=== PATIENT | female | born 1940 | race Caucasian/White ===

== ENCOUNTER → 2017-11-17 10:55 | Outpatient (CLI) | payer MEDICARE, SELFPAY ==
--- NOTE | 2017-11-17 10:57 | DI.RAD.S_ITS ---
PROCEDURE: XR CHEST 2V INDICATIONS: cough TECHNIQUE: 2 views of the chest were acquired. COMPARISON: None. FINDINGS: Surgical changes and devices: None. Lungs and pleura: No pleural effusions or pneumothorax. Lungs are clear. Mediastinum: Mediastinal contours are normal. Heart size is normal. Bones and chest wall: No suspicious bony abnormalities. Soft tissues appear unremarkable. IMPRESSION: No acute cardiopulmonary disease process. Dictated by: Awa Neff MD, PhD on 11/17/2017 at 11:27 Approved by: Awa Neff MD, PhD on 11/17/2017 at 11:27
== END ==
PROVIDERS: Visit Provider Physician Assistant
DX: R05 Cough (principal)
CPT/HCPCS: 71046

== ENCOUNTER 2019-11-27 13:14 | Emergency (ER) | payer MEDICARE, SELFPAY ==
[2019-11-27 13:25] VITALS: BP 196/80; PULSE 68; RESP 16; TEMP 37.2; O2SAT 99
--- NOTE | 2019-11-27 13:31 | ED.WOUNDLAC ---
HPI - Wound/Laceration General Chief Complaint: Wound/Laceration Stated Complaint: fall, wound under her chin,on thinners Time Seen by Provider: 11/27/19 13:20 Source: patient Mode of arrival: Ambulatory Limitations: no limitations History of Present Illness HPI narrative: Patient is a 79-year-old female who presents with chin laceration. She had a trip and fall is all landing on her chin. She is on Eliquis for atrial fibrillation she did not hit her head or lose consciousness. She has no neck pain no numbness tingling or week nose no other injuries. Onset (ago): minute(s) Location: face Place: outdoors Related Data Home Medications Medication Instructions Recorded Confirmed hydroxychloroquine 200 mg tablet 200 mg PO DAILY tab 10/17/17 11/27/19 omega 4-kvq-dug-fish oil 1,000 mg cap PO cap 10/17/17 11/17/17 (120 mg-180 mg) capsule omeprazole 10 mg capsule,delayed 20 mg PO DAILY 10/17/17 11/27/19 release prednisone 1 mg tablet 1 mg PO DAILY 10/17/17 11/27/19 amitriptyline 11/27/19 apixaban [Eliquis] mg 11/27/19 losartan 11/27/19 metoprolol tartrate 11/27/19 simvastatin mg 11/27/19 Allergies Allergy/AdvReac Type Severity Reaction Status Date / Time codeine [CODEINE] AdvReac Unknown Vomiting Verified 11/27/19 13:30 oyster extract AdvReac Diarrhea Verified 11/27/19 13:30 Review of Systems Review of Systems Narrative: GENERAL: Denies chills,fever HEENT: Denies throat pain RESPIRATORY: Denies dyspnea, cough, wheezing CARDIOVASCULAR: Denies chest pain, palpitations GASTROINTESTINAL: Denies nausea, vomiting MUSCULOSKELETAL: Denies extremity pain, injury SKIN: See HPI NEUROLOGIC: Denies weakness, dizziness, headache, numbness, LOC 8 point review of systems is negative except for those stated above and HPI Patient History Medical History Multiple sclerosis (Acute) Sjogren's disease (Acute) Social History Smoking Status: Former smoker Smoking Status: Former smoker alcohol intake frequency: a few times a week Substance Use Type: does not use Exam Initial Vital Signs Initial Vital Signs: Vital Signs Temperature 99 F 11/27/19 13:25 Pulse Rate 68 11/27/19 13:25 Respiratory Rate 16 11/27/19 13:25 Blood Pressure 196/80 H 11/27/19 13:25 Pulse Oximetry 99 11/27/19 13:25 GENERAL: Well-appearing, well-nourished and in no acute distress. HEENT: Head atraumatic,EOMI, pupils reactive, face symmetric, moist mucous membranes CARDIOVASCULAR: Regular rate and rhythm without murmurs, rubs or gallops. RESPIRATORY: Breath sounds equal bilaterally, no wheezes rales or rhonchi. ABDOMEN: Soft, nontender. Normoactive bowel sounds all 4 quadrants. No guarding or rebound. EXTREMITIES: Normal range of motion, no clubbing or edema. Neurovascularly intact NEUROLOGICAL: Alert and oriented x4.Normal gait and speech. SKIN: 2 cm chin laceration good skin approximation Procedures Laceration Repair Laceration 1: Site: face Size (cm): 2 Description: linear Depth: simple, single layer Local Anesthetic: lidocaine 1% and with epi Amount of anesthesia used (mL): 3 Pre-repair: wound explored, irrigated extensively and deep structures intact Skin layer closed with: nylon Size (cm): 4-0 Number of sutures: 3 Technique: simple, interrupted Scores Nexus Score for C-Spine Focal Neurologic deficit present: No Midline spinal tenderness present: No Altered level of conciousness present: No Intoxication present: No Distracting Injury Present: No Nexus Criteria for C-spine: 0 Course Orders Ordered: Discontinued Medications Diphtheria/Tetanus/Acell Pertussis (Adacel) 0.5 ml IM .ONCE ONE Stop: 11/27/19 13:33 Last Admin: 11/27/19 13:37 Dose: 0.5 ml Documented by: KYLEE Lidocaine/Epinephrine (Xylocaine 1% W/Epi) 1 ml SUBCUT NOW ONE Stop: 11/27/19 13:32 Last Admin: 11/27/19 13:37 Dose: 1 ml Documented by: KYLEE Vital Signs Vital signs: Vital Signs - 8 hr 11/27/19 13:25 11/27/19 14:30 Temperature 99 F Pulse Rate 68 63 Respiratory Rate 16 Blood Pressure 196/80 H 154/69 H Pulse Oximetry 99 100 MDM - Wound/Laceration MDM Narrative Medical decision making narrative: Patient did not hit her head she only hit her chin where she has an obvious laceration. No loss of consciousness no neck pain. At this time no need for any imaging despite being on Eliquis. Patient tolerated suturing well in laceration came together nicely. Discharge Plan Departure Patient Disposition: Home Clinical Impression: Chin laceration Qualifiers: Encounter type: initial encounter Qualified Code(s): S01.81XA - Laceration without foreign body of other part of head, initial encounter Discharge Date/Time: 11/27/19 14:31 Instructions: DI for Laceration Repair Activity Restrictions/Additional Instructions: 1. Have your suture removed in 5-7 days, you may go to walk-in clinic, return to the ER or call your primary care physician. 2. No soaking in water including dishes, bathtubs, Lakes, swimming pools etc 3. Signs of infection include, but not limited to, increased redness, increased swelling, increased pain, fever and purulent drainage, if the symptoms should arise, you may need an antibiotic and you should have a reevaluation either by your primary care provider or by the emergency department. Prescriptions: No Action prednisone 1 mg tablet 1 mg PO DAILY RF: 0 hydroxychloroquine 200 mg tablet 200 mg PO DAILY RF: 0 omeprazole 10 mg capsule,delayed release(DR/EC) 20 mg PO DAILY RF: 0 omega 2-kat-vms-fish oil [Fish Oil] 1,000 mg (120 mg-180 mg) capsule PO RF: 0 amitriptyline 25 mg tablet RF: 0 Eliquis 5 mg tablet RF: 0 losartan 100 mg tablet RF: 0 metoprolol tartrate 50 mg tablet RF: 0 simvastatin 20 mg tablet RF: 0 Referrals: [facility] [Outside]
[2019-11-27] MEDS: TET,DIPH,PERTUSS(ACELL),VAC/PF 0.5 ML SYRINGE IM (13:37)
[2019-11-27] MEDS: LIDOCAINE 1% W/EPI 1 ML SUBCUT (13:37)
[2019-11-27 14:30] VITALS: BP 154/69; PULSE 63; O2SAT 100
== END 2019-11-27 14:31 | disposition home or self-care (01) ==
PROVIDERS: Emergency Provider Emergency Medicine
DX: S01.81XA Laceration without foreign body of other part of head, initial encounter (principal); W19.XXXA Unspecified fall, initial encounter; I48.91 Unspecified atrial fibrillation; Z79.01 Long term (current) use of anticoagulants; Z23 Encounter for immunization
CPT/HCPCS: 12011; 90471; 99283; 90715

== ENCOUNTER 2020-01-31 16:02 | Inpatient (IN) | payer MEDICARE, SELFPAY ==
[2020-01-31] VITALS (23 sets, daily range): BP systolic 90–179; BP diastolic 46–100; PULSE 102–128; RESP 14–32; TEMP 36.4–37.2; O2SAT 79–100; BMI 27.3
--- NOTE | 2020-01-31 | DI.ECHO.S_ITS ---
[place] +---------+ [facility] +---------+ : : [address] : : : : [id number] : : : : Phone: [phone] Echocardiogram Report + + :Name: CARLIE KELLY Study Date: 02/01/2020 Height: 62 in : :[facility] Weight: 153 lb : : Gender: Female BSA: 1.7 m2 : :: 1940 Age: 79 yrs BP: 149/100 mmHg: :Reason For Study: AFIB RVR : : Performed By: Edson Redd : :Referring: CONRAD MORELOS : + + Interpretation Summary Afib with RVR. Normal LV size and wall thickness. Normal wall motion and LV systolic function. EF is 60-65%. Severe LA enlargement; mild-moderate RA enlargement. There is moderate central TR; otherwise no significant valvular abnormalities. No prior study available for comparison. Procedure: A two-dimensional transthoracic echocardiogram with color flow and Doppler was performed. The study quality was technically good. There is no prior echocardiogram noted for this patient. The patient was in atrial fibrillation with controlled ventricular rate during the exam. The patient had a heart rate of 87-113 beats per minute. Left Ventricle: The left ventricle is normal in size. There is normal left ventricular wall thickness. The ejection fraction is estimated to be 60-65%. There are no focal wall motion abnormalities. Right Ventricle: The right ventricle is normal in size and function. Atria: The left atrium is severely dilated. The right atrium is mild to moderately dilated. The interatrial septum is intact with no evidence for an atrial septal defect. Mitral Valve: There is mild mitral annular calcification. There is mild mitral regurgitation. Aortic Valve: The aortic valve is trileaflet. The aortic valve opens well. No aortic regurgitation is present. Tricuspid Valve: The tricuspid valve is normal in structure and function. There is moderate tricuspid regurgitation. The right ventricular systolic pressure is estimated to be at least 26 mmHg based on an estimated right atrial pressure of 3 mm Hg. Pulmonic Valve: The pulmonic valve is normal in structure and function. There is trace pulmonic regurgitation. Great Vessels: The aortic root is normal size. The dimensions of the ascending aorta are normal. The pulmonary artery is normal size. The IVC is of normal diameter and collapses greater than 50% with a sniff. This suggests a low right atrial pressure of 3 mm Hg. Pericardium/ Pleura There is no pericardial effusion. There is no pleural effusion. MMode/2D Measurements & Calculations LVIDd: 4.0 cm LVOT diam: 1.8 cm LVIDs: 2.5 cm Ao root diam: 2.4 cm FS: 37.7 % asc Aorta Diam: 3.0 cm EPSS: 0.14 cm Ao Arch Diam (Prox Trans): 2.1 cm IVSd: 0.87 cm LVPWd: 0.89 cm LV cho. diameter/BSA (cm/m^2): 2.4 LV sys. diameter/BSA (cm/m^2): 1.5 LA dimension: 3.9 cm RA long axis: 5.4 cm LA A2 area: 25.8 cm2 RA area: 20.9 cm2 LA A4 area: 27.0 cm2 RA vol: 68.3 ml LA length (vol): 6.4 cm RA : 40.0 ml/m2 LA vol: 93.1 ml IVC diam: 0.76 cm LA vol index: 54.6 ml/m2 TAPSE: 1.7 cm Doppler Measurements & Calculations Ao V2 max: 97.0 cm/sec LVOT Max Dimitry: 66.9 cm/sec Ao V2 mean: 73.1 cm/sec LV V1 max P.8 mmHg Ao max P.8 mmHg LV V1 VTI: 14.7 cm Ao mean P.3 mmHg SARAY(I,D): 2.3 cm2 Ao V2 VTI: 17.1 cm SARAY(V,D): 1.8 cm2 sev ratio: 0.86 SARAY indexed to BSA (cm^2/m^2): 1.3 MV E max dimitry: 99.0 cm/sec TR max dimitry: 239.0 cm/sec MV A max dimitry: 2.2 cm/sec TR max P.9 mmHg MV E/A: 45.9 PA V2 max: 64.5 cm/sec Med Peak E' Dimitry: 6.2 cm/sec PA V2 mean: 49.9 cm/sec E/E' med: 16.0 PA mean P.1 mmHg Lat Peak E' Dimitry: 10.7 cm/sec PA pr(Accel): 43.0 mmHg E/E' lat: 9.3 E/e' average: 12.7 MV dec time: 0.12 sec MR PISA: 1.3 cm2 SV(LVOT): 38.5 ml MR flow rate: 47.6 cm3/sec MR PISA radius: 0.45 cm Electronically signed by: Isha Bhakta M.D. on Reading Physician:02/01/2020 05:46 PM
--- NOTE | 2020-01-31 16:13 | DI.RAD.S_ITS ---
PROCEDURE: XR CHEST 1V INDICATIONS: chest pain TECHNIQUE: One view of the chest was acquired. COMPARISON: [facility], CR, XR CHEST 2V, 11/17/2017, 10:43. FINDINGS: Surgical changes and devices: None. Lungs and pleura: Lungs are clear. No pleural effusions or pneumothorax. Mediastinum: Mediastinal contours appear normal. Heart size is normal. Bones and chest wall: No suspicious bony lesions. Overlying soft tissues appear unremarkable. IMPRESSION: 1. No acute cardiopulmonary disease. Dictated by: Iban Frost M.D. on 01/31/2020 at 15:56 Approved by: Iban Frost M.D. on 01/31/2020 at 15:56
[2020-01-31] MEDS: SODIUM CHLORIDE 0.9% 500 ML 1000 ML IV (16:39)
[2020-01-31 16:41] LABS: Add Manual Diff / Slide Review NO; Basophils Absolute Auto 0 /uL (0-100); Basophils Percent Auto 0.5 % (0-2); Eosinophils Absolute Auto 0 /uL (0-450); Eosinophils Percent Auto 0.5 % (2-4); Hematocrit 38.2 % (36-46); Hemoglobin 12.8 g/dL (12.0-16.0); Lymphocytes Absolute Auto 2200 /uL (1100-4500); Lymphocytes Percent Auto 25.5 % (25-40); Mean Corpuscular HGB Conc 33.4 % (30-36); Mean Corpuscular Hemoglobin 29.8 PG (26-34); Mean Corpuscular Volume 89.3 fL (80-100); Monocytes Absolute Auto 500 /uL (0-900); Monocytes Percent Auto 5.3 % (3-14); Neutrophils Absolute Auto 6000 /uL (1500-7000); Neutrophils Percent Auto 68.2 % (50-75); Platelet Count 269 X10^3/uL (150-400); Red Blood Cell Count 4.28 X10^6/uL (4.0-5.2); Red Cell Distribution Width 13.1 % (11.6-14.8); White Blood Cell Count 8.8 X10^3/uL (4.5-11.0)
[2020-01-31 16:47] LABS: INR 1.3 (0.9-1.3); Prothrombin Time 14.6 SECONDS (10.1-12.7)
[2020-01-31 16:49] LABS: PTT Partial Thromboplastin Tim 36 SECONDS (26.4-36.2)
[2020-01-31 16:54] LABS: Alanine Aminotransferase 31 IU/L (<35); Albumin 4.7 g/dL (3.5-5.0); Albumin Globulin Ratio 1.6 (1.0-2.8); Alkaline Phosphatase 62 U/L (38-126); Aspartate Aminotransferase 44 IU/L (14-36); Bilirubin Total 0.6 mg/dL (0.2-1.3); Blood Urea Nitrogen 24 mg/dL (7-17); Calcium 9.4 mg/dL (8.4-10.2); Carbon Dioxide 26 mmol/L (22-32); Chloride 100 mmol/L (98-107); Creatine Kinase 581 U/L (30-135); Estimated Glomerular Filt Rate 48.7 mL/min (>60); Globulin 2.9 g/dL (1.7-4.1); Glucose 114 mg/dL (80-110); HEMOLYSIS < 15 (0-50); Lipase 105 U/L (23-300); Potassium 3.7 mmol/L (3.4-5.1); Sodium 136 mmol/L (137-145); Total Protein 7.6 g/dL (6.3-8.2)
[2020-01-31 17:05] LABS: Troponin I < 0.012 ng/mL (0.01-0.034)
[2020-01-31 17:09] LABS: CKMB % Relative Index 2.2 % (1.5-5.0)
[2020-01-31 17:16] LABS: NT-proBNP (BNP-Adult 18+) 2520 pg/mL (<450)
[2020-01-31] MEDS: METOPROLOL TARTRATE 5 MG/5 ML INJ IV (17:45)
[2020-01-31] MEDS: SODIUM CHLORIDE 0.9% 1,000 ML 125 ML IV (17:46)
--- NOTE | 2020-01-31 17:49 | ED.ARRPALP ---
HPI - Arrhythmia/Palpitations <Deannecaroline Shultz, DO - Last Filed: 02/06/20 18:02> General Chief Complaint: Arrhythmia/Palpitations Stated Complaint: possible afib Time Seen by Provider: 01/31/20 16:47 Source: patient Mode of arrival: Family Vehicle Limitations: no limitations History of Present Illness HPI narrative: 79-year-old female comes to the emergency department with complaint of presyncope x2, patient states the 1st episode was at 2:00 p.m. this afternoon. She felt lightheaded and then had almost a blackout episode but states she did not lose consciousness. She started drinking water, checked her blood pressure which was up and down and noted her heart rate on machine was also up and down. She denies any palpitations, no chest pain or shortness of breath, she states she just did not feel well this morning. She denies any fevers, chills, no cough cold or congestion. No swelling in her extremities. She has had some mild sore throat. She did feel dizzy after both per syncopal episodes. She has a history of atrial fibrillation which is diagnosed 9 months ago she has been taking Eliquis and metoprolol daily since then with no issues or breakthrough? in her atrial fibrillation. She states she has been diagnosed with MS as well as rheumatoid arthritis and Sjogren's and Raynaud's and takes medications including hydrochloroquine, prednisone, Plaquenil, losartan, amitriptyline and simvastatin daily for this. She has a history of hysterectomy, surgery in her foot, she had a catheter many years ago but has not had any recent catheterizations. Denies tobacco occasional alcohol no illicit. She moved to the area from [place] and has not established with a PCP she does have an appointment pending with Dr. Wahl the community health director locally. Related Data Home Medications Medication Instructions Recorded Confirmed omeprazole 10 mg capsule,delayed 20 mg PO DAILY 10/17/17 01/31/20 release prednisone 1 mg tablet 1 mg PO BID 10/17/17 01/31/20 Eliquis 5 mg PO BID 11/27/19 01/31/20 metoprolol tartrate 50 mg PO BID 11/27/19 01/31/20 simvastatin 20 mg PO BEDTIME 11/27/19 01/31/20 Previous Rx's Medication Instructions Recorded amiodarone 400 mg PO BIDWM #70 tab 10/14/20 metoprolol succinate 50 mg PO DAILY #30 each 02/06/20 Allergies Allergy/AdvReac Type Severity Reaction Status Date / Time codeine [CODEINE] AdvReac Unknown Vomiting Verified 11/27/19 13:30 oyster extract AdvReac Diarrhea Verified 11/27/19 13:30 Review of Systems <Deanne Shultz DO - Last Filed: 02/06/20 18:02> Review of Systems ROS Unobtainable: All systems reviewed & are unremarkable except as noted in HPI and below Patient History <Deanne Shultz DO - Last Filed: 02/06/20 18:02> Medical History Atrial fibrillation (Acute) Multiple sclerosis (Acute) Rheumatoid arthritis (Acute) Sjogren's disease (Acute) Surgical History History of foot surgery (Acute) History of hysterectomy (Acute) Family History Father Cardiomyopathy Diabetes mellitus Alzheimer's dementia Mother Cancer Brother Coronary artery disease Hx of CABG Social History household members: none Smoking Status: Former smoker alcohol intake: current Smoking Status: Former smoker alcohol intake frequency: a few times a week Substance Use Type: does not use Exam <Deanne Shultz DO - Last Filed: 02/06/20 18:02> Narrative Exam Narrative: GENERAL: Alert and oriented x three, well-nourished, well-appearing female in mild distress. HEENT: Head normocephalic, atraumatic, EOMI, pupils reactive, face symmetric, moist mucous membranes NECK: Supple, full range of motion CARDIOVASCULAR: Irregularly irregular rate and rhythm without murmurs, rubs or gallops. No JVD, no edema bilateral lower extremities. RESPIRATORY: Breath sounds equal bilaterally, no wheezes rales or rhonchi. ABDOMEN: Soft, nontender. Normoactive bowel sounds all 4 quadrants. No guarding or rebound, rigidity, no mass : No CVA tenderness EXTREMITIES: Normal range of motion, no clubbing or edema. Neurovascularly intact NEUROLOGICAL: Cranial nerves II through XII grossly intact. Moving all extremities SKIN: Warm, dry, no petechiae, no rashes or lesions. Initial Vital Signs Initial Vital Signs: Vital Signs Temperature 98.5 F 01/31/20 16:11 Pulse Rate 116 H 01/31/20 16:11 Respiratory Rate 18 01/31/20 16:11 Blood Pressure 179/95 H 01/31/20 16:11 Pulse Oximetry 98 01/31/20 16:11 <Mckayla Vasquez MD - Last Filed: 02/01/20 02:57> Initial Vital Signs Initial Vital Signs: Vital Signs Temperature 98.5 F 01/31/20 16:11 Pulse Rate 116 H 01/31/20 16:11 Respiratory Rate 18 01/31/20 16:11 Blood Pressure 179/95 H 01/31/20 16:11 Pulse Oximetry 98 01/31/20 16:11 Course <Deanne Shultz DO - Last Filed: 02/06/20 18:02> Orders Ordered: Discontinued Medications Acetaminophen (Tylenol) 650 mg PO Q6HR PRN PRN Reason: Fever/Mild Pain (1-3) Last Admin: 02/01/20 06:12 Dose: 650 mg Documented by: AHARSTA Al Hydrox/Mg Hydrox/Simethicone (Maalox Plus) 30 ml PO Q6HR PRN PRN Reason: Dyspepsia Amiodarone HCl (Cordarone) 200 mg PO BIDWM [facility] Last Admin: 02/03/20 08:44 Dose: 200 mg Documented by: Admin: 02/03/20 06:07 Dose: 200 mg Documented by: MALIK Amitriptyline HCl (Elavil) 25 mg PO NOW ONE Stop: 01/31/20 19:59 Last Admin: 01/31/20 20:46 Dose: 25 mg Documented by: ROSELIA Amitriptyline HCl (Elavil) 25 mg PO BEDTIME [facility] Last Admin: 02/03/20 01:13 Dose: Not Given Documented by: Admin: 02/01/20 20:55 Dose: 25 mg Documented by: JEAN PAUL Apixaban (Eliquis) 5 mg PO NOW ONE Stop: 01/31/20 19:59 Last Admin: 01/31/20 20:46 Dose: 5 mg Documented by: ROSELIA Apixaban (Eliquis) 5 mg PO BID [facility] Apixaban (Eliquis) 5 mg PO BID [facility] Last Admin: 02/03/20 08:44 Dose: 5 mg Documented by: Admin: 02/02/20 19:44 Dose: 5 mg Documented by: Admin: 02/02/20 09:07 Dose: 5 mg Documented by: Admin: 02/01/20 20:55 Dose: 5 mg Documented by: JEAN PAUL Admin: 02/01/20 08:10 Dose: 5 mg Documented by: PATRICIO Bisacodyl (Dulcolax) 10 mg NC DAILY PRN PRN Reason: Constipation Calcium Carbonate (Tums) 1,000 mg PO Q4HR PRN PRN Reason: Dyspepsia Docusate Sodium (Colace) 100 mg PO BID PRN PRN Reason: Constipation Furosemide (Lasix) 20 mg IV NOW ONE Stop: 01/31/20 19:59 Last Admin: 01/31/20 20:46 Dose: 20 mg Documented by: ROSELIA Hydroxychloroquine Sulfate (Plaquenil) 200 mg PO NOW ONE Stop: 01/31/20 19:59 Last Admin: 01/31/20 20:46 Dose: 200 mg Documented by: ROSELIA Hydroxychloroquine Sulfate (Plaquenil) 200 mg PO BID [facility] Last Admin: 02/03/20 08:44 Dose: 200 mg Documented by: Admin: 02/02/20 19:44 Dose: 200 mg Documented by: Admin: 02/02/20 09:07 Dose: 200 mg Documented by: Admin: 02/01/20 20:55 Dose: 200 mg Documented by: JEAN PAUL Admin: 02/01/20 08:10 Dose: 200 mg Documented by: PATRICIO Sodium Chloride (Normal Saline 0.9%) 500 mls @ 1,000 mls/hr IV BOLUS ONE Stop: 01/31/20 17:04 Last Infusion: 01/31/20 17:17 Dose: 0 mls/hr Documented by: Admin: 01/31/20 16:39 Dose: 1,000 mls/hr Documented by: INDUIN Sodium Chloride (Normal Saline 0.9%) 1,000 mls @ 125 mls/hr IV CONT [facility] Last Infusion: 01/31/20 21:07 Dose: 0 mls/hr Documented by: Admin: 01/31/20 17:46 Dose: 125 mls/hr Documented by: ELIECERARTIN Amiodarone HCl/Dextrose (Nexterone) 360 mg in 200 mls @ 33.333 mls/hr IV NOW ONE; Protocol Stop: 02/01/20 23:24 Last Titration: 02/01/20 23:55 Dose: 16.7 mls/hr, 16.7 mls/hr Documented by: Admin: 02/01/20 19:24 Dose: 33.33 mls/hr, 33.333 mls/hr Documented by: JEAN PAUL Amiodarone HCl/Dextrose (Nexterone) 541 mg in 300.56 mls @ 16.7 mls/hr IV CONT [facility]; Protocol Stop: 03/03/20 17:25 Last Titration: 02/02/20 12:20 Dose: 0 mls/hr, 0 mls/hr Documented by: Admin: 02/02/20 01:23 Dose: 16.7 mls/hr, 16.7 mls/hr Documented by: PHIL Sodium Chloride (Normal Saline 0.9%) 1,000 mls @ 84 mls/hr IV CONT [facility] Last Admin: 02/02/20 11:03 Dose: 84 mls/hr Documented by: SPRING Influenza Virus Vaccine (Flu Hd Vaccine) 0.7 ml IM .ONCE ONE Stop: 02/01/20 09:01 Last Admin: 02/01/20 09:38 Dose: 0.7 ml Documented by: CPETRIC Metoprolol Tartrate (Lopressor) 5 mg IV NOW ONE Stop: 01/31/20 17:38 Last Admin: 01/31/20 17:45 Dose: 5 mg Documented by: RMARTIN Metoprolol Tartrate (Lopressor) 50 mg PO NOW ONE Stop: 01/31/20 19:59 Last Admin: 01/31/20 20:26 Dose: 50 mg Documented by: RSTONE Metoprolol Tartrate (Lopressor) 25 mg PO BID [facility] Last Admin: 01/31/20 21:29 Dose: Not Given Documented by: CGIBSON Metoprolol Tartrate (Lopressor) 5 mg IV Q6H [facility] Last Admin: 01/31/20 21:33 Dose: Not Given Documented by: TWIN Metoprolol Tartrate (Lopressor) 5 mg IV Q6H PRN PRN Reason: HR wrist sustained > 120 Metoprolol Tartrate (Lopressor) 50 mg PO BID [facility] Metoprolol Tartrate (Lopressor) 50 mg PO BID [facility] Last Admin: 02/01/20 06:04 Dose: 50 mg Documented by: HERBERT Metoprolol Tartrate (Lopressor) 75 mg PO BID [facility] Metoprolol Tartrate (Lopressor) 25 mg PO BID [facility] Last Admin: 02/03/20 08:44 Dose: 25 mg Documented by: Admin: 02/02/20 19:44 Dose: 25 mg Documented by: Admin: 02/02/20 11:10 Dose: 25 mg Documented by: SPRING Metoprolol Tartrate (Lopressor) 25 mg PO NOW ONE Stop: 02/03/20 10:20 Last Admin: 02/03/20 11:05 Dose: 25 mg Documented by: SPRING Metoprolol Tartrate (Lopressor) 25 mg PO NOW ONE Stop: 02/03/20 12:32 Last Admin: 02/03/20 12:57 Dose: 25 mg Documented by: PINO Naloxone HCl (Narcan) 0.2 mg IV Q2MIN PRN PRN Reason: Opiate Reversal Naloxone HCl (Narcan) 0.2 mg IV Q2MIN PRN PRN Reason: Opiate Reversal Non-Formulary Medication (Patient's Own Medication) 0 each PO PRN PRN PRN Reason: HOME MEDICATION STORAGE Ondansetron HCl (Zofran) 4 mg IV Q8HR PRN PRN Reason: Nausea And Vomiting Pantoprazole Sodium (Protonix) 20 mg PO DAILY [facility] Last Admin: 02/03/20 08:44 Dose: 20 mg Documented by: Admin: 02/02/20 09:07 Dose: 20 mg Documented by: Admin: 02/01/20 08:10 Dose: 20 mg Documented by: PATRICIO Potassium Chloride (Klor-Con M20) 40 meq PO NOW ONE Stop: 01/31/20 21:20 Last Admin: 01/31/20 22:21 Dose: 40 meq Documented by: TWIN Prednisone (Deltasone) 1 mg PO NOW ONE Stop: 01/31/20 20:10 Last Admin: 01/31/20 20:46 Dose: 1 mg Documented by: ROSELIA Prednisone (Deltasone) 1 mg PO BID [facility] Admin: 02/03/20 08:44 Dose: 1 mg Documented by: Admin: 02/02/20 19:45 Dose: 1 mg Documented by: Admin: 02/02/20 09:07 Dose: 1 mg Documented by: Admin: 02/01/20 20:55 Dose: 1 mg Documented by: JEAN PAUL Admin: 02/01/20 09:35 Dose: 1 mg Documented by: PATRICIO Simvastatin (Zocor) 20 mg PO BEDTIME [facility] Last Admin: 02/02/20 19:45 Dose: 20 mg Documented by: Admin: 02/01/20 20:55 Dose: 20 mg Documented by: JEAN PAUL Sodium Chloride (Normal Saline 0.9% Flush) 10 ml IV BID [facility] Last Admin: 02/03/20 08:44 Dose: 10 ml Documented by: Admin: 02/02/20 19:51 Dose: Not Given Documented by: Admin: 02/02/20 09:07 Dose: 10 ml Documented by: Admin: 02/01/20 21:02 Dose: 10 ml Documented by: JEAN PAUL Admin: 02/01/20 08:10 Dose: 10 ml Documented by: Admin: 01/31/20 23:42 Dose: Not Given Documented by: HERBERT Sodium Chloride (Normal Saline 0.9% Flush) 10 ml IV PRN PRN PRN Reason: Flush Vital Signs Vital signs: Vital Signs - 8 hr 01/31/20 19:00 01/31/20 19:15 01/31/20 19:30 Pulse Rate 119 H 116 H 103 H Respiratory Rate 19 24 21 Blood Pressure 148/87 H 145/92 H Pulse Oximetry 99 100 100 01/31/20 19:42 01/31/20 20:00 Pulse Rate 120 H 108 H Respiratory Rate 24 14 Blood Pressure 169/81 H Pulse Oximetry 99 <Mckayla Vasquez MD - Last Filed: 02/01/20 02:57> Course Course Narrative: 79-year-old woman, recently moved to the area with no established primary care physician presents with 3 episodes of near-syncope today that seem to be related to atrial fibrillation. She was diagnosed with atrial fibrillation approximately a year ago and has been taking 50 mg of metoprolol tartrate at bedtime as well as 5 mg of Eliquis since that time. She does not believe that she has been in atrial fibrillation since the initial diagnosis however here in the emergency department she also cannot tell that she is in atrial fibrillation when she clearly is and her heart rate is at 140. Workup does not suggest significant infection. Is unremarkable and EKG does not suggest an acute coronary syndrome. ProBNP is significantly elevated without clear evidence of interstitial findings or pleural effusion on chest x-ray. Over the course of her emergency room stay her heart rate has been as low as 100 and is high as 150. She does not sense the rate changes. Her blood pressure has been significantly variable with lows of 100/40 and highs of 179/95 that do not necessarily correlate with her heart rate. Given that symptoms are new as of today, it is unclear whether she has been in and out of atrial fibrillation, she carries no previous diagnosis of congestive heart failure and she has had 3 near syncopal episodes today I believe further evaluation and hospitalization at this point will be prudent. She has been given additional metoprolol in the emergency room IV that has not completely controlled her rate. She is due for her usual 5 mg of Eliquis and 50 mg of metoprolol will go ahead and give those now. She is also on losartan for blood pressure will hold that this evening in lieu of Lasix, given the elevated proBNP. We need to improve her rate control, an echocardiogram is likely going to be helpful in guiding decision-making and decide if she needs to be cardioverted or if she has been in a rate controlled atrial fibrillation for an extended period of time and is now having new syncopal episodes and new signs of heart failure. reviewed with DAPHNEY Peters [facility] hospitalist. Will admit. Decision to Admit Date: 01/31/20 Decision to Admit time: 19:58 Orders Ordered: Discontinued Medications Acetaminophen (Tylenol) 650 mg PO Q6HR PRN PRN Reason: Fever/Mild Pain (1-3) Last Admin: 02/01/20 06:12 Dose: 650 mg Documented by: HERBERT Al Hydrox/Mg Hydrox/Simethicone (Maalox Plus) 30 ml PO Q6HR PRN PRN Reason: Dyspepsia Amiodarone HCl (Cordarone) 200 mg PO BIDWM [facility] Last Admin: 02/03/20 08:44 Dose: 200 mg Documented by: Admin: 02/03/20 06:07 Dose: 200 mg Documented by: MALIK Amitriptyline HCl (Elavil) 25 mg PO NOW ONE Stop: 01/31/20 19:59 Last Admin: 01/31/20 20:46 Dose: 25 mg Documented by: ROSELIA Amitriptyline HCl (Elavil) 25 mg PO BEDTIME [facility] Last Admin: 02/03/20 01:13 Dose: Not Given Documented by: Admin: 02/01/20 20:55 Dose: 25 mg Documented by: JEAN PAUL Apixaban (Eliquis) 5 mg PO NOW ONE Stop: 01/31/20 19:59 Last Admin: 01/31/20 20:46 Dose: 5 mg Documented by: ROSELIA Apixaban (Eliquis) 5 mg PO BID [facility] Apixaban (Eliquis) 5 mg PO BID [facility] Last Admin: 02/03/20 08:44 Dose: 5 mg Documented by: Admin: 02/02/20 19:44 Dose: 5 mg Documented by: Admin: 02/02/20 09:07 Dose: 5 mg Documented by: Admin: 02/01/20 20:55 Dose: 5 mg Documented by: JEAN PAUL Admin: 02/01/20 08:10 Dose: 5 mg Documented by: PATRICIO Bisacodyl (Dulcolax) 10 mg NC DAILY PRN PRN Reason: Constipation Calcium Carbonate (Tums) 1,000 mg PO Q4HR PRN PRN Reason: Dyspepsia Docusate Sodium (Colace) 100 mg PO BID PRN PRN Reason: Constipation Furosemide (Lasix) 20 mg IV NOW ONE Stop: 01/31/20 19:59 Last Admin: 01/31/20 20:46 Dose: 20 mg Documented by: ROSELIA Hydroxychloroquine Sulfate (Plaquenil) 200 mg PO NOW ONE Stop: 01/31/20 19:59 Last Admin: 01/31/20 20:46 Dose: 200 mg Documented by: ROSELIA Hydroxychloroquine Sulfate (Plaquenil) 200 mg PO BID [facility] Last Admin: 02/03/20 08:44 Dose: 200 mg Documented by: Admin: 02/02/20 19:44 Dose: 200 mg Documented by: Admin: 02/02/20 09:07 Dose: 200 mg Documented by: Admin: 02/01/20 20:55 Dose: 200 mg Documented by: JEAN PAUL Admin: 02/01/20 08:10 Dose: 200 mg Documented by: CPETRIC Sodium Chloride (Normal Saline 0.9%) 500 mls @ 1,000 mls/hr IV BOLUS ONE Stop: 01/31/20 17:04 Last Infusion: 01/31/20 17:17 Dose: 0 mls/hr Documented by: ELIECERARTGERMÁN Admin: 01/31/20 16:39 Dose: 1,000 mls/hr Documented by: RMARTIN Sodium Chloride (Normal Saline 0.9%) 1,000 mls @ 125 mls/hr IV CONT [facility] Last Infusion: 01/31/20 21:07 Dose: 0 mls/hr Documented by: Admin: 01/31/20 17:46 Dose: 125 mls/hr Documented by: ELIECERARTIN Amiodarone HCl/Dextrose (Nexterone) 360 mg in 200 mls @ 33.333 mls/hr IV NOW ONE; Protocol Stop: 02/01/20 23:24 Last Titration: 02/01/20 23:55 Dose: 16.7 mls/hr, 16.7 mls/hr Documented by: Admin: 02/01/20 19:24 Dose: 33.33 mls/hr, 33.333 mls/hr Documented by: JEAN PAUL Amiodarone HCl/Dextrose (Nexterone) 541 mg in 300.56 mls @ 16.7 mls/hr IV CONT [facility]IL[facility]; Protocol Stop: 03/03/20 17:25 Last Titration: 02/02/20 12:20 Dose: 0 mls/hr, 0 mls/hr Documented by: Admin: 02/02/20 01:23 Dose: 16.7 mls/hr, 16.7 mls/hr Documented by: ARLINEEL Sodium Chloride (Normal Saline 0.9%) 1,000 mls @ 84 mls/hr IV CONT [facility] Last Admin: 02/02/20 11:03 Dose: 84 mls/hr Documented by: SPRING Influenza Virus Vaccine (Flu Hd Vaccine) 0.7 ml IM .ONCE ONE Stop: 02/01/20 09:01 Last Admin: 02/01/20 09:38 Dose: 0.7 ml Documented by: PATRICIO Metoprolol Tartrate (Lopressor) 5 mg IV NOW ONE Stop: 01/31/20 17:38 Last Admin: 01/31/20 17:45 Dose: 5 mg Documented by: INDUIN Metoprolol Tartrate (Lopressor) 50 mg PO NOW ONE Stop: 01/31/20 19:59 Last Admin: 01/31/20 20:26 Dose: 50 mg Documented by: GOMEZ Metoprolol Tartrate (Lopressor) 25 mg PO BID [facility] Last Admin: 01/31/20 21:29 Dose: Not Given Documented by: JOSEFABSON Metoprolol Tartrate (Lopressor) 5 mg IV Q6H [facility] Last Admin: 01/31/20 21:33 Dose: Not Given Documented by: JOSEFABSON Metoprolol Tartrate (Lopressor) 5 mg IV Q6H PRN PRN Reason: HR wrist sustained > 120 Metoprolol Tartrate (Lopressor) 50 mg PO BID [facility] Metoprolol Tartrate (Lopressor) 50 mg PO BID [facility] Last Admin: 02/01/20 06:04 Dose: 50 mg Documented by: HERBERT Metoprolol Tartrate (Lopressor) 75 mg PO BID [facility] Metoprolol Tartrate (Lopressor) 25 mg PO BID [facility] Last Admin: 02/03/20 08:44 Dose: 25 mg Documented by: Admin: 02/02/20 19:44 Dose: 25 mg Documented by: Admin: 02/02/20 11:10 Dose: 25 mg Documented by: SPRING Metoprolol Tartrate (Lopressor) 25 mg PO NOW ONE Stop: 02/03/20 10:20 Last Admin: 02/03/20 11:05 Dose: 25 mg Documented by: SPRING Metoprolol Tartrate (Lopressor) 25 mg PO NOW ONE Stop: 02/03/20 12:32 Last Admin: 02/03/20 12:57 Dose: 25 mg Documented by: PINO Naloxone HCl (Narcan) 0.2 mg IV Q2MIN PRN PRN Reason: Opiate Reversal Naloxone HCl (Narcan) 0.2 mg IV Q2MIN PRN PRN Reason: Opiate Reversal Non-Formulary Medication (Patient's Own Medication) 0 each PO PRN PRN PRN Reason: HOME MEDICATION STORAGE Ondansetron HCl (Zofran) 4 mg IV Q8HR PRN PRN Reason: Nausea And Vomiting Pantoprazole Sodium (Protonix) 20 mg PO DAILY [facility] Last Admin: 02/03/20 08:44 Dose: 20 mg Documented by: Admin: 02/02/20 09:07 Dose: 20 mg Documented by: Admin: 02/01/20 08:10 Dose: 20 mg Documented by: PATRICIO Potassium Chloride (Klor-Con M20) 40 meq PO NOW ONE Stop: 01/31/20 21:20 Last Admin: 01/31/20 22:21 Dose: 40 meq Documented by: TWIN Prednisone (Deltasone) 1 mg PO NOW ONE Stop: 01/31/20 20:10 Last Admin: 01/31/20 20:46 Dose: 1 mg Documented by: ROSELIA Prednisone (Deltasone) 1 mg PO BID [facility] Last Admin: 02/03/20 08:44 Dose: 1 mg Documented by: Admin: 02/02/20 19:45 Dose: 1 mg Documented by: Admin: 02/02/20 09:07 Dose: 1 mg Documented by: Admin: 02/01/20 20:55 Dose: 1 mg Documented by: JEAN PAUL Admin: 02/01/20 09:35 Dose: 1 mg Documented by: PATRICIO Simvastatin (Zocor) 20 mg PO BEDTIME [facility] Last Admin: 02/02/20 19:45 Dose: 20 mg Documented by: Admin: 02/01/20 20:55 Dose: 20 mg Documented by: JEAN PAUL Sodium Chloride (Normal Saline 0.9% Flush) 10 ml IV BID [facility] Last Admin: 02/03/20 08:44 Dose: 10 ml Documented by: Admin: 02/02/20 19:51 Dose: Not Given Documented by: Admin: 02/02/20 09:07 Dose: 10 ml Documented by: Admin: 02/01/20 21:02 Dose: 10 ml Documented by: JEAN PAUL Admin: 02/01/20 08:10 Dose: 10 ml Documented by: Admin: 01/31/20 23:42 Dose: Not Given Documented by: HERBERT Sodium Chloride (Normal Saline 0.9% Flush) 10 ml IV PRN PRN PRN Reason: Flush Vital Signs Vital signs: Vital Signs - 8 hr 01/31/20 19:00 01/31/20 19:15 01/31/20 19:30 Pulse Rate 119 H 116 H 103 H Respiratory Rate 19 24 21 Blood Pressure 148/87 H 145/92 H Pulse Oximetry 99 100 100 01/31/20 19:42 01/31/20 20:00 Pulse Rate 120 H 108 H Respiratory Rate 24 14 Blood Pressure 169/81 H Pulse Oximetry 99 MDM - Arrhythmia/Palpitations <Deanne Shultz DO - Last Filed: 02/06/20 18:02> Lab Data Attestation: I reviewed the patient's lab results. Lab results narrative: Patient has slightly elevated creatinine, sodium is 136 with a BUN of 24 and a glucose of 114. Normal CBC. With BNP of 2520 and a CK-MB of 13 and a total CK of 581. Chest x-ray shows no acute process. Patient does not have any prior labs available for comparison to see if these are her normal baseline or elevations. Result diagrams: 02/02/20 04:15 02/03/20 04:30 Labs: Lab Results 01/31/20 01/31/20 01/31/20 Range/Units 16:30 16:30 16:30 WBC 8.8 (4.5-11.0) X10^3/uL RBC 4.28 (4.0-5.2) X10^6/uL Hgb 12.8 (12.0-16.0) g/dL Hct 38.2 (36-46) % MCV 89.3 (80-100) fL MCH 29.8 (26-34) PG MCHC 33.4 (30-36) % RDW 13.1 (11.6-14.8) % Plt Count 269 (150-400) X10^3/uL Neut % (Auto) 68.2 (50-75) % Lymph % (Auto) 25.5 (25-40) % [place] % (Auto) 5.3 (3-14) % Eos % (Auto) 0.5 L (2-4) % Baso % (Auto) 0.5 (0-2) % Neut # (Auto) 6000 (5926-7267) /uL Lymph # (Auto) 2200 (3233-8340) /uL [place] # (Auto) 500 (0-900) /uL Eos # (Auto) 0 (0-450) /uL Baso # (Auto) 0 (0-100) /uL PT 14.6 H (10.1-12.7) SECONDS INR 1.3 (0.9-1.3) APTT 36 (26.4-36.2) SECONDS Sodium 136 L (137-145) mmol/L Potassium 3.7 (3.4-5.1) mmol/L Chloride 100 (98-107) mmol/L Carbon Dioxide 26 (22-32) mmol/L BUN 24 H (7-17) mg/dL Creatinine 1.09 H (0.52-1.04) mg/dL Estimated GFR 48.7 L (>60) mL/min BUN/Creatinine Ratio 22.0 (6-22) Glucose 114 H (80-110) mg/dL Hemoglobin A1c (4.0-6.0) % Calcium 9.4 (8.4-10.2) mg/dL Magnesium (1.6-2.3) mg/dL Total Bilirubin 0.6 (0.2-1.3) mg/dL AST 44 H (14-36) IU/L ALT 31 (<35) IU/L Alkaline Phosphatase 62 (38-126) U/L Total Creatine Kinase 581 H (30-135) U/L CK-MB (CK-2) 13.00 H (<2.37) ng/mL CK-MB (CK-2) Rel Index 2.2 (1.5-5.0) % Troponin I < 0.012 (0.01-0.034) ng/mL NT-Pro-B Natriuret Pep (<450) pg/mL Total Protein 7.6 (6.3-8.2) g/dL Albumin 4.7 (3.5-5.0) g/dL Globulin 2.9 (1.7-4.1) g/dL Albumin/Globulin Ratio 1.6 (1.0-2.8) Triglycerides (35-150) mg/dL Cholesterol (140-199) mg/dL LDL Cholesterol, Calc (<100) mg/dL HDL Cholesterol (40-60) mg/dL Lipase 105 (23-300) U/L TSH (0.47-4.68) uIU/mL Free T4 (0.78-2.19) ng/dL COVID-19 PCR (Negative) 01/31/20 01/31/20 01/31/20 Range/Units 16:30 16:30 20:09 WBC (4.5-11.0) X10^3/uL RBC (4.0-5.2) X10^6/uL Hgb (12.0-16.0) g/dL Hct (36-46) % MCV (80-100) fL MCH (26-34) PG MCHC (30-36) % RDW (11.6-14.8) % Plt Count (150-400) X10^3/uL Neut % (Auto) (50-75) % Lymph % (Auto) (25-40) % [place] % (Auto) (3-14) % Eos % (Auto) (2-4) % Baso % (Auto) (0-2) % Neut # (Auto) (2685-8342) /uL Lymph # (Auto) (2784-2935) /uL [place] # (Auto) (0-900) /uL Eos # (Auto) (0-450) /uL Baso # (Auto) (0-100) /uL PT (10.1-12.7) SECONDS INR (0.9-1.3) APTT (26.4-36.2) SECONDS Sodium (137-145) mmol/L Potassium (3.4-5.1) mmol/L Chloride (98-107) mmol/L Carbon Dioxide (22-32) mmol/L BUN (7-17) mg/dL Creatinine (0.52-1.04) mg/dL Estimated GFR (>60) mL/min BUN/Creatinine Ratio (6-22) Glucose (80-110) mg/dL Hemoglobin A1c (4.0-6.0) % Calcium (8.4-10.2) mg/dL Magnesium 2.1 (1.6-2.3) mg/dL Total Bilirubin (0.2-1.3) mg/dL AST (14-36) IU/L ALT (<35) IU/L Alkaline Phosphatase (38-126) U/L Total Creatine Kinase (30-135) U/L CK-MB (CK-2) (<2.37) ng/mL CK-MB (CK-2) Rel Index (1.5-5.0) % Troponin I (0.01-0.034) ng/mL NT-Pro-B Natriuret Pep 2520 H (<450) pg/mL Total Protein (6.3-8.2) g/dL Albumin (3.5-5.0) g/dL Globulin (1.7-4.1) g/dL Albumin/Globulin Ratio (1.0-2.8) Triglycerides (35-150) mg/dL Cholesterol (140-199) mg/dL LDL Cholesterol, Calc (<100) mg/dL HDL Cholesterol (40-60) mg/dL Lipase (23-300) U/L TSH (0.47-4.68) uIU/mL Free T4 (0.78-2.19) ng/dL COVID-19 PCR Negative (Negative) 02/01/20 02/01/20 02/01/20 Range/Units 04:45 04:45 04:45 WBC 8.4 (4.5-11.0) X10^3/uL RBC 4.15 (4.0-5.2) X10^6/uL Hgb 12.3 (12.0-16.0) g/dL Hct 37.0 (36-46) % MCV 89.2 (80-100) fL MCH 29.7 (26-34) PG MCHC 33.3 (30-36) % RDW 13.0 (11.6-14.8) % Plt Count 272 (150-400) X10^3/uL Neut % (Auto) 59.4 (50-75) % Lymph % (Auto) 31.5 (25-40) % [place] % (Auto) 7.6 (3-14) % Eos % (Auto) 0.8 L (2-4) % Baso % (Auto) 0.7 (0-2) % Neut # (Auto) 5000 (6415-4331) /uL Lymph # (Auto) 2600 (9541-1395) /uL [place] # (Auto) 600 (0-900) /uL Eos # (Auto) 100 (0-450) /uL Baso # (Auto) 100 (0-100) /uL PT (10.1-12.7) SECONDS INR (0.9-1.3) APTT (26.4-36.2) SECONDS Sodium 140 (137-145) mmol/L Potassium 4.7 (3.4-5.1) mmol/L Chloride 107 (98-107) mmol/L Carbon Dioxide 27 (22-32) mmol/L BUN 22 H (7-17) mg/dL Creatinine 1.06 H (0.52-1.04) mg/dL Estimated GFR 50.3 L (>60) mL/min BUN/Creatinine Ratio 20.8 (6-22) Glucose 90 (80-110) mg/dL Hemoglobin A1c 5.4 (4.0-6.0) % Calcium 9.3 (8.4-10.2) mg/dL Magnesium (1.6-2.3) mg/dL Total Bilirubin (0.2-1.3) mg/dL AST (14-36) IU/L ALT (<35) IU/L Alkaline Phosphatase (38-126) U/L Total Creatine Kinase (30-135) U/L CK-MB (CK-2) (<2.37) ng/mL CK-MB (CK-2) Rel Index (1.5-5.0) % Troponin I (0.01-0.034) ng/mL NT-Pro-B Natriuret Pep 7350 H (<450) pg/mL Total Protein (6.3-8.2) g/dL Albumin (3.5-5.0) g/dL Globulin (1.7-4.1) g/dL Albumin/Globulin Ratio (1.0-2.8) Triglycerides 109 (35-150) mg/dL Cholesterol 171 (140-199) mg/dL LDL Cholesterol, Calc 83 (<100) mg/dL HDL Cholesterol 66 H (40-60) mg/dL Lipase (23-300) U/L TSH (0.47-4.68) uIU/mL Free T4 (0.78-2.19) ng/dL COVID-19 PCR (Negative) 02/01/20 02/01/20 Range/Units 04:45 04:45 WBC (4.5-11.0) X10^3/uL RBC (4.0-5.2) X10^6/uL Hgb (12.0-16.0) g/dL Hct (36-46) % MCV (80-100) fL MCH (26-34) PG MCHC (30-36) % RDW (11.6-14.8) % Plt Count (150-400) X10^3/uL Neut % (Auto) (50-75) % Lymph % (Auto) (25-40) % [place] % (Auto) (3-14) % Eos % (Auto) (2-4) % Baso % (Auto) (0-2) % Neut # (Auto) (4847-2875) /uL Lymph # (Auto) (5200-7709) /uL [place] # (Auto) (0-900) /uL Eos # (Auto) (0-450) /uL Baso # (Auto) (0-100) /uL PT (10.1-12.7) SECONDS INR (0.9-1.3) APTT (26.4-36.2) SECONDS Sodium (137-145) mmol/L Potassium (3.4-5.1) mmol/L Chloride (98-107) mmol/L Carbon Dioxide (22-32) mmol/L BUN (7-17) mg/dL Creatinine (0.52-1.04) mg/dL Estimated GFR (>60) mL/min BUN/Creatinine Ratio (6-22) Glucose (80-110) mg/dL Hemoglobin A1c (4.0-6.0) % Calcium (8.4-10.2) mg/dL Magnesium 2.2 (1.6-2.3) mg/dL Total Bilirubin (0.2-1.3) mg/dL AST (14-36) IU/L ALT (<35) IU/L Alkaline Phosphatase (38-126) U/L Total Creatine Kinase (30-135) U/L CK-MB (CK-2) (<2.37) ng/mL CK-MB (CK-2) Rel Index (1.5-5.0) % Troponin I (0.01-0.034) ng/mL NT-Pro-B Natriuret Pep (<450) pg/mL Total Protein (6.3-8.2) g/dL Albumin (3.5-5.0) g/dL Globulin (1.7-4.1) g/dL Albumin/Globulin Ratio (1.0-2.8) Triglycerides (35-150) mg/dL Cholesterol (140-199) mg/dL LDL Cholesterol, Calc (<100) mg/dL HDL Cholesterol (40-60) mg/dL Lipase (23-300) U/L TSH 6.65 H (0.47-4.68) uIU/mL Free T4 1.00 (0.78-2.19) ng/dL COVID-19 PCR (Negative) ECG Data Attestation: I personally reviewed and interpreted this ECG as follows: Prior ECG tracings: not available for review Interpretation: AFib with rapid ventricular response rate of 101 QRS of 118 and QTC of 446. No clear ST elevations appreciated patient does have some PVCs throughout. T-wave inversion in aVL but not appreciated in lead 1. MDM Narrative Medical decision making narrative: Spoke with Dr. Menezes who asks that we try a dose of metoprolol IV and if patient's rate continues to stay under 100 could potentially follow up outpatient, if stays elevated will accept for observation. Patient signed out to Dr. Vasquez. Patient did have dips in her BP and after repeat checks was elevated to 130 range and plan to give metoprolol but with caution. She will follow for final disposition. <Mckayla Vasquez MD - Last Filed: 02/01/20 02:57> Lab Data Labs: Lab Results 01/31/20 01/31/20 01/31/20 Range/Units 16:30 16:30 16:30 WBC 8.8 (4.5-11.0) X10^3/uL RBC 4.28 (4.0-5.2) X10^6/uL Hgb 12.8 (12.0-16.0) g/dL Hct 38.2 (36-46) % MCV 89.3 (80-100) fL MCH 29.8 (26-34) PG MCHC 33.4 (30-36) % RDW 13.1 (11.6-14.8) % Plt Count 269 (150-400) X10^3/uL Neut % (Auto) 68.2 (50-75) % Lymph % (Auto) 25.5 (25-40) % [place] % (Auto) 5.3 (3-14) % Eos % (Auto) 0.5 L (2-4) % Baso % (Auto) 0.5 (0-2) % Neut # (Auto) 6000 (2115-6999) /uL Lymph # (Auto) 2200 (0381-7602) /uL [place] # (Auto) 500 (0-900) /uL Eos # (Auto) 0 (0-450) /uL Baso # (Auto) 0 (0-100) /uL PT 14.6 H (10.1-12.7) SECONDS INR 1.3 (0.9-1.3) APTT 36 (26.4-36.2) SECONDS Sodium 136 L (137-145) mmol/L Potassium 3.7 (3.4-5.1) mmol/L Chloride 100 (98-107) mmol/L Carbon Dioxide 26 (22-32) mmol/L BUN 24 H (7-17) mg/dL Creatinine 1.09 H (0.52-1.04) mg/dL Estimated GFR 48.7 L (>60) mL/min BUN/Creatinine Ratio 22.0 (6-22) Glucose 114 H (80-110) mg/dL Hemoglobin A1c (4.0-6.0) % Calcium 9.4 (8.4-10.2) mg/dL Magnesium (1.6-2.3) mg/dL Total Bilirubin 0.6 (0.2-1.3) mg/dL AST 44 H (14-36) IU/L ALT 31 (<35) IU/L Alkaline Phosphatase 62 (38-126) U/L Total Creatine Kinase 581 H (30-135) U/L CK-MB (CK-2) 13.00 H (<2.37) ng/mL CK-MB (CK-2) Rel Index 2.2 (1.5-5.0) % Troponin I < 0.012 (0.01-0.034) ng/mL NT-Pro-B Natriuret Pep (<450) pg/mL Total Protein 7.6 (6.3-8.2) g/dL Albumin 4.7 (3.5-5.0) g/dL Globulin 2.9 (1.7-4.1) g/dL Albumin/Globulin Ratio 1.6 (1.0-2.8) Triglycerides (35-150) mg/dL Cholesterol (140-199) mg/dL LDL Cholesterol, Calc (<100) mg/dL HDL Cholesterol (40-60) mg/dL Lipase 105 (23-300) U/L TSH (0.47-4.68) uIU/mL Free T4 (0.78-2.19) ng/dL COVID-19 PCR (Negative) 01/31/20 01/31/20 01/31/20 Range/Units 16:30 16:30 20:09 WBC (4.5-11.0) X10^3/uL RBC (4.0-5.2) X10^6/uL Hgb (12.0-16.0) g/dL Hct (36-46) % MCV (80-100) fL MCH (26-34) PG MCHC (30-36) % RDW (11.6-14.8) % Plt Count (150-400) X10^3/uL Neut % (Auto) (50-75) % Lymph % (Auto) (25-40) % [place] % (Auto) (3-14) % Eos % (Auto) (2-4) % Baso % (Auto) (0-2) % Neut # (Auto) (2270-3818) /uL Lymph # (Auto) (9423-2729) /uL [place] # (Auto) (0-900) /uL Eos # (Auto) (0-450) /uL Baso # (Auto) (0-100) /uL PT (10.1-12.7) SECONDS INR (0.9-1.3) APTT (26.4-36.2) SECONDS Sodium (137-145) mmol/L Potassium (3.4-5.1) mmol/L Chloride (98-107) mmol/L Carbon Dioxide (22-32) mmol/L BUN (7-17) mg/dL Creatinine (0.52-1.04) mg/dL Estimated GFR (>60) mL/min BUN/Creatinine Ratio (6-22) Glucose (80-110) mg/dL Hemoglobin A1c (4.0-6.0) % Calcium (8.4-10.2) mg/dL Magnesium 2.1 (1.6-2.3) mg/dL Total Bilirubin (0.2-1.3) mg/dL AST (14-36) IU/L ALT (<35) IU/L Alkaline Phosphatase (38-126) U/L Total Creatine Kinase (30-135) U/L CK-MB (CK-2) (<2.37) ng/mL CK-MB (CK-2) Rel Index (1.5-5.0) % Troponin I (0.01-0.034) ng/mL NT-Pro-B Natriuret Pep 2520 H (<450) pg/mL Total Protein (6.3-8.2) g/dL Albumin (3.5-5.0) g/dL Globulin (1.7-4.1) g/dL Albumin/Globulin Ratio (1.0-2.8) Triglycerides (35-150) mg/dL Cholesterol (140-199) mg/dL LDL Cholesterol, Calc (<100) mg/dL HDL Cholesterol (40-60) mg/dL Lipase (23-300) U/L TSH (0.47-4.68) uIU/mL Free T4 (0.78-2.19) ng/dL COVID-19 PCR Negative (Negative) 02/01/20 02/01/20 02/01/20 Range/Units 04:45 04:45 04:45 WBC 8.4 (4.5-11.0) X10^3/uL RBC 4.15 (4.0-5.2) X10^6/uL Hgb 12.3 (12.0-16.0) g/dL Hct 37.0 (36-46) % MCV 89.2 (80-100) fL MCH 29.7 (26-34) PG MCHC 33.3 (30-36) % RDW 13.0 (11.6-14.8) % Plt Count 272 (150-400) X10^3/uL Neut % (Auto) 59.4 (50-75) % Lymph % (Auto) 31.5 (25-40) % [place] % (Auto) 7.6 (3-14) % Eos % (Auto) 0.8 L (2-4) % Baso % (Auto) 0.7 (0-2) % Neut # (Auto) 5000 (8251-7990) /uL Lymph # (Auto) 2600 (6840-1184) /uL [place] # (Auto) 600 (0-900) /uL Eos # (Auto) 100 (0-450) /uL Baso # (Auto) 100 (0-100) /uL PT (10.1-12.7) SECONDS INR (0.9-1.3) APTT (26.4-36.2) SECONDS Sodium 140 (137-145) mmol/L Potassium 4.7 (3.4-5.1) mmol/L Chloride 107 (98-107) mmol/L Carbon Dioxide 27 (22-32) mmol/L BUN 22 H (7-17) mg/dL Creatinine 1.06 H (0.52-1.04) mg/dL Estimated GFR 50.3 L (>60) mL/min BUN/Creatinine Ratio 20.8 (6-22) Glucose 90 (80-110) mg/dL Hemoglobin A1c 5.4 (4.0-6.0) % Calcium 9.3 (8.4-10.2) mg/dL Magnesium (1.6-2.3) mg/dL Total Bilirubin (0.2-1.3) mg/dL AST (14-36) IU/L ALT (<35) IU/L Alkaline Phosphatase (38-126) U/L Total Creatine Kinase (30-135) U/L CK-MB (CK-2) (<2.37) ng/mL CK-MB (CK-2) Rel Index (1.5-5.0) % Troponin I (0.01-0.034) ng/mL NT-Pro-B Natriuret Pep 7350 H (<450) pg/mL Total Protein (6.3-8.2) g/dL Albumin (3.5-5.0) g/dL Globulin (1.7-4.1) g/dL Albumin/Globulin Ratio (1.0-2.8) Triglycerides 109 (35-150) mg/dL Cholesterol 171 (140-199) mg/dL LDL Cholesterol, Calc 83 (<100) mg/dL HDL Cholesterol 66 H (40-60) mg/dL Lipase (23-300) U/L TSH (0.47-4.68) uIU/mL Free T4 (0.78-2.19) ng/dL COVID-19 PCR (Negative) 02/01/20 02/01/20 Range/Units 04:45 04:45 WBC (4.5-11.0) X10^3/uL RBC (4.0-5.2) X10^6/uL Hgb (12.0-16.0) g/dL Hct (36-46) % MCV (80-100) fL MCH (26-34) PG MCHC (30-36) % RDW (11.6-14.8) % Plt Count (150-400) X10^3/uL Neut % (Auto) (50-75) % Lymph % (Auto) (25-40) % [place] % (Auto) (3-14) % Eos % (Auto) (2-4) % Baso % (Auto) (0-2) % Neut # (Auto) (5486-1388) /uL Lymph # (Auto) (2363-8371) /uL [place] # (Auto) (0-900) /uL Eos # (Auto) (0-450) /uL Baso # (Auto) (0-100) /uL PT (10.1-12.7) SECONDS INR (0.9-1.3) APTT (26.4-36.2) SECONDS Sodium (137-145) mmol/L Potassium (3.4-5.1) mmol/L Chloride (98-107) mmol/L Carbon Dioxide (22-32) mmol/L BUN (7-17) mg/dL Creatinine (0.52-1.04) mg/dL Estimated GFR (>60) mL/min BUN/Creatinine Ratio (6-22) Glucose (80-110) mg/dL Hemoglobin A1c (4.0-6.0) % Calcium (8.4-10.2) mg/dL Magnesium 2.2 (1.6-2.3) mg/dL Total Bilirubin (0.2-1.3) mg/dL AST (14-36) IU/L ALT (<35) IU/L Alkaline Phosphatase (38-126) U/L Total Creatine Kinase (30-135) U/L CK-MB (CK-2) (<2.37) ng/mL CK-MB (CK-2) Rel Index (1.5-5.0) % Troponin I (0.01-0.034) ng/mL NT-Pro-B Natriuret Pep (<450) pg/mL Total Protein (6.3-8.2) g/dL Albumin (3.5-5.0) g/dL Globulin (1.7-4.1) g/dL Albumin/Globulin Ratio (1.0-2.8) Triglycerides (35-150) mg/dL Cholesterol (140-199) mg/dL LDL Cholesterol, Calc (<100) mg/dL HDL Cholesterol (40-60) mg/dL Lipase (23-300) U/L TSH 6.65 H (0.47-4.68) uIU/mL Free T4 1.00 (0.78-2.19) ng/dL COVID-19 PCR (Negative) Discharge Plan Departure Patient Disposition: Admitted as Observation Clinical Impression: Atrial fibrillation with RVR, Near syncope CHF (congestive heart failure) Qualifiers: Heart failure type: unspecified Heart failure chronicity: acute Qualified Code(s): I50.9 - Heart failure, unspecified Discharge Date/Time: 01/31/20 21:07 Instructions: DI for Orthostatic Hypotension, DI for Atrial Fibrillation, Amiodarone Admit Date/Time: 02/01/20 18:11 Admit Provider: Dave Resendez ED Sign-out <Deanne Shultz, - Last Filed: 02/06/20 18:02> Sign Out Provider Sign Out Attestation: Patient Sign Out occurred on 01/31/2020. Patient's care was discussed, and care was transferred from Dr. Shultz to Dr. Vasquez.
--- NOTE | 2020-01-31 18:10 | PC.NURSE ---
Prior to administration of Metoprolol BP taken to be 102/62 on left arm, repeated for confirmation and BP 104/62. Provider notified and given verbal order to hold off metoprolol administration until BP increases. Verbal order to increase fluids from 125ml/hr to 1000ml/hr. BP retaken after 25 minutes (1815) on right arm now reading 151/70. Provider notified. Fluids decreased to 125 ml/hr per provider and given verbal order to administer metoprolol as initially ordered.
[2020-01-31] MEDS: METOPROLOL IR 25 MG TABLET 50 MG PO (20:26)
[2020-01-31 20:35] LABS: COVID19 -Nasal RAPID Negative (Negative)
[2020-01-31] MEDS: FUROSEMIDE 20 MG/2 ML VIAL IV (20:46)
[2020-01-31] MEDS: predniSONE 1 MG TABLET PO (20:46)
[2020-01-31] MEDS: HYDROXYCHLOROQUINE 200 MG TABLET PO (20:46)
[2020-01-31] MEDS: APIXABAN 5 MG TABLET PO (20:46)
[2020-01-31] MEDS: AMITRIPTYLINE 25 MG TABLET PO (20:46)
[2020-01-31 21:19] LABS: Magnesium 2.1 mg/dL (1.6-2.3)
--- NOTE | 2020-01-31 21:58 | PM.HP.1 ---
History of Present Illness History of Present Illness Date Patient Seen: 01/31/20 Time Patient Seen: 21:21 Chief complaint: possible afib Narrative: Ms. Wilma Ji is a 79-year-old female with a past medical history significant for paroxysmal atrial fibrillation diagnosed 9 months ago on Eliquis anticoagulation, multiple sclerosis, rheumatoid arthritis, Sjogren's syndrome and Raynaud's syndrome who presents to the ER with reports of rapid heartbeat and 3 near syncope episodes. The patient states she woke this morning was somewhat lightheaded and describes slight frontal headache. Approximately 2 clock she was standing at kitchen counter where she had a sudden onset lightheadedness with visual changes described as blackening in red vision. She denies the room spinning or vertiginous symptoms. She reports going to 1 knee and waiting moment and attempting to stand again when the symptoms recurred. She reports no nausea or diaphoresis or numbness or tingling. Patient managed to get to her count short her she waited for an hour and half as believing this is related to previous episodes of atrial fibrillation that were transient and with self terminate. While on the couch she will check her blood pressure which she describes typically in the 120s to 130s and notices she had elevated heart rate on her monitor in the 110s to 120s. She then again attempted to stand up with returns symptoms and therefore summoned EMS. The patient reports yesterday feeling well and has had no recent complaints of cold or or flu symptoms. She has had no fevers or chills, nasal congestion or sore throat. She does have Sjogren syndrome for which she uses eyedrops and experiences dry mouth. She denies complaints of chest pain and has a history of palpitations. She reports no shortness of breath and has had no recent cough wheezing. She has a history of GERD but denies epigastric pain or abdominal pain. She reports no problems with diarrhea or constipation and no urinary symptoms including frequency, urgency, burning or hematuria. She has decreased sensation bilateral lower extremities distal to the knee from MS and poor circulation to the feet related to Raynaud's.. Patient is typically independent in all ADLs requiring no assistive devices. She has had 1 fall occurring 3 weeks ago after a trip and fall at a construction site where her home is being built. Upon arrival to the ER the patient is afebrile with a temperature of 98.5?, heart rate of 116, blood pressure 179/95, respirations 18 saturating 98% on room air. Blood pressure is variable while in the ER with blood pressures in the 170 systolic and spontaneously decreasing to 100s within an hour and half without treatment. A chest x-ray is obtained which shows no acute cardiopulmonary pathology. Twelve lead EKG finds atrial fibrillation with RVR with a ventricular rate of 101 with aberrant beats, intraventricular conduction delay with a QRS of 118 milliseconds, no ST or T-wave changes or evidence of infarct. On laboratory analysis she has white count of 8.8 with no shift, hemoglobin of 12.8, hematocrit of 38.2 and platelets of 269. She has a PT of 14.6, INR 1.3, PTT of 36. Electrolytes are within normal limits with a nonfasting glucose of 114. Her BUN is 24 and creatinine is 1.09. She has an EGFR is 48.7. She has a total CK of 581 with an CK MB of 13.0 with an index of 2.2%. Her troponin is negative less than 0.012. ProBNP is 2520. Covered screening is negative. In the ER the patient received IV fluid normal saline 125 cc/hour and Lasix 20 mg. She received metoprolol tartrate 5 mg IV with reduction heart rate followed by oral metoprolol tartrate 50 mg. The patient also has received amitriptyline she takes for leg cramps, and hydroxychloroquine 200 mg and her evening dose of Eliquis 5 mg. The patient is admitted to the medicine service further evaluation of near syncope. Patient History Medical History Atrial fibrillation (Acute) Multiple sclerosis (Acute) Rheumatoid arthritis (Acute) Sjogren's disease (Acute) Surgical History History of foot surgery (Acute) History of hysterectomy (Acute) Family & Social History Family History Father Cardiomyopathy Diabetes mellitus Alzheimer's dementia Mother Cancer Brother Coronary artery disease Hx of CABG Safety & Behavioral: Feels Safe in Current Yes Environment Been Physically Hurt or No Threatened By a Person Tobacco & Substance use: Smoking Status Former smoker alcohol intake frequency a few times a week Substance Use Type does not use Meds Home Medications and Allergies Home Medications Medication Instructions Recorded Confirmed Type hydroxychloroquine 200 mg tablet 200 mg PO BID tab 10/17/17 01/31/20 History omeprazole 10 mg capsule,delayed 20 mg PO DAILY 10/17/17 01/31/20 History release prednisone 1 mg tablet 1 mg PO BID 10/17/17 01/31/20 History amitriptyline 25 mg PO BEDTIME 11/27/19 01/31/20 History apixaban [Eliquis] 5 mg PO BID 11/27/19 01/31/20 History losartan 100 mg PO BEDTIME 11/27/19 01/31/20 History metoprolol tartrate 50 mg PO BID 11/27/19 01/31/20 History simvastatin 20 mg PO BEDTIME 11/27/19 01/31/20 History Allergies Allergy/AdvReac Type Severity Reaction Status Date / Time codeine [CODEINE] AdvReac Unknown Vomiting Verified 11/27/19 13:30 oyster extract AdvReac Diarrhea Verified 11/27/19 13:30 Review of Systems Review of Systems ROS: Yes All systems reviewed with the patient and are negative except as otherwise documented Exam Vital Signs (past 8 hours): - 01/31/20 16:11 01/31/20 16:14 01/31/20 16:30 Temperature 98.5 F Pulse Rate 116 H 117 H 125 H Respiratory Rate 18 24 25 H Blood Pressure 179/95 H Pulse Oximetry 98 93 99 01/31/20 17:00 01/31/20 17:30 01/31/20 17:48 Temperature Pulse Rate 127 H 127 H 103 H Respiratory Rate 15 32 H 14 Blood Pressure 104/82 Pulse Oximetry 100 79 L 100 01/31/20 17:49 01/31/20 17:59 01/31/20 18:00 Temperature Pulse Rate 128 H 121 H 125 H Respiratory Rate 17 17 27 H Blood Pressure 104/82 130/78 Pulse Oximetry 99 100 100 01/31/20 18:13 01/31/20 18:15 01/31/20 18:30 Temperature Pulse Rate 123 H 116 H 114 H Respiratory Rate 25 H 15 15 Blood Pressure 151/71 H 154/74 H Pulse Oximetry 92 98 100 01/31/20 18:31 01/31/20 18:54 01/31/20 19:00 Temperature Pulse Rate 110 H 115 H 119 H Respiratory Rate 15 26 H 19 Blood Pressure 156/96 H 139/85 148/87 H Pulse Oximetry 100 100 99 01/31/20 19:15 01/31/20 19:30 01/31/20 19:42 Temperature Pulse Rate 116 H 103 H 120 H Respiratory Rate 24 21 24 Blood Pressure 145/92 H 169/81 H Pulse Oximetry 100 100 01/31/20 20:00 01/31/20 20:25 01/31/20 20:30 Temperature Pulse Rate 108 H 120 H 113 H Respiratory Rate 14 31 H 15 Blood Pressure 114/79 155/67 H Pulse Oximetry 99 99 100 01/31/20 21:23 Temperature 98.9 F Pulse Rate 107 H Respiratory Rate 19 Blood Pressure 149/100 H Pulse Oximetry 98 Oxygen Delivery Method Room Air Oxygen Flow Rate 0 Narrative Exam Narrative: GENERAL APPEARANCE: well developed, well nourished, for school responsive woman laying in bed in no acute distress. HEENT: Normocephalic, PERRLA, conjunctiva clear, EOMs intact without nystagmus, no sinus tenderness to percussion, no rhinorrhea, mucous membranes are moist and pink without lesions or exudate. NECK/THYROID: neck supple, no JVD, no carotid bruit, no thyromegaly, trachea midline. LYMPH NODES: no cervical or supraclavicular lymphadenopathy. SKIN: [place], warm and dry, no visible lesions, rashes. HEART: regular rate and rhythm, S1-S2, no murmur, no rubs or gallops, brisk delayed capillary refill bilateral feet 3-4 seconds, no edema LUNGS: clear to auscultation bilaterally, no coarseness crackles or wheezing, no cough present CHEST: Symmetrical movement, no accessory muscle use, good tidal volume. ABDOMEN: Soft, no distention, no abdominal tenderness, no guarding or peritoneal signs, no organomegaly, no flank or suprapubic tenderness, active bowel tones. BACK: Normal curvature, nontender to palpation, no CVA tenderness on percussion EXTREMITIES: moves all extremities, strength is 5/5 and symmetrical, no deformities or joint effusions redness on the plantar surface of the left great toe and right 3rd toe. NEUROLOGIC: AAO x4, no lateralizing neurologic findings, cranial nerves II-XII grossly intact, diminished sensation distal to the knee, hearing grossly normal to speech, ambulatory with stable gait. PSYCH: Good judgment, good insight, linear thought process, cooperative, appropriate with stable behavior Objective Labs Result Diagrams: 01/31/20 16:30 01/31/20 16:30 Labs: Laboratory Results - last 24 hr 01/31/20 01/31/20 01/31/20 16:30 16:30 16:30 WBC 8.8 RBC 4.28 Hgb 12.8 Hct 38.2 MCV 89.3 MCH 29.8 MCHC 33.4 RDW 13.1 Plt Count 269 Neut % (Auto) 68.2 Lymph % (Auto) 25.5 [place] % (Auto) 5.3 Eos % (Auto) 0.5 L Baso % (Auto) 0.5 Neut # (Auto) 6000 Lymph # (Auto) 2200 [place] # (Auto) 500 Eos # (Auto) 0 Baso # (Auto) 0 PT 14.6 H INR 1.3 APTT 36 Sodium 136 L Potassium 3.7 Chloride 100 Carbon Dioxide 26 BUN 24 H Creatinine 1.09 H Estimated GFR 48.7 L BUN/Creatinine Ratio 22.0 Glucose 114 H Calcium 9.4 Magnesium Total Bilirubin 0.6 AST 44 H ALT 31 Alkaline Phosphatase 62 Total Creatine Kinase 581 H CK-MB (CK-2) 13.00 H CK-MB (CK-2) Rel Index 2.2 Troponin I < 0.012 NT-Pro-B Natriuret Pep Total Protein 7.6 Albumin 4.7 Globulin 2.9 Albumin/Globulin Ratio 1.6 Lipase 105 COVID-19 PCR 01/31/20 01/31/20 01/31/20 16:30 16:30 20:09 WBC RBC Hgb Hct MCV MCH MCHC RDW Plt Count Neut % (Auto) Lymph % (Auto) [place] % (Auto) Eos % (Auto) Baso % (Auto) Neut # (Auto) Lymph # (Auto) [place] # (Auto) Eos # (Auto) Baso # (Auto) PT INR APTT Sodium Potassium Chloride Carbon Dioxide BUN Creatinine Estimated GFR BUN/Creatinine Ratio Glucose Calcium Magnesium 2.1 Total Bilirubin AST ALT Alkaline Phosphatase Total Creatine Kinase CK-MB (CK-2) CK-MB (CK-2) Rel Index Troponin I NT-Pro-B Natriuret Pep 2520 H Total Protein Albumin Globulin Albumin/Globulin Ratio Lipase COVID-19 PCR Negative Assessment & Plan Assessment & Plan narrative: This is a 79 derm female had multiple episodes of lightheadedness and visual is a disturbance needing to near syncope with a history of atrial fibrillation for with rapid heartbeat and history of multiple sclerosis. The patient has just recently relocated to [facility] from [place] and is yet to establish primary and specialty care. 1. Near-syncope with postural dizziness, acute, active -no complaints of chest pain or shortness of breath and no diaphoresis she does describe vision the became black and red lowering herself to the floor and stay no trauma and did not lose consciousness. -she stood up again after waiting a few minutes with recurrence of symptoms, she rested on the couch for over an hour and got up again with recurrence of symptoms. -all events appear to be related to postural hypotension without signs of dehydration. Concern for vasomotor dysregulation possibly secondary to multiple sclerosis. -symptoms have not been reproduced following admission, requested orthostatic vital signs each shift and as needed. -patient received IV fluid in the emergency department as well as 20 mg of Lasix. Patient remains saline locked. -may consider fludrocortisone or midodrine 2. Paroxysmal atrial fibrillation with RVR, present on admission, active. -patient states she can feel when she goes into rapid heartbeats and notice as she was checking her blood pressure today that she had elevated heart rates in the 110s to 120s. -12 lead EKG obtained in the immediate emergency department finds atrial fibrillation with RVR at a ventricular rate of 1 1 with aberrantly conducted beats, interventricular conduction delay with a QRS interval of [address] or T-wave changes and no indication of MT. -will continue metoprolol tartrate 50 mg daily, will not increase dose due to blood pressure limitations, will hold losartan and re-evaluate in the morning. -will continue current anticoagulation with Eliquis 5 mg twice daily. -patient has an appointment set up with Dr. Wahl February 19. 3. Congestive heart failure, acute, present on admission, active. -patient denies chest pain or shortness of breath and has had no recent weight gain. -proBNP is significantly elevated 2520 most likely related to atrial fibrillation with RVR. -patient presently appears euvolemic, will remain saline locked. -attain echocardiogram in the morning. 4. Multiple sclerosis, chronic, stable. -onset of MS in her 30s and reports last significant relapse was at age 38. She has decreased sensation bilateral lower extremities distal to knee secondary to her condition. -as mentioned above concern for near syncope possible vascular dysregulation which is common and multiple sclerosis. Will further evaluate as above. -continue amitriptyline daily for leg cramps. -the patient has yet to establish with with an circle shear operator here in [place]. 5. Sjogren's syndrome, chronic, stable -patient sugar and symptoms include dry eyes and dry mouth. 6. Rheumatoid arthritis, chronic, stable -patient denies current complications and maintains mobility and is independent in all ADLs.. -continue home regimen of prednisone 1 mg twice daily 7. Raynaud's syndrome, chronic, stable. -patient endorses history of cold extremities, delayed capillary refill bilateral feet. -patient is at baseline however her he states she cannot wear compression socks secondary to her condition. VTE prophylaxis: Patient anticoagulated on Eliquis. IV fluids: Saline lock. Diet: Heart healthy, low-sodium. Code status: Full code patient designates her brother Michel Ji to be her surrogate decision maker. The patient admitted to the hospital due the significance of her symptoms and the report says [facility] for further monitoring and investigation. The patient is admitted as observation with expected length of stay to be less than 2 midnights. Scores GCS [place] coma scale eye opening: Spontaneous [place] coma scale verbal response: Orientated [place] coma scale motor response: Obey commands [place] coma scale total score: 15
[2020-01-31] MEDS: POTASSIUM CHLORIDE 20 MEQ TAB 40 MEQ PO (22:21)
[2020-02-01] VITALS (10 sets, daily range): BP systolic 87–118; BP diastolic 48–77; PULSE 73–115; RESP 16–18; TEMP 36–37; O2SAT 96–100
--- NOTE | 2020-02-01 00:30 | PC.NURSE ---
Addendum entered by Aleshia Carter R.N. 02/01/20 06:15: AGENT PRODUCER reports patient has gone back into afib with rate as high as 120. DAPHNEY Resendez, informed and order to give morning dose of Metoprolol now. Patient states she feels flutter in chest and feeling of SOB. Breath sounds CTA with RA sat of 100%. Complains of 4/10 headache; medicated with Tylenol. Original Note: 2342 Patient is alert and oriented. Breath sounds CTA with RA sat of 97%; on continuous oximetry. HRR but tachy in low 100's; telemetry reading was ST w/BBB and HR of 102. Noted decline in BP when going from sitting to standing position but patient denies any dizziness or lightheadedness at that time. Denies nausea. BT present and abdomen is soft. Denies dysuria, frequency or urgency with urination. Is able to turn herself in bed. For safety is assisted when out of bed; patient denies weakness but does have heaviness and numbness/tingling in bilateral LE from mid calf down related to MS/Raynaud's. Does complain of headache which she rates as 2/10 and aching but declines offer of pain medication. Wearing bilateral calf SCD's. Reports recent fall requiring trip to ER for stitches; fall risk score is high and bed alarm is activated.
[2020-02-01 05:06] LABS: Add Manual Diff / Slide Review NO; Basophils Absolute Auto 100 /uL (0-100); Basophils Percent Auto 0.7 % (0-2); Eosinophils Absolute Auto 100 /uL (0-450); Eosinophils Percent Auto 0.8 % (2-4); Hemoglobin 12.3 g/dL (12.0-16.0); Lymphocytes Absolute Auto 2600 /uL (1100-4500); Lymphocytes Percent Auto 31.5 % (25-40); Mean Corpuscular HGB Conc 33.3 % (30-36); Mean Corpuscular Hemoglobin 29.7 PG (26-34); Mean Corpuscular Volume 89.2 fL (80-100); Monocytes Absolute Auto 600 /uL (0-900); Monocytes Percent Auto 7.6 % (3-14); Neutrophils Absolute Auto 5000 /uL (1500-7000); Neutrophils Percent Auto 59.4 % (50-75); Platelet Count 272 X10^3/uL (150-400); Red Blood Cell Count 4.15 X10^6/uL (4.0-5.2); White Blood Cell Count 8.4 X10^3/uL (4.5-11.0)
[2020-02-01 05:14] LABS: Hemoglobin A1C% w Est Avg Glu 5.4 % (4.0-6.0)
[2020-02-01 05:17] LABS: BUN Creatinine Ratio 20.8 (6-22); Blood Urea Nitrogen 22 mg/dL (7-17); Calcium 9.3 mg/dL (8.4-10.2); Carbon Dioxide 27 mmol/L (22-32); Chloride 107 mmol/L (98-107); Cholesterol 171 mg/dL (140-199); Estimated Glomerular Filt Rate 50.3 mL/min (>60); Glucose 90 mg/dL (80-110); HDL Cholesterol 66 mg/dL (40-60); HEMOLYSIS < 15 (0-50); LDL Cholesterol Calculated 83 mg/dL (<100); Potassium 4.7 mmol/L (3.4-5.1); Sodium 140 mmol/L (137-145); Triglycerides 109 mg/dL (35-150)
[2020-02-01 05:24] LABS: NT-proBNP (BNP-Adult 18+) 7350 pg/mL (<450)
[2020-02-01 05:48] LABS: TSH w/ Reflex to FT4 6.65 uIU/mL (0.47-4.68)
[2020-02-01 05:51] LABS: Magnesium 2.2 mg/dL (1.6-2.3)
[2020-02-01] MEDS: METOPROLOL IR 50 MG TABLET PO (06:04)
[2020-02-01] MEDS: ACETAMINOPHEN 325 MG TABLET 650 MG PO (06:12)
[2020-02-01] MEDS: PANTOPRAZOLE 20 MG TABLET PO (08:10)
[2020-02-01] MEDS: SODIUM CHLORIDE 0.9% FLUSH 10 ML IV ×2 (08:10→21:02)
[2020-02-01] MEDS: HYDROXYCHLOROQUINE 200 MG TABLET PO ×2 (08:10→20:55)
[2020-02-01] MEDS: APIXABAN 5 MG TABLET PO ×2 (08:10→20:55)
[2020-02-01] MEDS: predniSONE 1 MG TABLET PO ×2 (09:35→20:55)
[2020-02-01] MEDS: INFLUENZA HD VACCINE 0.7 ML SYRINGE IM (09:38)
--- NOTE | 2020-02-01 12:15 | PC.NURSE ---
Patient's heart rate elevated to 120-130 afib when up to the bathroom. Standby assistance with MANAGER PRIMARY CARE, patient denies dizziness and orthostatic vital signs checked (see EMAR). Dr. Menezes notified of increased rate. Patient back in bed, resting comfortably, call light within reach.
--- NOTE | 2020-02-01 13:16 | CM.DANOTE ---
Patient is a 79 year old female who was admitted OBS Status on 01/31/20 for Possible Afib. Pt has [facility] for insurance and her PCP is not listed. EMR was reviewed. Per MD, pt with new AFIB dx 9 months ago, hx of multiple sclerosis, arthritis, Sjogrens and Raynaud's syndrome and admitted for near syncope workup. Echo ordered and pending. 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 Pt does not have local family but her brother Michel is her DPOA and he is aware of her admission to the hospital. Pt is very active and independent at baseline and does not use DME for ambulation and continues to drive. Pt denies any hx of HH or SNF and was surprised by her recent fall when she tripped at her house construction sight and her new syncopal episode. Pt is working on getting established with local doctors and has an appointment with Dr. Wahl on Feb 19 to establish with Cardiology and pt still needs to get established with PCP. SW provided pt with the list of local PCP clinics in [place] to review and pt very appreciative. Pt does not anticipate any SW needs at d/c and plan is home pending Echo results. Plan: SW to follow closely after Echo to confirm pt safe for d/c home alone and outpt follow up with Cardiology and establishing with PCP. ARIA [place]cala Discharge Planning/Care Management CM Discharge Assessment Start: 02/01/20 13:12 Freq: Status: Active Protocol: Document 02/01/20 13:12 BF (Rec: 02/01/20 13:15 [id number]) Discharge Planning Assessment Assigned Orthopedics Teacher ARIA Carter DPOA/Assigned Designee Name brother Michel Advance Directives? No Advance Directives on File No History Provided By Patient,Medical Record Has Patient been admitted in last 30 No days? Prior Living Arrangements House Household Members none Type of transporation used prior to Drives own vehicle admit Independent with ADL's Yes Is patient alert and oriented? Yes Caregiver for Another No Comment Likely home with no needs pending Echo results Barriers to Discharge No Discharge Plan Home Transportation Arrangement Plans to likely drive herself home Referrals Initiated None needed Additional Comment Provided pt with PCP list for local providers Whiteboard Updated in Patient Room with Yes name and ext. # of Orthopedics Teacher Review Status In Process Please Provide Date Initial DC 02/01/20 Assessment Was Performed Next Review Type Continued Stay Review
--- NOTE | 2020-02-01 13:59 | PM.PN.1 ---
Subjective Subjective Date Patient Seen: 02/01/20 Interval history: Patient is a 79-year-old female with a history of paroxysmal atrial fibrillation who was admitted to the hospital following 3 near syncopal episodes. After evaluation she was found to be in rapid AFib. The patient was placed on her usual metoprolol 50 b.i.d.. Despite that she continues to have intermittent episodes of elevated heart rate. Her blood pressures been somewhat labile. She was mildly orthostatic earlier. She continues to have rapid heart rate. The patient has been on Eliquis for 1 year. She recently moved to the area from [place] and was intending to establish with a cement mason apprentice in this area. She denies any shortness of breath or chest pain. Exam Vital Signs (past 8 hours): - 02/01/20 07:16 02/01/20 07:46 02/01/20 11:00 Temperature 97.5 F L 97.5 F L Pulse Rate 100 H 89 98 H Pulse Rate [Orthostatic Lying] 98 H Pulse Rate [Orthostatic Sitting] 115 H Pulse Rate [Orthostatic Standing] 110 H Respiratory Rate 16 18 18 Blood Pressure 108/77 112/59 L Blood Pressure [Orthostatic Lying] 112/59 L Blood Pressure [Orthostatic Sitting] 101/52 L Blood Pressure [Orthostatic Standing] 98/56 L Pulse Oximetry 98 100 99 Oxygen Delivery Method Room Air Oxygen Flow Rate 0 Narrative Exam Narrative: Pleasant female resting comfortably in no obvious distress Lungs: Clear to auscultation Cardiac exam: Irregularly irregular, normal S1-S2 with a 2/6 systolic ejection Abdomen: Soft nontender nondistended Extremities: No edema Objective Labs Result Diagrams: 02/01/20 04:45 02/01/20 04:45 Labs: Laboratory Results - last 24 hr 01/31/20 01/31/20 01/31/20 16:30 16:30 16:30 WBC 8.8 RBC 4.28 Hgb 12.8 Hct 38.2 MCV 89.3 MCH 29.8 MCHC 33.4 RDW 13.1 Plt Count 269 Neut % (Auto) 68.2 Lymph % (Auto) 25.5 [place] % (Auto) 5.3 Eos % (Auto) 0.5 L Baso % (Auto) 0.5 Neut # (Auto) 6000 Lymph # (Auto) 2200 [place] # (Auto) 500 Eos # (Auto) 0 Baso # (Auto) 0 PT 14.6 H INR 1.3 APTT 36 Sodium 136 L Potassium 3.7 Chloride 100 Carbon Dioxide 26 BUN 24 H Creatinine 1.09 H Estimated GFR 48.7 L BUN/Creatinine Ratio 22.0 Glucose 114 H Hemoglobin A1c Calcium 9.4 Magnesium Total Bilirubin 0.6 AST 44 H ALT 31 Alkaline Phosphatase 62 Total Creatine Kinase 581 H CK-MB (CK-2) 13.00 H CK-MB (CK-2) Rel Index 2.2 Troponin I < 0.012 NT-Pro-B Natriuret Pep Total Protein 7.6 Albumin 4.7 Globulin 2.9 Albumin/Globulin Ratio 1.6 Triglycerides Cholesterol LDL Cholesterol, Calc HDL Cholesterol Lipase 105 TSH Free T4 COVID-19 PCR 01/31/20 01/31/20 01/31/20 16:30 16:30 20:09 WBC RBC Hgb Hct MCV MCH MCHC RDW Plt Count Neut % (Auto) Lymph % (Auto) [place] % (Auto) Eos % (Auto) Baso % (Auto) Neut # (Auto) Lymph # (Auto) [place] # (Auto) Eos # (Auto) Baso # (Auto) PT INR APTT Sodium Potassium Chloride Carbon Dioxide BUN Creatinine Estimated GFR BUN/Creatinine Ratio Glucose Hemoglobin A1c Calcium Magnesium 2.1 Total Bilirubin AST ALT Alkaline Phosphatase Total Creatine Kinase CK-MB (CK-2) CK-MB (CK-2) Rel Index Troponin I NT-Pro-B Natriuret Pep 2520 H Total Protein Albumin Globulin Albumin/Globulin Ratio Triglycerides Cholesterol LDL Cholesterol, Calc HDL Cholesterol Lipase TSH Free T4 COVID-19 PCR Negative 02/01/20 02/01/20 02/01/20 04:45 04:45 04:45 WBC 8.4 RBC 4.15 Hgb 12.3 Hct 37.0 MCV 89.2 MCH 29.7 MCHC 33.3 RDW 13.0 Plt Count 272 Neut % (Auto) 59.4 Lymph % (Auto) 31.5 [place] % (Auto) 7.6 Eos % (Auto) 0.8 L Baso % (Auto) 0.7 Neut # (Auto) 5000 Lymph # (Auto) 2600 [place] # (Auto) 600 Eos # (Auto) 100 Baso # (Auto) 100 PT INR APTT Sodium 140 Potassium 4.7 Chloride 107 Carbon Dioxide 27 BUN 22 H Creatinine 1.06 H Estimated GFR 50.3 L BUN/Creatinine Ratio 20.8 Glucose 90 Hemoglobin A1c 5.4 Calcium 9.3 Magnesium Total Bilirubin AST ALT Alkaline Phosphatase Total Creatine Kinase CK-MB (CK-2) CK-MB (CK-2) Rel Index Troponin I NT-Pro-B Natriuret Pep 7350 H Total Protein Albumin Globulin Albumin/Globulin Ratio Triglycerides 109 Cholesterol 171 LDL Cholesterol, Calc 83 HDL Cholesterol 66 H Lipase TSH Free T4 COVID-19 PCR 02/01/20 02/01/20 04:45 04:45 WBC RBC Hgb Hct MCV MCH MCHC RDW Plt Count Neut % (Auto) Lymph % (Auto) [place] % (Auto) Eos % (Auto) Baso % (Auto) Neut # (Auto) Lymph # (Auto) [place] # (Auto) Eos # (Auto) Baso # (Auto) PT INR APTT Sodium Potassium Chloride Carbon Dioxide BUN Creatinine Estimated GFR BUN/Creatinine Ratio Glucose Hemoglobin A1c Calcium Magnesium 2.2 Total Bilirubin AST ALT Alkaline Phosphatase Total Creatine Kinase CK-MB (CK-2) CK-MB (CK-2) Rel Index Troponin I NT-Pro-B Natriuret Pep Total Protein Albumin Globulin Albumin/Globulin Ratio Triglycerides Cholesterol LDL Cholesterol, Calc HDL Cholesterol Lipase TSH 6.65 H Free T4 1.00 COVID-19 PCR Assessment & Plan Assessment & Plan narrative: Impression 1. 79-year-old female admitted to the hospital with a rapid atrial fibrillation resulting in near sync -heart rate still elevated -blood pressure at times labile -losartan hydrochlorothiazide have been held\ -will continue Eliquis -will increase metoprolol to 75 b.i.d. -if her blood pressure does not tolerate increased dosing of metoprolol consider switching to amiodarone -await cardiac echo 2. Near-syncope -no recurrent episode -mild orthostasis however she was asymptomatic 3. GERD -continue omeprazole 4. Hyperlipidemia -continue statin 5. Sjogren's 6. Multiple sclerosis 7. Raynaud's -continue hydroxychloroquine -continue low-dose prednisone Continue DVT prophylaxis Outpatient follow-up with cardiology Quality VTE Deep Vein Thrombosis/Pulmonary Embolism Present on Admission: No
--- NOTE | 2020-02-01 18:13 | PC.NURSE ---
Evening note: Patient's Orthostatic BP's were low this afternoon, at approx 1600 laying flat 98/65, sitting up 87/48 and standing droppd to 87/52. At 1700 she sat up to eat meal, HR then increased from 90's-low 100's to 120-130's, reading as high as 140 on tele monitor. I notified Dr Menezes about low BP's, she said she would DC the Metoprolol and put patient on Amiodarone per consult with cardiology. I notified Dr Menezes that patient would need to move to the ICU for an Amiodarone drip, she said she would place the order to transfer patient from AC to ICU. I notified both warehouse helper Miladys & supervisor heavy equipment about this new order & patient status.
[2020-02-01] MEDS: AMIODARONE 360 MG/200 ML PIGGYBACK 33.333 MG IV (19:24)
[2020-02-01] MEDS: AMITRIPTYLINE 25 MG TABLET PO (20:55)
[2020-02-01] MEDS: SIMVASTATIN 20 MG TABLET PO (20:55)
--- NOTE | 2020-02-01 23:21 | PC.NURSE ---
Patient transferred from 209 to begin amio drip. Amio started at 33.3ml/hr around 1925 to be turned down to 16ml/hr per order at 2325. Vitals remained stable through remainder of shift, HR fluctuating in Afib from 70-110. Patient asymptomatic. RA. A/Ox4. Calls appropriately.
[2020-02-02] VITALS (35 sets, daily range): BP systolic 87–152; BP diastolic 48–93; PULSE 55–144; RESP 18; TEMP 36.3–36.7; O2SAT 93–100
[2020-02-02] MEDS: AMIODARONE 541 MG/300.56 ML PIGGYBACK 16.7 MG IV (01:23)
[2020-02-02 04:48] LABS: Add Manual Diff / Slide Review NO; Basophils Absolute Auto 0 /uL (0-100); Basophils Percent Auto 0.4 % (0-2); Eosinophils Absolute Auto 100 /uL (0-450); Eosinophils Percent Auto 0.8 % (2-4); Hematocrit 39.3 % (36-46); Hemoglobin 13.2 g/dL (12.0-16.0); Lymphocytes Absolute Auto 2900 /uL (1100-4500); Mean Corpuscular HGB Conc 33.6 % (30-36); Mean Corpuscular Hemoglobin 30.1 PG (26-34); Mean Corpuscular Volume 89.6 fL (80-100); Monocytes Absolute Auto 700 /uL (0-900); Monocytes Percent Auto 7.3 % (3-14); Neutrophils Absolute Auto 5700 /uL (1500-7000); Neutrophils Percent Auto 60.5 % (50-75); Platelet Count 258 X10^3/uL (150-400); Red Blood Cell Count 4.39 X10^6/uL (4.0-5.2); Red Cell Distribution Width 13.1 % (11.6-14.8); White Blood Cell Count 9.5 X10^3/uL (4.5-11.0)
[2020-02-02 04:54] LABS: BUN Creatinine Ratio 21.9 (6-22); Blood Urea Nitrogen 23 mg/dL (7-17); Calcium 9.2 mg/dL (8.4-10.2); Carbon Dioxide 29 mmol/L (22-32); Chloride 102 mmol/L (98-107); Estimated Glomerular Filt Rate 50.8 mL/min (>60); Glucose 111 mg/dL (80-110); HEMOLYSIS < 15 (0-50); Potassium 4.6 mmol/L (3.4-5.1); Sodium 136 mmol/L (137-145)
[2020-02-02 05:02] LABS: NT-proBNP (BNP-Adult 18+) 5900 pg/mL (<450)
[2020-02-02 05:41] LABS: Thyroid Stimulating Hormone 8.99 uIU/mL (0.47-4.68)
--- NOTE | 2020-02-02 06:15 | PC.NURSE ---
River Guide Note-Patient dozed intermittently, denies pain or shortness of breath. Remains in Afib rate variable 70s-120, orthostatic vitals done, BP also variable 80s/50s to 130s/60s MAP > 65, denies dizziness or palpitations. Amiodarone infusing at 16.7ml/hr per protocol.
[2020-02-02] MEDS: PANTOPRAZOLE 20 MG TABLET PO (09:07)
[2020-02-02] MEDS: HYDROXYCHLOROQUINE 200 MG TABLET PO ×2 (09:07→19:44)
[2020-02-02] MEDS: APIXABAN 5 MG TABLET PO ×2 (09:07→19:44)
[2020-02-02] MEDS: predniSONE 1 MG TABLET PO ×2 (09:07→19:45)
[2020-02-02] MEDS: SODIUM CHLORIDE 0.9% FLUSH 10 ML IV (09:07)
[2020-02-02] MEDS: SODIUM CHLORIDE 0.9% 1,000 ML 84 ML IV (11:03)
[2020-02-02] MEDS: METOPROLOL IR 25 MG TABLET PO ×2 (11:10→19:44)
--- NOTE | 2020-02-02 11:31 | P.PN_ITS ---
Subjective Subjective Date Patient Seen: 02/02/20 Interval history: Patient is a 79-year-old female admitted to the hospital with near syncope associated with rapid atrial fibrillation. Since admission the patient's blood pressures been on the low side of normal. It we have been unable to continue her metoprolol because of low blood pressure. She was switched to IV amiodarone. Despite the amiodarone infusion she continues to have a rapid heart rate up to 120s to 140s. This morning her blood pressure has improved. Will start low-dose metoprolol. Will continue the amiodarone drip with plans to switch to oral amiodarone tomorrow. Should her blood pressure drop will continue IV hydration to maintain a blood pressure allowing her to take her metoprolol. She has had no chest pain. She denies any shortness of breath. Exam Vital Signs (past 8 hours): - 02/02/20 04:00 02/02/20 04:15 02/02/20 04:30 Temperature 97.6 F Pulse Rate 86 104 H Pulse Rate [Orthostatic Lying] Pulse Rate [Orthostatic Sitting] Pulse Rate [Orthostatic Standing] Respiratory Rate Blood Pressure 87/58 L Blood Pressure [Orthostatic Lying] Blood Pressure [Orthostatic Sitting] Blood Pressure [Orthostatic Standing] Pulse Oximetry 99 98 02/02/20 05:00 02/02/20 05:01 02/02/20 05:30 Temperature Pulse Rate 94 H 90 55 L Pulse Rate [Orthostatic Lying] Pulse Rate [Orthostatic Sitting] Pulse Rate [Orthostatic Standing] Respiratory Rate Blood Pressure 125/71 Blood Pressure [Orthostatic Lying] Blood Pressure [Orthostatic Sitting] Blood Pressure [Orthostatic Standing] Pulse Oximetry 99 99 97 02/02/20 06:00 02/02/20 06:01 02/02/20 07:00 Temperature Pulse Rate 83 83 74 Pulse Rate [Orthostatic Lying] 121 H Pulse Rate [Orthostatic Sitting] 128 H Pulse Rate [Orthostatic Standing] 144 H Respiratory Rate Blood Pressure 152/70 H Blood Pressure [Orthostatic Lying] 146/64 H Blood Pressure [Orthostatic Sitting] 106/59 L Blood Pressure [Orthostatic Standing] 105/58 L Pulse Oximetry 93 100 99 02/02/20 07:01 02/02/20 08:00 02/02/20 08:53 Temperature 97.7 F Pulse Rate 79 97 H 92 H Pulse Rate [Orthostatic Lying] Pulse Rate [Orthostatic Sitting] Pulse Rate [Orthostatic Standing] Respiratory Rate 18 18 Blood Pressure 126/60 146/64 H Blood Pressure [Orthostatic Lying] Blood Pressure [Orthostatic Sitting] Blood Pressure [Orthostatic Standing] Pulse Oximetry 98 99 99 02/02/20 09:00 02/02/20 10:00 02/02/20 11:00 Temperature Pulse Rate 128 H 122 H 120 H Pulse Rate [Orthostatic Lying] Pulse Rate [Orthostatic Sitting] Pulse Rate [Orthostatic Standing] Respiratory Rate Blood Pressure 92/67 Blood Pressure [Orthostatic Lying] Blood Pressure [Orthostatic Sitting] Blood Pressure [Orthostatic Standing] Pulse Oximetry 99 100 99 02/02/20 11:01 Temperature Pulse Rate 120 H Pulse Rate [Orthostatic Lying] Pulse Rate [Orthostatic Sitting] Pulse Rate [Orthostatic Standing] Respiratory Rate Blood Pressure 129/71 Blood Pressure [Orthostatic Lying] Blood Pressure [Orthostatic Sitting] Blood Pressure [Orthostatic Standing] Pulse Oximetry 99 Oxygen Delivery Method Room Air Oxygen Flow Rate 0 Narrative Exam Narrative: Pleasant female resting comfortably in no obvious distress Lungs: Clear to auscultation, no crackles rhonchi or wheezes Cardiac exam: Tachycardic irregularly irregular normal S1-S2 with a 2/6 systolic ejection murmur Abdomen: Soft and nontender Extremities: No edema Objective Labs Result Diagrams: 02/02/20 04:15 02/02/20 04:15 Labs: Laboratory Results - last 24 hr 02/01/20 02/02/20 02/02/20 19:10 04:15 04:15 WBC 9.5 RBC 4.39 Hgb 13.2 Hct 39.3 MCV 89.6 MCH 30.1 MCHC 33.6 RDW 13.1 Plt Count 258 Neut % (Auto) 60.5 Lymph % (Auto) 31.0 [place] % (Auto) 7.3 Eos % (Auto) 0.8 L Baso % (Auto) 0.4 Neut # (Auto) 5700 Lymph # (Auto) 2900 [place] # (Auto) 700 Eos # (Auto) 100 Baso # (Auto) 0 Sodium 136 L Potassium 4.6 Chloride 102 Carbon Dioxide 29 BUN 23 H Creatinine 1.05 H Estimated GFR 50.8 L BUN/Creatinine Ratio 21.9 Glucose 111 H Calcium 9.2 NT-Pro-B Natriuret Pep 5900 H TSH Nasal Screen MRSA (PCR) Negative for mrsa 02/02/20 04:15 WBC RBC Hgb Hct MCV MCH MCHC RDW Plt Count Neut % (Auto) Lymph % (Auto) [place] % (Auto) Eos % (Auto) Baso % (Auto) Neut # (Auto) Lymph # (Auto) [place] # (Auto) Eos # (Auto) Baso # (Auto) Sodium Potassium Chloride Carbon Dioxide BUN Creatinine Estimated GFR BUN/Creatinine Ratio Glucose Calcium NT-Pro-B Natriuret Pep TSH 8.99 H Nasal Screen MRSA (PCR) Assessment & Plan Assessment & Plan narrative: Impression 1. Paroxysmal atrial fibrillation with rapid ventricular response rate -patient continues to have significant tachy arrhythmia. -patient's blood pressure has improved -will start metoprolol 25 b.i.d. for rate control -patient initiated on amiodarone infusion yesterday, -TSH elevated at 8.99, will obtain thyroid panel to rule out euthyroid sick versus true hypothyroid -if the patient is truly hypothyroid will need to discontinue the amiodarone -cardiac echo obtained yesterday -ejection fraction 60-65%, significant left atrial enlargement, moderate right atrial enlargement, tricuspid regurgitation noted -despite elevated proBNP no evidence for clinical congestive heart failure -will continue IV hydration to maintain blood pressure and allow for metoprolol for rate control -continue Eliquis -follow-up as an outpatient with Dr. Lynne at discharge 2. Gastroesophageal reflux -will continue proton pump inhibitor 3. Multiple sclerosis with complication of neuropathy -continue amitriptyline 4. Sjogren's disease -, chronic 5. Rheumatoid arthritis -continue hydroxychloroquine 6. Hypertension -losartan held given low blood pressure -continue metoprolol for both rate control and blood pressure Quality VTE Deep Vein Thrombosis/Pulmonary Embolism Present on Admission: No
--- NOTE | 2020-02-02 12:05 | CM.DPC ---
DCP: continued. Case received and met with pt during Team Bedside Rounds. Dr. Menezes stated to all that she was consulting Dr. Reynaga/cardiology and transfer to [facility] was likely for cardioversion. She stated she would be back later today to talk more with pt. DCP team will follow prn
[2020-02-02 18:36] LABS: Free T4, Direct Thyroxine 1.16 ng/dL (0.78-2.19); Triiodothryronine T3 Uptake 32.3 % (23.5-40.5)
[2020-02-02 19:07] LABS: T4 Total Thyroxine 7.34 ug/dL (5.5-11.0); T7 (Free Thyroxine Index) 2.37 (1.65-3.89)
[2020-02-02] MEDS: AMITRIPTYLINE 25 MG TABLET PO (19:43)
[2020-02-02] MEDS: SIMVASTATIN 20 MG TABLET PO (19:45)
--- NOTE | 2020-02-02 22:48 | PC.NURSE ---
shift note: Pt converted to sinus rhythm, sinus tach at 21:57. notified. VSS. ambulating in room and around in hallway without increase in HR. IV saline locked.
[2020-02-03 00:15] VITALS: BP 112/79; PULSE 105; RESP 16; TEMP 36.5; O2SAT 98
--- NOTE | 2020-02-03 01:03 | PC.NURSE ---
Addendum entered by Courtney Santos R.N. 02/03/20 06:54: Amiodarone po given per EMAR with return to AFib,CVR-RVR. Pt continues to deny chest pain, SOB and dizziness. Addendum entered by Courtney Santos R.N. 02/03/20 05:44: Pt returned to AFib,CVR. Rate 80-90s. BP lying 120/82 HR 96. Pt OOB in room with stand-by assist and denies dizziness. States that she feels well. Postural BP sitting BP 108/60 HR 103; BP standing 97/59 HR 119. Alf SHELLEY notified of posturals and rhythm change to AFib,CVR. Pt denies chest pain, SOB and nausea. Original Note: OO10 Pt denies pain. States she is excited that she converted into SR. Pt encouraged to call for assistance when getting OOB. Pt agreeable. Pt aware that urine sample is required with next void. Pt in ST. rate 103-105. BP stable at 112/79. Assessment completed.
[2020-02-03 05:25] LABS: Bacteria Urine None Seen; Color Urine UA Yellow; RBC Urine None Seen (0-5/HPF); WBC Urine None Seen (0-5/HPF)
[2020-02-03 05:26] LABS: Appearance Urine UA Clear; Glucose Urine UA NEGATIVE (Negative); Ketones Urine UA NEGATIVE (NEGATIVE); Protein Urine UA NEGATIVE (Negative); Specific Gravity Urine UA <=1.005 (1.000-1.035); pH Urine UA 5.5 (4.5-8.0)
[2020-02-03 05:27] LABS: Bilirubin Urine UA NEGATIVE (NEGATIVE); Leukocyte Esterase Urine UA NEGATIVE (NEGATIVE); Nitrite Urine UA NEGATIVE (Negative); Occult Blood Urine UA TRACE-LYSED (Negative); Urobilinogen Urine UA 0.2 E.U./dL (0.2)
[2020-02-03 05:31] LABS: BUN Creatinine Ratio 23.8 (6-22); Blood Urea Nitrogen 25 mg/dL (7-17); Calcium 9.5 mg/dL (8.4-10.2); Carbon Dioxide 29 mmol/L (22-32); Chloride 109 mmol/L (98-107); Estimated Glomerular Filt Rate 50.8 mL/min (>60); Glucose 100 mg/dL (80-110); HEMOLYSIS < 15 (0-50); Magnesium 2.1 mg/dL (1.6-2.3); Sodium 142 mmol/L (137-145)
[2020-02-03 05:38] VITALS: BP 108/60; BP 120/82; BP 97/59; PULSE 103; PULSE 119; PULSE 96
[2020-02-03 05:40] VITALS: RESP 16; TEMP 36.2; O2SAT 99
[2020-02-03] MEDS: AMIODARONE 200 MG TABLET PO ×2 (06:07→08:44)
[2020-02-03 06:31] LABS: Culture Indicated Urine Cult Not Indicated
[2020-02-03 08:00] VITALS: BP 142/78; PULSE 118; RESP 16; TEMP 36.3; O2SAT 99
[2020-02-03] MEDS: predniSONE 1 MG TABLET PO (08:44)
[2020-02-03] MEDS: HYDROXYCHLOROQUINE 200 MG TABLET PO (08:44)
[2020-02-03] MEDS: PANTOPRAZOLE 20 MG TABLET PO (08:44)
[2020-02-03] MEDS: APIXABAN 5 MG TABLET PO (08:44)
[2020-02-03] MEDS: METOPROLOL IR 25 MG TABLET PO ×3 (08:44→12:57)
[2020-02-03] MEDS: SODIUM CHLORIDE 0.9% FLUSH 10 ML IV (08:44)
[2020-02-03 10:20] VITALS: BP 129/72; BP 135/55; PULSE 114; PULSE 119; PULSE 120
[2020-02-03 10:31] LABS: Free T4, Direct Thyroxine 1.14 ng/dL (0.78-2.19); TSH w/ Reflex to FT4 6.53 uIU/mL (0.47-4.68)
[2020-02-03 12:00] VITALS: BP 121/71; PULSE 77; RESP 18; TEMP 36.8; O2SAT 99
--- NOTE | 2020-02-03 14:45 | PC.NURSE ---
Pt is AO x4 and independent with ADLS. She is hopeful to go home today. HR remains 90s-110s, Afib vs Aflutter. Pt denies any symptoms of rapid HR. Orthostatic VS are negative. She has ambulated 200 ft twice today independently. Both times HR was 115 at the most. Spoke with Dr. Wang regarding HR throughout this shift. 2 additional 25 mg PO Metoprolol IR doses have been given as well as 400 mg total of PO amiodarone. Dr. Wang would like to watch her HR over the afternoon and is considering discharging today.
--- NOTE | 2020-02-03 15:39 | PM.DS.1 ---
History of Present Illness History of Present Illness Date Patient Seen: 01/31/20 Chief complaint: possible afib Narrative: Written by Dave SHELLEY: Ms. Wilma Ji is a 79-year-old female with a past medical history significant for paroxysmal atrial fibrillation diagnosed 9 months ago on Eliquis anticoagulation, multiple sclerosis, rheumatoid arthritis, Sjogren's syndrome and Raynaud's syndrome who presents to the ER with reports of rapid heartbeat and 3 near syncope episodes. The patient states she woke this morning was somewhat lightheaded and describes slight frontal headache. Approximately 2 clock she was standing at kitchen counter where she had a sudden onset lightheadedness with visual changes described as blackening in red vision. She denies the room spinning or vertiginous symptoms. She reports going to 1 knee and waiting moment and attempting to stand again when the symptoms recurred. She reports no nausea or diaphoresis or numbness or tingling. Patient managed to get to her count short her she waited for an hour and half as believing this is related to previous episodes of atrial fibrillation that were transient and with self terminate. While on the couch she will check her blood pressure which she describes typically in the 120s to 130s and notices she had elevated heart rate on her monitor in the 110s to 120s. She then again attempted to stand up with returns symptoms and therefore summoned EMS. The patient reports yesterday feeling well and has had no recent complaints of cold or or flu symptoms. She has had no fevers or chills, nasal congestion or sore throat. She does have Sjogren syndrome for which she uses eyedrops and experiences dry mouth. She denies complaints of chest pain and has a history of palpitations. She reports no shortness of breath and has had no recent cough wheezing. She has a history of GERD but denies epigastric pain or abdominal pain. She reports no problems with diarrhea or constipation and no urinary symptoms including frequency, urgency, burning or hematuria. She has decreased sensation bilateral lower extremities distal to the knee from MS and poor circulation to the feet related to Raynaud's.. Patient is typically independent in all ADLs requiring no assistive devices. She has had 1 fall occurring 3 weeks ago after a trip and fall at a construction site where her home is being built. Upon arrival to the ER the patient is afebrile with a temperature of 98.5?, heart rate of 116, blood pressure 179/95, respirations 18 saturating 98% on room air. Blood pressure is variable while in the ER with blood pressures in the 170 systolic and spontaneously decreasing to 100s within an hour and half without treatment. A chest x-ray is obtained which shows no acute cardiopulmonary pathology. Twelve lead EKG finds atrial fibrillation with RVR with a ventricular rate of 101 with aberrant beats, intraventricular conduction delay with a QRS of 118 milliseconds, no ST or T-wave changes or evidence of infarct. On laboratory analysis she has white count of 8.8 with no shift, hemoglobin of 12.8, hematocrit of 38.2 and platelets of 269. She has a PT of 14.6, INR 1.3, PTT of 36. Electrolytes are within normal limits with a nonfasting glucose of 114. Her BUN is 24 and creatinine is 1.09. She has an EGFR is 48.7. She has a total CK of 581 with an CK MB of 13.0 with an index of 2.2%. Her troponin is negative less than 0.012. ProBNP is 2520. Covered screening is negative. In the ER the patient received IV fluid normal saline 125 cc/hour and Lasix 20 mg. She received metoprolol tartrate 5 mg IV with reduction heart rate followed by oral metoprolol tartrate 50 mg. The patient also has received amitriptyline she takes for leg cramps, and hydroxychloroquine 200 mg and her evening dose of Eliquis 5 mg. The patient is admitted to the medicine service further evaluation of near syncope. Discharge Providers Provider Date of admission: 02/01/20 18:11 Discharge Date: 02/03/20 Consults: 01/31/20 20:53 Consult to Discharge Planning Routine Comment: Patient needs referral for PCP and Endocrine. Discharge provider: Roxana Wang DO Summary Hospital Course Discharge Diagnosis: 1. Symptomatic paroxysmal atrial fibrillation with acute RVR and near syncopal episodes, present on admission. RVR resolved. 2. Congestive heart failure ruled out. 3. Hypertension, chronic, present on admission. Stable. 4. Multiple sclerosis, chronic, present on admission. Stable. 5. Sjogren's syndrome, chronic, present on admission. Stable. 6. Rheumatoid arthritis, chronic, present on admission. Stable. 7. Raynaud's syndrome, chronic, present on admission. Stable. Hospital Course: Wilma Ji is a 79-year-old female with a past medical history significant for hypertension, paroxysmal atrial fibrillation on Eliquis, multiple sclerosis, rheumatoid arthritis, Sjogren's syndrome and Raynaud's syndrome who presented to the ED with reports of rapid heartbeat and 3 near syncope episodes. 1. Symptomatic paroxysmal atrial fibrillation with acute RVR and near syncopal episodes, present on admission. RVR resolved. -Patient presented with a 3 near syncopal episodes at home with palpitations and found to be in atrial fibrillation with RVR heart rate 140s. -EKG demonstrated atrial fibrillation with RVR and without acute ischemic changes such as ST elevation or depression. Troponin negative < 0.012. -Continue to monitor closely on telemetry. Patient remained in atrial fibrillation with improved rate control and average heart rate 90 to 100s. -Continued home metoprolol tartrate 50 mg twice daily for heart rate control and Eliquis 5 mg twice daily for VTE prophylaxis. Discontinued losartan as below. -Patient received half of amiodarone infusion (stopped early due to slightly elevated TSH at 8.99 but free T4 normal at 1.14) and converted to sinus rhythm but then went back into atrial fibrillation with mild RVR. Started PO amiodarone as patient is not hypothroid with amiodarone 400 mg twice daily x1 week then 200 mg twice daily thereafter until she is able to follow-up with Cardiology. Patient will need to have lung and thyroid functions monitored. Discontinued hydroxychloroquine and amitriptyline due to potential for QTc prolongation and torsades de Pointes with concurrent amiodarone use. Patient reports she was going to request her amitriptyline be discontinued when she establishes with PCP as she has been on this for years and believes it was falsely started for leg cramps. The patient has been on hydroxychloroquine for Sjogren's syndrome but is agreeable to discontinuing this medication. Of note, hydroxychloroquine has a long half life of approximately 30-40 days. -Patient is scheduled for outpatient follow-up on 02/20/2020 with cardiology, Dr. Wahl. Patient reports she is in the process of acquiring a PCP at [facility] [place] possibly with Dr. Banks and requests discharge summary to be sent to him. 2. Congestive heart failure ruled out. -Patient denies chest pain, shortness of breath, peripheral edema or any recent weight gain. -ProBNP elevate at 2520 most likely related to atrial fibrillation with RVR. Chest x-ray demonstrated no acute cardiopulmonary process. -Received furosemide 20 mg IV x1 in ED. Patient was then dehydrated with orthostatic hypotension and received IV fluids until adequately hydrated. -Echocardiogram demonstrated normal LV size, wall thickness and systolic function with EF is 60-65%, severe LA enlargement; mild-moderate RA enlargement, moderate central TR; otherwise no significant valvular abnormalities. Diastolic parameters could not be assessed due to atrial fibrillation. 3. Hypertension, chronic, present on admission. Stable. -Continued home metoprolol tartrate 50 mg twice daily. Blood pressure controlled with SBP 120s to 140s. -Discontinued home losartan 100 mg daily as BP was labile with orthostatic hypotension likely due to IV diuresis. Could consider restarting low-dose losartan if blood pressure remains elevated per PCP. 4. Multiple sclerosis, chronic, present on admission. Stable. -Onset of MS in her 30s and reports last significant relapse was at age 38 with decreased sensation to bilateral lower extremities from knee to feet. -Discontinued amitriptyline for daily for leg cramps due to risk of QTc prolongation with concurrent use of amiodarone. 5. Sjogren's syndrome, chronic, present on admission. Stable. -Patient has dry eyes and dry mouth. -Discontinued hydroxychloroquine due risk of QTC prolongation with concurrent use of amiodarone. Recommend outpatient referral to rheumatology to assess other therapeutic modalities. 6. Rheumatoid arthritis, chronic, present on admission. Stable. -Patient maintains mobility and is independent in all ADLs. -Continue home prednisone 1 mg twice daily. 7. Raynaud's syndrome, chronic, present on admission. Stable. -Patient endorses history of cold extremities and delayed capillary refill of bilateral feet. Patient is at her baseline, however, not able to wear compression socks secondary to her condition. Exam Vital Signs (past 8 hours): - 02/03/20 08:00 02/03/20 10:20 02/03/20 12:00 Temperature 97.4 F L 98.2 F Pulse Rate 118 H 77 Pulse Rate [Orthostatic Lying] 114 H Pulse Rate [Orthostatic Sitting] 119 H Pulse Rate [Orthostatic Standing] 120 H Respiratory Rate 16 18 Blood Pressure 142/78 H 121/71 Blood Pressure [Orthostatic Lying] 135/55 L Blood Pressure [Orthostatic Sitting] 129/72 Blood Pressure [Orthostatic Standing] 135/55 L Pulse Oximetry 99 99 Oxygen Delivery Method Room Air Oxygen Flow Rate 0 Narrative Exam Narrative: General: Older female sitting in bedside chair and in no acute distress, well-developed, well-nourished, appropriately interactive. HEENT: Normocephalic, atraumatic. External ears without defect. Pupils equal, round, and reactive to light and accommodation. Anicteric sclerae, moist conjunctivae, and no lid lag. Oropharynx free of erythema and cobble stoning with moist mucosa. Neck: Supple with full range of motion. No jugular venous distension. No lymphadenopathy or thyromegaly. Cardiovascular: Irregularly irregular without murmurs, rubs, or gallops appreciated. Pulmonary: Clear to auscultation bilaterally without crackles, wheezes, or rhonchi. Normal respiratory effort with no use of accessory muscles. Abdomen: Soft, bowel sounds present, nontender, nondistended. No hepatosplenomegaly or masses appreciated. Extremities: No clubbing, cyanosis, or edema. Skin: Normal temperature, turgor, and texture; no rash, ulcers, or subcutaneous nodules appreciated. Neurological: Cranial nerves grossly intact. Psychiatric: Normal mood and affect. Alert and oriented to person, place, and time. Objective Labs Result Diagrams: 02/02/20 04:15 02/03/20 04:30 Labs: Laboratory Results - last 24 hr 02/02/20 02/03/20 02/03/20 04:15 04:30 04:30 Sodium 142 Potassium 5.0 Chloride 109 H Carbon Dioxide 29 BUN 25 H Creatinine 1.05 H Estimated GFR 50.8 L BUN/Creatinine Ratio 23.8 H Glucose 100 Calcium 9.5 Magnesium 2.1 TSH Free T4 1.16 Free T4 Index 2.37 Thyroxine (T4) 7.34 T3 Uptake 32.3 Urine Color Yellow Urine Appearance Clear Urine pH 5.5 Ur Specific [place] <=1.005 Urine Protein Negative Urine Glucose (UA) Negative Urine Ketones Negative Urine Occult Blood Trace-lysed Urine Nitrate Negative Urine Bilirubin Negative Urine Urobilinogen 0.2 Ur Leukocyte Esterase Negative Urine RBC None seen Urine WBC None seen Urine Bacteria None seen Ur Culture Indicated? Cult not indicated 02/03/20 09:32 Sodium Potassium Chloride Carbon Dioxide BUN Creatinine Estimated GFR BUN/Creatinine Ratio Glucose Calcium Magnesium TSH 6.53 H Free T4 1.14 Free T4 Index Thyroxine (T4) T3 Uptake Urine Color Urine Appearance Urine pH Ur Specific [place] Urine Protein Urine Glucose (UA) Urine Ketones Urine Occult Blood Urine Nitrate Urine Bilirubin Urine Urobilinogen Ur Leukocyte Esterase Urine RBC Urine WBC Urine Bacteria Ur Culture Indicated? Discharge Plan Discharge Plan Patient Disposition: Home Provider Discharge Comment: You are being discharged home. You have paroxysmal atrial fibrillation (your heart rhythm goes in and out from a normal sinus rhythm to atrial fibrillation) and you were admitted for atrial fibrillation with a fast heart rate called rapid ventricular response. Please continue your metoprolol tartrate 50 mg twice daily to control your heart rate and Eliquis 5 mg twice daily to prevent blood clots. Additionally you have been started on amiodarone to help control your heart rhythm and you have been prescribed amiodarone 400 mg twice daily for 1 week then 200 mg twice daily thereafter until you follow-up with cardiology. Your hydroxychloroquine and amitriptyline have both been discontinued as this can interfere with amiodarone and prolong your heart rhythm and potentially cause fatal heart arrhythmia. You will need to have your thyroid and lung functions monitored while on amiodarone. Your losartan has been discontinued. Please follow-up with cardiology, Dr. Wahl, at your scheduled appointment or sooner if possible. Please establish care with a physician in the community in the near future. If you begin having shortness of breath, chest pain or pressure, palpitations or persistent fast heart (greater than 120 beats per minute), near-syncope or syncope please call 911 or seek medical attention immediately. You also had orthostatic hypotension which resolved with IV fluids and was likely due to being dehydrated. Discharge orders & Medications Prescriptions: New amiodarone 200 mg Tablet 400 mg PO BIDWM Qty: 70 RF: 0 Continued prednisone 1 mg tablet 1 mg PO BID RF: 0 omeprazole 10 mg capsule,delayed release(DR/EC) 20 mg PO DAILY RF: 0 Eliquis 5 mg tablet 5 mg PO BID RF: 0 metoprolol tartrate 50 mg tablet 50 mg PO BID RF: 0 simvastatin 20 mg tablet 20 mg PO BEDTIME RF: 0 Discontinued hydroxychloroquine 200 mg tablet 200 mg PO BID RF: 0 amitriptyline 25 mg tablet 25 mg PO BEDTIME RF: 0 losartan 100 mg tablet 100 mg PO BEDTIME RF: 0 Diet/Activity/Treatments Diet: Low-fat, Low-sodium and Low-cholesterol Activity: Activity as tolerated Visit Report/Discharge Packet Instructions: DI for Orthostatic Hypotension, DI for Atrial Fibrillation, Amiodarone Visit Report Forms: Patient Portal/API, Stroke Signs & Symptoms Discharges patient from system. Discharge Date/Time: 02/03/20 16:30 Quality VTE Deep Vein Thrombosis/Pulmonary Embolism Present on Admission: No
--- NOTE | 2020-02-03 19:35 | PC.NURSE ---
Discharge Note: Pt received in a-fib, HR up to 110s consistently, but pt is no longer experiencing syncope or other symptoms that initially brought her to ER. Pt given discharge orders, MD and cardiology aware that pt's HR is 110s. MD gave ok for pt to drive herself home in private vehicle. Plan to taper amiodarone dose after 1 week. Pt to follow up with cardiology. Pt otherwise with no complaints. Discharge teaching for a-fib, stroke s and s, amiodarone and orthostatic hypotension provided. Pt discharged to private vehicle without incident.
== END 2020-02-03 16:30 | disposition home or self-care (01) | DRG 310 ==
LOC: ED 18:28 → AC 20:10 → ICU 02-02 11:56 → AC 02-02 15:06
PROVIDERS: Emergency Medicine; Internal Medicine; Admitting Provider Nurse Practitioner Adult Health; Emergency Provider Emergency Medicine; Visit Provider Nurse Practitioner Adult Health
DX: I48.0 Paroxysmal atrial fibrillation (principal); G35 Multiple sclerosis; M35.00 Sjogren syndrome, unspecified; R55 Syncope and collapse; M06.9 Rheumatoid arthritis, unspecified; K21.9 Gastro-esophageal reflux disease without esophagitis; I10 Essential (primary) hypertension; I73.00 Raynaud's syndrome without gangrene; Z79.01 Long term (current) use of anticoagulants; Z87.891 Personal history of nicotine dependence; Z11.59 Encounter for screening for other viral diseases
CPT/HCPCS: 36415; 71045; 80048; 80053; 80061; 81001; 82550; 82553; 83036; 83690; 83735; 83880; 84436; 84439; 84443; 84479; 84484; 85025; 85610; 85730; 87635; 87797; 90471; 90662; 93005; 93306; 94762; 96361; 96374; 96375; 99284; G0378; J0282; J1940

== ENCOUNTER 2020-02-06 06:13 | Emergency (ER) | payer MEDICARE, SELFPAY ==
[2020-02-04 09:49] VITALS: BMI 27.3
[2020-02-06] VITALS (44 sets, daily range): BP systolic 105–175; BP diastolic 52–95; PULSE 61–110; RESP 11–32; TEMP 36.6; O2SAT 97–100; BMI 27.1
--- NOTE | 2020-02-06 06:12 | ED_ITS ---
HPI - General Adult <Mckayla Vasquez MD - Last Filed: 02/06/20 23:58> General Chief complaint: Arrhythmia/Palpitations Stated complaint: High BP/AFIB Time Seen by Provider: 02/06/20 06:15 History of Present Illness HPI narrative: 79-year-old woman recently hospitalized for paroxysmal atrial fibrillation currently on Eliquis, multiple sclerosis, rheumatoid arthritis and Sjogren syndrome who presents complaining of recurrent AFib since her bedtime last evening. She was admitted to the hospital on January 30 with recurrent atrial fibrillation in 3 near syncopal episodes that day. She was discharged on February 02 after having converted with medications changed to amiodarone, metoprolol, Eliquis, prednisone omeprazole. She states she has been doing fine until she noted an irregular rhythm last night. It did interfere with her sleep which was fitful all night. She awoke from horrible dream at 5:00 a.m. and took her blood pressure noted that it was elevated. She has a number of readings that show significantly elevated blood pressures with heart rate 50-130. She is not having any chest pain but does note sensation/pressure feeling across her chest when she is in atrial fibrillation. No dyspnea, diaphoresis, nausea, vomiting, abdominal pain, diarrhea, lower extremity edema, orthopnea, fevers. She states that she has been completely compliant with new medications and regimen. Related Data Home Medications Medication Instructions Recorded Confirmed omeprazole 10 mg capsule,delayed 20 mg PO DAILY 10/17/17 01/31/20 release prednisone 1 mg tablet 1 mg PO BID 10/17/17 01/31/20 Eliquis 5 mg PO BID 11/27/19 01/31/20 metoprolol tartrate 50 mg PO BID 11/27/19 01/31/20 simvastatin 20 mg PO BEDTIME 11/27/19 01/31/20 Previous Rx's Medication Instructions Recorded amiodarone 400 mg PO BIDWM #70 tab 02/03/20 metoprolol succinate 50 mg PO DAILY #30 each 02/06/20 Allergies Allergy/AdvReac Type Severity Reaction Status Date / Time codeine [CODEINE] AdvReac Unknown Vomiting Verified 11/27/19 13:30 oyster extract AdvReac Diarrhea Verified 11/27/19 13:30 Review of Systems <Mckayla Vasquez MD - Last Filed: 02/06/20 23:58> Review of Systems Narrative: Remainder of review of systems including constitutional, ENT, cardiovascular, respiratory, GI, , musculoskeletal, skin, neurologic and psychiatric systems reviewed and are unremarkable except as noted in HPI. Patient History <Mckayla Vasquez MD - Last Filed: 02/06/20 23:58> Medical History Atrial fibrillation (Acute) Multiple sclerosis (Acute) Rheumatoid arthritis (Acute) Sjogren's disease (Acute) Surgical History History of foot surgery (Acute) History of hysterectomy (Acute) Family History Father Cardiomyopathy Diabetes mellitus Alzheimer's dementia Mother Cancer Brother Coronary artery disease Hx of CABG Social History household members: none Smoking Status: Former smoker alcohol intake: current Exam <Mckayla Vasquez MD - Last Filed: 02/06/20 23:58> Narrative Exam Narrative: General: Healthy appearing, in no acute distress. Able to give a complete and coherent history. Well-nourished well-developed HEENT: Moist mucous membranes, normal sclera with reactive pupils, Neck: No JVD, supple Respiratory: Lungs are clear to auscultation, no wheezing no rales no rhonchi. Full and symmetrical air movement Cardiac: Irregular rate, no murmurs no bruits Abdomen: Soft nontender good bowel tones, no flank pain Skin: Warm and dry, no rashes Neurologic: Grossly neurologically intact with no obvious asymmetries or abnormalities Extremities: No trauma, well perfused, no lower extremity edema Psych: Cooperative, appropriate insight and affect Initial Vital Signs Initial Vital Signs: Vital Signs Temperature 97.8 F 02/06/20 06:10 Pulse Rate 107 H 02/06/20 06:10 Respiratory Rate 15 02/06/20 06:10 Blood Pressure 175/95 H 02/06/20 06:10 Pulse Oximetry 97 02/06/20 06:10 <Deanne Shultz DO - Last Filed: 02/06/20 16:35> Initial Vital Signs Initial Vital Signs: Vital Signs Temperature 97.8 F 02/06/20 06:10 Pulse Rate 107 H 02/06/20 06:10 Respiratory Rate 15 02/06/20 06:10 Blood Pressure 175/95 H 02/06/20 06:10 Pulse Oximetry 97 02/06/20 06:10 Course <Mckayla Vasquez MD - Last Filed: 02/06/20 23:58> Orders Ordered: Discontinued Medications Apixaban (Eliquis) 5 mg PO NOW ONE Stop: 02/06/20 06:28 Last Admin: 02/06/20 06:38 Dose: 5 mg Documented by: ANIRUDH Amiodarone HCl/Dextrose (Nexterone) 150 mg in 100 mls @ 600 mls/hr IV NOW ONE; Protocol Stop: 02/06/20 06:36 Last Infusion: 02/06/20 06:50 Dose: 0 mls/hr Documented by: Admin: 02/06/20 06:38 Dose: 600 mls/hr Documented by: ANIRUDH Amiodarone HCl/Dextrose (Nexterone) 360 mg in 200 mls @ 33.333 mls/hr IV NOW ONE; Protocol Stop: 02/06/20 15:47 Last Titration: 02/06/20 15:55 Dose: 0 mls/hr Documented by: Admin: 02/06/20 10:14 Dose: 33.33 mls/hr Documented by: LAUREN Metoprolol Tartrate (Lopressor) 50 mg PO NOW ONE Stop: 02/06/20 06:28 Last Admin: 02/06/20 06:37 Dose: 50 mg Documented by: ANIRUDH Vital Signs Vital signs: Vital Signs - 8 hr 02/06/20 16:00 02/06/20 16:15 Pulse Rate 102 H 106 H Respiratory Rate 16 22 Blood Pressure 140/68 145/71 H <Deanne Shultz DO - Last Filed: 02/06/20 16:35> Orders Ordered: Discontinued Medications Apixaban (Eliquis) 5 mg PO NOW ONE Stop: 02/06/20 06:28 Last Admin: 02/06/20 06:38 Dose: 5 mg Documented by: KGALLAG Amiodarone HCl/Dextrose (Nexterone) 150 mg in 100 mls @ 600 mls/hr IV NOW ONE; Protocol Stop: 02/06/20 06:36 Last Infusion: 02/06/20 06:50 Dose: 0 mls/hr Documented by: Admin: 02/06/20 06:38 Dose: 600 mls/hr Documented by: ANIRUDH Amiodarone HCl/Dextrose (Nexterone) 360 mg in 200 mls @ 33.333 mls/hr IV NOW ONE; Protocol Stop: 02/06/20 15:47 Last Titration: 02/06/20 15:55 Dose: 0 mls/hr Documented by: Admin: 02/06/20 10:14 Dose: 33.33 mls/hr Documented by: LAUREN Metoprolol Tartrate (Lopressor) 50 mg PO NOW ONE Stop: 02/06/20 06:28 Last Admin: 02/06/20 06:37 Dose: 50 mg Documented by: ANIRUDH Reevaluation(s) Reevaluation #1: Patient signed out to myself but Dr. Vasquez. Patient has continued to be rate controlled here in the department. Plan for repeat troponin at the 2 hour harinder as patient was not positive but mildly elevated and including chest x-ray. Patient has had echo and is set up for follow-up with cardiology as well as a primary care after consultation. Blood pressure has been appropriate here in the department. Patient is feeling better at this time and comfortable with the plan. She has follow up with Dr. Wahl on 02/10/20. Time: 08:08 Reevaluation #2: Discussed cardiology's recommendations. Patient is willing to stay for amiodarone infusion and will continue to monitor in department. Repeat troponin was negative. Time: 10:32 Reevaluation #3: Patient HR is occasionally 104 but she states she feels significantly better at this time. She has completed her amiodarone in been off it for some time. She continues to be in atrial fibrillation. Patient states that she would like to return home. We did send a prescription for her metoprolol changed to succinate from tartrate. She is also to continue her amiodarone at this time. Patient expresses her understanding and feels comfortable this she has follow-up on the 09 of February. Time: 16:10 Consultations Consultation #1: Spoke with Dr. Hendricks, recommends amiodarone 1mg/kg x 6hours and if still doing well can d/c home. Switch to metoprolol tartrate to succinate but continue at 50mg BID and amiodarone at 400mg BID. Time: 10:02 Vital Signs Vital signs: Vital Signs - 8 hr 02/06/20 16:00 02/06/20 16:15 Pulse Rate 102 H 106 H Respiratory Rate 16 22 Blood Pressure 140/68 145/71 H Medical Decision Making <Mckayla Vasquez MD - Last Filed: 02/06/20 23:58> Medical Records Medical records reviewed: Yes I reviewed the patient's medical records. Lab Data Result diagrams: 02/06/20 06:28 02/06/20 06:28 Labs: Lab Results 02/06/20 02/06/20 02/06/20 Range/Units 06:28 06:28 08:32 WBC 6.7 (4.5-11.0) X10^3/uL RBC 3.83 L (4.0-5.2) X10^6/uL Hgb 11.5 L (12.0-16.0) g/dL Hct 34.1 L (36-46) % MCV 89.0 (80-100) fL MCH 29.9 (26-34) PG MCHC 33.6 (30-36) % RDW 13.2 (11.6-14.8) % Plt Count 261 (150-400) X10^3/uL Neut % (Auto) 65.2 (50-75) % Lymph % (Auto) 26.3 (25-40) % [place] % (Auto) 7.3 (3-14) % Eos % (Auto) 0.6 L (2-4) % Baso % (Auto) 0.6 (0-2) % Neut # (Auto) 4400 (3323-3753) /uL Lymph # (Auto) 1800 (4037-1837) /uL [place] # (Auto) 500 (0-900) /uL Eos # (Auto) 0 (0-450) /uL Baso # (Auto) 0 (0-100) /uL Sodium 138 (137-145) mmol/L Potassium 4.1 (3.4-5.1) mmol/L Chloride 107 (98-107) mmol/L Carbon Dioxide 24 (22-32) mmol/L BUN 21 H (7-17) mg/dL Creatinine 0.85 (0.52-1.04) mg/dL Estimated GFR > 60.0 (>60) mL/min BUN/Creatinine Ratio 24.7 H (6-22) Glucose 102 (80-110) mg/dL Calcium 9.1 (8.4-10.2) mg/dL Magnesium 2.0 (1.6-2.3) mg/dL Total Bilirubin 0.5 (0.2-1.3) mg/dL AST 28 (14-36) IU/L ALT 21 (<35) IU/L Alkaline Phosphatase 41 (38-126) U/L Total Creatine Kinase 201 H D (30-135) U/L CK-MB (CK-2) 5.23 H (<2.37) ng/mL CK-MB (CK-2) Rel Index 2.6 (1.5-5.0) % Troponin I 0.026 0.025 (0.01-0.034) ng/mL NT-Pro-B Natriuret Pep 6670 H (<450) pg/mL Total Protein 6.5 (6.3-8.2) g/dL Albumin 4.0 (3.5-5.0) g/dL Globulin 2.5 (1.7-4.1) g/dL Albumin/Globulin Ratio 1.6 (1.0-2.8) Imaging Data Cardiac Echo 01/31/2020: Radiologist's Impression: Interpretation Summary Afib with RVR. Normal LV size and wall thickness. Normal wall motion and LV systolic function. EF is 60-65%. Severe LA enlargement; mild-moderate RA enlargement. There is moderate central TR; otherwise no significant valvular abnormalities. No prior study available for comparison. ECG Data Attestation: I personally reviewed and interpreted this ECG as follows: Interpretation: Atrial fib/flutter at 104 beats per minute Nonspecific ST T wave changes Leftward axis <Deanne Shultz DO - Last Filed: 02/06/20 16:35> Lab Data Lab results reviewed: Yes I reviewed the patient's lab results. Lab results narrative: Repeat troponin was ordered and is stable. CK-MB is 5.23 but is trending downward from January 30. Labs: Lab Results 02/06/20 02/06/20 02/06/20 Range/Units 06:28 06:28 08:32 WBC 6.7 (4.5-11.0) X10^3/uL RBC 3.83 L (4.0-5.2) X10^6/uL Hgb 11.5 L (12.0-16.0) g/dL Hct 34.1 L (36-46) % MCV 89.0 (80-100) fL MCH 29.9 (26-34) PG MCHC 33.6 (30-36) % RDW 13.2 (11.6-14.8) % Plt Count 261 (150-400) X10^3/uL Neut % (Auto) 65.2 (50-75) % Lymph % (Auto) 26.3 (25-40) % [place] % (Auto) 7.3 (3-14) % Eos % (Auto) 0.6 L (2-4) % Baso % (Auto) 0.6 (0-2) % Neut # (Auto) 4400 (9564-5924) /uL Lymph # (Auto) 1800 (7382-8769) /uL [place] # (Auto) 500 (0-900) /uL Eos # (Auto) 0 (0-450) /uL Baso # (Auto) 0 (0-100) /uL Sodium 138 (137-145) mmol/L Potassium 4.1 (3.4-5.1) mmol/L Chloride 107 (98-107) mmol/L Carbon Dioxide 24 (22-32) mmol/L BUN 21 H (7-17) mg/dL Creatinine 0.85 (0.52-1.04) mg/dL Estimated GFR > 60.0 (>60) mL/min BUN/Creatinine Ratio 24.7 H (6-22) Glucose 102 (80-110) mg/dL Calcium 9.1 (8.4-10.2) mg/dL Magnesium 2.0 (1.6-2.3) mg/dL Total Bilirubin 0.5 (0.2-1.3) mg/dL AST 28 (14-36) IU/L ALT 21 (<35) IU/L Alkaline Phosphatase 41 (38-126) U/L Total Creatine Kinase 201 H D (30-135) U/L CK-MB (CK-2) 5.23 H (<2.37) ng/mL CK-MB (CK-2) Rel Index 2.6 (1.5-5.0) % Troponin I 0.026 0.025 (0.01-0.034) ng/mL NT-Pro-B Natriuret Pep 6670 H (<450) pg/mL Total Protein 6.5 (6.3-8.2) g/dL Albumin 4.0 (3.5-5.0) g/dL Globulin 2.5 (1.7-4.1) g/dL Albumin/Globulin Ratio 1.6 (1.0-2.8) Imaging Data Chest x-ray: Attestation: I personally reviewed and interpreted this imaging study as follows: My Impression: No acute changes. ECG Data Attestation: I personally reviewed and interpreted this ECG as follows: Interpretation: Atrial flutter with variable AV block. Rate of 104 QRS of 114 and QTC of 478. No ST changes appreciated nonspecific ST changes. MDM Narrative Medical decision making narrative: Patient was transferred to myself by Dr. Vasquez. Patient has had slightly elevated HR and improved with amiodarone 150mg IV and metoprolol 50mg po, repeat trop is stable and patient has not had any worsening symptoms. Dr. Hendricks from cardiology discussed the case and he recommends continuing amiodarone for 6 hours at 1 milligram/kilos IV if patient continues to feel well she can discharge home but changed her metoprolol from tartrate to succinate. Patient is agreeable to this and did well throughout her stay, heart rate improved for the majority of her stay but occasionally dips up to the [id number] range, she states she is feeling much better and feels comfortable returning home and she has short-term follow-up scheduled with [facility] this week. Discharge Plan Departure Patient Disposition: Home Clinical Impression: Atrial fibrillation with RVR Discharge Date/Time: 02/06/20 16:45 Instructions: DI for Atrial Fibrillation Activity Restrictions/Additional Instructions: Change your metoprolol from metoprolol tartrate 50 mg twice daily to metoprolol succinate 50 mg once daily. Continue your amiodarone 400 mg twice daily. Follow-up with Dr. Wahl at your appointment on the . Continue your other home medications as prescribed. Return to the ER for new or worsening symptoms, lightheadedness, passing out, p ersistently fast heartbeat, shortness of breath, chest pain or pressure, swelling in her extremities or other new or concerning symptoms Prescriptions: New metoprolol succinate 50 mg capsule,sprinkle,ER 24hr 50 mg PO DAILY Qty: 30 RF: 0 No Action prednisone 1 mg tablet 1 mg PO BID RF: 0 omeprazole 10 mg capsule,delayed release(DR/EC) 20 mg PO DAILY RF: 0 Eliquis 5 mg tablet 5 mg PO BID RF: 0 metoprolol tartrate 50 mg tablet 50 mg PO BID RF: 0 simvastatin 20 mg tablet 20 mg PO BEDTIME RF: 0 amiodarone 200 mg Tablet 400 mg PO BIDWM Qty: 70 RF: 0 Referrals: Asif Banks MD [Physician] - Lashon Wahl MD [Physician] - ED Sign-out <Mckayla Vasquez MD - Last Filed: 02/06/20 23:58> Cosign ED Attending Cosgildardoature Attestation: I was immediately available in the department for consultation throughout this patient's visit. I agree with documentation as above. Mckayla Vasqeuz MD
[2020-02-06 06:36] LABS: Add Manual Diff / Slide Review NO; Basophils Absolute Auto 0 /uL (0-100); Basophils Percent Auto 0.6 % (0-2); Eosinophils Absolute Auto 0 /uL (0-450); Eosinophils Percent Auto 0.6 % (2-4); Hematocrit 34.1 % (36-46); Hemoglobin 11.5 g/dL (12.0-16.0); Lymphocytes Absolute Auto 1800 /uL (1100-4500); Lymphocytes Percent Auto 26.3 % (25-40); Mean Corpuscular HGB Conc 33.6 % (30-36); Mean Corpuscular Hemoglobin 29.9 PG (26-34); Monocytes Absolute Auto 500 /uL (0-900); Monocytes Percent Auto 7.3 % (3-14); Neutrophils Absolute Auto 4400 /uL (1500-7000); Neutrophils Percent Auto 65.2 % (50-75); Platelet Count 261 X10^3/uL (150-400); Red Blood Cell Count 3.83 X10^6/uL (4.0-5.2); Red Cell Distribution Width 13.2 % (11.6-14.8); White Blood Cell Count 6.7 X10^3/uL (4.5-11.0)
[2020-02-06] MEDS: METOPROLOL IR 25 MG TABLET 50 MG PO (06:37)
[2020-02-06] MEDS: APIXABAN 5 MG TABLET PO (06:38)
[2020-02-06] MEDS: AMIODARONE 150 MG/100 ML PIGGYBACK 600 MG IV (06:38)
[2020-02-06 06:47] LABS: Alanine Aminotransferase 21 IU/L (<35); Albumin Globulin Ratio 1.6 (1.0-2.8); Alkaline Phosphatase 41 U/L (38-126); Aspartate Aminotransferase 28 IU/L (14-36); BUN Creatinine Ratio 24.7 (6-22); Bilirubin Total 0.5 mg/dL (0.2-1.3); Blood Urea Nitrogen 21 mg/dL (7-17); Calcium 9.1 mg/dL (8.4-10.2); Carbon Dioxide 24 mmol/L (22-32); Chloride 107 mmol/L (98-107); Estimated Glomerular Filt Rate > 60.0 mL/min (>60); Globulin 2.5 g/dL (1.7-4.1); Glucose 102 mg/dL (80-110); HEMOLYSIS < 15 (0-50); Potassium 4.1 mmol/L (3.4-5.1); Sodium 138 mmol/L (137-145); Total Protein 6.5 g/dL (6.3-8.2)
[2020-02-06 06:59] LABS: NT-proBNP (BNP-Adult 18+) 6670 pg/mL (<450); Troponin I 0.026 ng/mL (0.01-0.034)
--- NOTE | 2020-02-06 08:06 | DI.RAD.S_ITS ---
PROCEDURE: XR CHEST 2V INDICATIONS: afib and high BP TECHNIQUE: 2 views of the chest were acquired. COMPARISON: [facility], CR, XR CHEST 2V, 11/17/2017, 10:43. [facility], CR, XR CHEST 1V, 01/31/2020, 16:45. FINDINGS: Surgical changes and devices: None. Lungs and pleura: Lungs are clear. No pleural effusions or pneumothorax. Mediastinum: Mediastinal contours are normal. Heart size is normal. Atherosclerotic calcification of the aortic arch is noted. Bones and chest wall: No suspicious bony abnormalities. Age-appropriate bony degenerative changes are seen. Levoconvex thoracolumbar scoliotic curvature is seen. Soft tissues appear unremarkable. IMPRESSION: No acute cardiopulmonary process is seen. Dictated by: Aurelio Baldwin M.D. on 02/06/2020 at 7:42 Approved by: Aurelio Baldwin M.D. on 02/06/2020 at 7:43
[2020-02-06 08:51] LABS: Creatine Kinase 201 U/L (30-135)
[2020-02-06 09:04] LABS: Troponin I 0.025 ng/mL (0.01-0.034)
[2020-02-06 09:06] LABS: CKMB % Relative Index 2.6 % (1.5-5.0); Creatine Kinase MB 5.23 ng/mL (<2.37)
[2020-02-06] MEDS: AMIODARONE 360 MG/200 ML PIGGYBACK 33.33 MG IV (10:14)
== END 2020-02-06 16:45 | disposition home or self-care (01) ==
PROVIDERS: Emergency Medicine; Emergency Provider Emergency Medicine
DX: I48.91 Unspecified atrial fibrillation (principal); Z79.01 Long term (current) use of anticoagulants; I10 Essential (primary) hypertension
CPT/HCPCS: 36415; 71046; 80053; 82550; 82553; 83735; 83880; 84484; 85025; 93005; 96365; 96366; 96375; 99284; J0282

== ENCOUNTER → 2020-02-21 09:45 | Outpatient (CLI) | payer MEDICARE, SELFPAY ==
[2020-02-04 09:49] VITALS: BMI 27.3
[2020-02-23 08:47] LABS: COVID19 Sendout Not Detected (Not Detect)
== END ==
PROVIDERS: PCP Internal Medicine; Visit Provider Nurse Practitioner
DX: Z11.59 Encounter for screening for other viral diseases (principal)
CPT/HCPCS: 87635

== ENCOUNTER → 2020-02-24 09:36 | Outpatient (CLI) | payer MEDICARE, SELFPAY ==
[2020-02-04 09:49] VITALS: BMI 27.3
--- NOTE | 2020-02-24 | DI.NM.S_ITS ---
PROCEDURE: NM TEENA PERF SPECT REST & STR Rest and exercise myocardial perfusion SPECT with gated imaging and ejection fraction RADIOPHARMACEUTICAL: 10.2 mCi Tc-99m sestamibi IV at rest and 26.2 mCi Tc-99m sestamibi IV at peak exercise. A one day-protocol was performed. INDICATIONS: Other persistent atrial fibrillation TECHNIQUE: Radiopharmaceutical was injected at peak stress test, and also at rest. SPECT images were obtained. SPECT myocardial perfusion images were displayed in short axis, horizontal long axis, and vertical long axis views. Gated images were reviewed using [employer] software. COMPARISON: None. CARDIAC STRESS: A standard [place] treadmill exercise tolerance test was performed by the patient under the supervision of an attending staff. The patient exercised for 5 minutes and 48 seconds; functional aerobic impairment (TAYLOR) is -14%. Hemodynamic data: There is normal blood pressure and heart rate response to exercise stress. Patient achieved 112% of maximum predicted heart rate at peak exercise. Symptoms: Patient denied chest pain during exercise. EKG: Atrial fibrillation present during the study. No diagnostic EKG changes of ischemia. FINDINGS: Raw data: There is good myocardial labeling by radiotracer. No significant motion artifacts. Fhiz-jl-dqklq ratio is 0.29 (normal is less than 0.38 for sestamibi tracer, and less than 0.50 for thallium tracer). Left ventricle function: Gated images demonstrate normal left ventricle wall thickening. No segmental wall motion abnormality. No transient ischemic dilation; TID is 0.66 (normal less than 1.3). The left ventricle resting end-diastolic volume is 68 mL. Left ventricle stress ejection fraction is 71%; normal values are above 45%. Myocardial perfusion: There is normal distribution of activity in the left and right ventricular myocardium. No fixed or reversible perfusion defects. IMPRESSION: Low risk, normal treadmill nuclear stress test. 1) No perfusion evidence of ischemia or infarction. 2) Normal left ventricular size, wall motion, and systolic function (EF post stress 71%0. 3) No ECG evidence of ischemia. Atrial fibrillation present throughout the study. 4) No angina during the study. 5) Good exercise tolerance (7.0 METs, TAYLOR -14%). Target heart rate reached. Appropriate BP response to exercise. 6) No prior nuclear stress test available for comparison. Dictated by: Alexi Celestin MD on 02/24/2020 at 17:36 Approved by: Alexi Celestin MD on 02/24/2020 at 17:39
== END ==
PROVIDERS: PCP Internal Medicine; Referring Provider Internal Medicine; Visit Provider Nurse Practitioner
DX: I48.19 Other persistent atrial fibrillation (principal)
CPT/HCPCS: 78452; 93017; A9502

== ENCOUNTER 2020-04-19 10:26 | Emergency (ER) | payer MEDICARE, SELFPAY ==
[2020-02-04 09:49] VITALS: BMI 27.3
[2020-04-19] VITALS (11 sets, daily range): BP systolic 130–155; BP diastolic 60–69; PULSE 44–52; RESP 12–29; TEMP 37.1; O2SAT 96–100; BMI 28.0
--- NOTE | 2020-04-19 10:29 | DI.RAD.S_ITS ---
PROCEDURE: XR CHEST 1V INDICATIONS: chest pain TECHNIQUE: One view of the chest was acquired. COMPARISON: [facility], CR, XR CHEST 2V, 02/06/2020, 8:04. [facility], CR, XR CHEST 1V, 01/31/2020, 16:45. FINDINGS: Surgical changes and devices: None. Lungs and pleura: Lungs are abnormal, with a chronic interstitial prominence perhaps reflecting a prior smoking history. No pleural effusions or pneumothorax. Mediastinum: Mediastinal contours appear normal. Heart size is normal. Bones and chest wall: No suspicious bony lesions. Overlying soft tissues appear unremarkable. IMPRESSION: Suspect prior smoking history with chronic interstitial prominence, no evidence of pneumonia or neoplasm. Dictated by: Mal Chávez M.D. on 04/19/2020 at 11:21 Approved by: Mal Chávez M.D. on 04/19/2020 at 11:21
--- NOTE | 2020-04-19 10:37 | ED.ARRPALP ---
HPI - Arrhythmia/Palpitations General Chief Complaint: Arrhythmia/Palpitations Stated Complaint: Bradycardia Time Seen by Provider: 04/19/20 10:29 Source: patient and EMS Mode of arrival: EMS Limitations: no limitations History of Present Illness HPI narrative: Patient is a 79-year-old female who has a history of atrial fibrillation who was cardioverted yesterday by Cardiology a presenting today with increasing shortness of breath. She states that prior to her cardioversion she has had some shortness of breath with exertion. She thought she is going to feel better after the cardioversion but she has not. This morning she was extremely short of breath with exertion she noted that her heart rate was in the 40s. It is currently in the mid 40s but is sinus rhythm. She denies any fever or productive cough. She was recently tested for COVID prior to her cardioversion procedures. She denies any chest pain or heart palpitations Related Data Home Medications Medication Instructions Recorded Confirmed omeprazole 10 mg capsule,delayed 20 mg PO DAILY 10/17/17 03/15/20 release prednisone 1 mg tablet 1 mg PO BID 10/17/17 03/15/20 Eliquis 5 mg PO BID 11/27/19 03/15/20 metoprolol succinate 100 mg 150 mg PO BID tab 03/15/20 03/15/20 tablet,extended release 24 hr Previous Rx's Medication Instructions Recorded simvastatin 20 mg tablet 20 mg PO BEDTIME #90 tab 02/22/20 amitriptyline 25 mg tablet 25 mg PO BEDTIME #90 tab 02/25/20 metoprolol succinate 25 mg PO BID #60 tab 04/19/20 Allergies Allergy/AdvReac Type Severity Reaction Status Date / Time codeine [CODEINE] AdvReac Unknown Vomiting Verified 03/15/20 13:38 oyster extract AdvReac Diarrhea Verified 03/15/20 13:38 Review of Systems Review of Systems ROS Unobtainable: All systems reviewed & are unremarkable except as noted in HPI and below Constitutional Constitutional: Denies chills, Denies fever(s), Denies lethargy and Denies weakness Eyes Eyes: Denies change in vision, Denies eye discharge, Denies irritation and Denies loss of vision ENT Ears, Nose, Mouth, and Throat: Denies change in voice, Denies neck pain and Denies sore throat Cardiovascular Cardiovascular: Reports as per HPI Respiratory Respiratory: Reports as per HPI Gastrointestinal Gastrointestinal: Denies abdominal pain, Denies change in bowel habits, Denies diarrhea, Denies nausea and Denies vomiting Musculoskeletal Musculoskeletal: Denies back pain and Denies neck pain Integumentary/Breasts Skin/Breast: Denies pruritus, Denies erythema, Denies rash and Denies wounds Neurologic Neurologic: Denies loss of vision and Denies weakness Patient History Medical History Current use of halfway anticoagulation Multiple sclerosis Persistent atrial fibrillation Raynaud disease Rheumatoid arthritis Sjogren's disease Surgical History History of foot surgery History of hysterectomy Family History Father Cardiomyopathy Diabetes mellitus Alzheimer's dementia Mother Cancer Brother Coronary artery disease Hx of CABG Social History household members: none Smoking Status: Former smoker alcohol intake: current Smoking Status: Former smoker alcohol intake frequency: a few times a week Substance Use Type: does not use Exam Initial Vital Signs Initial Vital Signs: Vital Signs Pulse Rate 47 L 04/19/20 10:33 Respiratory Rate 22 04/19/20 10:33 Blood Pressure 155/69 H 04/19/20 10:33 Pulse Oximetry 99 04/19/20 10:33 GENERAL: Alert well-appearing 79-year-old female and in no acute distress. HEENT: Head atraumatic,EOMI, pupils reactive, face symmetric, moist mucous membranes CARDIOVASCULAR: Regular rate and rhythm without murmurs, rubs or gallops. RESPIRATORY: Breath sounds equal bilaterally, no wheezes rales or rhonchi. ABDOMEN: Soft, nontender. Normoactive bowel sounds all 4 quadrants. No guarding or rebound. : No CVA tenderness EXTREMITIES: Normal range of motion, no clubbing or edema. Neurovascularly intact NEUROLOGICAL: Alert and oriented x4.Normal gait and speech. SKIN: Warm, dry, no laceration, no petechiae, no rashes or lesions. Course Orders Ordered: ED Orders 04/19/20 10:29 XR chest 1V Stat 04/19/20 10:45 Complete Blood Count AUTO DIFF Stat Comprehensive Metabolic Panel Stat Lipase Stat NT-proBNP (BNP-Adult 18+) Stat Partial Thromboplastin Time Stat Prothrombin Time INR Stat Troponin & CK Cardiac Panel Stat 04/19/20 10:47 EKG-12 Lead Stat 04/19/20 11:30 CT angio chest PE protocol Stat Vital Signs Vital signs: Vital Signs - 8 hr 04/19/20 11:30 04/19/20 11:47 04/19/20 12:00 Pulse Rate 44 L 47 L 45 L Respiratory Rate 23 21 12 Blood Pressure 144/64 H 137/65 144/64 H Pulse Oximetry 98 97 97 04/19/20 12:30 04/19/20 12:31 04/19/20 13:00 Pulse Rate 44 L 52 L 44 L Respiratory Rate 19 28 H Blood Pressure 134/60 Pulse Oximetry 97 97 97 04/19/20 13:01 Pulse Rate 44 L Respiratory Rate 18 Blood Pressure 130/60 Pulse Oximetry 96 MDM - Arrhythmia/Palpitations Lab Data Attestation: I reviewed the patient's lab results. Result diagrams: 04/19/20 10:45 04/19/20 10:45 Labs: Lab Results 04/19/20 04/19/20 04/19/20 Range/Units 10:45 10:45 10:45 WBC 9.0 (4.5-11.0) X10^3/uL RBC 3.83 L (4.0-5.2) X10^6/uL Hgb 11.1 L (12.0-16.0) g/dL Hct 33.7 L (36-46) % MCV 88.1 (80-100) fL MCH 28.9 (26-34) PG MCHC 32.9 (30-36) % RDW 13.2 (11.6-14.8) % Plt Count 269 (150-400) X10^3/uL Neut % (Auto) 76.2 H (50-75) % Lymph % (Auto) 16.6 L (25-40) % [place] % (Auto) 5.8 (3-14) % Eos % (Auto) 0.8 L (2-4) % Baso % (Auto) 0.6 (0-2) % Neut # (Auto) 6800 (0353-1842) /uL Lymph # (Auto) 1500 (6963-2959) /uL [place] # (Auto) 500 (0-900) /uL Eos # (Auto) 100 (0-450) /uL Baso # (Auto) 100 (0-100) /uL PT 20.1 H (10.1-12.7) SECONDS INR 1.8 H (0.9-1.3) APTT 34 (26.4-36.2) SECONDS Sodium 134 L (137-145) mmol/L Potassium 4.3 (3.4-5.1) mmol/L Chloride 102 (98-107) mmol/L Carbon Dioxide 27 (22-32) mmol/L BUN 22 H (7-17) mg/dL Creatinine 0.96 (0.52-1.04) mg/dL Estimated GFR 56.4 L (>60) mL/min BUN/Creatinine Ratio 22.9 H (6-22) Glucose 115 H (80-110) mg/dL Calcium 9.1 (8.4-10.2) mg/dL Total Bilirubin 0.6 (0.2-1.3) mg/dL AST 53 H (14-36) IU/L ALT 57 H (<35) IU/L Alkaline Phosphatase 65 (38-126) U/L Total Creatine Kinase 119 (30-135) U/L CK-MB (CK-2) 3.90 H (<2.37) ng/mL CK-MB (CK-2) Rel Index 3.3 (1.5-5.0) % Troponin I 0.013 (0.01-0.034) ng/mL NT-Pro-B Natriuret Pep 2720 H (<450) pg/mL Total Protein 6.7 (6.3-8.2) g/dL Albumin 4.1 (3.5-5.0) g/dL Globulin 2.6 (1.7-4.1) g/dL Albumin/Globulin Ratio 1.6 (1.0-2.8) Lipase 57 (23-300) U/L Imaging Data Chest x-ray: Radiologist's Impresson: PROCEDURE: XR CHEST 1V INDICATIONS: chest pain TECHNIQUE: One view of the chest was acquired. COMPARISON: [facility], CR, XR CHEST 2V, 02/06/2020, 8:04. [facility], CR, XR CHEST 1V, 01/31/2020, 16:45. FINDINGS: Surgical changes and devices: None. Lungs and pleura: Lungs are abnormal, with a chronic interstitial prominence perhaps reflecting a prior smoking history. No pleural effusions or pneumothorax. Mediastinum: Mediastinal contours appear normal. Heart size is normal. Bones and chest wall: No suspicious bony lesions. Overlying soft tissues appear unremarkable. IMPRESSION: Suspect prior smoking history with chronic interstitial prominence, no evidence of pneumonia or neoplasm. Dictated by: Mal Chávez M.D. on 04/19/2020 at 11:21 CT scan - chest: Radiologist's Impresson: PROCEDURE: CT ANGIO CHEST PE PROTOCOL INDICATIONS: short of breath- ablation yesterday TECHNIQUE: After the administration of intravenous contrast, 2 mm thick sections acquired from the pulmonary apices to the posterior costophrenic angles. 3-dimensional maximum intensity projection (MIP) coronal and sagittal reformats were then acquired through the thorax. For radiation dose reduction, the following was used: automated exposure control, adjustment of mA and/or kV according to patient size. COMPARISON: [facility], CR, XR CHEST 1V, 04/19/2020, 10:36. [facility], CR, XR CHEST 2V, 02/06/2020, 8:04. FINDINGS: Image quality: Excellent. Pulmonary arteries: Pulmonary arteries are normal in size, and demonstrate no intraluminal filling defects to suggest central pulmonary embolism. Lungs and pleura: Lungs are mildly abnormal with a mild patchy alveolitis pattern potentially an early manifestation of cardiogenic pulmonary edema or even coincidental atypical pneumonitis. No pleural effusions or pneumothorax. Central and peripheral airways are patent. Mediastinum: Heart size is normal, without pericardial effusion. No mediastinal or hilar adenopathy. Thoracic aorta is normal in caliber and enhancement. Esophagus is normal in caliber, without hiatal hernia. Bones and chest wall: No suspicious bony lesions. Ribs and thoracic spine appear intact throughout. Thyroid gland is not well seen . No axillary or supraclavicular adenopathy. Abdomen: Visualized upper abdominal solid organs appear normal in the early arterial phase of enhancement. IMPRESSION: No pulmonary embolus seen, no pericardial effusion or myocardial hematoma. Mild nonspecific patchy alveolar inflammation pattern, versus mild acute CHF. Please correlate for potential coincidental atypical/viral pneumonia. Dictated by: Mal Chávez M.D. on 04/19/2020 at 12:15 ECG Data Attestation: I personally reviewed and interpreted this ECG as follows: Prior ECG tracings: available for review Interpretation: Sinus bradycardia rate 46 p.r. interval [address] changes MDM Narrative Medical decision making narrative: 1238 Dr. Devries has been updated on patient's symptoms and test results, at this time recommends decreasing metoprolol. She was previously on diltiazem and large dose of metoprolol. At this time suggest 25 mg of metoprolol succinate twice daily and follow up as outpatient. Patient's heart rate is staying steady at around 45-[address] is negative blood work is overall reassuring. Bradycardia is likely secondary to large amount of a beta-jaqueline Discharge Plan Departure Patient Disposition: Home Clinical Impression: Bradycardia Instructions: DI for Bradycardia Activity Restrictions/Additional Instructions: *You have been diagnosed with bradycardia *What to do: Your shortness of breath is likely related to your slow heart rate. He were previously on multiple high dose medications to control your atrial fibrillation. Those medications are no longer needed. I have spoken with Dr. Devries today who would like to decrease your medication. *Continue to take medications as directed Stop taking diltiazem Stop taking metoprolol 100 mg Start taking metoprolol succinate 25 mg twice a day *Follow up with your primary care provider in 2-3 days Follow-up with Dr. eDvries as scheduled *Return to ER if you should have dizziness lightheadedness, passing out, increasing shortness of breath or any new, worsening or concerning symptoms Prescriptions: New metoprolol succinate 25 mg tablet extended release 24 hr 25 mg PO BID Qty: 60 RF: 0 No Action prednisone 1 mg tablet 1 mg PO BID RF: 0 omeprazole 10 mg capsule,delayed release(DR/EC) 20 mg PO DAILY RF: 0 simvastatin 20 mg tablet 20 mg PO BEDTIME Qty: 90 RF: 0 amitriptyline 25 mg tablet 25 mg PO BEDTIME Qty: 90 RF: 3 metoprolol succinate 100 mg tablet extended release 24 hr 150 mg PO BID RF: 0 Eliquis 5 mg tablet 5 mg PO BID RF: 0 Referrals: Asif Banks MD [Primary Care Provider] -
[2020-04-19 10:54] LABS: Add Manual Diff / Slide Review NO; Basophils Absolute Auto 100 /uL (0-100); Basophils Percent Auto 0.6 % (0-2); Eosinophils Absolute Auto 100 /uL (0-450); Eosinophils Percent Auto 0.8 % (2-4); Hematocrit 33.7 % (36-46); Hemoglobin 11.1 g/dL (12.0-16.0); Lymphocytes Absolute Auto 1500 /uL (1100-4500); Lymphocytes Percent Auto 16.6 % (25-40); Mean Corpuscular HGB Conc 32.9 % (30-36); Mean Corpuscular Hemoglobin 28.9 PG (26-34); Mean Corpuscular Volume 88.1 fL (80-100); Monocytes Absolute Auto 500 /uL (0-900); Monocytes Percent Auto 5.8 % (3-14); Neutrophils Absolute Auto 6800 /uL (1500-7000); Neutrophils Percent Auto 76.2 % (50-75); Platelet Count 269 X10^3/uL (150-400); Red Blood Cell Count 3.83 X10^6/uL (4.0-5.2); Red Cell Distribution Width 13.2 % (11.6-14.8)
[2020-04-19 11:05] LABS: INR 1.8 (0.9-1.3); Prothrombin Time 20.1 SECONDS (10.1-12.7)
[2020-04-19 11:08] LABS: Alanine Aminotransferase 57 IU/L (<35); Albumin 4.1 g/dL (3.5-5.0); Albumin Globulin Ratio 1.6 (1.0-2.8); Alkaline Phosphatase 65 U/L (38-126); Aspartate Aminotransferase 53 IU/L (14-36); BUN Creatinine Ratio 22.9 (6-22); Bilirubin Total 0.6 mg/dL (0.2-1.3); Blood Urea Nitrogen 22 mg/dL (7-17); Calcium 9.1 mg/dL (8.4-10.2); Carbon Dioxide 27 mmol/L (22-32); Chloride 102 mmol/L (98-107); Creatine Kinase 119 U/L (30-135); Estimated Glomerular Filt Rate 56.4 mL/min (>60); Globulin 2.6 g/dL (1.7-4.1); Glucose 115 mg/dL (80-110); HEMOLYSIS < 15 (0-50); Lipase 57 U/L (23-300); PTT Partial Thromboplastin Tim 34 SECONDS (26.4-36.2); Potassium 4.3 mmol/L (3.4-5.1); Sodium 134 mmol/L (137-145); Total Protein 6.7 g/dL (6.3-8.2)
[2020-04-19 11:20] LABS: NT-proBNP (BNP-Adult 18+) 2720 pg/mL (<450); Troponin I 0.013 ng/mL (0.01-0.034)
[2020-04-19 11:23] LABS: CKMB % Relative Index 3.3 % (1.5-5.0)
--- NOTE | 2020-04-19 11:30 | DI.CT.S_ITS ---
PROCEDURE: CT ANGIO CHEST PE PROTOCOL INDICATIONS: short of breath- ablation yesterday TECHNIQUE: After the administration of intravenous contrast, 2 mm thick sections acquired from the pulmonary apices to the posterior costophrenic angles. 3-dimensional maximum intensity projection (MIP) coronal and sagittal reformats were then acquired through the thorax. For radiation dose reduction, the following was used: automated exposure control, adjustment of mA and/or kV according to patient size. COMPARISON: [facility], CR, XR CHEST 1V, 04/19/2020, 10:36. [facility], CR, XR CHEST 2V, 02/06/2020, 8:04. FINDINGS: Image quality: Excellent. Pulmonary arteries: Pulmonary arteries are normal in size, and demonstrate no intraluminal filling defects to suggest central pulmonary embolism. Lungs and pleura: Lungs are mildly abnormal with a mild patchy alveolitis pattern potentially an early manifestation of cardiogenic pulmonary edema or even coincidental atypical pneumonitis. No pleural effusions or pneumothorax. Central and peripheral airways are patent. Mediastinum: Heart size is normal, without pericardial effusion. No mediastinal or hilar adenopathy. Thoracic aorta is normal in caliber and enhancement. Esophagus is normal in caliber, without hiatal hernia. Bones and chest wall: No suspicious bony lesions. Ribs and thoracic spine appear intact throughout. Thyroid gland is not well seen . No axillary or supraclavicular adenopathy. Abdomen: Visualized upper abdominal solid organs appear normal in the early arterial phase of enhancement. IMPRESSION: No pulmonary embolus seen, no pericardial effusion or myocardial hematoma. Mild nonspecific patchy alveolar inflammation pattern, versus mild acute CHF. Please correlate for potential coincidental atypical/viral pneumonia. Dictated by: Mal Chávez M.D. on 04/19/2020 at 12:15 Approved by: Mal Chávez M.D. on 04/19/2020 at 12:19
== END 2020-04-19 13:29 | disposition home or self-care (01) ==
PROVIDERS: Emergency Provider Emergency Medicine; PCP Internal Medicine
DX: R00.1 Bradycardia, unspecified (principal); R07.9 Chest pain, unspecified; I48.91 Unspecified atrial fibrillation; Z79.01 Long term (current) use of anticoagulants
CPT/HCPCS: 36415; 71045; 71275; 80053; 82550; 82553; 83690; 83880; 84484; 85025; 85610; 85730; 93005; 99283; 99284

== ENCOUNTER 2020-06-11 15:19 | Emergency (ER) | payer MEDICARE, SELFPAY ==
[2020-02-04 09:49] VITALS: BMI 27.3
[2020-06-11 15:28] VITALS: BP 121/58; PULSE 65; RESP 23; TEMP 36.7; O2SAT 97; BMI 29.8
--- NOTE | 2020-06-11 15:31 | DI.CT.S_ITS ---
PROCEDURE: CT HEAD/BRAIN WO CON INDICATIONS: headache TECHNIQUE: Noncontrast 4.5 mm thick angled axial sections acquired from the foramen magnum to the vertex, with coronal and sagittal reformats. For radiation dose reduction, the following was used: automated exposure control, adjustment of mA and/or kV according to patient size. COMPARISON: [facility], CT, CT HEAD WITHOUT CONTRAST, 02/27/2019, 13:48. [facility], CT, CT ANGIO HEAD AND NECK, 02/27/2019, 13:52. [facility], MR, MR BRAIN WITH/WITHOUT CONTRAST, 06/09/2020, 7:56. [facility], CR, XR CHEST 1V, 06/11/2020, 15:35. [facility], CT, CT ANGIO CHEST PE PROTOCOL, 06/11/2020, 15:35. [facility], CT, CT ANGIO HEAD AND NECK, 06/08/2020, 19:21. FINDINGS: Image quality: Excellent. CSF spaces: Basal cisterns are patent. No extra-axial fluid collections. The ventricles are symmetric in size and shape. Brain: No intracranial bleeds or masses. There is cerebral volume loss for age, with resultant ventricular and sulcal prominence. There are periventricular and deep white matter chronic small vessel ischemic changes. There is intracranial internal carotid artery atherosclerosis. Note is made of a cavum septum pellucidum. When discovered in isolation, this is considered to be a developmental variant of no clinical consequence. Skull and face: Calvarium and visualized facial bones appear intact, without suspicious lesions. Incidental note is made of hyperostosis frontalis. This is not considered to be pathologic in a woman of this age. Sinuses: Visualized sinuses and mastoids are clear. IMPRESSION: A cause of headache is not seen. Incidental note is made of: Cavum septum pellucidum Hyperostosis frontalis Brain parenchymal volume loss and chronic small vessel ischemic change Dictated by: Aurelio Baldwin M.D. on 06/11/2020 at 15:48 Approved by: Aurelio Baldwin M.D. on 06/11/2020 at 15:52
--- NOTE | 2020-06-11 15:31 | DI.CT.S_ITS ---
PROCEDURE: CT ANGIO CHEST PE PROTOCOL INDICATIONS: Shortness of breath post ablation TECHNIQUE: After the administration of intravenous contrast, 2 mm thick sections acquired from the pulmonary apices to the posterior costophrenic angles. 3-dimensional maximum intensity projection (MIP) coronal and sagittal reformats were then acquired through the thorax. For radiation dose reduction, the following was used: automated exposure control, adjustment of mA and/or kV according to patient size. COMPARISON: [facility], CT, CT ANGIO HEAD AND NECK, 06/08/2020, 19:21. [facility], CT, CT ANGIO CHEST, 06/01/2020, 10:59. [facility], CR, XR CHEST 1V, 06/11/2020, 15:35. [facility], CT, CT HEAD/BRAIN WO CON, 06/11/2020, 15:35. [facility], CT, CT ANGIO CHEST PE PROTOCOL, 04/19/2020, 11:33. FINDINGS: Image quality: Excellent. Pulmonary arteries: Pulmonary arteries are normal in size, and demonstrate no intraluminal filling defects to suggest central pulmonary embolism. Lungs and pleura: Small bilateral pleural effusions are seen, right larger than left. Patchy areas of ground-glass opacity can be seen. Likely areas of atelectasis can be seen within the subpleural right lung apex. Mediastinum: Heart size is mildly enlarged, particularly the right heart. There is no pericardial effusion. No mediastinal or hilar adenopathy. Thoracic aorta is normal in caliber and enhancement. Esophagus is normal in caliber, without hiatal hernia. Bones and chest wall: No suspicious bony lesions. Ribs and thoracic spine appear intact throughout. Age-appropriate bony degenerative changes are seen. Accentuated thoracic kyphosis is seen. Thyroid gland demonstrates no significant abnormality. No axillary or supraclavicular adenopathy. Abdomen: There is reflux of contrast seen into the inferior vena cava and into the hepatic veins. Mild free fluid can be seen within the upper abdomen. The visualized portions of the upper abdominal structures are otherwise unremarkable for imaging technique. IMPRESSION: Negative for pulmonary embolism. Cardiomegaly, pleural effusions, interstitial prominence, with reflux of contrast into the inferior vena cava and into the hepatic veins. Please correlate with patient presentation, physical examination findings, and laboratory values for congestive heart failure. There is mild ascites. Dictated by: Aurelio Baldwin M.D. on 06/11/2020 at 15:52 Approved by: Aurelio Baldwin M.D. on 06/11/2020 at 15:56
--- NOTE | 2020-06-11 15:31 | DI.RAD.S_ITS ---
PROCEDURE: XR CHEST 1V INDICATIONS: chest pain TECHNIQUE: One view of the chest was acquired. COMPARISON: [facility], CT, CT ANGIO CHEST, 06/01/2020, 10:59. [facility], CR, XR CHEST 1V, 01/31/2020, 16:45. [facility], CR, XR CHEST 2V, 02/06/2020, 8:04. [facility], CR, XR CHEST 1V, 04/19/2020, 10:36. FINDINGS: Surgical changes and devices: None. Lungs and pleura: An incomplete inspiratory result is noted, causing a crowded appearance to the lung markings. No focal infiltrates are seen. No pneumothorax or significant pleural effusions are seen. Mediastinum: The cardiac contours are within normal limits. The aorta demonstrates calcification and tortuosity. Bones and chest wall: No suspicious bony lesions. Age-appropriate bony degenerative changes are seen. Overlying soft tissues appear unremarkable. IMPRESSION: Portable chest within normal limits. Dictated by: Aurelio Baldwin M.D. on 06/11/2020 at 15:14 Approved by: Aurelio Baldwin M.D. on 06/11/2020 at 15:15
--- NOTE | 2020-06-11 15:46 | ED_ITS ---
HPI - SOB/Dyspnea General Chief Complaint: Shortness of Breath/Dyspnea Stated Complaint: Thinks Reaction To Medications Time Seen by Provider: 06/11/20 15:23 Source: patient and EMS Mode of arrival: Ambulatory Limitations: no limitations History of Present Illness HPI Narrative: Patient is a 80-year-old female has history of atrial fibrillation on Eliquis but had an ablation 3 days ago. She states that just after the ablation she actually had a seizure she says she had an MRI afterwards but was started on Keppra and Topamax. She says today she is actually feeling short of breath. She denies any chest pain she is more short of breath with exertion and lying flat. It is much better when she sits up right. She denies any swelling in her lower extremities. She has not had any cough or fever. MD Complaint: shortness of breath Related Data Home Medications Medication Instructions Recorded Confirmed prednisone 1 mg tablet 1 mg PO BID 10/17/17 06/11/20 Eliquis 5 mg PO BID 11/27/19 06/11/20 metoprolol succinate 50 mg 50 mg PO BID tab 05/09/20 06/11/20 tablet,extended release 24 hr omeprazole 10 mg capsule,delayed 20 mg PO DAILY cap 05/09/20 06/11/20 release flecainide 100 mg PO BID 06/11/20 06/11/20 levetiracetam 500 mg PO BID 06/11/20 06/11/20 topiramate 25 mg PO BID 06/11/20 06/11/20 Previous Rx's Medication Instructions Recorded simvastatin 20 mg tablet 20 mg PO BEDTIME #90 tab 02/22/20 Allergies Allergy/AdvReac Type Severity Reaction Status Date / Time codeine [CODEINE] AdvReac Unknown Vomiting Verified 05/09/20 13:48 oyster extract AdvReac Diarrhea Verified 05/09/20 13:48 Review of Systems Review of Systems Narrative: GENERAL: Denies chills, fatigue, malaise, fever, sweats, travel HEENT: Denies sinus pain, ear pain, sore throat, difficulty swallowing, neck pain RESPIRATORY: See HPI CARDIOVASCULAR: Denies chest pain, palpitations, orthopnea, edema GASTROINTESTINAL: Denies nausea, vomiting, abdominal pain, diarrhea, constipation, melena. : Denies dysuria, frequency, incontinence, hematuria, urinary retention, flank pain. MUSCULOSKELETAL: Denies weakness, joint pain, or bony pain SKIN: No rash, no erythema, no pruritus NEUROLOGIC: Denies weakness, dizziness, headache, numbness, change in speech, confusion PSYCHIATRIC: No concerning psychosocial issues. 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 Multiple sclerosis Persistent atrial fibrillation Raynaud disease Rheumatoid arthritis Sjogren's disease Surgical History History of foot surgery History of hysterectomy Family History Father Cardiomyopathy Diabetes mellitus Alzheimer's dementia Mother Cancer Brother Coronary artery disease Hx of CABG Social History household members: none Smoking Status: Former smoker alcohol intake: current Smoking Status: Former smoker alcohol intake frequency: a few times a week Substance Use Type: does not use Exam Initial Vital Signs Initial Vital Signs: Vital Signs Temperature 98.1 F 06/11/20 15:28 Pulse Rate 65 06/11/20 15:28 Respiratory Rate 23 06/11/20 15:28 Blood Pressure 121/58 L 06/11/20 15:28 Pulse Oximetry 97 06/11/20 15:28 GENERAL: Alert pleasant 80-year-old female and in no acute distress. HEENT: Head atraumatic,EOMI, pupils reactive, face symmetric, moist mucous membranes CARDIOVASCULAR: Regular rate and rhythm without murmurs, rubs or gallops. RESPIRATORY: Breath sounds equal bilaterally, no wheezes rales or rhonchi. ABDOMEN: Soft, nontender. Normoactive bowel sounds all 4 quadrants. No guarding or rebound. EXTREMITIES: Normal range of motion, no clubbing or edema. Neurovascularly intact NEUROLOGICAL: Alert and oriented x4.Normal gait and speech. Cranial nerves II through XII grossly intact. SKIN: Warm, dry, no laceration, no petechiae, no rashes or lesions. Course Orders Ordered: ED Orders 06/11/20 15:31 CT angio chest PE protocol Stat CT head/brain wo con Stat XR chest 1V Stat EKG-12 Lead Stat 06/11/20 15:50 Complete Blood Count AUTO DIFF Stat Comprehensive Metabolic Panel Stat Lipase Stat NT-proBNP (BNP-Adult 18+) Stat Partial Thromboplastin Time Stat Prothrombin Time INR Stat Troponin & CK Cardiac Panel Stat 06/11/20 17:15 COVID19 Stat Discontinued Medications Furosemide (Furosemide 40 Mg/4 Ml Vial) 40 mg IV NOW ONE Stop: 06/11/20 17:01 Last Admin: 06/11/20 17:10 Dose: 40 mg Documented by: TERESITA Vital Signs Vital signs: Vital Signs - 8 hr 06/11/20 15:28 Temperature 98.1 F Pulse Rate 65 Respiratory Rate 23 Blood Pressure 121/58 L Pulse Oximetry 97 MDM - SOB/Dyspnea Lab Data Attestation: I reviewed the patient's lab results. Result diagrams: 06/11/20 15:50 06/11/20 15:50 Labs: Lab Results 06/11/20 06/11/20 06/11/20 Range/Units 15:50 15:50 15:50 WBC 8.9 (4.5-11.0) X10^3/uL RBC 3.55 L (4.0-5.2) X10^6/uL Hgb 10.1 L (12.0-16.0) g/dL Hct 30.8 L (36-46) % MCV 86.8 (80-100) fL MCH 28.5 (26-34) PG MCHC 32.9 (30-36) % RDW 14.3 (11.6-14.8) % Plt Count 223 (150-400) X10^3/uL Neut % (Auto) 74.8 (50-75) % Lymph % (Auto) 18.6 L (25-40) % [place] % (Auto) 5.7 (3-14) % Eos % (Auto) 0.4 L (2-4) % Baso % (Auto) 0.5 (0-2) % Neut # (Auto) 6600 (0621-5601) /uL Lymph # (Auto) 1700 (1508-2752) /uL [place] # (Auto) 500 (0-900) /uL Eos # (Auto) 0 (0-450) /uL Baso # (Auto) 0 (0-100) /uL PT 21.4 H (10.1-12.7) SECONDS INR 1.9 H (0.9-1.3) APTT 34 (26.4-36.2) SECONDS Sodium 135 L (137-145) mmol/L Potassium 4.0 (3.4-5.1) mmol/L Chloride 105 (98-107) mmol/L Carbon Dioxide 26 (22-32) mmol/L BUN 20 H (7-17) mg/dL Creatinine 0.81 (0.52-1.04) mg/dL Estimated GFR > 60.0 (>60) mL/min BUN/Creatinine Ratio 24.7 H (6-22) Glucose 146 H (80-110) mg/dL Calcium 8.9 (8.4-10.2) mg/dL Total Bilirubin 0.8 (0.2-1.3) mg/dL AST 40 H (14-36) IU/L ALT 35 H (<35) IU/L Alkaline Phosphatase 54 (38-126) U/L Total Creatine Kinase 145 H (30-135) U/L CK-MB (CK-2) 3.76 H (<2.37) ng/mL CK-MB (CK-2) Rel Index 2.6 (1.5-5.0) % Troponin I 0.142 H* (0.01-0.034) ng/mL NT-Pro-B Natriuret Pep 5510 H (<450) pg/mL Total Protein 6.5 (6.3-8.2) g/dL Albumin 3.9 (3.5-5.0) g/dL Globulin 2.6 (1.7-4.1) g/dL Albumin/Globulin Ratio 1.5 (1.0-2.8) Lipase 38 (23-300) U/L SARS-CoV-2 (PCR) (Negative) 06/11/20 Range/Units 17:15 WBC (4.5-11.0) X10^3/uL RBC (4.0-5.2) X10^6/uL Hgb (12.0-16.0) g/dL Hct (36-46) % MCV (80-100) fL MCH (26-34) PG MCHC (30-36) % RDW (11.6-14.8) % Plt Count (150-400) X10^3/uL Neut % (Auto) (50-75) % Lymph % (Auto) (25-40) % [place] % (Auto) (3-14) % Eos % (Auto) (2-4) % Baso % (Auto) (0-2) % Neut # (Auto) (5028-3416) /uL Lymph # (Auto) (6746-5580) /uL [place] # (Auto) (0-900) /uL Eos # (Auto) (0-450) /uL Baso # (Auto) (0-100) /uL PT (10.1-12.7) SECONDS INR (0.9-1.3) APTT (26.4-36.2) SECONDS Sodium (137-145) mmol/L Potassium (3.4-5.1) mmol/L Chloride (98-107) mmol/L Carbon Dioxide (22-32) mmol/L BUN (7-17) mg/dL Creatinine (0.52-1.04) mg/dL Estimated GFR (>60) mL/min BUN/Creatinine Ratio (6-22) Glucose (80-110) mg/dL Calcium (8.4-10.2) mg/dL Total Bilirubin (0.2-1.3) mg/dL AST (14-36) IU/L ALT (<35) IU/L Alkaline Phosphatase (38-126) U/L Total Creatine Kinase (30-135) U/L CK-MB (CK-2) (<2.37) ng/mL CK-MB (CK-2) Rel Index (1.5-5.0) % Troponin I (0.01-0.034) ng/mL NT-Pro-B Natriuret Pep (<450) pg/mL Total Protein (6.3-8.2) g/dL Albumin (3.5-5.0) g/dL Globulin (1.7-4.1) g/dL Albumin/Globulin Ratio (1.0-2.8) Lipase (23-300) U/L SARS-CoV-2 (PCR) Negative (Negative) Imaging Data Chest x-ray: Radiologist's Impression: PROCEDURE: XR CHEST 1V INDICATIONS: chest pain TECHNIQUE: One view of the chest was acquired. COMPARISON: [facility], CT, CT ANGIO CHEST, 06/01/2020, 10:59. [facility], CR, XR CHEST 1V, 01/31/2020, 16:45. [facility], CR, XR CHEST 2V, 02/06/2020, 8:04. [facility], CR, XR CHEST 1V, 04/19/2020, 10:36. FINDINGS: Surgical changes and devices: None. Lungs and pleura: An incomplete inspiratory result is noted, causing a crowded appearance to the lung markings. No focal infiltrates are seen. No pneumothorax or significant pleural effusions are seen. Mediastinum: The cardiac contours are within normal limits. The aorta demonstrates calcification and tortuosity. Bones and chest wall: No suspicious bony lesions. Age-appropriate bony degenerative changes are seen. Overlying soft tissues appear unremarkable. IMPRESSION: Portable chest within normal limits. Dictated by: Aurelio Baldwin M.D. on 06/11/2020 at 15:14 CT scan - head: Radiologist's Impression: PROCEDURE: CT HEAD/BRAIN WO CON INDICATIONS: headache TECHNIQUE: Noncontrast 4.5 mm thick angled axial sections acquired from the foramen magnum to the vertex, with coronal and sagittal reformats. For radiation dose reduction, the following was used: automated exposure control, adjustment of mA and/or kV according to patient size. COMPARISON: [facility], CT, CT HEAD WITHOUT CONTRAST, 02/27/2019, 13:48. [facility], CT, CT ANGIO HEAD AND NECK, 02/27/2019, 13:52. [facility], MR, MR BRAIN WITH/WITHOUT CONTRAST, 06/09/2020, 7:56. [facility], CR, XR CHEST 1V, 06/11/2020, 15:35. [facility], CT, CT ANGIO CHEST PE PROTOCOL, 06/11/2020, 15:35. [facility], CT, CT ANGIO HEAD AND NECK, 06/08/2020, 19:21. FINDINGS: Image quality: Excellent. CSF spaces: Basal cisterns are patent. No extra-axial fluid collections. The ventricles are symmetric in size and shape. Brain: No intracranial bleeds or masses. There is cerebral volume loss for age, with resultant ventricular and sulcal prominence. There are periventricular and deep white matter chronic small vessel ischemic changes. There is intracranial internal carotid artery atherosclerosis. Note is made of a cavum septum pellucidum. When disco oziel in isolation, this is considered to be a developmental variant of no clinical consequence. Skull and face: Calvarium and visualized facial bones appear intact, without suspicious lesions. Incidental note is made of hyperostosis frontalis. This is not considered to be pathologic in a woman of this age. Sinuses: Visualized sinuses and mastoids are clear. IMPRESSION: A cause of headache is not seen. Incidental note is made of: Cavum septum pellucidum Hyperostosis frontalis Brain parenchymal volume loss and chronic small vessel ischemic change Dictated by: Aurelio Baldwin M.D. on 06/11/2020 at 15:48 CT scan - chest: Radiologist's Impression: PROCEDURE: CT ANGIO CHEST PE PROTOCOL INDICATIONS: Shortness of breath post ablation TECHNIQUE: After the administration of intravenous contrast, 2 mm thick sections acquired from the pulmonary apices to the posterior costophrenic angles. 3-dimensional maximum intensity projection (MIP) coronal and sagittal reformats were then acquired through the thorax. For radiation dose reduction, the following was used: automated exposure control, adjustment of mA and/or kV according to patient size. COMPARISON: [facility], CT, CT ANGIO HEAD AND NECK, 06/08/2020, 19:21. [facility], CT, CT ANGIO CHEST, 06/01/2020, 10:59. [facility], CR, XR CHEST 1V, 06/11/2020, 15:35. [facility], CT, CT HEAD/BRAIN WO CON, 06/11/2020, 15:35. [facility], CT, CT ANGIO CHEST PE PROTOCOL, 04/19/2020, 11:33. FINDINGS: Image quality: Excellent. Pulmonary arteries: Pulmonary arteries are normal in size, and demonstrate no intraluminal filling defects to suggest central pulmonary embolism. Lungs and pleura: Small bilateral pleural effusions are seen, right larger than left. Patchy areas of ground-glass opacity can be seen. Likely areas of atelectasis can be seen within the subpleural right lung apex. Mediastinum: Heart size is mildly enlarged, particularly the right heart. There is no pericardial effusion. No mediastinal or hilar adenopathy. Thoracic aorta is normal in caliber and enhancement. Esophagus is normal in caliber, without hiatal hernia. Bones and chest wall: No suspicious bony lesions. Ribs and thoracic spine appear intact throughout. Age-appropriate bony degenerative changes are seen. Accentuated thoracic kyphosis is seen. Thyroid gland demonstrates no significant abnormality. No axillary or supraclavicular adenopathy. Abdomen: There is reflux of contrast seen into the inferior vena cava and into the hepatic veins. Mild free fluid can be seen within the upper abdomen. The visualized portions of the upper abdominal structures are otherwise unremarkable for imaging technique. IMPRESSION: Negative for pulmonary embolism. Cardiomegaly, pleural effusions, interstitial prominence, with reflux of contrast into the inferior vena cava and into the hepatic veins. Please correlate with patient presentation, physical examination findings, and laboratory values for congestive heart failure. There is mild ascites. Dictated by: Aurelio Baldwin M.D. on 06/11/2020 at 15:52 ECG Data Attestation: I personally reviewed and interpreted this ECG as follows: Interpretation: Sinus rhythm rate 55 do not agree with computer of junctional rhythm. No ST changes or T-wave inversions MDM Narrative Medical decision making narrative: The patient signs and symptoms consistent with congestive heart failure including shortness of breath with exertion and orthopnea with increased weight gain along with elevated BNP 5900 but no significant peripheral edema or respiratory distress. She does have a mild elevation of troponin which may be from ablation but difficult to tell at this time. CT angio showed also possible signs of congestive heart failure. 1700 Dr. Celestin cardiology updated patient's symptoms test results. At this time he does recommend observation and diuresis with likely discharge home. 1730 Dr. Banks updated patient's symptoms test results request patient be tr ansferred to facility where Cardiology is readily available 17[address] Dr [place] [facility] with transfer admit to hospitalist 1815 Dr. Mccollum hospitalist would like to talk with kwesi before accepting Discharge Plan Departure Patient Disposition: [facility] Clinical Impression: Congestive heart failure Qualifiers: Heart failure type: unspecified Heart failure chronicity: unspecified Qualified Code(s): I50.9 - Heart failure, unspecified Prescriptions: No Action prednisone 1 mg tablet 1 mg PO BID RF: 0 omeprazole 10 mg capsule,delayed release(DR/EC) 20 mg PO DAILY RF: 0 simvastatin 20 mg tablet 20 mg PO BEDTIME Qty: 90 RF: 0 metoprolol succinate 50 mg tablet extended release 24 hr 50 mg PO BID RF: 0 flecainide 100 mg tablet 100 mg PO BID RF: 0 levetiracetam 500 mg tablet 500 mg PO BID RF: 0 topiramate 25 mg tablet 25 mg PO BID RF: 0 Eliquis 5 mg tablet 5 mg PO BID RF: 0 Referrals: Asif Banks MD [Primary Care Provider] -
[2020-06-11 16:11] LABS: Add Manual Diff / Slide Review NO; Basophils Absolute Auto 0 /uL (0-100); Basophils Percent Auto 0.5 % (0-2); Eosinophils Absolute Auto 0 /uL (0-450); Eosinophils Percent Auto 0.4 % (2-4); Hematocrit 30.8 % (36-46); Hemoglobin 10.1 g/dL (12.0-16.0); Lymphocytes Absolute Auto 1700 /uL (1100-4500); Lymphocytes Percent Auto 18.6 % (25-40); Mean Corpuscular HGB Conc 32.9 % (30-36); Mean Corpuscular Hemoglobin 28.5 PG (26-34); Mean Corpuscular Volume 86.8 fL (80-100); Monocytes Absolute Auto 500 /uL (0-900); Monocytes Percent Auto 5.7 % (3-14); Neutrophils Absolute Auto 6600 /uL (1500-7000); Neutrophils Percent Auto 74.8 % (50-75); Platelet Count 223 X10^3/uL (150-400); Red Blood Cell Count 3.55 X10^6/uL (4.0-5.2); Red Cell Distribution Width 14.3 % (11.6-14.8); White Blood Cell Count 8.9 X10^3/uL (4.5-11.0)
[2020-06-11 16:14] LABS: INR 1.9 (0.9-1.3); Prothrombin Time 21.4 SECONDS (10.1-12.7)
[2020-06-11 16:16] LABS: PTT Partial Thromboplastin Tim 34 SECONDS (26.4-36.2)
[2020-06-11 16:19] LABS: Alanine Aminotransferase 35 IU/L (<35); Albumin 3.9 g/dL (3.5-5.0); Albumin Globulin Ratio 1.5 (1.0-2.8); Alkaline Phosphatase 54 U/L (38-126); Aspartate Aminotransferase 40 IU/L (14-36); BUN Creatinine Ratio 24.7 (6-22); Bilirubin Total 0.8 mg/dL (0.2-1.3); Blood Urea Nitrogen 20 mg/dL (7-17); Calcium 8.9 mg/dL (8.4-10.2); Carbon Dioxide 26 mmol/L (22-32); Chloride 105 mmol/L (98-107); Creatine Kinase 145 U/L (30-135); Estimated Glomerular Filt Rate > 60.0 mL/min (>60); Globulin 2.6 g/dL (1.7-4.1); Glucose 146 mg/dL (80-110); HEMOLYSIS < 15 (0-50); Lipase 38 U/L (23-300); Sodium 135 mmol/L (137-145); Total Protein 6.5 g/dL (6.3-8.2)
[2020-06-11 16:31] LABS: NT-proBNP (BNP-Adult 18+) 5510 pg/mL (<450)
[2020-06-11 16:34] LABS: CKMB % Relative Index 2.6 % (1.5-5.0); Creatine Kinase MB 3.76 ng/mL (<2.37)
[2020-06-11 16:56] LABS: Troponin I 0.142 ng/mL (0.01-0.034)
[2020-06-11] MEDS: FUROSEMIDE 40 MG/4 ML VIAL IV (17:10)
[2020-06-11 17:36] LABS: COVID19 -Nasal RAPID Negative (Negative)
[2020-06-11 19:06] VITALS: BP 159/68; PULSE 51; RESP 18; RESP 23; O2SAT 98; O2SAT 99
[2020-06-11 19:08] VITALS: BP 159/68; PULSE 51; RESP 36; O2SAT 100
[2020-06-11 19:30] VITALS: PULSE 52; RESP 20; O2SAT 99
[2020-06-11 19:31] VITALS: BP 135/62; PULSE 52; RESP 23; O2SAT 99
[2020-06-11 19:56] VITALS: BP 135/62
== END 2020-06-11 20:03 | disposition short-term general hospital (02) ==
PROVIDERS: Emergency Provider Emergency Medicine; PCP Internal Medicine
DX: I50.9 Heart failure, unspecified (principal); R79.89 Other specified abnormal findings of blood chemistry; I48.91 Unspecified atrial fibrillation; Z79.01 Long term (current) use of anticoagulants; Z20.822 Contact with and (suspected) exposure to COVID-19; R07.9 Chest pain, unspecified; R51.9 Headache, unspecified
CPT/HCPCS: 36415; 70450; 71045; 71275; 80053; 82550; 82553; 83690; 83880; 84484; 85025; 85610; 85730; 87635; 93005; 93010; 96374; 99284; 99285; C9803; J1940; Q9967

== ENCOUNTER → 2020-06-16 12:04 | Outpatient (CLI) | payer MEDICARE, SELFPAY ==
[2020-02-04 09:49] VITALS: BMI 27.3
[2020-06-16 12:52] LABS: BUN Creatinine Ratio 21.8 (6-22); Blood Urea Nitrogen 22 mg/dL (7-17); Calcium 9.8 mg/dL (8.4-10.2); Carbon Dioxide 31 mmol/L (22-32); Chloride 104 mmol/L (98-107); Glucose 99 mg/dL (80-110); HEMOLYSIS < 15 (0-50); Sodium 141 mmol/L (137-145)
== END ==
PROVIDERS: PCP Internal Medicine; Referring Provider Internal Medicine; Visit Provider Internal Medicine
DX: I50.9 Heart failure, unspecified (principal)
CPT/HCPCS: 36415; 80048

== ENCOUNTER 2020-06-21 14:36 | Emergency (ER) | payer MEDICARE, SELFPAY ==
[2020-02-04 09:49] VITALS: BMI 27.3
[2020-06-21] VITALS (22 sets, daily range): BP systolic 120–179; BP diastolic 60–101; PULSE 62–104; RESP 14–31; TEMP 36.2; O2SAT 86–100
--- NOTE | 2020-06-21 14:47 | DI.RAD.S_ITS ---
PROCEDURE: XR CHEST 1V INDICATIONS: chest pain TECHNIQUE: One view of the chest was acquired. COMPARISON: [facility], CR, XR CHEST 1V, 04/19/2020, 10:36. [facility], CR, XR CHEST 1V, 06/11/2020, 15:35. FINDINGS: Surgical changes and devices: None. Lungs and pleura: Lungs are clear. No pleural effusions or pneumothorax. Mediastinum: Mediastinal contours appear normal. Heart size is normal. Bones and chest wall: No suspicious bony lesions. Overlying soft tissues appear unremarkable. IMPRESSION: No acute cardiopulmonary disease. Dictated by: Zohreh Diana M.D. on 06/21/2020 at 16:17 Approved by: Zohreh Diana M.D. on 06/21/2020 at 16:18
[2020-06-21 15:13] LABS: INR 1.5 (0.9-1.3); Prothrombin Time 17.4 SECONDS (10.1-12.7)
[2020-06-21 15:15] LABS: PTT Partial Thromboplastin Tim 40 SECONDS (26.4-36.2)
[2020-06-21 15:19] LABS: Alanine Aminotransferase 18 IU/L (<35); Albumin 4.7 g/dL (3.5-5.0); Albumin Globulin Ratio 1.6 (1.0-2.8); Alkaline Phosphatase 70 U/L (38-126); Aspartate Aminotransferase 24 IU/L (14-36); BUN Creatinine Ratio 21.2 (6-22); Bilirubin Total 0.3 mg/dL (0.2-1.3); Blood Urea Nitrogen 24 mg/dL (7-17); Calcium 9.3 mg/dL (8.4-10.2); Carbon Dioxide 23 mmol/L (22-32); Chloride 105 mmol/L (98-107); Creatine Kinase 120 U/L (30-135); Estimated Glomerular Filt Rate 46.6 mL/min (>60); Globulin 2.9 g/dL (1.7-4.1); Glucose 134 mg/dL (80-110); HEMOLYSIS < 15 (0-50); Lipase 63 U/L (23-300); Potassium 4.3 mmol/L (3.4-5.1); Sodium 140 mmol/L (137-145); Total Protein 7.6 g/dL (6.3-8.2)
[2020-06-21 15:30] LABS: Troponin I < 0.012 ng/mL (0.01-0.034)
[2020-06-21 15:34] LABS: CKMB % Relative Index 4.3 % (1.5-5.0); Creatine Kinase MB 5.21 ng/mL (<2.37)
[2020-06-21 15:38] LABS: Add Manual Diff / Slide Review NO; Basophils Absolute Auto 0 /uL (0-100); Basophils Percent Auto 0.5 % (0-2); Eosinophils Absolute Auto 100 /uL (0-450); Eosinophils Percent Auto 0.9 % (2-4); Hematocrit 35.6 % (36-46); Hemoglobin 11.6 g/dL (12.0-16.0); Lymphocytes Absolute Auto 1700 /uL (1100-4500); Lymphocytes Percent Auto 17.6 % (25-40); Mean Corpuscular HGB Conc 32.6 % (30-36); Mean Corpuscular Hemoglobin 27.9 PG (26-34); Mean Corpuscular Volume 85.6 fL (80-100); Monocytes Absolute Auto 500 /uL (0-900); Neutrophils Absolute Auto 7600 /uL (1500-7000); Platelet Count 385 X10^3/uL (150-400); Red Blood Cell Count 4.16 X10^6/uL (4.0-5.2); Red Cell Distribution Width 14.5 % (11.6-14.8); White Blood Cell Count 9.9 X10^3/uL (4.5-11.0)
--- NOTE | 2020-06-21 15:44 | PC.NURSE ---
1535: Pt's friend yelling from room. Found pt unresponsive, apneic, and sadler in color, carotid pulse check showed no pulse. Bed flattened and started CPR x approx 1 min before pt responsive, after 1-2 min awake and alert. pads placed, BP 166/73 HR 55. Appears to be in a wide complex afib which converts back and forth to NSR. RT in for EKG's and lab in to draw. friend at bedside. Pt states she is not having any CP or SOB at this time. Dr Vasquez at bedside. remains on defib pads
--- NOTE | 2020-06-21 15:45 | ED_ITS ---
HPI - Dizziness General Chief Complaint: Dizziness Stated Complaint: AFIB Time Seen by Provider: 06/21/20 15:44 Source: patient and family Mode of arrival: Ambulatory History of Present Illness HPI Narrative: Patient here for dizziness. Status post ablation for atrial fibrillation by Dr. Devries [facility] 2 weeks ago. Patient to discontinue flecainide. Is on Eliquis. Patient developed seizure after ablation and was admitted to the hospital at that time. Is on Keppra. No recent illness. Started to wean off of flecainide today. Related Data Home Medications Medication Instructions Recorded Confirmed prednisone 1 mg tablet 1 mg PO BID 10/17/17 06/16/20 Eliquis 5 mg PO BID 11/27/19 06/16/20 omeprazole 10 mg capsule,delayed 20 mg PO DAILY cap 05/09/20 06/16/20 release flecainide 100 mg PO BID 06/11/20 06/16/20 levetiracetam 500 mg PO BID 06/11/20 06/16/20 topiramate 25 mg PO BID 06/11/20 06/16/20 Amitriptyline 1 tab PO BID 06/16/20 06/16/20 flecainide 50 mg tablet 50 mg PO BID tab 06/16/20 06/16/20 furosemide 20 mg tablet 20 mg PO DAILY PRN tab 06/16/20 06/16/20 metoprolol succinate 50 mg 25 mg PO DAILY tab 06/16/20 06/16/20 tablet,extended release 24 hr omega-3 fatty acids 1,000 mg 1,000 mg PO DAILY 06/16/20 06/16/20 capsule spironolactone 25 mg tablet 12.5 mg PO DAILY tab 06/16/20 06/16/20 Previous Rx's Medication Instructions Recorded simvastatin 20 mg tablet 20 mg PO BEDTIME #90 tab 02/22/20 Allergies Allergy/AdvReac Type Severity Reaction Status Date / Time codeine [CODEINE] AdvReac Unknown Vomiting Verified 06/16/20 11:19 oyster extract AdvReac Diarrhea Verified 06/16/20 11:19 Review of Systems Review of Systems Narrative: GENERAL: Denies chills, fatigue, malaise, fever, sweats. HEENT: Denies sinus pain, ear pain, sore throat RESPIRATORY: Denies dyspnea, cough CARDIOVASCULAR: Denies chest pain, palpitations GASTROINTESTINAL: Denies nausea, vomiting, abdominal pain : Denies dysuria, frequency, hematuria MUSCULOSKELETAL: denies muscle or bony pain SKIN: Denies rash, skin lesions NEUROLOGIC: Denies weakness, numbness, complains of dizziness ROS Unobtainable: All systems reviewed & are unremarkable except as noted in HPI and below Patient History Medical History Current use of residential anticoagulation Multiple sclerosis Persistent atrial fibrillation Pulmonary nodule Raynaud disease Rheumatoid arthritis Sjogren's disease Surgical History History of foot surgery History of hysterectomy S/P ablation of atrial fibrillation (~2019) Family History Father Cardiomyopathy Diabetes mellitus Alzheimer's dementia Mother Cancer Brother Coronary artery disease Hx of CABG Social History household members: none Smoking Status: Former smoker alcohol intake: current Smoking Status: Former smoker alcohol intake frequency: a few times a week Substance Use Type: does not use Exam Narrative Exam Narrative: GENERAL: in no distress, not toxic not dyspneic HEAD: Normocephalic. EYES: Pupils equal round No scleral icterus. No injection no discharge ENT: Mucous membranes moist. NECK: Trachea midline. CARDIOVASCULAR: Irregular regular, bradycardic RESPIRATORY: Clear to auscultation. Breath sounds equal bilaterally. No wheezes, rales, or rhonchi. GASTROINTESTINAL: Abdomen soft, non-tender EXTREMITIES: No gross deformities. BACK: No flank tenderness. NEURO: AOx4. SKIN: Warm and dry PSYCH: Not anxious, is cooperative Initial Vital Signs Initial Vital Signs: Vital Signs Temperature 97.2 F L 06/21/20 14:39 Pulse Rate 62 06/21/20 14:39 Respiratory Rate 24 06/21/20 14:39 Blood Pressure 179/79 H 06/21/20 14:39 Pulse Oximetry 100 06/21/20 14:39 Course Course Course Narrative: During course of stay patient had a syncopal episode. Was asystole. Responding immediately with chest compression less than 10 seconds. Patient now awake alert oriented x3. Time 3:47 p.m.. Orders Ordered: ED Orders 06/21/20 14:47 XR chest 1V Stat EKG-12 Lead Stat 06/21/20 15:00 Complete Blood Count AUTO DIFF Stat Comprehensive Metabolic Panel Stat Lipase Stat Partial Thromboplastin Time Stat Prothrombin Time INR Stat Troponin & CK Cardiac Panel Stat 06/21/20 15:50 EKG-12 Lead Stat Reevaluation(s) Reevaluation #1: Patient awake alert oriented x3. Denies any pain. Patient at baseline at this time. [id number] at bedside Time: 15:58 Reevaluation #2: Patient with atrial fibrillation, rate 103. Reviewed EKG and rhythm strip with her medical records tech Dr. Devries at this time. Time: 16:21 Consultations Consultation #1: Spoke with cardiology Dr. Celestin, instruct me to contact Dr. Bharat mckinney, awaiting for Dr. Devries call me back Time: 15:58 Consultation #2: Spoke with Dr. Devries, patient's medical records tech. Do not give any antiarrhythmics. No rate control. Allowed metoprolol and flecainide to resolve. Transfer to [facility] to hospitalist. Time: 16:21 Consultation #3: Spoke with Dr. Duron, hospitalist, will admit ICU [facility] Time: 16:51 Vital Signs Vital signs: Vital Signs - 8 hr 06/21/20 14:39 06/21/20 15:06 06/21/20 15:08 Temperature 97.2 F L Pulse Rate 62 91 H 62 Respiratory Rate 24 23 23 Blood Pressure 179/79 H 174/72 H Pulse Oximetry 100 86 L 100 MDM - Dizziness Differential Diagnosis Differential diagnosis: Likely other (Arrhythmia/AFib/wide QRS) Medical Records Attestation: I reviewed the patient's medical records. Lab Data Attestation: I reviewed the patient's lab results. Result diagrams: 06/21/20 15:00 06/21/20 15:00 Labs: Lab Results 06/21/20 06/21/20 06/21/20 Range/Units 15:00 15:00 15:00 WBC 9.9 (4.5-11.0) X10^3/uL RBC 4.16 (4.0-5.2) X10^6/uL Hgb 11.6 L (12.0-16.0) g/dL Hct 35.6 L (36-46) % MCV 85.6 (80-100) fL MCH 27.9 (26-34) PG MCHC 32.6 (30-36) % RDW 14.5 (11.6-14.8) % Plt Count 385 (150-400) X10^3/uL Neut % (Auto) 76.0 H (50-75) % Lymph % (Auto) 17.6 L (25-40) % [place] % (Auto) 5.0 (3-14) % Eos % (Auto) 0.9 L (2-4) % Baso % (Auto) 0.5 (0-2) % Neut # (Auto) 7600 H (4820-6622) /uL Lymph # (Auto) 1700 (8667-4257) /uL [place] # (Auto) 500 (0-900) /uL Eos # (Auto) 100 (0-450) /uL Baso # (Auto) 0 (0-100) /uL PT 17.4 H (10.1-12.7) SECONDS INR 1.5 H (0.9-1.3) APTT 40 H D (26.4-36.2) SECONDS Sodium 140 (137-145) mmol/L Potassium 4.3 (3.4-5.1) mmol/L Chloride 105 (98-107) mmol/L Carbon Dioxide 23 (22-32) mmol/L BUN 24 H (7-17) mg/dL Creatinine 1.13 H (0.52-1.04) mg/dL Estimated GFR 46.6 L (>60) mL/min BUN/Creatinine Ratio 21.2 (6-22) Glucose 134 H (80-110) mg/dL Calcium 9.3 (8.4-10.2) mg/dL Total Bilirubin 0.3 (0.2-1.3) mg/dL AST 24 (14-36) IU/L ALT 18 (<35) IU/L Alkaline Phosphatase 70 (38-126) U/L Total Creatine Kinase 120 (30-135) U/L CK-MB (CK-2) 5.21 H (<2.37) ng/mL CK-MB (CK-2) Rel Index 4.3 (1.5-5.0) % Troponin I < 0.012 (0.01-0.034) ng/mL Total Protein 7.6 (6.3-8.2) g/dL Albumin 4.7 (3.5-5.0) g/dL Globulin 2.9 (1.7-4.1) g/dL Albumin/Globulin Ratio 1.6 (1.0-2.8) Lipase 63 D (23-300) U/L SARS-CoV-2 (PCR) (Negative) 06/21/20 Range/Units 17:59 WBC (4.5-11.0) X10^3/uL RBC (4.0-5.2) X10^6/uL Hgb (12.0-16.0) g/dL Hct (36-46) % MCV (80-100) fL MCH (26-34) PG MCHC (30-36) % RDW (11.6-14.8) % Plt Count (150-400) X10^3/uL Neut % (Auto) (50-75) % Lymph % (Auto) (25-40) % [place] % (Auto) (3-14) % Eos % (Auto) (2-4) % Baso % (Auto) (0-2) % Neut # (Auto) (3545-4000) /uL Lymph # (Auto) (2198-7409) /uL [place] # (Auto) (0-900) /uL Eos # (Auto) (0-450) /uL Baso # (Auto) (0-100) /uL PT (10.1-12.7) SECONDS INR (0.9-1.3) APTT (26.4-36.2) SECONDS Sodium (137-145) mmol/L Potassium (3.4-5.1) mmol/L Chloride (98-107) mmol/L Carbon Dioxide (22-32) mmol/L BUN (7-17) mg/dL Creatinine (0.52-1.04) mg/dL Estimated GFR (>60) mL/min BUN/Creatinine Ratio (6-22) Glucose (80-110) mg/dL Calcium (8.4-10.2) mg/dL Total Bilirubin (0.2-1.3) mg/dL AST (14-36) IU/L ALT (<35) IU/L Alkaline Phosphatase (38-126) U/L Total Creatine Kinase (30-135) U/L CK-MB (CK-2) (<2.37) ng/mL CK-MB (CK-2) Rel Index (1.5-5.0) % Troponin I (0.01-0.034) ng/mL Total Protein (6.3-8.2) g/dL Albumin (3.5-5.0) g/dL Globulin (1.7-4.1) g/dL Albumin/Globulin Ratio (1.0-2.8) Lipase (23-300) U/L SARS-CoV-2 (PCR) Negative (Negative) Imaging Data Chest x-ray: Radiologist's Impression: [address] [id number] ReportSigned Patient: Wilma Ji CMR#: [id number]: 3Acct:[id number]/Sex: 80 / FDate of Service: 06/21/20Loc: EDAccession Number: [id number] Procedure: XR chest 1V Ordering Provider: Brandon Vasquez MD PROCEDURE: XR CHEST 1V INDICATIONS: chest pain TECHNIQUE: One view of the chest was acquired. COMPARISON: [facility], CR, XR CHEST 1V, 04/19/2020, 10:36. [facility], CR, XR CHEST 1V, 06/11/2020, 15:35. FINDINGS: Surgical changes and devices: None. Lungs and pleura: Lungs are clear. No pleural effusions or pneumothorax. Mediastinum: Mediastinal contours appear normal. Heart size is normal. Bones and chest wall: No suspicious bony lesions. Overlying soft tissues appear unremarkable. IMPRESSION: No acute cardiopulmonary disease. Dictated by: Zohreh Diana M.D. on 06/21/2020 at 16:17 Approved by: Zohreh Diana M.D. on 06/21/2020 at 16:18 ECG Data Attestation: I personally reviewed and interpreted this ECG as follows: Interpretation: Undetermined rhythm. Ventricular rate 67. Left bundle-branch block. Left axis deviation. Appear similar to EKG June 11, 2020 at 3:37 p.m. MDM Narrative Medical decision making narrative: Code blue was called. However patient responded immediately after less than 10 seconds of chest compressions. Patient is awake alert. Protecting her own airway. Patient has remained awake alert oriented x3 since code blue. Appropriate for transfer for continuity of care and ICU setting for medical records tech/provider Critical Care Time Critical Care Time Critical Care Time: Yes Total Critical Care Time: 30 Attestation: Critical Care Time 30 minutes: Critical care time is separate from other billable procedures. This critical care time includes consultation with family and other consulting doctors, review of records, and interpretation of data from labs, EKGs, imaging, etc. Discharge Plan Departure Patient Disposition: [facility] Clinical Impression: Syncope Qualifiers: Syncope type: unspecified Qualified Code(s): R55 - Syncope and collapse Prescriptions: No Action prednisone 1 mg tablet 1 mg PO BID RF: 0 omeprazole 10 mg capsule,delayed release(DR/EC) 20 mg PO DAILY RF: 0 simvastatin 20 mg tablet 20 mg PO BEDTIME Qty: 90 RF: 0 omega-3 fatty acids [Fish Oil Concentrate] 1,000 mg capsule 1,000 mg PO DAILY RF: 0 flecainide 50 mg tablet 50 mg PO BID RF: 0 furosemide 20 mg tablet 20 mg PO DAILY PRN (Reason: edema) RF: 0 spironolactone 25 mg tablet 12.5 mg PO DAILY RF: 0 Amitriptyline 1 tab PO BID RF: 0 metoprolol succinate 50 mg tablet extended release 24 hr 25 mg PO DAILY RF: 0 flecainide 100 mg tablet 100 mg PO BID RF: 0 levetiracetam 500 mg tablet 500 mg PO BID RF: 0 topiramate 25 mg tablet 25 mg PO BID RF: 0 Eliquis 5 mg tablet 5 mg PO BID RF: 0 Referrals: Asif Banks MD [Primary Care Provider] -
[2020-06-21 18:20] LABS: COVID19 -Nasal RAPID Negative (Negative)
== END 2020-06-21 18:13 | disposition short-term general hospital (02) ==
PROVIDERS: Emergency Provider Emergency Medicine; PCP Internal Medicine
DX: R40.4 Transient alteration of awareness (principal); R55 Syncope and collapse; R07.9 Chest pain, unspecified; I50.9 Heart failure, unspecified; R00.1 Bradycardia, unspecified; I48.91 Unspecified atrial fibrillation; Z79.01 Long term (current) use of anticoagulants; Z20.822 Contact with and (suspected) exposure to COVID-19
CPT/HCPCS: 36415; 71045; 80053; 82550; 82553; 83690; 84484; 85025; 85610; 85730; 87635; 92950; 93005; 99284; 99291; 99292; C9803

== ENCOUNTER 2020-08-17 23:54 | Emergency (ER) | payer MEDICARE, SELFPAY ==
[2020-02-04 09:49] VITALS: BMI 27.3
--- NOTE | 2020-08-17 23:59 | DI.CT.S_ITS ---
PROCEDURE: CT HEAD/BRAIN WO CON INDICATIONS: fall eliquis 3 days ago headache TECHNIQUE: Noncontrast 4.5 mm thick angled axial sections acquired from the foramen magnum to the vertex, with coronal and sagittal reformats. For radiation dose reduction, the following was used: automated exposure control, adjustment of mA and/or kV according to patient size. COMPARISON: [facility], MR, MR BRAIN WITH/WITHOUT CONTRAST, 06/09/2020, 7:56. Outside [facility], MR, MR BRAIN WITH/WITHOUT CONTRAST, 02/27/2019, 20:49. Outside Film, MR, MR ANGIO HEAD WITHOUT CONTRAST, 02/27/2019, 20:38. Outside Film, CT, CT ANGIO HEAD AND NECK, 02/27/2019, 13:52. Outside Film, CT, CT HEAD WITHOUT CONTRAST, 02/27/2019, 13:48. FINDINGS: Image quality: Excellent. CSF spaces: Basal cisterns are patent. No extra-axial fluid collections. The ventricles are symmetric in size and shape. Brain: No intracranial bleeds or masses. There is cerebral volume loss for age, with resultant ventricular and sulcal prominence. There are periventricular and deep white matter chronic small vessel ischemic changes. There is intracranial internal carotid artery atherosclerosis. Skull and face: Calvarium and visualized facial bones appear intact, without suspicious lesions. Sinuses: Visualized sinuses and mastoids are clear. IMPRESSION: No acute intracranial disease process. Dictated by: Awa Neff MD, PhD on 08/18/2020 at 7:09 Approved by: Awa Neff MD, PhD on 08/18/2020 at 7:12
[2020-08-18] VITALS: BP 152/72; BP 171/93; PULSE 92; PULSE 94; RESP 18; TEMP 36.6; O2SAT 100; BMI 27.6
[2020-08-18 00:05] VITALS: PULSE 91; O2SAT 98
[2020-08-18 00:07] VITALS: BP 163/86; PULSE 65; O2SAT 98
--- NOTE | 2020-08-18 00:11 | DI.RAD.S_ITS ---
PROCEDURE: XR CHEST 1V INDICATIONS: fall TECHNIQUE: One view of the chest was acquired. COMPARISON: [facility], CR, XR CHEST 1V, 06/21/2020, 14:50. FINDINGS: Surgical changes and devices: None. Lungs and pleura: Lungs are clear. No pleural effusions or pneumothorax. Mediastinum: Mediastinal contours appear normal. Heart size is normal. Bones and chest wall: No suspicious bony lesions. Overlying soft tissues appear unremarkable. IMPRESSION: No acute cardiopulmonary disease process. Dictated by: Awa Neff MD, PhD on 08/18/2020 at 8:04 Approved by: Awa Neff MD, PhD on 08/18/2020 at 8:04
[2020-08-18 00:30] VITALS: PULSE 66; O2SAT 97
[2020-08-18 00:31] VITALS: BP 146/67; PULSE 81; O2SAT 97
[2020-08-18 00:40] LABS: Add Manual Diff / Slide Review NO; Basophils Absolute Auto 100 /uL (0-100); Basophils Percent Auto 0.7 % (0-2); Eosinophils Absolute Auto 100 /uL (0-450); Eosinophils Percent Auto 1.2 % (2-4); Hemoglobin 11.8 g/dL (12.0-16.0); Lymphocytes Absolute Auto 1700 /uL (1100-4500); Lymphocytes Percent Auto 21.3 % (25-40); Mean Corpuscular HGB Conc 33.8 % (30-36); Mean Corpuscular Hemoglobin 28.9 PG (26-34); Mean Corpuscular Volume 85.4 fL (80-100); Monocytes Absolute Auto 600 /uL (0-900); Monocytes Percent Auto 7.1 % (3-14); Neutrophils Absolute Auto 5500 /uL (1500-7000); Neutrophils Percent Auto 69.7 % (50-75); Platelet Count 296 X10^3/uL (150-400); Red Cell Distribution Width 14.9 % (11.6-14.8); White Blood Cell Count 7.9 X10^3/uL (4.5-11.0)
--- NOTE | 2020-08-18 00:43 | ED_ITS ---
HPI - Fall General Chief Complaint: Trauma Stated Complaint: H/A R side Time Seen by Provider: 08/17/20 23:59 Source: patient and EMS Mode of arrival: EMS Limitations: no limitations History of Present Illness HPI Narrative: Patient is a ugo 80-year-old female with history of atrial fibrillation on Eliquis presenting with headache in ground level fall. She states that she fell 2 weeks ago had a she tripped going on an incline she hit her head but no loss of consciousness. She continued on however she fell again 3 days ago slipping on a wet area of grass. She denies any loss of consciousness no nausea or vomiting no blurry vision no chest pain or palpitations. She has device that she is able to monitor she is in atrial fibrillation or not she has shown it to me she actually has frequent PVCs but appears to be in sinus rhythm. She denies any symptoms. MD complaint: fall Onset (ago): day(s) (3) Fall from: standing Fall witnessed: no Place fall occurred: home Loss of consciousness: none Related Data Home Medications Medication Instructions Recorded Confirmed prednisone 1 mg tablet 1 mg PO BID 10/17/17 06/16/20 Eliquis 5 mg PO BID 11/27/19 06/16/20 omeprazole 10 mg capsule,delayed 20 mg PO DAILY cap 05/09/20 06/16/20 release flecainide 100 mg PO BID 06/11/20 06/16/20 levetiracetam 500 mg PO BID 06/11/20 06/16/20 topiramate 25 mg PO BID 06/11/20 06/16/20 Amitriptyline 1 tab PO BID 06/16/20 06/16/20 flecainide 50 mg tablet 50 mg PO BID tab 06/16/20 06/16/20 furosemide 20 mg tablet 20 mg PO DAILY PRN tab 06/16/20 06/16/20 metoprolol succinate 50 mg 25 mg PO DAILY tab 06/16/20 06/16/20 tablet,extended release 24 hr omega-3 fatty acids 1,000 mg 1,000 mg PO DAILY 06/16/20 06/16/20 capsule spironolactone 25 mg tablet 12.5 mg PO DAILY tab 06/16/20 06/16/20 Previous Rx's Medication Instructions Recorded simvastatin 20 mg tablet 20 mg PO BEDTIME #90 tab 02/22/20 Allergies Allergy/AdvReac Type Severity Reaction Status Date / Time codeine [CODEINE] AdvReac Unknown Vomiting Verified 06/16/20 11:19 oyster extract AdvReac Diarrhea Verified 06/16/20 11:19 Review of Systems Review of Systems ROS Unobtainable: All systems reviewed & are unremarkable except as noted in HPI and below Constitutional Constitutional: Denies chills, Denies fever(s), Denies lethargy and Denies weakness Eyes Eyes: Denies change in vision, Denies eye discharge, Denies irritation and Denies loss of vision ENT Ears, Nose, Mouth, and Throat: Denies change in voice, Denies neck pain and Denies sore throat Cardiovascular Cardiovascular: Reports as per HPI, Denies dyspnea and Denies dyspnea on exertion Respiratory Respiratory: Denies cough, Denies dyspnea, Denies dyspnea on exertion and Denies wheezing Gastrointestinal Gastrointestinal: Denies abdominal pain, Denies change in bowel habits, Denies diarrhea, Denies nausea and Denies vomiting Musculoskeletal Musculoskeletal: Denies back pain, Denies myalgias and Denies neck pain Integumentary/Breasts Skin/Breast: Denies pruritus, Denies erythema, Denies rash and Denies wounds Neurologic Neurologic: Denies loss of vision and Denies weakness Allergic/Immunologic Allergic/Immunologic: Denies wheezing Patient History Medical History Current use of penitentiary anticoagulation Multiple sclerosis Persistent atrial fibrillation Pulmonary nodule Raynaud disease Rheumatoid arthritis Sjogren's disease Surgical History History of foot surgery History of hysterectomy S/P ablation of atrial fibrillation (~2019) Family History Father Cardiomyopathy Diabetes mellitus Alzheimer's dementia Mother Cancer Brother Coronary artery disease Hx of CABG Social History household members: none Smoking Status: Former smoker alcohol intake: current Smoking Status: Former smoker alcohol intake frequency: a few times a week Substance Use Type: does not use Exam Initial Vital Signs Initial Vital Signs: Vital Signs Temperature 98 F 08/18/20 00:00 Pulse Rate 94 H 08/18/20 00:00 Respiratory Rate 18 08/18/20 00:00 Blood Pressure 171/93 H 08/18/20 00:00 Pulse Oximetry 100 08/18/20 00:00 GENERAL: Alert pleasant 80-year-old female and in no acute distress. HEENT: Head atraumatic,EOMI, pupils reactive, face symmetric, moist mucous membranes NECK: No vertebral tenderness no step-offs supple full flexion extension and rotation CARDIOVASCULAR: Regular rate and rhythm without murmurs, rubs or gallops. RESPIRATORY: Breath sounds equal bilaterally, no wheezes rales or rhonchi. ABDOMEN: Soft, nontender. Normoactive bowel sounds all 4 quadrants. No guarding or rebound. BACK: No vertebral tenderness no step-offs on no sign of trauma EXTREMITIES: Normal range of motion, no clubbing or edema. Neurovascularly inta ct NEUROLOGICAL: Alert and oriented x4.Normal gait and speech. Cranial nerves II through XII grossly intact. Document Management Technician strength equal bilaterally SKIN: Warm, dry, no laceration, no petechiae, no rashes or lesions. Scores NIH Stroke Scale Level of Conciousness: Alert, keenly responsive Ask month/age: Answers both questions correctly. Open/close eyes, close hand: Performs both tasks correctly Best gaze horizontal: Normal Visual mercado: No visual loss Facial palsy: Normal symetrical movement Left arm drift: No drift for full 10 sec Right arm drift: No drift for full 10 sec Left leg drift: No drift for full 5 sec Right leg drift: No drift for full 5 sec Limb ataxia: Absent Sensory on face/arms/legs: Normal, no sensory loss Best language: No aphasia, normal Dysarthria: Normal Extinction or inattention: No abnormality Total NIH Stroke scale score: 0 Course Orders Ordered: ED Orders 08/17/20 23:59 CT head/brain wo con Stat 08/18/20 00:11 XR chest 1V Stat EKG-12 Lead Stat 08/18/20 00:28 Complete Blood Count AUTO DIFF Stat Comprehensive Metabolic Panel Stat Lipase Stat Troponin & CK Cardiac Panel Stat Vital Signs Vital signs: Vital Signs - 8 hr 08/18/20 00:00 08/18/20 00:05 08/18/20 00:07 Temperature 98 F Pulse Rate 92 H 91 H 65 Respiratory Rate 18 Blood Pressure 152/72 H 163/86 H Pulse Oximetry 100 98 98 08/18/20 00:30 08/18/20 00:31 Temperature Pulse Rate 66 81 Respiratory Rate Blood Pressure 146/67 H Pulse Oximetry 97 97 MDM - Fall Lab Data Attestation: I reviewed the patient's lab results. Result diagrams: 08/18/20 00:28 08/18/20 00:28 Labs: Lab Results 08/18/20 08/18/20 Range/Units 00:28 00:28 WBC 7.9 (4.5-11.0) X10^3/uL RBC 4.10 (4.0-5.2) X10^6/uL Hgb 11.8 L (12.0-16.0) g/dL Hct 35.0 L (36-46) % MCV 85.4 (80-100) fL MCH 28.9 (26-34) PG MCHC 33.8 (30-36) % RDW 14.9 H (11.6-14.8) % Plt Count 296 (150-400) X10^3/uL Neut % (Auto) 69.7 (50-75) % Lymph % (Auto) 21.3 L (25-40) % [place] % (Auto) 7.1 (3-14) % Eos % (Auto) 1.2 L (2-4) % Baso % (Auto) 0.7 (0-2) % Neut # (Auto) 5500 (1306-5711) /uL Lymph # (Auto) 1700 (3147-0038) /uL [place] # (Auto) 600 (0-900) /uL Eos # (Auto) 100 (0-450) /uL Baso # (Auto) 100 (0-100) /uL Sodium 139 (137-145) mmol/L Potassium 4.3 (3.4-5.1) mmol/L Chloride 104 (98-107) mmol/L Carbon Dioxide 27 (22-32) mmol/L BUN 28 H (7-17) mg/dL Creatinine 0.76 (0.52-1.04) mg/dL Estimated GFR > 60.0 (>60) mL/min BUN/Creatinine Ratio 36.8 H (6-22) Glucose 113 H (80-110) mg/dL Calcium 9.4 (8.4-10.2) mg/dL Total Bilirubin 0.2 (0.2-1.3) mg/dL AST 36 (14-36) IU/L ALT 29 (<35) IU/L Alkaline Phosphatase 70 (38-126) U/L Total Creatine Kinase 221 H (30-135) U/L CK-MB (CK-2) 6.14 H (<2.37) ng/mL CK-MB (CK-2) Rel Index 2.8 (1.5-5.0) % Troponin I 0.019 (0.01-0.034) ng/mL Total Protein 7.2 (6.3-8.2) g/dL Albumin 4.4 (3.5-5.0) g/dL Globulin 2.8 (1.7-4.1) g/dL Albumin/Globulin Ratio 1.6 (1.0-2.8) Lipase 122 (23-300) U/L Imaging Data CT scan - head: Radiologist's Impression: Preliminary report: No acute finding Chest x-ray: Radiologist's Impression: Preliminary report no acute finding ECG Data Attestation: I personally reviewed and interpreted this ECG as follows: Interpretation: Sinus rhythm with PVCs rate 86 ME interval 174 QRS 108 QTC 437 MDM Narrative Medical decision making narrative: The patient overall is feeling okay. Not requiring pain medicine in the ED. She has no focal deficits. Head CT is negative any acute bleeding. I discussed with her with her to recent fall she may not be a candidate for Eliquis if she continues to fall. She will discuss these options with her treasury accountant and primary care provider. She does have PVCs noted however she seems to be asymptomatic at this time. Both falls seem to be mechanical. Blood work is overall reassuring patient is ambulatory to the restroom without any assistance and is now requesting to go home. Discharge Plan Departure Patient Disposition: Home Clinical Impression: Headache Fall Qualifiers: Encounter type: initial encounter Qualified Code(s): W19.XXXA - Unspecified fall, initial encounter Activity Restrictions/Additional Instructions: *You have been diagnosed with headache, fall *What to do: At this time there is no sign of injury from your fall. Please follow-up with your treasury accountant if your continuing to fall your likely not a candidate for Eliquis *Continue to take medications as directed Tylenol 650 mg every 4-6 hours if needed for [id number] pain *Follow up with your primary care provider in 2-3 days *Return to ER if you should have increasing pain, weakness, numbness, tingling, if you fall and hit her head at any time or any new, worsening or concerning symptoms Prescriptions: No Action prednisone 1 mg tablet 1 mg PO BID RF: 0 omeprazole 10 mg capsule,delayed release(DR/EC) 20 mg PO DAILY RF: 0 simvastatin 20 mg tablet 20 mg PO BEDTIME Qty: 90 RF: 0 omega-3 fatty acids [Fish Oil Concentrate] 1,000 mg capsule 1,000 mg PO DAILY RF: 0 flecainide 50 mg tablet 50 mg PO BID RF: 0 furosemide 20 mg tablet 20 mg PO DAILY PRN (Reason: edema) RF: 0 spironolactone 25 mg tablet 12.5 mg PO DAILY RF: 0 Amitriptyline 1 tab PO BID RF: 0 metoprolol succinate 50 mg tablet extended release 24 hr 25 mg PO DAILY RF: 0 flecainide 100 mg tablet 100 mg PO BID RF: 0 levetiracetam 500 mg tablet 500 mg PO BID RF: 0 topiramate 25 mg tablet 25 mg PO BID RF: 0 Eliquis 5 mg tablet 5 mg PO BID RF: 0 Referrals: Asif Banks MD [Primary Care Provider] -
[2020-08-18 00:48] LABS: Alanine Aminotransferase 29 IU/L (<35); Albumin 4.4 g/dL (3.5-5.0); Albumin Globulin Ratio 1.6 (1.0-2.8); Alkaline Phosphatase 70 U/L (38-126); Aspartate Aminotransferase 36 IU/L (14-36); BUN Creatinine Ratio 36.8 (6-22); Bilirubin Total 0.2 mg/dL (0.2-1.3); Blood Urea Nitrogen 28 mg/dL (7-17); Calcium 9.4 mg/dL (8.4-10.2); Carbon Dioxide 27 mmol/L (22-32); Chloride 104 mmol/L (98-107); Creatine Kinase 221 U/L (30-135); Estimated Glomerular Filt Rate > 60.0 mL/min (>60); Globulin 2.8 g/dL (1.7-4.1); Glucose 113 mg/dL (80-110); HEMOLYSIS < 15 (0-50); Lipase 122 U/L (23-300); Potassium 4.3 mmol/L (3.4-5.1); Sodium 139 mmol/L (137-145); Total Protein 7.2 g/dL (6.3-8.2)
[2020-08-18 01:00] LABS: Troponin I 0.019 ng/mL (0.01-0.034)
[2020-08-18 01:04] LABS: CKMB % Relative Index 2.8 % (1.5-5.0); Creatine Kinase MB 6.14 ng/mL (<2.37)
== END 2020-08-18 02:03 | disposition home or self-care (01) ==
PROVIDERS: Emergency Provider Emergency Medicine; PCP Internal Medicine
DX: R51.9 Headache, unspecified (principal); W19.XXXA Unspecified fall, initial encounter; Z79.01 Long term (current) use of anticoagulants
CPT/HCPCS: 36415; 70450; 71045; 80053; 82550; 82553; 83690; 84484; 85025; 93005; 99284; 99291

== ENCOUNTER → 2020-09-26 10:48 | Outpatient (CLI) | payer MEDICARE, SELFPAY ==
[2020-02-04 09:49] VITALS: BMI 27.3
[2020-09-26 12:41] LABS: Alanine Aminotransferase 35 IU/L (<35); Albumin 4.4 g/dL (3.5-5.0); Albumin Globulin Ratio 1.4 (1.0-2.8); Alkaline Phosphatase 68 U/L (38-126); Aspartate Aminotransferase 47 IU/L (14-36); BUN Creatinine Ratio 20.2 (6-22); Bilirubin Total 0.6 mg/dL (0.2-1.3); Blood Urea Nitrogen 18 mg/dL (7-17); Calcium 9.7 mg/dL (8.4-10.2); Carbon Dioxide 29 mmol/L (22-32); Chloride 101 mmol/L (98-107); Cholesterol 182 mg/dL (140-199); Estimated Glomerular Filt Rate > 60.0 mL/min (>60); Globulin 3.1 g/dL (1.7-4.1); Glucose 81 mg/dL (80-110); HDL Cholesterol 65 mg/dL (40-60); HEMOLYSIS < 15 (0-50); LDL Cholesterol Calculated 101 mg/dL (<100); Potassium 4.5 mmol/L (3.4-5.1); Sodium 137 mmol/L (137-145); Total Protein 7.5 g/dL (6.3-8.2); Triglycerides 82 mg/dL (35-150)
== END ==
PROVIDERS: PCP Internal Medicine; Referring Provider Internal Medicine; Visit Provider Internal Medicine
DX: I10 Essential (primary) hypertension (principal); E78.5 Hyperlipidemia, unspecified
CPT/HCPCS: 36415; 80053; 80061

== ENCOUNTER 2020-10-05 23:54 | Observation (INO) | payer MEDICARE, SELFPAY ==
[2020-02-04 09:49] VITALS: BMI 27.3
[2020-10-05 23:55] VITALS: BP 136/82; PULSE 100; RESP 17; TEMP 36.9; O2SAT 99; BMI 28.0
[2020-10-06] VITALS (63 sets, daily range): BP systolic 92–174; BP diastolic 47–83; PULSE 95–134; RESP 12–34; TEMP 36.1–36.5; O2SAT 95–100; BMI 28.0
--- NOTE | 2020-10-06 00:07 | DI.RAD.S_ITS ---
PROCEDURE: XR CHEST 1V INDICATIONS: chest pain TECHNIQUE: One view of the chest was acquired. COMPARISON: [facility], CR, XR CHEST 1V, 08/18/2020, 0:50. FINDINGS: Surgical changes and devices: None. Lungs and pleura: Lungs are clear. No pleural effusions or pneumothorax. Mediastinum: Mediastinal contours appear normal. Heart size is normal. Bones and chest wall: No suspicious bony lesions. Overlying soft tissues appear unremarkable. IMPRESSION: No evidence acute pulmonary process. Comment: Final report is concordant with preliminary interpretation provided by [facility]. Dictated by: Yifan Shoemaker M.D. on 10/06/2020 at 8:40 Approved by: Yifan Shoemaker M.D. on 10/06/2020 at 8:41
[2020-10-06 00:19] LABS: Add Manual Diff / Slide Review NO; Basophils Absolute Auto 0 /uL (0-100); Basophils Percent Auto 0.5 % (0-2); Eosinophils Absolute Auto 100 /uL (0-450); Eosinophils Percent Auto 0.8 % (2-4); Hematocrit 35.7 % (36-46); Hemoglobin 11.9 g/dL (12.0-16.0); Lymphocytes Absolute Auto 2100 /uL (1100-4500); Lymphocytes Percent Auto 22.8 % (25-40); Mean Corpuscular HGB Conc 33.2 % (30-36); Mean Corpuscular Volume 87.2 fL (80-100); Monocytes Absolute Auto 600 /uL (0-900); Monocytes Percent Auto 6.8 % (3-14); Neutrophils Absolute Auto 6200 /uL (1500-7000); Neutrophils Percent Auto 69.1 % (50-75); Platelet Count 285 X10^3/uL (150-400); Red Cell Distribution Width 14.2 % (11.6-14.8)
[2020-10-06] MEDS: SODIUM CHLORIDE 0.9% 1,000 ML 150 ML IV (00:20)
--- NOTE | 2020-10-06 00:27 | ED.ARRPALP ---
HPI - Arrhythmia/Palpitations <Yomaira Abdul, DO - Last Filed: 10/07/20 00:58> General Chief Complaint: Arrhythmia/Palpitations Stated Complaint: Afib Time Seen by Provider: 10/05/20 23:59 Source: patient and EMS Mode of arrival: Ambulatory Limitations: no limitations History of Present Illness HPI narrative: Patient is a 80-year-old female with a history of atrial fibrillation on Eliquis with history of ablation in May presenting with a fib. He says she did not feel quite right and checked her in the once. She tried to lay down in vaso vagal but was unsuccessful. She then called 911. She has had PVCs in the past however her monitor on her phone noted that she was AFib with RVR with a rate of 160. EMS gave her 20 mg of diltiazem which slowed her rate and has not decreased her blood pressure significantly. She really is relatively asymptomatic. She denies chest pain or palpitations. But she can tell that something is abnormal. MD complaint: irregular heart beat and atrial fibrillation Related Data Home Medications Medication Instructions Recorded Confirmed prednisone 1 mg tablet 1 mg PO BID 10/17/17 10/06/20 Eliquis 5 mg PO BID 11/27/19 10/06/20 omeprazole 10 mg capsule,delayed 20 mg PO DAILY cap 05/09/20 10/06/20 release furosemide 20 mg tablet 20 mg PO DAILY PRN tab 06/16/20 10/06/20 metoprolol succinate 50 mg 25 mg PO DAILY tab 06/16/20 10/06/20 tablet,extended release 24 hr omega-3 fatty acids 1,000 mg 1,000 mg PO DAILY 06/16/20 10/06/20 capsule spironolactone 25 mg tablet 12.5 mg PO BID tab 06/16/20 10/06/20 amitriptyline 25 mg PO BEDTIME 10/06/20 10/06/20 magnesium 125 mg PO DAILY 10/06/20 10/06/20 Previous Rx's Medication Instructions Recorded simvastatin 20 mg tablet 20 mg PO BEDTIME #90 tab 02/22/20 Allergies Allergy/AdvReac Type Severity Reaction Status Date / Time etomidate Allergy Seizure Verified 10/06/20 02:32 codeine [CODEINE] AdvReac Unknown Vomiting Verified 06/16/20 11:19 oyster extract AdvReac Diarrhea Verified 06/16/20 11:19 Review of Systems <Yomaira Abdul DO - Last Filed: 10/07/20 00:58> Review of Systems Narrative: GENERAL: Denies chills, fatigue, malaise, fever, sweats, travel HEENT: Denies sinus pain, ear pain, sore throat, difficulty swallowing, neck pain RESPIRATORY: Denies dyspnea, cough, wheezing, hemoptysis, sputum. CARDIOVASCULAR: See HPI GASTROINTESTINAL: Denies nausea, vomiting, abdominal pain, diarrhea, constipation, melena. : Denies dysuria, frequency, incontinence, hematuria, urinary retention, flank pain. MUSCULOSKELETAL: Denies weakness, joint pain, or bony pain SKIN: No rash, no erythema, no pruritus NEUROLOGIC: Denies weakness, dizziness, headache, numbness, change in speech, confusion PSYCHIATRIC: No concerning psychosocial issues. 12 point review of systems is negative except for those stated above and HPI Patient History <Yomaira Abdul DO - Last Filed: 10/07/20 00:58> Medical History Current use of alf anticoagulation Multiple sclerosis Persistent atrial fibrillation Pulmonary nodule Raynaud disease Rheumatoid arthritis Sjogren's disease Surgical History History of foot surgery History of hysterectomy S/P ablation of atrial fibrillation (~2019) Family History Father Cardiomyopathy Diabetes mellitus Alzheimer's dementia Mother Cancer Brother Coronary artery disease Hx of CABG Social History household members: none Smoking Status: Former smoker alcohol intake: current Smoking Status: Former smoker alcohol intake frequency: a few times a week Substance Use Type: does not use Exam <Yomaira Abdul DO - Last Filed: 10/07/20 00:58> Initial Vital Signs Initial Vital Signs: Vital Signs Temperature 98.4 F 10/05/20 23:55 Pulse Rate 100 H 10/05/20 23:55 Respiratory Rate 17 10/05/20 23:55 Blood Pressure 136/82 10/05/20 23:55 Pulse Oximetry 99 10/05/20 23:55 GENERAL: Alert pleasant well-appearing 80-year-old female HEENT: Head atraumatic,EOMI, pupils reactive, face symmetric, [moist] mucous membranes CARDIOVASCULAR: Irregular no murmurs RESPIRATORY: Breath sounds equal bilaterally, no wheezes rales or rhonchi. ABDOMEN: Soft, nontender. Normoactive bowel sounds all 4 quadrants. No guarding or rebound. EXTREMITIES: Normal range of motion, no clubbing or edema. Neurovascularly intact NEUROLOGICAL: Alert and oriented x4.Normal gait and speech. SKIN: Warm, dry, no laceration, no petechiae, no rashes or lesions. <Mckayla Vasquez MD - Last Filed: 10/06/20 08:29> Initial Vital Signs Initial Vital Signs: Vital Signs Temperature 98.4 F 10/05/20 23:55 Pulse Rate 100 H 10/05/20 23:55 Respiratory Rate 17 10/05/20 23:55 Blood Pressure 136/82 10/05/20 23:55 Pulse Oximetry 99 10/05/20 23:55 Procedures <Yomaira Abdul DO - Last Filed: 10/07/20 00:58> Procedural Sedation Consent signed: Yes Time out performed: Yes Indication: cardioversion ASA Class: I Mallampati Airway Classification: Class I Preparation: vending stand supervisor applied, pulse oximeter, capnometry used and supplemental O2 applied IV Etomidate dose (mg): 7 ED Sedation Level: Moderate (Concious) Additional Comments: Patient began having seizure immediately after etomidate was pushed. Course <Yomaira Abdul DO - Last Filed: 10/07/20 00:58> Orders Ordered: Acetaminophen (Acetaminophen 325 Mg Tablet) 650 mg PO Q6HR PRN PRN Reason: Fever/Mild Pain (1-3) Amitriptyline HCl (Amitriptyline 25 Mg Tablet) 25 mg PO BEDTIME [facility] Last Admin: 10/06/20 20:33 Dose: 25 mg Documented by: LIDIATE Apixaban (Apixaban 5 Mg Tablet) 5 mg PO BID [facility] Last Admin: 10/06/20 20:32 Dose: 5 mg Documented by: LIDIATE Atorvastatin Calcium (Atorvastatin 20 Mg Tablet) 10 mg PO BEDTIME [facility] Last Admin: 10/06/20 20:33 Dose: 10 mg Documented by: LIDIATE Diltiazem HCl (Diltiazem Cd 180 Mg Cap) 180 mg PO BID [facility] Last Admin: 10/06/20 20:34 Dose: 180 mg Documented by: PATRICK Levetiracetam (Levetiracetam 250 Mg Tablet) 500 mg PO BID [facility] Last Admin: 10/06/20 20:33 Dose: 500 mg Documented by: Admin: 10/06/20 12:09 Dose: 500 mg Documented by: PATRICIO Naloxone HCl (Naloxone 0.4 Mg/Ml Vial) 0.2 mg IV Q2MIN PRN PRN Reason: Opiate Reversal Prednisone (Prednisone 1 Mg Tablet) 1 mg PO BID [facility] Last Admin: 10/06/20 20:34 Dose: 1 mg Documented by: PATRICK Sodium Chloride (Sodium Chloride 0.9% Flush) 10 ml IV PRN PRN PRN Reason: Flush Last Admin: 10/06/20 22:19 Dose: 10 ml Documented by: PATRICK Spironolactone (Spironolactone 25 Mg Tablet) 12.5 mg PO BID [facility] Last Admin: 10/06/20 20:35 Dose: 12.5 mg Documented by: PATRICK Discontinued Medications Apixaban (Apixaban 5 Mg Tablet) 5 mg PO NOW ONE Stop: 10/06/20 07:55 Last Admin: 10/06/20 08:09 Dose: 5 mg Documented by: SILAS Diltiazem HCl (Diltiazem Cd 180 Mg Cap) 180 mg PO DAILY [facility] Last Admin: 10/06/20 10:27 Dose: 180 mg Documented by: PATRICIO Etomidate (Etomidate 2 Mg/Ml 10 Ml Vial) 7 mg IV NOW ONE Stop: 10/06/20 01:33 Last Admin: 10/06/20 01:44 Dose: 7 mg Documented by: GEGE Hydrocortisone (Hydrocortisone 100 Mg/2 Ml Vial) 100 mg IV NOW ONE Stop: 10/06/20 08:19 Last Admin: 10/06/20 08:34 Dose: 100 mg Documented by: SILAS Sodium Chloride (Normal Saline 0.9%) 1,000 mls @ 150 mls/hr IV CONT [facility] Last Infusion: 10/06/20 07:41 Dose: 0 mls/hr Documented by: Admin: 10/06/20 00:20 Dose: 150 mls/hr Documented by: LISANDRA Levetiracetam 1,000 mg/ Sodium (Chloride) 110 mls @ 440 mls/hr IV NOW ONE Stop: 10/06/20 04:40 Last Infusion: 10/06/20 05:08 Dose: 0 mls/hr Documented by: Admin: 10/06/20 04:48 Dose: 440 mls/hr Documented by: GEGE Lorazepam (Lorazepam 2 Mg/Ml Inj) 1 mg IV NOW ONE Stop: 10/06/20 02:16 Last Admin: 10/06/20 01:48 Dose: 1 mg Documented by: GEGE Lorazepam (Lorazepam 2 Mg/Ml Inj) 1 mg IV NOW ONE Stop: 10/06/20 02:17 Last Admin: 10/06/20 01:45 Dose: 1 mg Documented by: GEGE Metoprolol Succinate (Metoprolol Er 50 Mg Tablet) 50 mg PO NOW ONE Stop: 10/06/20 07:55 Last Admin: 10/06/20 08:09 Dose: 50 mg Documented by: SILAS Prednisone (Prednisone 1 Mg Tablet) 1 mg PO BID [facility] Last Admin: 10/06/20 08:34 Dose: 1 mg Documented by: SILAS Vital Signs Vital signs: Vital Signs - 8 hr 10/06/20 00:30 10/06/20 01:00 10/06/20 01:30 Pulse Rate 100 H 99 H 103 H Respiratory Rate 12 33 H Blood Pressure 121/63 140/68 148/83 H Pulse Oximetry 97 100 100 10/06/20 01:40 10/06/20 01:44 10/06/20 01:50 Pulse Rate 121 H 134 H 115 H Respiratory Rate 24 18 31 H Blood Pressure 167/76 H 174/83 H Pulse Oximetry 100 100 10/06/20 01:55 10/06/20 02:00 10/06/20 02:02 Pulse Rate 98 H 100 H 100 H Respiratory Rate 19 26 H 20 Blood Pressure 138/78 120/59 L Pulse Oximetry 100 98 98 10/06/20 02:05 10/06/20 02:11 10/06/20 02:15 Pulse Rate 97 H 97 H 99 H Respiratory Rate 19 18 18 Blood Pressure 106/51 L 110/58 L 103/55 L Pulse Oximetry 98 98 97 10/06/20 02:20 10/06/20 02:26 10/06/20 02:30 Pulse Rate 123 H 104 H 102 H Respiratory Rate 24 21 23 Blood Pressure 126/60 106/67 117/58 L Pulse Oximetry 97 98 97 10/06/20 02:40 10/06/20 02:50 10/06/20 03:00 Pulse Rate 101 H 100 H 98 H Respiratory Rate 20 19 18 Blood Pressure 106/54 L 96/60 96/54 L Pulse Oximetry 97 97 97 10/06/20 03:10 10/06/20 03:20 10/06/20 03:30 Pulse Rate 101 H 100 H 98 H Respiratory Rate 21 17 19 Blood Pressure 104/54 L 97/54 L 93/52 L Pulse Oximetry 98 97 97 10/06/20 03:40 10/06/20 03:50 10/06/20 04:00 Pulse Rate 98 H 97 H 97 H Respiratory Rate 19 17 18 Blood Pressure 107/56 L 95/52 L 92/47 L Pulse Oximetry 99 98 98 10/06/20 04:02 10/06/20 04:30 10/06/20 04:37 Pulse Rate 98 H 97 H 102 H Respiratory Rate 20 19 27 H Blood Pressure 97/57 L 112/56 L Pulse Oximetry 99 96 99 10/06/20 04:50 10/06/20 05:00 10/06/20 05:10 Pulse Rate 95 H 95 H 96 H Respiratory Rate 21 17 17 Blood Pressure 109/57 L 126/62 120/55 L Pulse Oximetry 98 98 96 10/06/20 05:20 10/06/20 05:30 10/06/20 05:40 Pulse Rate 96 H 96 H 95 H Respiratory Rate 20 18 16 Blood Pressure 95/50 L 104/59 L 116/60 Pulse Oximetry 95 96 97 10/06/20 05:50 10/06/20 06:00 10/06/20 06:10 Pulse Rate 96 H 96 H 96 H Respiratory Rate 17 17 19 Blood Pressure 114/61 113/63 112/67 Pulse Oximetry 98 98 97 10/06/20 06:20 10/06/20 06:30 10/06/20 06:40 Pulse Rate 96 H 96 H 96 H Respiratory Rate 18 18 16 Blood Pressure 120/67 124/66 114/64 Pulse Oximetry 97 97 97 10/06/20 06:50 10/06/20 07:00 10/06/20 07:10 Pulse Rate 96 H 97 H 96 H Respiratory Rate 17 20 19 Blood Pressure 109/60 116/58 L 122/64 Pulse Oximetry 96 97 98 10/06/20 07:20 10/06/20 07:30 10/06/20 08:00 Pulse Rate 96 H 101 H 97 H Respiratory Rate 16 34 H 17 Blood Pressure 114/66 Pulse Oximetry 97 98 96 10/06/20 08:08 10/06/20 08:09 10/06/20 08:10 Pulse Rate 97 H 97 H 96 H Respiratory Rate 16 17 Blood Pressure 125/72 125/72 115/69 Pulse Oximetry 97 98 <Mckayla Vasquez MD - Last Filed: 10/06/20 08:29> Orders Ordered: Acetaminophen (Acetaminophen 325 Mg Tablet) 650 mg PO Q6HR PRN PRN Reason: Fever/Mild Pain (1-3) Amitriptyline HCl (Amitriptyline 25 Mg Tablet) 25 mg PO BEDTIME [facility] Last Admin: 10/06/20 20:33 Dose: 25 mg Documented by: CWHITE Apixaban (Apixaban 5 Mg Tablet) 5 mg PO BID [facility] Last Admin: 10/06/20 20:32 Dose: 5 mg Documented by: CWHITE Atorvastatin Calcium (Atorvastatin 20 Mg Tablet) 10 mg PO BEDTIME [facility] Last Admin: 10/06/20 20:33 Dose: 10 mg Documented by: CWHITE Diltiazem HCl (Diltiazem Cd 180 Mg Cap) 180 mg PO BID [facility] Last Admin: 10/06/20 20:34 Dose: 180 mg Documented by: CWHITE Levetiracetam (Levetiracetam 250 Mg Tablet) 500 mg PO BID [facility] Last Admin: 10/06/20 20:33 Dose: 500 mg Documented by: Admin: 10/06/20 12:09 Dose: 500 mg Documented by: CPETRIC Naloxone HCl (Naloxone 0.4 Mg/Ml Vial) 0.2 mg IV Q2MIN PRN PRN Reason: Opiate Reversal Prednisone (Prednisone 1 Mg Tablet) 1 mg PO BID [facility] Last Admin: 10/06/20 20:34 Dose: 1 mg Documented by: CWHITE Sodium Chloride (Sodium Chloride 0.9% Flush) 10 ml IV PRN PRN PRN Reason: Flush Last Admin: 10/06/20 22:19 Dose: 10 ml Documented by: PATRICK Spironolactone (Spironolactone 25 Mg Tablet) 12.5 mg PO BID [facility] Last Admin: 10/06/20 20:35 Dose: 12.5 mg Documented by: PATRICK Discontinued Medications Apixaban (Apixaban 5 Mg Tablet) 5 mg PO NOW ONE Stop: 10/06/20 07:55 Last Admin: 10/06/20 08:09 Dose: 5 mg Documented by: SILAS Diltiazem HCl (Diltiazem Cd 180 Mg Cap) 180 mg PO DAILY [facility] Last Admin: 10/06/20 10:27 Dose: 180 mg Documented by: PATRICIO Etomidate (Etomidate 2 Mg/Ml 10 Ml Vial) 7 mg IV NOW ONE Stop: 10/06/20 01:33 Last Admin: 10/06/20 01:44 Dose: 7 mg Documented by: GEGE Hydrocortisone (Hydrocortisone 100 Mg/2 Ml Vial) 100 mg IV NOW ONE Stop: 10/06/20 08:19 Last Admin: 10/06/20 08:34 Dose: 100 mg Documented by: SILAS Sodium Chloride (Normal Saline 0.9%) 1,000 mls @ 150 mls/hr IV CONT [facility] Last Infusion: 10/06/20 07:41 Dose: 0 mls/hr Documented by: Admin: 10/06/20 00:20 Dose: 150 mls/hr Documented by: LISANDRA Levetiracetam 1,000 mg/ Sodium (Chloride) 110 mls @ 440 mls/hr IV NOW ONE Stop: 10/06/20 04:40 Last Infusion: 10/06/20 05:08 Dose: 0 mls/hr Documented by: Admin: 10/06/20 04:48 Dose: 440 mls/hr Documented by: GEGE Lorazepam (Lorazepam 2 Mg/Ml Inj) 1 mg IV NOW ONE Stop: 10/06/20 02:16 Last Admin: 10/06/20 01:48 Dose: 1 mg Documented by: GEGE Lorazepam (Lorazepam 2 Mg/Ml Inj) 1 mg IV NOW ONE Stop: 10/06/20 02:17 Last Admin: 10/06/20 01:45 Dose: 1 mg Documented by: GEGE Metoprolol Succinate (Metoprolol Er 50 Mg Tablet) 50 mg PO NOW ONE Stop: 10/06/20 07:55 Last Admin: 10/06/20 08:09 Dose: 50 mg Documented by: SILAS Prednisone (Prednisone 1 Mg Tablet) 1 mg PO BID [facility] Last Admin: 10/06/20 08:34 Dose: 1 mg Documented by: SILAS Vital Signs Vital signs: Vital Signs - 8 hr 10/06/20 00:30 10/06/20 01:00 10/06/20 01:30 Pulse Rate 100 H 99 H 103 H Respiratory Rate 12 33 H Blood Pressure 121/63 140/68 148/83 H Pulse Oximetry 97 100 100 10/06/20 01:40 10/06/20 01:44 10/06/20 01:50 Pulse Rate 121 H 134 H 115 H Respiratory Rate 24 18 31 H Blood Pressure 167/76 H 174/83 H Pulse Oximetry 100 100 10/06/20 01:55 10/06/20 02:00 10/06/20 02:02 Pulse Rate 98 H 100 H 100 H Respiratory Rate 19 26 H 20 Blood Pressure 138/78 120/59 L Pulse Oximetry 100 98 98 10/06/20 02:05 10/06/20 02:11 10/06/20 02:15 Pulse Rate 97 H 97 H 99 H Respiratory Rate 19 18 18 Blood Pressure 106/51 L 110/58 L 103/55 L Pulse Oximetry 98 98 97 10/06/20 02:20 10/06/20 02:26 10/06/20 02:30 Pulse Rate 123 H 104 H 102 H Respiratory Rate 24 21 23 Blood Pressure 126/60 106/67 117/58 L Pulse Oximetry 97 98 97 10/06/20 02:40 10/06/20 02:50 10/06/20 03:00 Pulse Rate 101 H 100 H 98 H Respiratory Rate 20 19 18 Blood Pressure 106/54 L 96/60 96/54 L Pulse Oximetry 97 97 97 10/06/20 03:10 10/06/20 03:20 10/06/20 03:30 Pulse Rate 101 H 100 H 98 H Respiratory Rate 21 17 19 Blood Pressure 104/54 L 97/54 L 93/52 L Pulse Oximetry 98 97 97 10/06/20 03:40 10/06/20 03:50 10/06/20 04:00 Pulse Rate 98 H 97 H 97 H Respiratory Rate 19 17 18 Blood Pressure 107/56 L 95/52 L 92/47 L Pulse Oximetry 99 98 98 10/06/20 04:02 10/06/20 04:30 10/06/20 04:37 Pulse Rate 98 H 97 H 102 H Respiratory Rate 20 19 27 H Blood Pressure 97/57 L 112/56 L Pulse Oximetry 99 96 99 10/06/20 04:50 10/06/20 05:00 10/06/20 05:10 Pulse Rate 95 H 95 H 96 H Respiratory Rate 21 17 17 Blood Pressure 109/57 L 126/62 120/55 L Pulse Oximetry 98 98 96 10/06/20 05:20 10/06/20 05:30 10/06/20 05:40 Pulse Rate 96 H 96 H 95 H Respiratory Rate 20 18 16 Blood Pressure 95/50 L 104/59 L 116/60 Pulse Oximetry 95 96 97 10/06/20 05:50 10/06/20 06:00 10/06/20 06:10 Pulse Rate 96 H 96 H 96 H Respiratory Rate 17 17 19 Blood Pressure 114/61 113/63 112/67 Pulse Oximetry 98 98 97 10/06/20 06:20 10/06/20 06:30 10/06/20 06:40 Pulse Rate 96 H 96 H 96 H Respiratory Rate 18 18 16 Blood Pressure 120/67 124/66 114/64 Pulse Oximetry 97 97 97 10/06/20 06:50 10/06/20 07:00 10/06/20 07:10 Pulse Rate 96 H 97 H 96 H Respiratory Rate 17 20 19 Blood Pressure 109/60 116/58 L 122/64 Pulse Oximetry 96 97 98 10/06/20 07:20 10/06/20 07:30 10/06/20 08:00 Pulse Rate 96 H 101 H 97 H Respiratory Rate 16 34 H 17 Blood Pressure 114/66 Pulse Oximetry 97 98 96 10/06/20 08:08 10/06/20 08:09 10/06/20 08:10 Pulse Rate 97 H 97 H 96 H Respiratory Rate 16 17 Blood Pressure 125/72 125/72 115/69 Pulse Oximetry 97 98 MDM - Arrhythmia/Palpitations <Yomaira Abdul DO - Last Filed: 10/07/20 00:58> Lab Data Attestation: I reviewed the patient's lab results. Result diagrams: 10/06/20 00:10 10/06/20 00:10 Labs: Lab Results 10/06/20 10/06/20 10/06/20 Range/Units 00:10 00:10 00:10 WBC 9.0 (4.5-11.0) X10^3/uL RBC 4.10 (4.0-5.2) X10^6/uL Hgb 11.9 L (12.0-16.0) g/dL Hct 35.7 L (36-46) % MCV 87.2 (80-100) fL MCH 29.0 (26-34) PG MCHC 33.2 (30-36) % RDW 14.2 (11.6-14.8) % Plt Count 285 (150-400) X10^3/uL Neut % (Auto) 69.1 (50-75) % Lymph % (Auto) 22.8 L (25-40) % [place] % (Auto) 6.8 (3-14) % Eos % (Auto) 0.8 L (2-4) % Baso % (Auto) 0.5 (0-2) % Neut # (Auto) 6200 (6604-7732) /uL Lymph # (Auto) 2100 (0700-5137) /uL [place] # (Auto) 600 (0-900) /uL Eos # (Auto) 100 (0-450) /uL Baso # (Auto) 0 (0-100) /uL Sodium 136 L (137-145) mmol/L Potassium 3.7 (3.4-5.1) mmol/L Chloride 99 (98-107) mmol/L Carbon Dioxide 26 (22-32) mmol/L BUN 22 H (7-17) mg/dL Creatinine 0.83 (0.52-1.04) mg/dL Estimated GFR > 60.0 (>60) mL/min BUN/Creatinine Ratio 26.5 H (6-22) Glucose 145 H (80-110) mg/dL Calcium 9.0 (8.4-10.2) mg/dL Total Bilirubin 0.4 (0.2-1.3) mg/dL AST 42 H (14-36) IU/L ALT 29 (<35) IU/L Alkaline Phosphatase 56 (38-126) U/L Total Creatine Kinase 480 H (30-135) U/L CK-MB (CK-2) 13.70 H (<2.37) ng/mL CK-MB (CK-2) Rel Index 2.9 (1.5-5.0) % Troponin I 0.028 (0.01-0.034) ng/mL NT-Pro-B Natriuret Pep 1640 H (<450) pg/mL Total Protein 6.9 (6.3-8.2) g/dL Albumin 4.2 (3.5-5.0) g/dL Globulin 2.7 (1.7-4.1) g/dL Albumin/Globulin Ratio 1.6 (1.0-2.8) Lipase 98 (23-300) U/L Imaging Data Chest x-ray: Radiologist's Impresson: Preliminary report no acute finding CT scan - head: Radiologist's Impresson: Preliminary report no acute intracranial process. Matter disease and previous study ECG Data Attestation: I personally reviewed and interpreted this ECG as follows: Prior ECG tracings: available for review Interpretation: EKG 1. Rate 100 7 P-waves are seen this appears to be sinus with PVCs EKG 2. Atrial fibrillation with PVCs rate 100 MDM Narrative Medical decision making narrative: Patient's heart rate is right around 100 cc is after asymptomatic however she brought her log of recordings of blood pressure and heart rate, her normal heart rate seems to be between 60 and 70. Repeat EKG does confirm atrial fibrillation. She is on Eliquis and has been for number of months. At this time no contraindication to cardioversion. Almost immediately after etomidate was pushed patient started having seizure. Seizure lasted approximately 7 minutes. Requiring 4 mg of Ativan. After further investigation previous internal medicine note by Dr. Banks does report that there was some seizure activity during a cardioversion and she was placed on antiepileptic medication. Patient was not cardioverted. Records from [facility] has been obtained it is unclear what medication was pushed for her ablation procedure however it appears that she did not developed seizure-like activity in till she was in the ICU. At that time she was consulted by Neurology Dr. keys and had MRI of brain and cervical spine and was discharged home on Keppra. According to her paperwork today the Keppra is crossed off her list in she is no longer taking it appears as though it was weaned down as 250 mg was written next is 500 mg. Patient is really loaded with 1000 mg of Keppra 0500-Dr. keys Neurology updated on patient's symptoms and test results at this times and agrees with restarting Keppra and will see as outpatient Patient currently is still postictal and sleepy likely from the Ativan. She has no memory of ever being on seizure medications or being evaluated by Neurology Patient is re-examined still sleeping Patient signed out to Dr. Capellan <Mckayla Vasquez MD - Last Filed: 10/06/20 08:29> Medical Records Attestation: I reviewed the patient's medical records. Lab Data Attestation: I reviewed the patient's lab results. Labs: Lab Results 10/06/20 10/06/20 10/06/20 Range/Units 00:10 00:10 00:10 WBC 9.0 (4.5-11.0) X10^3/uL RBC 4.10 (4.0-5.2) X10^6/uL Hgb 11.9 L (12.0-16.0) g/dL Hct 35.7 L (36-46) % MCV 87.2 (80-100) fL MCH 29.0 (26-34) PG MCHC 33.2 (30-36) % RDW 14.2 (11.6-14.8) % Plt Count 285 (150-400) X10^3/uL Neut % (Auto) 69.1 (50-75) % Lymph % (Auto) 22.8 L (25-40) % [place] % (Auto) 6.8 (3-14) % Eos % (Auto) 0.8 L (2-4) % Baso % (Auto) 0.5 (0-2) % Neut # (Auto) 6200 (1723-3399) /uL Lymph # (Auto) 2100 (8778-3799) /uL [place] # (Auto) 600 (0-900) /uL Eos # (Auto) 100 (0-450) /uL Baso # (Auto) 0 (0-100) /uL Sodium 136 L (137-145) mmol/L Potassium 3.7 (3.4-5.1) mmol/L Chloride 99 (98-107) mmol/L Carbon Dioxide 26 (22-32) mmol/L BUN 22 H (7-17) mg/dL Creatinine 0.83 (0.52-1.04) mg/dL Estimated GFR > 60.0 (>60) mL/min BUN/Creatinine Ratio 26.5 H (6-22) Glucose 145 H (80-110) mg/dL Calcium 9.0 (8.4-10.2) mg/dL Total Bilirubin 0.4 (0.2-1.3) mg/dL AST 42 H (14-36) IU/L ALT 29 (<35) IU/L Alkaline Phosphatase 56 (38-126) U/L Total Creatine Kinase 480 H (30-135) U/L CK-MB (CK-2) 13.70 H (<2.37) ng/mL CK-MB (CK-2) Rel Index 2.9 (1.5-5.0) % Troponin I 0.028 (0.01-0.034) ng/mL NT-Pro-B Natriuret Pep 1640 H (<450) pg/mL Total Protein 6.9 (6.3-8.2) g/dL Albumin 4.2 (3.5-5.0) g/dL Globulin 2.7 (1.7-4.1) g/dL Albumin/Globulin Ratio 1.6 (1.0-2.8) Lipase 98 (23-300) U/L [facility] Narrative Medical decision making narrative: 730am 80-year-old woman with a history of paroxysmal atrial fibrillation post ablation in May currently on apixaban presents with recurrent episode of atrial fibrillation node left noticed last night. Vagal maneuvers were not successful. On arrival in the emergency room she is hemodynamically stable anticoagulated confirmed to be in atrial fibrillation and felt to be a good candidate for cardioversion. Etomidate was used for sedation and promptly after pushing the medication she had a 7 minutes seizure requiring 4 mg of IV Ativan. She was not cardioverted. She remains quite sedated presumably from both the Ativan and being postictal. The seizure was at 1:30 a.m. this morning. After consultation with her neurologist, she was re-loaded on Keppra and a CT scan of the head was obtained. It does not show any acute intracranial process and white matter disease similar to prior studies. On re-evaluation at 745 this morning, per nursing report, she is still quite sleepy and still having significant gait disturbance. At 80 this certainly could be medication abnormalities including the Ativan, the Keppra and the 7 minutes seizure. Of note, her rhythm has converted to a sinus rhythm with a very short p.r. interval with rates in the close to 100 range. She is on metoprolol succinate 50 mg daily will go ahead and give her this this morning as well as her Eliquis. 820 on independent physical exam, she is significantly slowed, having difficulty tracking fully, when asked to stand she is completely unsteady on 2 feet and is unable to move her feet to take even a step forward or sideways. At this time, with at least 5 hours of recovery and still unable to take even a step, admission for further recovery and observation is going to be most appropriate. She identifies Dr. Perez as her primary care physician. In looking at the rest of her medications she is on prednisone 1 mg b.i.d. as recommended by a truck shop supervisor because of ?all of her autoimmune antibodies?. Will go ahead and give her that dose this morning as well as 100 mg of hydrocortisone as a stress dose. Given her unremarkable head CT at 3:00 a.m. this morning I do not think that we need to repeat that now however if she continues to have prolonged clearing it may be worth an MRI to see if she has had posterior circulations/brainstem event through everything that is happened over the course of the evening. At this point she does not appear to have any infectious etiology. Per consultation with Dr. Keys last night, recommendation was to continue Keppra 500 mg b.i.d. on discharge. Next dose should be this evening. Care is reviewed with hospitalist Dr. Gutierres who accepts patient. 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
[2020-10-06 00:28] LABS: Alanine Aminotransferase 29 IU/L (<35); Albumin 4.2 g/dL (3.5-5.0); Albumin Globulin Ratio 1.6 (1.0-2.8); Alkaline Phosphatase 56 U/L (38-126); Aspartate Aminotransferase 42 IU/L (14-36); BUN Creatinine Ratio 26.5 (6-22); Bilirubin Total 0.4 mg/dL (0.2-1.3); Blood Urea Nitrogen 22 mg/dL (7-17); Carbon Dioxide 26 mmol/L (22-32); Chloride 99 mmol/L (98-107); Creatine Kinase 480 U/L (30-135); Estimated Glomerular Filt Rate > 60.0 mL/min (>60); Globulin 2.7 g/dL (1.7-4.1); Glucose 145 mg/dL (80-110); HEMOLYSIS < 15 (0-50); Lipase 98 U/L (23-300); Potassium 3.7 mmol/L (3.4-5.1); Sodium 136 mmol/L (137-145); Total Protein 6.9 g/dL (6.3-8.2)
[2020-10-06 00:40] LABS: Troponin I 0.028 ng/mL (0.01-0.034)
[2020-10-06 00:42] LABS: NT-proBNP (BNP-Adult 18+) 1640 pg/mL (<450)
[2020-10-06 00:43] LABS: CKMB % Relative Index 2.9 % (1.5-5.0)
[2020-10-06] MEDS: ETOMIDATE 2 MG/ML 10 ML VIAL 7 MG IV (01:44)
[2020-10-06] MEDS: LORazepam 2 MG/ML INJ 1 MG IV ×2 (01:45→01:48)
[2020-10-06] MEDS: LORazepam 2 MG/ML INJ (01:45)
--- NOTE | 2020-10-06 02:07 | PC.NURSE ---
Immediately after Dr. Abdul pushed etomidate, pt started having tonic clonic movements. Pushed 2mg of ativan at 0145, 1mg at 0147, and 1mg at 0148. seizure broke at 0152.
--- NOTE | 2020-10-06 03:43 | PC.NURSE ---
Pt arousable to voice. able to follow directions. Continues to be confused at this time. Doesnt remember where she is or why she is here. Drifts back to sleep with eyes closed in mid sentence
--- NOTE | 2020-10-06 03:53 | DI.CT.S_ITS ---
PROCEDURE: CT HEAD/BRAIN WO CON INDICATIONS: seizure on eliquis TECHNIQUE: Noncontrast 4.5 mm thick angled axial sections acquired from the foramen magnum to the vertex, with coronal and sagittal reformats. For radiation dose reduction, the following was used: automated exposure control, adjustment of mA and/or kV according to patient size. COMPARISON: [facility], CT, CT HEAD/BRAIN WO CON, 08/18/2020, 0:03. FINDINGS: Image quality: Excellent. CSF spaces: Basal cisterns are patent. No extra-axial fluid collections. The ventricles are symmetric in size and shape. Brain: No intracranial bleeds or masses. There is cerebral volume loss for age, with resultant ventricular and sulcal prominence. There are mild periventricular and deep white matter chronic small vessel ischemic changes. There is intracranial internal carotid artery atherosclerosis. Skull and face: Calvarium and visualized facial bones appear intact, without suspicious lesions. Incidental note is made of the presence of hyperostosis frontalis. Sinuses: Visualized sinuses and mastoids are clear. IMPRESSION: 1. Age related volume loss and mild small vessel ischemic change. 2. No evidence acute stroke, hemorrhage, or mass. Comment: Final report is concordant with preliminary interpretation provided by [facility]. Dictated by: Yifan Shoemaker M.D. on 10/06/2020 at 7:57 Approved by: Yifan Shoemaker M.D. on 10/06/2020 at 7:59
--- NOTE | 2020-10-06 04:13 | PC.NURSE ---
Pt more alert. Able to state she is at [facility] for afib.
[2020-10-06] MEDS: levETIRAcetam 1,000 MG in SODIUM CHLORIDE 0.9% 100 ML 440 ML IV (04:48)
--- NOTE | 2020-10-06 07:43 | PC.NURSE ---
Pt was found trying to climb out of the bottom of the bed with all side rails up. Pt was very confused and could not remember that she had had a seizure. Her speech is slow and her gait is very unstable. Pt was adamant that she had to get up to use the bathroom. Additional staff was called to the bedside to assist. 2 person max assist to get her to the [facility]. When ambulating the pt back to the stretcher the pt's gait seemed very disjointed and she was having a hard time coordinating her lower leg movements. MD made aware. Neuro check done by this RN and pt was oriented but speech is slurred, all sensation and strength equal but pt is slow to follow direction and to respond. MD states this could be a result of her seizure and the medications given. RT at bedside to get another EKG. Pt on the monitor and in direct line of sight of staff. No additional orders at this time.
[2020-10-06] MEDS: METOPROLOL ER 50 MG TABLET PO (08:09)
[2020-10-06] MEDS: APIXABAN 5 MG TABLET PO ×2 (08:09→20:32)
--- NOTE | 2020-10-06 08:17 | PC.NURSE ---
ambulation trial pt unable to stand and walk without max assist x2 as soon as patient stands she leans forward and would fall if not prevented by staff x2, max assist to return to bed, unsteady and awkward gate unable to control feet well but equal on all extremities
[2020-10-06] MEDS: HYDROCORTISONE 100 MG/2 ML VIAL IV (08:34)
[2020-10-06] MEDS: predniSONE 1 MG TABLET PO ×2 (08:34→20:34)
--- NOTE | 2020-10-06 09:41 | DI.MRI.S_ITS ---
PROCEDURE: MR HEAD/BRAIN WO/W CON INDICATIONS: altered mental status TECHNIQUE: Noncontrast axial T1 spin echo, axial T2 fast spin echo, sagittal and axial FLAIR, coronal T2 fast spin echo, axial gradient echo, axial diffusion and ADC through the brain. After the administration of contrast, axial and coronal 3D VIBE or T1 spin echo with fat saturation through the brain. COMPARISON: None. FINDINGS: Image quality: Excellent. CSF Spaces: Basal cisterns are patent. No extra-axial fluid collections. Ventricles are normal in size and shape. Brain: No restricted diffusion to indicate recent ischemia. The major intracranial vascular flow-related signal voids are maintained. There is no abnormal intracranial susceptibility. There is global cerebral volume loss as well as moderate chronic microvascular ischemic change. No findings of mass effect or midline shift. No findings of mesial temporal sclerosis . No sadler matter heterotopia or evidence of neural migration abnormality. No abnormal intracranial enhancement. Skull and face: Calvarial marrow is normal in signal. Orbits appear normal. Sinuses: Sinuses and mastoids appear clear. IMPRESSION: No acute intracranial abnormality. No signal structural abnormality to explain seizure. Age commensurate advanced global cerebral volume loss and chronic microvascular ischemic changes. Dictated by: Michael Christopher M.D. on 10/06/2020 at 15:29 Approved by: Michael Christopher M.D. on 10/06/2020 at 15:32
[2020-10-06] MEDS: dilTIAZem CD 180 MG CAP PO ×2 (10:27→20:34)
--- NOTE | 2020-10-06 10:44 | PC.NURSE ---
Patient received from ER to room 227. alert and oriented but states she feels out of it and states I can't string together long sentences right now. Oriented to room and call light. Placed on Telemetry, VSS, bed alarm activated for safety. Denies pain. Lungs are clear bilaterally, denies shortness of breath. Moving all extremities but feels weak. Belongings at bedside. Continue to monitor. Call light within reach.
[2020-10-06 11:41] LABS: COVID19 - ADMIT (NP swab/PCR) Negative (Negative)
[2020-10-06] MEDS: levETIRAcetam 250 MG TABLET 500 MG PO ×2 (12:09→20:33)
--- NOTE | 2020-10-06 12:14 | PM.HP.1 ---
History of Present Illness History of Present Illness Date Patient Seen: 10/06/20 Time Patient Seen: 08:30 Chief complaint: Afib Narrative: Ms. Ji is an 80W PMH atrial fibrillation s/p ablation and previous cardioversion, mutiple sclerosis, rheumatoid arthritis, Sjogrens, Raynauds, HTN who comes in with tachycardia. She has a long history of atrial fibrillation, she has had an ablation in the past, and a cardioversion within the last few months. She has been on various medications for rhythm control including flecainide and amiodarone which she has had side effects to, so these have not been continued. She has been primarily in sinus, but yesterday did not feel well, she checked her pulse and was tachycardic to the 160s. No chest pain, no shortness of breath, cough, fevers. She was lightheaded. EMS checked her rate, and she was in afib and gave her a dose of 20mg of diltiazem. In the ED, workup was done, she was noted to be in afib or atrial flutter on telemetry with rate in 100s. She was planned for cardioversion. Per notes, she was given etmoidate and then had tonic clonic activity that lasted approximately 7 minutes. She received in total 4mg IV ativan after this. Afterwards her rate was regular approximately 100, appeared to be in atrial flutter. She was ordered for her home dose of metoprolol. After the ativan she felt foggy she was confused, slow to respond, she was imbalanced while trying to walk. She was monitored in the ED, but eventually was admitted for observation due to her altered mental status. Notable labs in ED were WBC of 9.0, creatinine of 0.83, troponin, 0.028. 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 Multiple sclerosis Persistent atrial fibrillation Pulmonary nodule Raynaud disease Rheumatoid arthritis Sjogren's disease Surgical History History of foot surgery History of hysterectomy S/P ablation of atrial fibrillation (~2019) Family & Social History Family History Father Cardiomyopathy Diabetes mellitus Alzheimer's dementia Mother Cancer Brother Coronary artery disease Hx of CABG Social History: household members none Safety & Behavioral: Feels Safe in Current Yes Environment Tobacco & Substance use: Smoking Status Former smoker alcohol intake current alcohol intake frequency a few times a week Substance Use Type does not use Meds Home Medications and Allergies Home Medications Medication Instructions Recorded Confirmed Type prednisone 1 mg tablet 1 mg PO BID 10/17/17 10/06/20 History Eliquis 5 mg PO BID 11/27/19 10/06/20 History simvastatin 20 mg tablet 20 mg PO BEDTIME #90 tab 02/22/20 10/06/20 Rx omeprazole 10 mg capsule,delayed 20 mg PO DAILY cap 05/09/20 10/06/20 History release furosemide 20 mg tablet 20 mg PO DAILY PRN tab 06/16/20 10/06/20 History metoprolol succinate 50 mg 25 mg PO DAILY tab 06/16/20 10/06/20 History tablet,extended release 24 hr omega-3 fatty acids 1,000 mg 1,000 mg PO DAILY 06/16/20 06/16/20 History capsule spironolactone 25 mg tablet 12.5 mg PO BID tab 06/16/20 10/06/20 History amitriptyline 25 mg PO BEDTIME 10/06/20 10/06/20 History magnesium 125 mg PO DAILY 10/06/20 10/06/20 History Allergies Allergy/AdvReac Type Severity Reaction Status Date / Time etomidate Allergy Seizure Verified 10/06/20 02:32 codeine [CODEINE] AdvReac Unknown Vomiting Verified 06/16/20 11:19 oyster extract AdvReac Diarrhea Verified 06/16/20 11:19 Review of Systems Review of Systems Narrative: 14 systems reviewed and negative aside from HPI Exam Vital Signs (past 8 hours): - 10/06/20 04:30 10/06/20 04:37 10/06/20 04:50 Temperature Pulse Rate 97 H 102 H 95 H Respiratory Rate 19 27 H 21 Blood Pressure 112/56 L 109/57 L Pulse Oximetry 96 99 98 10/06/20 05:00 10/06/20 05:10 10/06/20 05:20 Temperature Pulse Rate 95 H 96 H 96 H Respiratory Rate 17 17 20 Blood Pressure 126/62 120/55 L 95/50 L Pulse Oximetry 98 96 95 10/06/20 05:30 10/06/20 05:40 06/17/21 05:50 Temperature Pulse Rate 96 H 95 H 96 H Respiratory Rate 18 16 17 Blood Pressure 104/59 L 116/60 114/61 Pulse Oximetry 96 97 98 10/06/20 06:00 10/06/20 06:10 10/06/20 06:20 Temperature Pulse Rate 96 H 96 H 96 H Respiratory Rate 17 19 18 Blood Pressure 113/63 112/67 120/67 Pulse Oximetry 98 97 97 10/06/20 06:30 10/06/20 06:40 10/06/20 06:50 Temperature Pulse Rate 96 H 96 H 96 H Respiratory Rate 18 16 17 Blood Pressure 124/66 114/64 109/60 Pulse Oximetry 97 97 96 10/06/20 07:00 10/06/20 07:10 10/06/20 07:20 Temperature Pulse Rate 97 H 96 H 96 H Respiratory Rate 20 19 16 Blood Pressure 116/58 L 122/64 114/66 Pulse Oximetry 97 98 97 10/06/20 07:30 10/06/20 08:00 10/06/20 08:08 Temperature Pulse Rate 101 H 97 H 97 H Respiratory Rate 34 H 17 16 Blood Pressure 125/72 Pulse Oximetry 98 96 97 10/06/20 08:09 10/06/20 08:10 10/06/20 08:20 Temperature Pulse Rate 97 H 96 H 97 H Respiratory Rate 17 17 Blood Pressure 125/72 115/69 124/71 Pulse Oximetry 98 97 10/06/20 08:30 10/06/20 08:40 10/06/20 08:50 Temperature Pulse Rate 98 H 97 H 97 H Respiratory Rate 17 22 18 Blood Pressure 120/68 127/77 125/72 Pulse Oximetry 96 99 98 10/06/20 09:00 10/06/20 09:07 10/06/20 09:10 Temperature Pulse Rate 96 H 96 H 96 H Respiratory Rate 19 15 Blood Pressure 137/72 137/72 136/71 Pulse Oximetry 99 100 10/06/20 09:20 10/06/20 09:30 10/06/20 10:13 Temperature 97 F L Pulse Rate 95 H 95 H 98 H Respiratory Rate 17 16 16 Blood Pressure 131/70 139/73 139/71 Pulse Oximetry 97 96 97 10/06/20 11:43 Temperature 97.2 F L Pulse Rate 97 H Respiratory Rate 22 Blood Pressure 142/69 H Pulse Oximetry 99 Oxygen Delivery Method Room Air Oxygen Flow Rate 0 Narrative Exam Narrative: GEN: NAD, lethargic HEENT: PERRL, moist mucous membranes NECK: trachea midline, no JVD CV: regular rate and rhythm, no murmurs PULM: clear bilaterally, no wheezes rhonchi or rales ABD: soft, nontender, nondistended, no organomegaly, normal bowel sounds EXT: warm and well perfused with no edema SKIN: scattered ecchymosis NEURO: awake and alert, but slightly lethargic, slow movements, follows all commands, speech clear, no facial droop, CN2-12 intact, normal strength upper and lower extremities PSCYH: pleasant and cooperative Objective Labs Result Diagrams: 10/06/20 00:10 10/06/20 00:10 Labs: Laboratory Results - last 24 hr 10/06/20 10/06/20 10/06/20 00:10 00:10 00:10 WBC 9.0 RBC 4.10 Hgb 11.9 L Hct 35.7 L MCV 87.2 MCH 29.0 MCHC 33.2 RDW 14.2 Plt Count 285 Neut % (Auto) 69.1 Lymph % (Auto) 22.8 L [place] % (Auto) 6.8 Eos % (Auto) 0.8 L Baso % (Auto) 0.5 Neut # (Auto) 6200 Lymph # (Auto) 2100 [place] # (Auto) 600 Eos # (Auto) 100 Baso # (Auto) 0 Sodium 136 L Potassium 3.7 Chloride 99 Carbon Dioxide 26 BUN 22 H Creatinine 0.83 Estimated GFR > 60.0 BUN/Creatinine Ratio 26.5 H Glucose 145 H Calcium 9.0 Total Bilirubin 0.4 AST 42 H ALT 29 Alkaline Phosphatase 56 Total Creatine Kinase 480 H CK-MB (CK-2) 13.70 H CK-MB (CK-2) Rel Index 2.9 Troponin I 0.028 NT-Pro-B Natriuret Pep 1640 H Total Protein 6.9 Albumin 4.2 Globulin 2.7 Albumin/Globulin Ratio 1.6 Lipase 98 Nasal Screen MRSA (PCR) SARS-CoV-2 (PCR) 10/06/20 10/06/20 10:00 10:48 WBC RBC Hgb Hct MCV MCH MCHC RDW Plt Count Neut % (Auto) Lymph % (Auto) [place] % (Auto) Eos % (Auto) Baso % (Auto) Neut # (Auto) Lymph # (Auto) [place] # (Auto) Eos # (Auto) Baso # (Auto) Sodium Potassium Chloride Carbon Dioxide BUN Creatinine Estimated GFR BUN/Creatinine Ratio Glucose Calcium Total Bilirubin AST ALT Alkaline Phosphatase Total Creatine Kinase CK-MB (CK-2) CK-MB (CK-2) Rel Index Troponin I NT-Pro-B Natriuret Pep Total Protein Albumin Globulin Albumin/Globulin Ratio Lipase Nasal Screen MRSA (PCR) Negative for mrsa SARS-CoV-2 (PCR) Negative Assessment & Plan Assessment & Plan narrative: Ms. Ji is a 80W with PMH atrial fibrillation who comes in with symptomatic tachycardia with possible seizure vs myoclonus after etomidate now with medication induced encephalopathy. 1. Acute medication induced encephalopahthy -prior to coming in patient had normal mentation -had seizure vs myoclonus when getting etomidate, then received ativan -now has no focal neuro deficits -CT head shows no acute process -MR head to rule out any acute abnormality -avoid benzos 2. Possible seizure vs anesthesia induced myoclonus -treated as a seizure in ED with benzos -ED consulted neurology who recommended keppra load and dc on keppra with outpatient follow up -continue keppra 500mg BID -etomidate added to allergy list 3. Atrial fibrillation/flutter paroxysmal -has history of atrial fibrillation -now appears to be in atrial flutter -has not done well with flecanaide nor amiodarone in the past due to side effects -discussed with her computer sciences professor who recommends diltiazem, ordered ER 180mg -continue eliquis 4. Multiple sclerosis -continue amitryptiline if still on this medication 5. Sjogrens -not on medications currently, previously on hydroxychloroquine, can follow up with rheumatology 6. Rheumatoid arthritis -continue home dose of prednisone DIET: cardiac DVT ppx: full anticoagulation with eliquis IVF: none CODE: Full, proxy is brother Michel
[2020-10-06] MEDS: AMITRIPTYLINE 25 MG TABLET PO (20:33)
[2020-10-06] MEDS: ATORVASTATIN 20 MG TABLET 10 MG PO (20:33)
[2020-10-06] MEDS: SPIRONOLACTONE 25 MG TABLET 12.5 MG PO (20:35)
[2020-10-06] MEDS: SODIUM CHLORIDE 0.9% FLUSH 10 ML IV (22:19)
[2020-10-07 00:13] VITALS: O2SAT 97
[2020-10-07 00:52] VITALS: BP 112/58; PULSE 107; RESP 18; TEMP 36.5; O2SAT 96
[2020-10-07 04:46] VITALS: BP 106/58; PULSE 55; RESP 13; TEMP 36.4; O2SAT 97
[2020-10-07 04:51] LABS: Add Manual Diff / Slide Review NO; Basophils Absolute Auto 0 /uL (0-100); Basophils Percent Auto 0.4 % (0-2); Eosinophils Absolute Auto 100 /uL (0-450); Eosinophils Percent Auto 0.6 % (2-4); Hematocrit 37.2 % (36-46); Hemoglobin 12.6 g/dL (12.0-16.0); Lymphocytes Absolute Auto 2200 /uL (1100-4500); Lymphocytes Percent Auto 23.8 % (25-40); Mean Corpuscular HGB Conc 33.8 % (30-36); Mean Corpuscular Hemoglobin 29.5 PG (26-34); Mean Corpuscular Volume 87.5 fL (80-100); Monocytes Absolute Auto 600 /uL (0-900); Monocytes Percent Auto 6.7 % (3-14); Neutrophils Absolute Auto 6300 /uL (1500-7000); Neutrophils Percent Auto 68.5 % (50-75); Platelet Count 301 X10^3/uL (150-400); Red Blood Cell Count 4.25 X10^6/uL (4.0-5.2); Red Cell Distribution Width 14.3 % (11.6-14.8); White Blood Cell Count 9.1 X10^3/uL (4.5-11.0)
[2020-10-07 04:55] LABS: BUN Creatinine Ratio 20.3 (6-22); Blood Urea Nitrogen 15 mg/dL (7-17); Calcium 9.2 mg/dL (8.4-10.2); Carbon Dioxide 27 mmol/L (22-32); Chloride 107 mmol/L (98-107); Estimated Glomerular Filt Rate > 60.0 mL/min (>60); Glucose 103 mg/dL (80-110); HEMOLYSIS < 15 (0-50); Sodium 139 mmol/L (137-145)
[2020-10-07 07:00] VITALS: O2SAT 97
[2020-10-07 08:00] VITALS: BP 114/54; PULSE 90; RESP 20; TEMP 36.5; O2SAT 99
[2020-10-07] MEDS: levETIRAcetam 250 MG TABLET 500 MG PO (09:39)
[2020-10-07] MEDS: APIXABAN 5 MG TABLET PO (09:39)
[2020-10-07] MEDS: dilTIAZem CD 180 MG CAP PO (09:39)
[2020-10-07] MEDS: SPIRONOLACTONE 25 MG TABLET 12.5 MG PO (09:40)
[2020-10-07] MEDS: predniSONE 1 MG TABLET PO (09:40)
--- NOTE | 2020-10-07 11:22 | PC.NURSE ---
Addendum entered by Georgia Mckinnon R.N. 10/07/20 13:51: PT cleared Pt with ambulation and friend will be staying with her for the next few days. IV removed and Pt dc to private vehicle. Original Note: AM shift Pt is A/o x4. Feels mentally more clear than admit yesterday, but endorses fine motor difficulty and difficulty with ambulation, gait is unsteady, this is not baseline for Pt. Even with Hx of MS, lives independently and requires no assistive devices. PT eval placed to see about DC home. Tele with variable reading afib vs Flutter, rate 55-150.
--- NOTE | 2020-10-07 11:50 | PT.IIE ---
Surgical History (Last Reviewed 10/06/20 @ 12:22 by Krishna Gutierres MD) History of foot surgery History of hysterectomy S/P ablation of atrial fibrillation (~2019) Medical History (Last Reviewed 10/06/20 @ 12:22 by Krishna Gutierres MD) Current use of senior care anticoagulation Multiple sclerosis Persistent atrial fibrillation Pulmonary nodule Raynaud disease Rheumatoid arthritis Sjogren's disease Physical Therapy Inpatient Evaluation/Re-Eval M1 PT/OT-IP Prior Functional Status Start: 10/07/20 13:00 Freq: NEEDED Status: Active Protocol: Document 10/07/20 11:50 AB (Rec: 10/07/20 13:19 AB [id number]) Medical Review Prior Functional Status Medical History Reviewed Yes Communication able to make needs known Mobility and Gait pt stated that she is independent with all mobilities and ambulation without AD Social History Household Members none Living Arrangements House Number of Floors (Floors) One Floor Number of Stairs To Enter/Railing? 1 step in to enter Home Environment Standard Height Toilet,Walk in Shower Home Equipment Hand Held Shower,Grab Bars In Shower Additional Social History Comment pt stated that [place] and friends will be able to assist her as needed but one friend may be able to stay with her to assist her pt stated that she has a regular bed but has a wedge pillow and also uses a few pillows so that HOB is elevated M2 PT-IP Current Condition Start: 10/07/20 13:00 Freq: NEEDED Status: Active Protocol: Document 10/07/20 11:50 AB (Rec: 10/07/20 13:19 AB [id number]) Physical Therapy Current Condition Current Condition Evaluation Date 10/07/20 Treatment Diagnosis A-fib; difficulty in walking Onset Date 10/06/20 Precautions Other Precautions falls, seizures M3 PT-IP Subjective Start: 10/07/20 13:00 Freq: NEEDED Status: Active Protocol: Document 10/07/20 11:50 AB (Rec: 10/07/20 13:19 AB [id number]) Subjective Physical Therapy Visit Type Type Initial Evaluation Visit Start Time 11:50 Visit Stop Time 12:31 Total Visit Minutes 41 Number of EMPLOYMENT INTERVIEWER Visits 0 Physical Therapy Visit Comments Patient Comments pt is agreeable to do PT Therapy Pain Assessment Pain Present Pain Present Denied Pain M4 PT-IP Mobility and Gait Start: 10/07/20 13:00 Freq: NEEDED Status: Active Protocol: Document 10/07/20 11:50 AB (Rec: 10/07/20 13:19 AB [id number]) PT-Bed Mobility Assessment Supine to Sit Supine to Sit Standby Assistance,Head of Bed Elevated PT-Transfer Assessment Sit to and From Stand Sit to and from Stand Contact Guard Assistance,1 Person Assistance,Use of Upper Extremities Equipment Transfer Assistive Device Gait Belt,Front Wheeled Walker Orthotic/Prosthetic Devices or Brace: No Transfers Transfer Destination Chair Transfer Technique ambulated using FWW Transfer Ability Level of Assist Contact Guard Assistance Comments Mobility Comments BP in supine: 120/59 O2 sat 98% SD: irregular: 64-76 bpm pt with c/o slight dizziness and stated that she has that reaction from [place]. also noted (+) head tremors and hand/finger tremors. pt completed supine to sit SBA with HOB elevated simulating home set up. pt was able to sit on EOB SBA. educated pt on safety. completed sit to stand CGA and ambulated using FWW CGA ~ 25 ft. pt stated that she feels better. pt sat on chair. educated on standing balance, positioning and increasing awareness of COG. assessed ambulation without AD and pt completed ~ 20 ft CGA to min A and cues. pt agreed to stay up on chair. positioned on chair. call light and table placed within reach. educated pt on safety and to have asssistance at home and confirmed that her friend will be able to stay with her. also informed regarding use of FWW at this time for safety and pt agreed. pt stated that she prefers to borrow one and will call her friend to borrow from the [employer]. Also informed pt that she will need HHPT and agreed. informed nurse and manager land regarding pt's mobility, d/c plan and FWW recommendation. Gait Assessment Gait Gait Assistance Required: Contact Guard Assist,Minimum Assistance Distance (Feet) 25 Able to Maintain Weight Bearing Status Yes During Gait Assistive Devices Assistive Device None,Gait Belt,Front Wheeled Walker Orthotic/Prosthetic Devices or Brace: No Factors Limiting Gait Function Factors Limiting Gait Function Decreased Activity Tolerance, Decreased Sensation,Decreased Strength,Poor Balance Comments Gait Comments pls refer to mobility section for details PT-Balance Assessment Sitting Balance and Reactions Static Sitting Balance Ability Good Dynamic Sitting Balance Ability Good Standing Balance and Reactions Static Standing Balance Ability Fair Dynamic Standing Balance Ability Fair Device Used FWW M5 PT-IP Objective Assessments Start: 10/07/20 13:00 Freq: NEEDED Status: Active Protocol: Document 10/07/20 11:50 AB (Rec: 10/07/20 13:19 AB [id number]) Orientation Orientation/Cognition Level of Alertness Alert Orientation Name,Place,Situation Language Function Ability No Deficits Noted Safety Awareness Understands Safety Issues, Decreased Safety Awareness Memory Description No Deficits Noted Gross Range of Motion Lower Extremity ROM Assessment Within Functional Limits Strength Lower Extremity Strength Assessment Within Functional Limits Sensation Assessment Sensation Gross Sensation Right LE Impaired,Left LE Impaired Sensation Description Numbness Comments Sensation Comments chronice LLE decrease sensation: can only feel ~ 75% per pt. stated that she feels like she has stockings on BLE from lower legs down to B feet but feet area is worse that lower leg Other Assessments Other Other Assessments noted head/hand/finger tremors M6 PT-IP Treatment Start: 10/07/20 13:00 Freq: NEEDED Status: Active Protocol: Document 10/07/20 11:50 AB (Rec: 10/07/20 13:19 [id number] Therapy Treatment Education Education Provided Safety M7 PT-IP Assessment and Plan Start: 10/07/20 13:00 Freq: NEEDED Status: Active Protocol: Document 10/07/20 11:50 AB (Rec: 10/07/20 13:19 [facility] PT Summary Assessment and Plan Potential Rehabilitation Potential Good Status of Condition at Evaluation Evolving Summary Impairments Pain,ROM,Strength,Balance, Coordination,Sensation,Tone, Bed Mobility,Transfers,Gait, Activity Tolerance Assessment Summary pt requiring CGA with mobility and recommending use of FWW at this time for safety. pt stated that her friend will be able to stay with her and assist her when she goes home. pt will try to borrow a FWW from the soroptomist. Pt also will need HHPT. Goals Bed Mobility Goal Independent Transfer Goal Independent,Front Wheeled Walker Gait Goal Independent,Front Wheel Walker Gait Distance 200 Other Goals improve ambulation without AD 200 ft SBA up/down 1 step SBA Days to Meet Goals 5 Frequency of Treatment Frequency Of Treatment Once a Day Treatment Plan Physical Therapy Treatment Plan Bed Mobility Training,Transfer Training,Gait Training, Therapeutic Exercise,Balance Retraining,Discharge Planning, Neuromuscular Re-ed, Coordination Retraining Precautions Other Precautions falls, seizures Recommendations To Nursing Amount of Assist Needed 1 Person Assist Discharge Recommendations PT Discharge Recommendations Home with Assistance,Home Health Transportation Needs at Discharge Private Vehicle
[2020-10-07 12:00] VITALS: BP 120/59; PULSE 109; RESP 20; TEMP 36.5; O2SAT 98
--- NOTE | 2020-10-07 13:00 | CM.IDA ---
Addendum entered by ARIA Diaz 10/07/20 14:45: Patient decided against HH, home w/friend, outpatient f/u Addendum entered by ARIA Diaz 10/07/20 13:10: Correction: Patient has a DC order, seen by PT and cleared for home. Patient has asked a friend to stay w/her. PT recommending HH. Will discuss w/ patient. Original Note: Initial DCP Assessment Note Pt is a 80 yo female, resident of [facility], arrives in afib, cardioversion attempted in the ER and patient had an allergic reaction to the anesthesia used. PMH includes mutiple sclerosis, rheumatoid arthritis, Sjogrens, and Raynauds PCP: Torri Perez Payer: [facility] Reviewed chart, pt discussed in multidisciplinary rounds this morning. Met w/patient at bedside to introduce role. Patient lives alone in a 400 sq foot tiny home in the [facility], [place] and that we are all pretty tight. Patient is indp. at baseline, states she will DC home w/o needs. Patient encouraged to secure outpatient appts. w/ cardiology and neurology. PT pending. Patient is expected to DC home either today or tomorrow. ARIA Diaz Discharge Planning/Care Management CM Discharge Assessment Start: 10/07/20 12:56 Freq: Status: Active Protocol: Document 10/07/20 12:56 FRANK (Rec: 10/07/20 12:59 FRANK [id number]) Discharge Planning Assessment Assigned Assistant Superintendent ARIA Vickers DPOA/Assigned Designee Name Nara Ojeda, friend: Contact Information Michel Ji, brother: Advance Directives? No Advance Directives on File No History Provided By Patient,Medical Record Prior Living Arrangements House Comment Tiny Home in [facility] community Household Members none Type of transporation used prior to Drives own vehicle admit Independent with ADL's Yes Is patient alert and oriented? Yes Discharge Plan Home Transportation Arrangement Friend to transport Referrals Initiated None needed Additional Comment At this time, PT pending Whiteboard Updated in Patient Room with Yes name and ext. # of Assistant Superintendent
--- NOTE | 2020-10-07 19:46 | PM.DS.1 ---
History of Present Illness History of Present Illness Chief complaint: Afib Narrative: Ms. Ji is an 80W PMH atrial fibrillation s/p ablation and previous cardioversion, mutiple sclerosis, rheumatoid arthritis, Sjogrens, Raynauds, HTN who comes in with tachycardia. She has a long history of atrial fibrillation, she has had an ablation in the past, and a cardioversion within the last few months. She has been on various medications for rhythm control including flecainide and amiodarone which she has had side effects to, so these have not been continued. She has been primarily in sinus, but yesterday did not feel well, she checked her pulse and was tachycardic to the 160s. No chest pain, no shortness of breath, cough, fevers. She was lightheaded. EMS checked her rate, and she was in afib and gave her a dose of 20mg of diltiazem. In the ED, workup was done, she was noted to be in afib or atrial flutter on telemetry with rate in 100s. She was planned for cardioversion. Per notes, she was given etmoidate and then had tonic clonic activity that lasted approximately 7 minutes. She received in total 4mg IV ativan after this. Afterwards her rate was regular approximately 100, appeared to be in atrial flutter. She was ordered for her home dose of metoprolol. After the ativan she felt foggy she was confused, slow to respond, she was imbalanced while trying to walk. She was monitored in the ED, but eventually was admitted for observation due to her altered mental status. Notable labs in ED were WBC of 9.0, creatinine of 0.83, troponin, 0.028. Discharge Providers Provider Date of admission: 10/06/20 08:28 Discharge Date: 10/07/20 Primary care physician: Torri Perez MD Consults: 10/07/20 09:31 Consult to Physical Therapy Evaluate & Treat Comment: Physician Instructions: Evaluate and Treat 10/07/20 10:54 Consult to Physical Therapy Evaluate & Treat Comment: Physician Instructions: Evaluate and Treat Discharge provider: Krishna Gutierres MD Summary Hospital Course Discharge Diagnosis: 1. Acute medication induced encephalopathy 2. Seizure like activity, possible seizure vs myoclonus secondary to etomidate 3. Atrial fibrillation/atrial flutter, paroxysmal 4. Multiple sclerosis 5. Sjogrens 6. Rheumatoid arthritis Hospital Course: Ms Ji is a 80W with PMH atrial fibrillation who had previous ablation and cardioversion. She was in sinus rhythm for over a month. However she came in to the hospital with tachycardia. Cardioversion was attempted in ED, but she had seizure like activity with etomidate injection. She did receive benzodiazepenes and was acutely altered in terms of mental status. She improved with stopping benzodiazepenes. Neurology recommended keppra, which she was loaded and sent with a prescription. In addition, she was noted to have tachycardia with variable atrial flutter and atrial fibrillation. After discussion with cardiology, she had metoprolol stopped and cardizem was started with discharge dose of 240mg ER BID. Her eliquis was continued. Her metal trim erector Dr. Devries, wanted close follow up in clinic in the next few days. Exam Vital Signs (past 8 hours): - 10/07/20 12:00 Temperature 97.7 F Pulse Rate 109 H Respiratory Rate 20 Blood Pressure 120/59 L Pulse Oximetry 98 Oxygen Delivery Method Room Air Oxygen Flow Rate 0 Objective Labs Result Diagrams: 10/07/20 04:14 10/07/20 04:14 Labs: Laboratory Results - last 24 hr 10/07/20 10/07/20 04:14 04:14 WBC 9.1 RBC 4.25 Hgb 12.6 Hct 37.2 MCV 87.5 MCH 29.5 MCHC 33.8 RDW 14.3 Plt Count 301 Neut % (Auto) 68.5 Lymph % (Auto) 23.8 L Hopkins % (Auto) 6.7 Eos % (Auto) 0.6 L Baso % (Auto) 0.4 Neut # (Auto) 6300 Lymph # (Auto) 2200 Hopkins # (Auto) 600 Eos # (Auto) 100 Baso # (Auto) 0 Sodium 139 Potassium 4.0 Chloride 107 Carbon Dioxide 27 BUN 15 Creatinine 0.74 Estimated GFR > 60.0 BUN/Creatinine Ratio 20.3 Glucose 103 Calcium 9.2 [facility] Medical History 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 Ji came in with a fast heart rate. She was found to be in atrial fibrillation and atrial flutter intermittently. Cardioversion was attempted but she had a reaction to etomidate, the anesthetic. It was possibly a seizure. She was started back on keppra. She had metoprolol stopped, and was started on a medication to help slow her heart, called cardizem. She should follow up with neurology and cardiology soon. Discharge orders & Medications Prescriptions: New diltiazem HCl [Cardizem CD] 180 mg Capsule,Extended Release 24hr 240 mg PO BID Qty: 60 RF: 0 levetiracetam 250 mg Tablet 500 mg PO BID Qty: 60 RF: 0 Continued prednisone 1 mg tablet 1 mg PO BID RF: 0 omeprazole 10 mg capsule,delayed release(DR/EC) 20 mg PO DAILY RF: 0 simvastatin 20 mg tablet 20 mg PO BEDTIME Qty: 90 RF: 0 omega-3 fatty acids [Fish Oil Concentrate] 1,000 mg capsule 1,000 mg PO DAILY RF: 0 furosemide 20 mg tablet 20 mg PO DAILY PRN (Reason: edema) RF: 0 spironolactone 25 mg tablet 12.5 mg PO BID RF: 0 Eliquis 5 mg tablet 5 mg PO BID RF: 0 magnesium 30 mg Tablet 125 mg PO DAILY RF: 0 amitriptyline 25 mg Tablet 25 mg PO BEDTIME RF: 0 Discontinued metoprolol succinate 50 mg tablet extended release 24 hr 25 mg PO DAILY RF: 0 Medication counseling provided by Pharmacist: Yes Follow up/Referrals: Noble Devries MD [Physician] - (per Dr. Devries follow up in clinic in a few days for atrial fibrillation, atrial flutter, consider cardioversion) Godwin Phoenix MD [Non-Staff] - (reaction to etomidate, possible seizure) Torri Perez MD [Primary Care Provider] - Diet/Activity/Treatments Diet: Low-sodium Visit Report/Discharge Packet Instructions: Seizure Disorder -- Adult, DI for Seizure (Not Epilepsy/Seizure Disorder), Diltiazem, Seizure Safety Precautions-Adult Discharge Data Primary Care Provider: Torri Perez Attending Provider: Krishna Gutierres VTE Deep Vein Thrombosis/Pulmonary Embolism Present on Admission: No MIPS - DC The patient has current or prior documentation of left ventricular ejection fraction (LVEF) less than 40%, or moderate or severely depressed left ventricular systolic function.: No
== END 2020-10-07 13:51 | disposition home or self-care (01) ==
LOC: ED 10-06 08:28 → AC 10-06 08:29 → ICU 10-06 09:29
PROVIDERS: Emergency Medicine; Admitting Provider Internal Medicine; Emergency Provider Emergency Medicine; PCP Internal Medicine; Referring Provider Emergency Medicine; Visit Provider Internal Medicine
DX: G92 Toxic encephalopathy (principal); I48.11 Longstanding persistent atrial fibrillation; R56.9 Unspecified convulsions; R26.81 Unsteadiness on feet; M35.00 Sjogren syndrome, unspecified; G35 Multiple sclerosis; I73.00 Raynaud's syndrome without gangrene; M06.9 Rheumatoid arthritis, unspecified; Z79.01 Long term (current) use of anticoagulants; Z20.822 Contact with and (suspected) exposure to COVID-19
CPT/HCPCS: 36415; 70450; 70553; 71045; 80048; 80053; 82550; 82553; 83690; 83880; 84484; 85025; 87635; 87797; 92960; 93005; 93010; 96361; 96365; 96375; 97116; 97162; 99285; C9803; G0378; J1720; J1953; J2060

== ENCOUNTER → 2020-10-15 14:53 | Outpatient (CLI) | payer MEDICARE, SELFPAY ==
[2020-02-04 09:49] VITALS: BMI 27.3
[2020-10-06 13:01] VITALS: BMI 28.0
--- NOTE | 2020-10-15 14:55 | DI.MG.S_ITS ---
BILATERAL DIGITAL SCREENING MAMMOGRAM 3D/2D WITH CAD: 10/15/2020 CLINICAL: Routine screening. Comparison is made to exams dated: 02/28/2015 mammogram, 04/12/2016 mammogram, and 05/29/2017 mammogram - outside facility. The tissue of both breasts is heterogeneously dense. This may lower the sensitivity of mammography. Current study was also evaluated with a Computer Aided Detection (CAD) system. No significant masses, calcifications, or other findings are seen in either breast. There has been no significant interval change. IMPRESSION: NEGATIVE There is no mammographic evidence of malignancy. A 1 year screening mammogram is recommended. This exam was interpreted at Station ID: [id number]. NOTE: For mammograms, a report in lay terms will be sent to the patient. Approximately 15% of breast malignancies will not be visualized mammographically. In the management of a palpable breast mass, a negative mammogram must not discourage biopsy of a clinically suspicious lesion. Electronically Signed By: Yazan wilson/mac:10/17/2020 09:21:40 letter sent: Normal Exam ACR BI-RADS Category 1: Negative [id number]
== END ==
PROVIDERS: PCP Internal Medicine; Referring Provider Internal Medicine; Visit Provider Internal Medicine
DX: Z12.31 Encounter for screening mammogram for malignant neoplasm of breast (principal)
CPT/HCPCS: 77063; 77067

== ENCOUNTER → 2021-01-12 11:52 | Outpatient (CLI) | payer MEDICARE, SELFPAY ==
[2020-10-06 13:01] VITALS: BMI 28.0
[2021-01-12 13:38] LABS: Alanine Aminotransferase 24 IU/L (<35); Albumin 4.6 g/dL (3.5-5.0); Albumin Globulin Ratio 1.6 (1.0-2.8); Alkaline Phosphatase 61 U/L (38-126); Aspartate Aminotransferase 32 IU/L (14-36); BUN Creatinine Ratio 19.5 (6-22); Bilirubin Total 0.5 mg/dL (0.2-1.3); Blood Urea Nitrogen 24 mg/dL (7-17); Calcium 9.6 mg/dL (8.4-10.2); Carbon Dioxide 28 mmol/L (22-32); Chloride 106 mmol/L (98-107); Estimated Glomerular Filt Rate 42.2 mL/min (>60); Globulin 2.8 g/dL (1.7-4.1); Glucose 110 mg/dL (80-110); HEMOLYSIS < 15 (0-50); Potassium 5.1 mmol/L (3.4-5.1); Sodium 141 mmol/L (137-145); Total Protein 7.4 g/dL (6.3-8.2)
[2021-01-12 14:08] LABS: Thyroid Stimulating Hormone 11.2 uIU/mL (0.47-4.68)
== END ==
PROVIDERS: PCP Internal Medicine; Referring Provider Physician Assistant Medical; Visit Provider Physician Assistant Medical
DX: I48.19 Other persistent atrial fibrillation (principal)
CPT/HCPCS: 36415; 80053; 84443

== ENCOUNTER → 2021-01-18 13:46 | Outpatient (CLI) | payer MEDICARE, SELFPAY ==
[2020-10-06 13:01] VITALS: BMI 28.0
[2021-01-18 15:44] LABS: T4 Total Thyroxine 7.76 ug/dL (5.5-11.0)
== END ==
PROVIDERS: PCP Internal Medicine; Referring Provider Physician Assistant Medical; Visit Provider Physician Assistant Medical
DX: E03.2 Hypothyroidism due to medicaments and other exogenous substances (principal)
CPT/HCPCS: 36415; 84436; 84439

== ENCOUNTER 2021-01-24 08:03 | Emergency (ER) | payer MEDICARE, SELFPAY ==
[2020-10-06 13:01] VITALS: BMI 28.0
[2021-01-24] VITALS (7 sets, daily range): BP systolic 127–139; BP diastolic 60–62; PULSE 34–38; RESP 12–34; TEMP 36.7; O2SAT 99–100; BMI 28.1
--- NOTE | 2021-01-24 08:14 | DI.RAD.S_ITS ---
PROCEDURE: XR CHEST 1V INDICATIONS: weakness, SOB TECHNIQUE: One view of the chest was acquired. COMPARISON: [facility], CR, XR CHEST 1V, 10/06/2020, 0:09. FINDINGS: Surgical changes and devices: None. Lungs and pleura: Romain mild patchy bilateral hilar and right basilar airspace opacity. No pleural effusions or pneumothorax. Mediastinum: Mediastinal contours appear normal. Heart size is normal. Bones and chest wall: No suspicious bony lesions. Overlying soft tissues appear unremarkable. IMPRESSION: Mild bilateral pneumonia. Dictated by: Yen Cheng M.D. on 01/24/2021 at 8:38 Approved by: Yen Cheng M.D. on 01/24/2021 at 8:38
--- NOTE | 2021-01-24 08:15 | ED.ARRPALP ---
HPI - Arrhythmia/Palpitations General Chief Complaint: Arrhythmia/Palpitations Stated Complaint: Bradycardic Time Seen by Provider: 01/24/21 08:05 Source: patient and EMS Mode of arrival: EMS History of Present Illness HPI narrative: 80-year-old female former smoker with history of CHF, atrial fibrillation, and MS presents by EMS for evaluation of slow heart rate. She went to bed in her normal state of health and woke up this morning feeling a bit funny, weak, dizzy and lightheaded. She is currently wearing a ZIO patch which had been ordered by her computer numerical control programmer. She checked her vitals and noticed her heart rate to be initially in the 40s and then slowed into the 30s at which point she called EMS. She denies any other symptoms such as chest pain nausea or vomiting. She has had no recent dietary change. She did recently change the dosing of her metoprolol, but states that she actually had the dose decreased. Otherwise she denies any recent change. Related Data Home Medications Medication Instructions Recorded Confirmed prednisone 1 mg tablet 1 mg PO BID 10/17/17 12/29/20 apixaban 5 mg tablet (Eliquis) 5 mg PO BID 11/27/19 12/29/20 omeprazole 10 mg capsule,delayed 20 mg PO DAILY cap 05/09/20 12/29/20 release furosemide 20 mg tablet 20 mg PO DAILY PRN tab 06/16/20 12/29/20 omega-3 fatty acids 1,000 mg 1,000 mg PO DAILY 06/16/20 12/29/20 capsule (Fish Oil Concentrate) spironolactone 25 mg tablet 12.5 mg PO BID tab 06/16/20 12/29/20 amitriptyline 25 mg tablet 25 mg PO BEDTIME 10/06/20 12/29/20 magnesium 30 mg tablet 125 mg PO DAILY 10/06/20 12/29/20 amiodarone PO 12/29/20 12/29/20 metoprolol succinate PO 12/29/20 12/29/20 Previous Rx's Medication Instructions Recorded diltiazem HCl 180 mg 240 mg PO BID #60 cap 10/07/20 capsule,extended release 24 hr (Cardizem CD) levetiracetam 250 mg tablet 500 mg PO BID #60 tab 10/07/20 simvastatin 20 mg tablet 20 mg PO BEDTIME #90 tab 12/08/20 Allergies Allergy/AdvReac Type Severity Reaction Status Date / Time etomidate Allergy Seizure Verified 01/24/21 08:08 flecainide AdvReac Severe Unresponsiv Verified 01/24/21 08:09 e codeine [CODEINE] AdvReac Unknown Vomiting Verified 01/24/21 08:08 oyster extract AdvReac Diarrhea Verified 01/24/21 08:08 Review of Systems Review of Systems Narrative: GENERAL: See HPI HEENT: Denies sinus pain, ear pain, sore throat, difficulty swallowing, dizziness. RESPIRATORY: Denies dyspnea, cough, wheezing, hemoptysis, sputum. CARDIOVASCULAR: See HPI GASTROINTESTINAL: Denies nausea, vomiting, abdominal pain, diarrhea, constipation, melena. : Denies dysuria, frequency, incontinence, hematuria, urinary retention. MUSCULOSKELETAL: denies weakness, joint pain, or bony pain SKIN: Denies rash, skin lesions, or other NEUROLOGIC: Denies weakness, headache, numbness, change in speech, confusion, seizures, incoordination. PSYCHIATRIC: No concerning psychosocial issues. 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 Multiple sclerosis Persistent atrial fibrillation Pulmonary nodule Raynaud disease Rheumatoid arthritis Sjogren's disease Surgical History History of foot surgery History of hysterectomy S/P ablation of atrial fibrillation (~2019) Family History Father Cardiomyopathy Diabetes mellitus Alzheimer's dementia Mother Cancer Brother Coronary artery disease Hx of CABG Social History household members: none Smoking Status: Former smoker alcohol intake: current Smoking Status: Former smoker alcohol intake frequency: 0-2 drinks per day Substance Use Type: does not use Exam Narrative Exam Narrative: GENERAL: [80] year old patient appears stated age. Well-developed patient, in mild distress. HEAD: Atraumatic. Normocephalic. EYES: Pupils equal round and reactive. Extraocular motions intact. No scleral icterus. No injection or drainage. ENT: Nose without bleeding, purulent drainage. Throat without erythema, tonsillar hypertrophy or exudate. Airway patent. NECK: Trachea midline. Non tender CARDIOVASCULAR: Bradycardic but regular rhythm without murmurs, gallops, or rubs. RESPIRATORY: Clear to auscultation. Breath sounds equal bilaterally. No wheezes, rales, or rhonchi. GASTROINTESTINAL: Abdomen soft, non-tender, nondistended. EXTREMITIES: No edema or joint tenderness. BACK: Nontender without deformity or crepitance. No flank tenderness. NEURO: AOx3. SKIN: No rash or erythema of visible areas Initial Vital Signs Initial Vital Signs: Vital Signs Temperature 98.0 F 01/24/21 08:05 Pulse Rate 38 L 01/24/21 08:05 Respiratory Rate 12 01/24/21 08:05 Blood Pressure 138/61 01/24/21 08:05 Pulse Oximetry 100 01/24/21 08:05 Course Orders Ordered: Discontinued Medications Atropine Sulfate (Atropine 1 Mg/10 Ml Syringe) 0.5 mg IV NOW ONE Stop: 01/24/21 08:27 Last Admin: 01/24/21 08:38 Dose: 0.5 mg Documented by: JAYDE Sodium Chloride (Normal Saline 0.9%) 1,000 mls @ 150 mls/hr IV CONT AWILDA Last Admin: 01/24/21 08:39 Dose: 150 mls/hr Documented by: JAYDE Vital Signs Vital signs: Vital Signs - 8 hr 01/24/21 08:05 01/24/21 08:25 01/24/21 08:30 Temperature 98.0 F Pulse Rate 38 L 35 L 34 L Respiratory Rate 12 34 H 32 H Blood Pressure 138/61 Pulse Oximetry 100 100 100 01/24/21 08:43 01/24/21 09:00 01/24/21 09:01 Temperature Pulse Rate 36 L 38 L 38 L Respiratory Rate 26 H 18 24 Blood Pressure 139/62 127/60 Pulse Oximetry 99 99 100 MDM - Arrhythmia/Palpitations Lab Data Result diagrams: 01/24/21 08:17 01/24/21 08:17 Labs: Lab Results 01/24/21 01/24/21 Range/Units 08:17 08:17 WBC 7.3 (4.5-11.0) X10^3/uL RBC 3.69 L (4.0-5.2) X10^6/uL Hgb 10.8 L (12.0-16.0) g/dL Hct 33.1 L (36-46) % MCV 89.8 (80-100) fL MCH 29.1 (26-34) PG MCHC 32.5 (30-36) % RDW 13.8 (11.6-14.8) % Plt Count 235 (150-400) X10^3/uL Neut % (Auto) 61.1 (50-75) % Lymph % (Auto) 29.5 (25-40) % Bosque % (Auto) 7.1 (3-14) % Eos % (Auto) 0.9 L (2-4) % Baso % (Auto) 1.4 (0-2) % Neut # (Auto) 4500 (1517-5964) /uL Lymph # (Auto) 2200 (0578-2720) /uL Bosque # (Auto) 500 (0-900) /uL Eos # (Auto) 100 (0-450) /uL Baso # (Auto) 100 (0-100) /uL Sodium 139 (137-145) mmol/L Potassium 4.9 (3.4-5.1) mmol/L Chloride 105 (98-107) mmol/L Carbon Dioxide 29 (22-32) mmol/L BUN 27 H (7-17) mg/dL Creatinine 1.14 H (0.52-1.04) mg/dL Estimated GFR 46.1 L (>60) mL/min BUN/Creatinine Ratio 23.7 H (6-22) Glucose 96 (80-110) mg/dL Calcium 9.2 (8.4-10.2) mg/dL Magnesium 2.3 (1.6-2.3) mg/dL Troponin I 0.015 (0.01-0.034) ng/mL ECG Data Interpretation: EKG is junctional rhythm rate [36 ] and free of any signs of ischemia or ectopy. No ST segmental elevation or depression. No T wave inversions.RBBB, QRS 132 MDM Narrative Medical decision making narrative: Patient very well appearing, no dizziness or SOB. Blood pressures stable. Otherwise well and free of complaint. Discussed with patient's computer numerical control programmer, he has reviewed patient's history and physical as well as EKGs and labs. He recommends stopping metoprolol and following closely with his office. Return precautions have been given and questions been answered to her apparent satisfaction Discharge Plan Departure Patient Disposition: Home Clinical Impression: Bradycardia, Polypharmacy Instructions: DI for Bradycardia Activity Restrictions/Additional Instructions: *You have been diagnosed with [bradycardia. I have spoken closely with your chief relay tester, he has reviewed your labs, EKGs and medications. *What to do: * per my discussion with Dr. Devries (as we discussed) STOP TAKING METOPROLOL completelly, otherwose continue to take your regular medications as directed. [ ] New medication prescriptions sent to your pharmacy: [ ] [ ] New medication written as a paper prescription [ ] No new medications given *Dr. Devries's office will be in contact. He did not want to move your appointment which is already scheduled for 3 weeks from now. *Return to Emergency Department if you should have any new, worsening or concerning symptoms, such as [fever greater than 101 F, shaking chills, worsening pain, persistent vomiting or other bothersome symptoms] Prescriptions: No Action prednisone 1 mg tablet 1 mg PO BID RF: 0 omeprazole 10 mg capsule,delayed release(DR/EC) 20 mg PO DAILY RF: 0 simvastatin 20 mg tablet 20 mg PO BEDTIME Qty: 90 RF: 1 omega-3 fatty acids [Fish Oil Concentrate] 1,000 mg capsule 1,000 mg PO DAILY RF: 0 furosemide 20 mg tablet 20 mg PO DAILY PRN (Reason: edema) RF: 0 spironolactone 25 mg tablet 12.5 mg PO BID RF: 0 Eliquis 5 mg tablet 5 mg PO BID RF: 0 magnesium 30 mg Tablet 125 mg PO DAILY RF: 0 amitriptyline 25 mg Tablet 25 mg PO BEDTIME RF: 0 diltiazem HCl [Cardizem CD] 180 mg Capsule,Extended Release 24hr 240 mg PO BID Qty: 60 RF: 0 levetiracetam 250 mg Tablet 500 mg PO BID Qty: 60 RF: 0 amiodarone PO RF: 0 metoprolol succinate PO RF: 0 Referrals: Torri Perez MD [Primary Care Provider] -
[2021-01-24 08:25] LABS: Add Manual Diff / Slide Review NO; Basophils Absolute Auto 100 /uL (0-100); Basophils Percent Auto 1.4 % (0-2); Eosinophils Absolute Auto 100 /uL (0-450); Eosinophils Percent Auto 0.9 % (2-4); Hematocrit 33.1 % (36-46); Hemoglobin 10.8 g/dL (12.0-16.0); Lymphocytes Absolute Auto 2200 /uL (1100-4500); Lymphocytes Percent Auto 29.5 % (25-40); Mean Corpuscular HGB Conc 32.5 % (30-36); Mean Corpuscular Hemoglobin 29.1 PG (26-34); Mean Corpuscular Volume 89.8 fL (80-100); Monocytes Absolute Auto 500 /uL (0-900); Monocytes Percent Auto 7.1 % (3-14); Neutrophils Absolute Auto 4500 /uL (1500-7000); Neutrophils Percent Auto 61.1 % (50-75); Platelet Count 235 X10^3/uL (150-400); Red Blood Cell Count 3.69 X10^6/uL (4.0-5.2); Red Cell Distribution Width 13.8 % (11.6-14.8); White Blood Cell Count 7.3 X10^3/uL (4.5-11.0)
[2021-01-24 08:36] LABS: BUN Creatinine Ratio 23.7 (6-22); Blood Urea Nitrogen 27 mg/dL (7-17); Calcium 9.2 mg/dL (8.4-10.2); Carbon Dioxide 29 mmol/L (22-32); Chloride 105 mmol/L (98-107); Estimated Glomerular Filt Rate 46.1 mL/min (>60); Glucose 96 mg/dL (80-110); Magnesium 2.3 mg/dL (1.6-2.3); Potassium 4.9 mmol/L (3.4-5.1); Sodium 139 mmol/L (137-145)
[2021-01-24] MEDS: ATROPINE 1 MG/10 ML SYRINGE 0.5 MG IV (08:38)
[2021-01-24 08:39] LABS: HEMOLYSIS 80 (0-50)
[2021-01-24] MEDS: SODIUM CHLORIDE 0.9% 1,000 ML 150 ML IV (08:39)
[2021-01-24 08:48] LABS: Troponin I 0.015 ng/mL (0.01-0.034)
--- NOTE | 2021-02-24 12:56 | PC.NURSE ---
late entry per RN IV fluids DC'd at 1000
== END 2021-01-24 10:27 | disposition home or self-care (01) ==
PROVIDERS: Emergency Provider Emergency Medicine; PCP Internal Medicine
DX: R00.1 Bradycardia, unspecified (principal); Z79.899 Other long term (current) drug therapy
CPT/HCPCS: 71045; 80048; 83735; 84484; 85025; 93005; 96361; 96374; 99283; 99284; J0461

== ENCOUNTER → 2021-08-04 13:33 | Outpatient (CLI) | payer MEDICARE, SELFPAY ==
[2021-02-14 10:19] VITALS: BMI 28.0
--- NOTE | 2021-08-04 | DI.ECHO.S_ITS ---
Version: 1 Study ID: [id number] [place] [address] Name: CARLIE KELLY Study Date: 08/04/2021, 1: 47 PM : 1940 BP: 138 / 74 mmHg Gender: Female Height: 62 in Age: 81 Years Weight: 157 lb BSA: 1.72 mA? Ordering: CARMEN APARICIO Referring: CARMEN APARICIO Clinician: Gordon Arias Reason For Study: Atrial fibrillation History: Summary Statements The left ventricle is normal in size and wall thickness. Left ventricular systolic function is normal. The ejection fraction is estimated to be 60-65% There are no focal wall motion abnormalities. The right ventricle is normal in size and function. Both atria are severely dilated. There is mild to moderate mitral regurgitation. There is no other significant valvular heart disease. The aortic root is normal size. Procedure: A two-dimensional transthoracic echocardiogram with color flow and Doppler was performed. The study quality was technically adequate. There is no prior echocardiogram noted for this patient. Left Ventricle: The left ventricle is normal in size and wall thickness. Left ventricular systolic function is normal. The ejection fraction is estimated to be 60-65%. There are no focal wall motion abnormalities. Diastolic function could not be accurately assessed due to paced rhythm. Right Ventricle: The right ventricle is normal in size and function. Atria: Both atria are severely dilated. There is a catheter/pacemaker lead seen in the right atrium. The interatrial septum grossly appears intact with no obvious evidence for an atrial septal defect. Mitral Valve: There is mild mitral annular calcification. The mitral valve leaflets appear mildly thickened, but open well. There is mild to moderate mitral regurgitation. Aortic Valve: The aortic valve is normal in structure and function. There is trace aortic regurgitation. Tricuspid Valve: Tricuspid leaflets are thickened. There is mild tricuspid regurgitation. The right ventricular systolic pressure is estimated to be at least 54 mmHg based on an estimated right atrial pressure of 3 mm Hg. Pulmonic Valve: The pulmonic valve is normal in structure and function. There is mild pulmonic regurgitation. There is no other significant valvular heart disease. Great Vessels: The aortic root is normal size. The dimensions of the ascending aorta are normal. The IVC is of normal diameter and collapses greater than 50% with a sniff. This suggests a low right atrial pressure of 3 mm Hg. Pericardium/ Pleura: There is no pericardial effusion. There is no pleural effusion. 2D and M-Mode Measurements and Calculations LVIDd: 4.5 cm LVOT diam: 1.91 cm LVIDs: 2.9 cm Ao root diam: 2.7 cm IVSd: 0.87 cm asc Aorta Diam: 3.2 cm LVPWd: 0.74 cm LV cho. diameter/BSA (cm/m^2): 2.6 LV sys. diameter/BSA (cm/m^2): 1.66 TAPSE: 2.42 cm LA A4 area: 32.1 business proposal rep? RA area: 20.2 business proposal rep? LA A2 area: 32.4 business proposal rep? RA long axis: 6.2 cm LA length (vol): 6.9 cm RA vol: 55.8 ml LA vol: 128.2 ml RA : 32.4 ml/mA? LA vol index: 74.3 ml/mA? Doppler Measurements and Calculations Ao V2 max: 115.3 cm/sec LVOT Max Dimitry: 75.7 cm/sec Ao V2 mean: 84.4 cm/sec LV V1 max P.30 mmHg Ao V2 VTI: 28.7 cm LV V1 VTI: 19.7 cm Ao max P.3 mmHg Ao mean P.1 mmHg SARAY(I,D): 1.95 business proposal rep? SARAY(V,D): 1.87 business proposal rep? SARAY indexed to BSA (cm^2/m^2): 1.13 sev ratio: 0.68 MV E max dimitry: 122.1 cm/sec MV dec time: 0.15 sec MV A max dimitry: 37.0 cm/sec MV E/A: 3.3 Med Peak E' Dimitry: 6.0 cm/sec Lat Peak E' Dimitry: 11.6 cm/sec E/e' average: 15.4 TR max dimitry: 355.9 cm/sec TR max P.7 mmHg Electronically signed by: Antwan Hendricks 08/05/2021, 8: 34 PM
== END ==
PROVIDERS: PCP Internal Medicine; Referring Provider Internal Medicine Cardiovascular Disease; Visit Provider Internal Medicine Cardiovascular Disease
DX: I08.1 Rheumatic disorders of both mitral and tricuspid valves; I48.19 Other persistent atrial fibrillation
CPT/HCPCS: 93306

== ENCOUNTER → 2021-12-18 14:52 | Outpatient (CLI) | payer MEDICARE, SELFPAY ==
[2021-02-14 10:19] VITALS: BMI 28.0
[2021-12-26 19:36] LABS: 1,25-Dihydroxy, Vitamin D-2 <10 pg/mL (.)
== END ==
PROVIDERS: PCP Internal Medicine; Referring Provider Psychiatry & Neurology Neurology; Visit Provider Psychiatry & Neurology Neurology
DX: E55.9 Vitamin D deficiency, unspecified (principal)
CPT/HCPCS: 36415; 82652

== ENCOUNTER 2022-01-17 13:27 | Emergency (ER) | payer MEDICARE, SELFPAY ==
[2021-02-14 10:19] VITALS: BMI 28.0
[2022-01-17 13:49] VITALS: BP 121/61; PULSE 61; RESP 24; TEMP 36.9; O2SAT 96
--- NOTE | 2022-01-17 14:02 | DI.RAD.S_ITS ---
PROCEDURE: XR CHEST 1V INDICATIONS: chest pain TECHNIQUE: One view of the chest was acquired. COMPARISON: [facility], CR, XR CHEST 1V, 01/24/2021, 8:16. FINDINGS: Surgical changes and devices: Left chest wall pacemaker leads are in the region of right ventricle and left ventricle. Lungs and pleura: Lungs are clear. No pleural effusions or pneumothorax. Mediastinum: Mediastinal contours appear normal. Heart size is normal. Bones and chest wall: No suspicious bony lesions. Overlying soft tissues appear unremarkable. IMPRESSION: No acute cardiopulmonary pathology. Dictated by: Brody Miranda M.D. on 01/17/2022 at 14:57 Approved by: Brody Miranda M.D. on 01/17/2022 at 14:57
[2022-01-17 14:22] LABS: Add Manual Diff / Slide Review NO; Basophils Absolute Auto 0 /uL (0-100); Basophils Percent Auto 0.7 % (0-2); Eosinophils Absolute Auto 0 /uL (0-450); Eosinophils Percent Auto 0.2 % (2-4); Hematocrit 36.2 % (36-46); Hemoglobin 12.3 g/dL (12.0-16.0); Lymphocytes Absolute Auto 400 /uL (1100-4500); Lymphocytes Percent Auto 5.1 % (25-40); Mean Corpuscular HGB Conc 33.8 % (30-36); Mean Corpuscular Hemoglobin 29.4 PG (26-34); Monocytes Absolute Auto 400 /uL (0-900); Neutrophils Absolute Auto 6200 /uL (1500-7000); Platelet Count 214 X10^3/uL (150-400); Red Blood Cell Count 4.17 X10^6/uL (4.0-5.2); Red Cell Distribution Width 13.9 % (11.6-14.8)
[2022-01-17 14:36] LABS: Alanine Aminotransferase 28 IU/L (<35); Albumin 4.4 g/dL (3.5-5.0); Albumin Globulin Ratio 1.3 (1.0-2.8); Alkaline Phosphatase 59 U/L (38-126); Aspartate Aminotransferase 38 IU/L (14-36); BUN Creatinine Ratio 20.2 (6-22); Bilirubin Total 0.8 mg/dL (0.2-1.3); Blood Urea Nitrogen 20 mg/dL (7-17); Calcium 9.3 mg/dL (8.4-10.2); Carbon Dioxide 27 mmol/L (22-32); Chloride 102 mmol/L (98-107); Creatine Kinase 274 U/L (30-135); Estimated Glomerular Filt Rate 58 mL/min (>60); Globulin 3.3 g/dL (1.7-4.1); Glucose 145 mg/dL (80-110); HEMOLYSIS < 15 (0-50); Lipase 51 U/L (23-300); Potassium 4.1 mmol/L (3.4-5.1); Sodium 141 mmol/L (137-145); Total Protein 7.7 g/dL (6.3-8.2)
[2022-01-17 14:46] LABS: Troponin I 0.015 ng/mL (0.01-0.034)
--- NOTE | 2022-01-17 18:31 | DI.CT.S_ITS ---
PROCEDURE: CT CERVICAL SPINE WO CON INDICATIONS: fall, hit head, on eliquis TECHNIQUE: Noncontrast 3 mm thick sections acquired from the skull base to the T4 level. Sagittal and coronal reformats were then constructed. For radiation dose reduction, the following was used: automated exposure control, adjustment of mA and/or kV according to patient size. COMPARISON: None. FINDINGS: Image quality: Excellent. Bones: No fractures or dislocations. Visualized superior ribs are intact. Soft tissues: Prevertebral soft tissues are normal in thickness. No paravertebral hematomas. No apical pneumothoraces. IMPRESSION: No acute abnormality of the cervical spine. Dictated by: Dimas Ruvalcaba M.D. on 01/17/2022 at 18:49 Approved by: Dimas Ruvalcaba M.D. on 01/17/2022 at 18:51
--- NOTE | 2022-01-17 18:31 | DI.CT.S_ITS ---
PROCEDURE: CT HEAD/BRAIN W CON INDICATIONS: fall, hit head, on eliquis TECHNIQUE: 4.5 mm thick angled axial sections acquired from the foramen magnum to the vertex after the administration of intravenous contrast, with coronal and sagittal reformats. For radiation dose reduction, the following was used: automated exposure control, adjustment of mA and/or kV according to patient size. COMPARISON: None. FINDINGS: Image quality: Excellent. CSF Spaces: Basal cisterns are patent. No extra-axial fluid collections. Ventricles are normal in size and shape. Brain: No midline shift. No intracranial bleeds or masses. No abnormal intracranial enhancement. Lee-white interface appears normal. Cavum septum pellucidum with vergae noted incidentally. Skull and face: Calvarium and visualized facial bones appear intact, without suspicious lesions. Hyperostosis frontalis noted. Sinuses: Visualized sinuses and mastoids are clear. IMPRESSION: 1. No acute intracranial abnormality. 2. Cerebral volume loss and small vessel ischemic changes. Dictated by: Dimas Ruvalcaba M.D. on 01/17/2022 at 18:51 Approved by: Dimas Ruvalcaba M.D. on 01/17/2022 at 18:53
--- NOTE | 2022-01-17 20:49 | ED.WEAKNESS ---
HPI - Weakness General Chief complaint: Weakness Stated complaint: States reaction from Moderna (has ms) Time Seen by Provider: 01/17/22 18:32 Source: patient Mode of arrival: Ambulatory History of Present Illness HPI Narrative: 81-year-old female former smoker with history of seizures, AFib, pulmonary nodules, multiple sclerosis and Sjogren's presents with various symptoms today thought to be related to receiving the Moderna vaccination yesterday. She is been having burning, twitching and swelling in her lower extremities since waking which is now improved as well as some numbness on the left side of her face, symptoms have largely improved and are essentially resolved except she has a persistent shaky feeling. Related Data Home Medications Medication Instructions Recorded Confirmed prednisone 1 mg tablet 1 mg PO BID 10/17/17 02/21/21 apixaban 5 mg tablet (Eliquis) 5 mg PO BID 11/27/19 02/21/21 omeprazole 10 mg capsule,delayed 20 mg PO DAILY 05/09/20 02/21/21 release furosemide 20 mg tablet 20 mg PO DAILY PRN edema 06/16/20 02/21/21 omega-3 fatty acids 1,000 mg 1,000 mg PO DAILY 06/16/20 02/21/21 capsule (Fish Oil Concentrate) spironolactone 25 mg tablet 12.5 mg PO BID 06/16/20 02/21/21 amitriptyline 25 mg tablet 25 mg PO BEDTIME 10/06/20 02/21/21 magnesium 30 mg tablet 125 mg PO DAILY 10/06/20 02/21/21 amiodarone PO 12/29/20 02/21/21 metoprolol succinate PO 12/29/20 02/21/21 Previous Rx's Medication Instructions Recorded diltiazem HCl 180 mg 240 mg PO BID #60 caps 10/07/20 capsule,extended release 24 hr (Cardizem CD) levetiracetam 250 mg tablet 500 mg PO BID #60 tabs 10/07/20 simvastatin 20 mg tablet 20 mg PO BEDTIME #90 tabs 12/08/20 Allergies Allergy/AdvReac Type Severity Reaction Status Date / Time etomidate Allergy Seizure Verified 02/21/21 13:58 flecainide AdvReac Severe Unresponsiv Verified 02/21/21 13:58 e codeine [CODEINE] AdvReac Unknown Vomiting Verified 02/21/21 13:58 oyster extract AdvReac Diarrhea Verified 02/21/21 13:58 Patient History Medical History Current use of senior care anticoagulation Multiple sclerosis Persistent atrial fibrillation Pulmonary nodule Raynaud disease Rheumatoid arthritis Sjogren's disease Surgical History History of foot surgery History of hysterectomy S/P ablation of atrial fibrillation (~2019) Family History Father Cardiomyopathy Diabetes mellitus Alzheimer's dementia Mother Cancer Brother Coronary artery disease Hx of CABG Social History household members: none Smoking Status: Former smoker alcohol intake: current Smoking Status: Former smoker alcohol intake frequency: 0-2 drinks per day Substance Use Type: does not use Exam Initial Vital Signs Initial Vital Signs: Vital Signs Temperature 98.5 F 01/17/22 13:49 Pulse Rate 61 01/17/22 13:49 Respiratory Rate 24 01/17/22 13:49 Blood Pressure 121/61 01/17/22 13:49 Pulse Oximetry 96 01/17/22 13:49 Oxygen Delivery Method 01/17/22 13:49 Course Orders Ordered: ED Orders 01/17/22 14:01 Complete Blood Count AUTO DIFF Stat Comprehensive Metabolic Panel Stat Lipase Stat Magnesium Stat Troponin & CK Cardiac Panel Stat 01/17/22 14:02 XR chest 1V Stat EKG-12 Lead Stat 01/17/22 18:31 CT cervical spine wo con Stat CT head/brain w con Stat Vital Signs Vital signs: Vital Signs - 8 hr 01/17/22 13:49 Temperature 98.5 F Pulse Rate 61 Respiratory Rate 24 Blood Pressure 121/61 Pulse Oximetry 96 Oxygen Delivery Method Room Air MDM - Weakness Lab Data Result diagrams: 01/17/22 14:01 01/17/22 14:01 Labs: Lab Results 01/17/22 01/17/22 Range/Units 14:01 14:01 WBC 7.0 (4.5-11.0) X10^3/uL RBC 4.17 (4.0-5.2) X10^6/uL Hgb 12.3 (12.0-16.0) g/dL Hct 36.2 (36-46) % MCV 87.0 (80-100) fL MCH 29.4 (26-34) PG MCHC 33.8 (30-36) % RDW 13.9 (11.6-14.8) % Plt Count 214 (150-400) X10^3/uL Neut % (Auto) 89.0 H (50-75) % Lymph % (Auto) 5.1 L (25-40) % [place] % (Auto) 5.0 (3-14) % Eos % (Auto) 0.2 L (2-4) % Baso % (Auto) 0.7 (0-2) % Neut # (Auto) 6200 (8537-8807) /uL Lymph # (Auto) 400 L (7249-6646) /uL [place] # (Auto) 400 (0-900) /uL Eos # (Auto) 0 (0-450) /uL Baso # (Auto) 0 (0-100) /uL Sodium 141 (137-145) mmol/L Potassium 4.1 (3.4-5.1) mmol/L Chloride 102 (98-107) mmol/L Carbon Dioxide 27 (22-32) mmol/L BUN 20 H (7-17) mg/dL Creatinine 0.99 (0.52-1.04) mg/dL Estimated GFR 58 L (>60) mL/min BUN/Creatinine Ratio 20.2 (6-22) Glucose 145 H (80-110) mg/dL Calcium 9.3 (8.4-10.2) mg/dL Magnesium 2.0 (1.6-2.3) mg/dL Total Bilirubin 0.8 (0.2-1.3) mg/dL AST 38 H (14-36) IU/L ALT 28 (<35) IU/L Alkaline Phosphatase 59 (38-126) U/L Total Creatine Kinase 274 H (30-135) U/L Troponin I 0.015 (0.01-0.034) ng/mL Total Protein 7.7 (6.3-8.2) g/dL Albumin 4.4 (3.5-5.0) g/dL Globulin 3.3 (1.7-4.1) g/dL Albumin/Globulin Ratio 1.3 (1.0-2.8) Lipase 51 (23-300) U/L Discharge Plan Departure Prescriptions: No Action prednisone 1 mg tablet 1 mg PO BID omeprazole 10 mg capsule,delayed release(DR/EC) 20 mg PO DAILY simvastatin 20 mg tablet 20 mg PO BEDTIME Qty: 90 1RF omega-3 fatty acids [Fish Oil Concentrate] 1,000 mg capsule 1,000 mg PO DAILY furosemide 20 mg tablet 20 mg PO DAILY PRN (Reason: edema) spironolactone 25 mg tablet 12.5 mg PO BID Eliquis 5 mg tablet 5 mg PO BID magnesium 30 mg Tablet 125 mg PO DAILY amitriptyline 25 mg Tablet 25 mg PO BEDTIME diltiazem HCl [Cardizem CD] 180 mg Capsule,Extended Release 24hr 240 mg PO BID Qty: 60 0RF levetiracetam 250 mg Tablet 500 mg PO BID Qty: 60 0RF amiodarone PO metoprolol succinate PO Referrals: Torri Perez MD [Primary Care Provider] -
[2022-01-17 22:01] LABS: CKMB % Relative Index 2.5 % (1.5-5.0); Creatine Kinase MB 6.93 ng/mL (<2.37)
== END 2022-01-17 21:49 | disposition left against medical advice (07) ==
PROVIDERS: Emergency Medicine; Emergency Provider Emergency Medicine; PCP Internal Medicine
DX: S09.90XA Unspecified injury of head, initial encounter (principal); W19.XXXA Unspecified fall, initial encounter; R07.9 Chest pain, unspecified; Z79.01 Long term (current) use of anticoagulants; G35 Multiple sclerosis; M79.89 Other specified soft tissue disorders; R20.0 Anesthesia of skin
CPT/HCPCS: 70460; 71045; 72125; 80053; 82550; 82553; 83690; 83735; 84484; 85025; 99283

== ENCOUNTER 2022-08-22 07:13 | Emergency (ER) | payer MEDICARE, SELFPAY ==
[2021-02-14 10:19] VITALS: BMI 28.0
[2022-08-22] VITALS (10 sets, daily range): BP systolic 119–155; BP diastolic 55–83; PULSE 59–78; RESP 14–20; O2SAT 94–100; BMI 27.4
--- NOTE | 2022-08-22 07:30 | DI.RAD.S_ITS ---
PROCEDURE: XR CHEST 1V INDICATIONS: Dyspnea TECHNIQUE: One view of the chest was acquired. COMPARISON: [facility], CR, XR CHEST 1V, 01/17/2022, 14:30. FINDINGS: Surgical changes and devices: Left-sided cardiac pacer device is in place. Lungs and pleura: Lungs are clear. No pleural effusions or pneumothorax. Mediastinum: Mediastinal contours appear normal. Heart size is normal. Bones and chest wall: No suspicious bony lesions. Overlying soft tissues appear unremarkable. IMPRESSION: Stable radiographic evaluation of the chest without acute cardiopulmonary abnormalities or focal airspace disease. Dictated by: David Johnson M.D. on 08/22/2022 at 8:09 Approved by: David Johnson M.D. on 08/22/2022 at 8:17
--- NOTE | 2022-08-22 07:31 | ED.CHESTPAIN ---
HPI - Chest Pain General Chief Complaint: Arrhythmia/Palpitations Stated Complaint: Heart issues Time Seen by Provider: 08/22/22 07:23 Source: patient Mode of arrival: Ambulatory Limitations: no limitations Limitations: no limitations History of Present Illness HPI narrative: This 82-year-old female patient comes to ER this morning with 2 days of dizziness and dyspnea. She reports a history of AFib, she is a pacemaker in place. She is anticoagulated. She reports that she has a large heart. Echocardiogram July 2021 reveals normal LV function, EF of 60 65% there are no focal wall defects. The right ventricle is normal. Both atria are severely dilated. There is [id number] MR. The aorta is normal. About 2 weeks ago she felt that she did not have enough energy. She began exercising regularly. She experienced significant dyspnea with exercise. Over the last 2 days she is experiencing dyspnea with rest. She is no associated chest pain or palpitations. She complains of dizziness. She is no visual changes, confusion, focal weakness or numbness. She denies recent illness. She has no cough, dyspnea, fever or chills. Related Data Home Medications Medication Instructions Recorded Confirmed prednisone 1 mg tablet 1 mg PO BID 10/17/17 02/21/21 apixaban 5 mg tablet (Eliquis) 5 mg PO BID 11/27/19 02/21/21 omeprazole 10 mg capsule,delayed 20 mg PO DAILY 05/09/20 02/21/21 release furosemide 20 mg tablet 20 mg PO DAILY PRN edema 06/16/20 02/21/21 omega-3 fatty acids 1,000 mg 1,000 mg PO DAILY 06/16/20 02/21/21 capsule (Fish Oil Concentrate) spironolactone 25 mg tablet 12.5 mg PO BID 06/16/20 02/21/21 amitriptyline 25 mg tablet 25 mg PO BEDTIME 10/06/20 02/21/21 magnesium 30 mg tablet 125 mg PO DAILY 10/06/20 02/21/21 amiodarone PO 12/29/20 02/21/21 metoprolol succinate PO 12/29/20 02/21/21 Previous Rx's Medication Instructions Recorded diltiazem HCl 180 mg 240 mg PO BID #60 caps 10/07/20 capsule,extended release 24 hr (Cardizem CD) levetiracetam 250 mg tablet 500 mg PO BID #60 tabs 10/07/20 simvastatin 20 mg tablet 20 mg PO BEDTIME #90 tabs 12/08/20 furosemide 20 mg tablet (Lasix) 20 mg PO DAILY #30 tabs 08/22/22 Allergies Allergy/AdvReac Type Severity Reaction Status Date / Time etomidate Allergy Seizure Verified 08/22/22 07:40 flecainide AdvReac Severe Unresponsiv Verified 08/22/22 07:40 e codeine [CODEINE] AdvReac Unknown Vomiting Verified 08/22/22 07:40 oyster extract AdvReac Diarrhea Verified 08/22/22 07:40 Review of Systems Review of Systems ROS Unobtainable: All systems reviewed & are unremarkable except as noted in HPI and below Constitutional Constitutional: Denies body ache(s), Denies chills, Denies fever(s) and Denies headache(s) ENT Ears, Nose, Mouth, and Throat: Denies vertigo, Reports dizziness, Denies facial pain, Denies headache(s), Denies sore throat and Denies throat swelling Cardiovascular Cardiovascular: Denies chest pain Respiratory Respiratory: Reports as per HPI Gastrointestinal Gastrointestinal: Denies abdominal pain and Denies nausea Musculoskeletal Musculoskeletal: Denies back pain Integumentary/Breasts Skin/Breast: Denies lesions and Denies rash Neurologic Neurologic: Denies vertigo, Reports dizziness and Denies headache(s) Psychiatric Psychiatric: Denies anxiety Hematologic/Lymphatic On Anticoagulants: No Allergic/Immunologic Allergic/Immunologic: Denies throat swelling Patient History Medical History 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 Multiple sclerosis Persistent atrial fibrillation Pulmonary nodule Raynaud disease Rheumatoid arthritis Sjogren's disease Surgical History History of foot surgery History of hysterectomy S/P ablation of atrial fibrillation (~2019) Family History Father Cardiomyopathy Diabetes mellitus Alzheimer's dementia Mother Cancer Brother Coronary artery disease Hx of CABG Social History household members: none Smoking Status: Former smoker alcohol intake: current Smoking Status: Former smoker alcohol intake frequency: 0-2 drinks per day Substance Use Type: does not use Exam Initial Vital Signs Initial Vital Signs: Vital Signs Pulse Rate 60 08/22/22 07:34 Respiratory Rate 18 08/22/22 07:34 Blood Pressure 148/70 H 08/22/22 07:34 Pulse Oximetry 99 08/22/22 07:34 Oxygen Delivery Method Room Air 08/22/22 07:34 Const General: cooperative, healthy appearing and No in distress HENMT Head: normocephalic and atraumatic Throat: posterior oropharynx normal Neck Neck: normal visual inspection and No JVD Chest Chest: normal inspection of the chest Resp Auscultation: clear to auscultation bilaterally Cardio Palpation: normal PMI Rate: regular rate Rhythm: regular rhythm Heart Sounds: S1 normal, S2 normal and no murmurs GI Inspection: normal to inspection Palpation: soft and No tender Back/Spine/Pelvis Back: normal to inspection Skin General: no rashes or lesions noted Neuro General: patient alert, patient awake, patient oriented x3 and no focal motor deficits Extrem General: normal to inspection, no pedal edema and no calf tenderness Psych Mental Status: mental status grossly normal Course Course Course Narrative: The exam was nonrevealing, chest x-ray was clear. However patient has a BNP of 2920. She is had significant diuresis falling IV Lasix. She subjectively feels much better. Vitals are stable, O2 sats are 100% on room air. Included in her multiple medications, She takes Spironolactone. She will be discharged on Lasix 20 mg daily. She has potassium supplements at home, she is familiar with a high potassium diet. She has access to a local PCM, as well as her orthodontic laboratory technician. Orders Ordered: Discontinued Medications Furosemide (Furosemide 40 Mg/4 Ml Vial) 40 mg IV NOW ONE Stop: 08/22/22 09:23 Last Admin: 08/22/22 09:48 Dose: 40 mg Documented By: RO Vital Signs Vital signs: Vital Signs - 8 hr 08/22/22 07:34 08/22/22 08:03 08/22/22 08:30 Pulse Rate 60 60 60 Respiratory Rate 18 17 14 Blood Pressure 148/70 H Pulse Oximetry 99 100 98 Oxygen Delivery Method Room Air Room Air 08/22/22 08:31 08/22/22 08:31 08/22/22 09:00 Pulse Rate 60 59 L Respiratory Rate 20 Blood Pressure 147/67 H Pulse Oximetry 99 94 Oxygen Delivery Method 08/22/22 09:01 08/22/22 09:01 08/22/22 09:30 Pulse Rate 59 L Respiratory Rate Blood Pressure 155/83 H 148/65 H Pulse Oximetry 100 Oxygen Delivery Method 08/22/22 09:30 08/22/22 10:00 08/22/22 10:00 Pulse Rate 60 60 Respiratory Rate 14 19 Blood Pressure 144/65 H Pulse Oximetry 99 100 Oxygen Delivery Method Room Air Room Air MDM - Chest Pain Lab Data 08/22/22 07:47 08/22/22 07:47 Labs: Lab Results 08/22/22 08/22/22 08/22/22 Range/Units 07:47 07:47 07:47 WBC 6.4 (4.5-11.0) X10^3/uL RBC 3.82 L (4.0-5.2) X10^6/uL Hgb 11.1 L (12.0-16.0) g/dL Hct 32.9 L (36-46) % MCV 86.2 (80-100) fL MCH 29.0 (26-34) PG MCHC 33.6 (30-36) % RDW 14.2 (11.6-14.8) % Plt Count 239 (150-400) X10^3/uL Neut % (Auto) 72.4 (50-75) % Lymph % (Auto) 19.3 L (25-40) % [place] % (Auto) 6.9 (3-14) % Eos % (Auto) 0.8 L (2-4) % Baso % (Auto) 0.6 (0-2) % Neut # (Auto) 4600 (4500-1579) /uL Lymph # (Auto) 1200 (3217-1939) /uL [place] # (Auto) 400 (0-900) /uL Eos # (Auto) 0 (0-450) /uL Baso # (Auto) 0 (0-100) /uL D-Dimer 283 (<500) ng/ml Sodium 139 (137-145) mmol/L Potassium 4.1 (3.4-5.1) mmol/L Chloride 107 (98-107) mmol/L Carbon Dioxide 25 (22-32) mmol/L BUN 19 H (7-17) mg/dL Creatinine 0.88 (0.52-1.04) mg/dL Estimated GFR > 60 (>60) mL/min BUN/Creatinine Ratio 21.6 (6-22) Glucose 140 H (80-110) mg/dL Calcium 8.9 (8.4-10.2) mg/dL Total Bilirubin 0.6 (0.2-1.3) mg/dL AST 39 H (14-36) IU/L ALT 29 (<35) IU/L Alkaline Phosphatase 59 (38-126) U/L Total Creatine Kinase 393 H (30-135) U/L CK-MB (CK-2) 9.59 H (<2.37) ng/mL CK-MB (CK-2) Rel Index 2.4 (1.5-5.0) % Troponin I 0.017 (0.01-0.034) ng/mL NT-Pro-B Natriuret Pep 2920 H (<450) pg/mL Total Protein 7.1 (6.3-8.2) g/dL Albumin 4.2 (3.5-5.0) g/dL Globulin 2.9 (1.7-4.1) g/dL Albumin/Globulin Ratio 1.4 (1.0-2.8) Lipase 80 (23-300) U/L Urine Dip Bedside Urine Glucose Negative Bedside Urine Bilirubin - Negative Bedside Urine Ketone - Negative Urine Specific [place] 1.005 Bedside Urine Occult Blood - Negative Bedside Urine pH 7.0 Bedside Urine Protein - Negative Bedside Urine Urobilinogen - Negative Bedside Urine Nitrite - Negative Bedside Urine Leukocytes - Negative Esterase Imaging Data Chest x-ray: Radiologist's Impression: Stable radiographic evaluation of the chest without acute cardiopulmonary abnormalities or focal airspace disease. ECG Data Attestation: I personally reviewed and interpreted this ECG as follows: (Paced ventricular rhythm, 61 beats per minute. Motion artifact. No acute findings.) Discharge Plan Departure Patient Disposition: Home Clinical Impression: Congestive heart failure Instructions: DI for Heart Failure Activity Restrictions/Additional Instructions: Continue current medications. Add Lasix 20 mg daily. High potassium diet as we discussed. Follow-up with your PCM or orthodontic laboratory technician next week. A repeat echocardiogram may be warranted. Return to the ER as necessary. Prescriptions: New furosemide [Lasix] 20 mg tablet 20 mg PO DAILY Qty: 30 1RF No Action prednisone 1 mg tablet 1 mg PO BID omeprazole 10 mg capsule,delayed release(DR/EC) 20 mg PO DAILY simvastatin 20 mg tablet 20 mg PO BEDTIME Qty: 90 1RF omega-3 fatty acids [Fish Oil Concentrate] 1,000 mg capsule 1,000 mg PO DAILY furosemide 20 mg tablet 20 mg PO DAILY PRN (Reason: edema) spironolactone 25 mg tablet 12.5 mg PO BID Eliquis 5 mg tablet 5 mg PO BID magnesium 30 mg Tablet 125 mg PO DAILY amitriptyline 25 mg Tablet 25 mg PO BEDTIME diltiazem HCl [Cardizem CD] 180 mg Capsule,Extended Release 24hr 240 mg PO BID Qty: 60 0RF levetiracetam 250 mg Tablet 500 mg PO BID Qty: 60 0RF amiodarone PO metoprolol succinate PO Referrals: Victoriano Valencia DO [Primary Care Provider] - Stand Alone Forms: Patient Portal/API
[2022-08-22 07:55] LABS: Add Manual Diff / Slide Review NO; Basophils Absolute Auto 0 /uL (0-100); Basophils Percent Auto 0.6 % (0-2); Eosinophils Absolute Auto 0 /uL (0-450); Eosinophils Percent Auto 0.8 % (2-4); Hematocrit 32.9 % (36-46); Hemoglobin 11.1 g/dL (12.0-16.0); Lymphocytes Absolute Auto 1200 /uL (1100-4500); Lymphocytes Percent Auto 19.3 % (25-40); Mean Corpuscular HGB Conc 33.6 % (30-36); Mean Corpuscular Volume 86.2 fL (80-100); Monocytes Absolute Auto 400 /uL (0-900); Monocytes Percent Auto 6.9 % (3-14); Neutrophils Absolute Auto 4600 /uL (1500-7000); Neutrophils Percent Auto 72.4 % (50-75); Platelet Count 239 X10^3/uL (150-400); Red Blood Cell Count 3.82 X10^6/uL (4.0-5.2); Red Cell Distribution Width 14.2 % (11.6-14.8); White Blood Cell Count 6.4 X10^3/uL (4.5-11.0)
[2022-08-22 08:05] LABS: D Dimer 283 ng/ml (<500)
--- NOTE | 2022-08-22 08:05 | PC.NURSE ---
[employer] utilized to interrogate device.
[2022-08-22 08:07] LABS: Alanine Aminotransferase 29 IU/L (<35); Albumin 4.2 g/dL (3.5-5.0); Albumin Globulin Ratio 1.4 (1.0-2.8); Alkaline Phosphatase 59 U/L (38-126); Aspartate Aminotransferase 39 IU/L (14-36); BUN Creatinine Ratio 21.6 (6-22); Bilirubin Total 0.6 mg/dL (0.2-1.3); Blood Urea Nitrogen 19 mg/dL (7-17); Calcium 8.9 mg/dL (8.4-10.2); Carbon Dioxide 25 mmol/L (22-32); Chloride 107 mmol/L (98-107); Creatine Kinase 393 U/L (30-135); Estimated Glomerular Filt Rate > 60 mL/min (>60); Globulin 2.9 g/dL (1.7-4.1); Glucose 140 mg/dL (80-110); HEMOLYSIS < 15 (0-50); Lipase 80 U/L (23-300); Potassium 4.1 mmol/L (3.4-5.1); Sodium 139 mmol/L (137-145); Total Protein 7.1 g/dL (6.3-8.2)
[2022-08-22 08:19] LABS: NT-proBNP (BNP-Adult 18+) 2920 pg/mL (<450); Troponin I 0.017 ng/mL (0.01-0.034)
[2022-08-22 08:23] LABS: CKMB % Relative Index 2.4 % (1.5-5.0); Creatine Kinase MB 9.59 ng/mL (<2.37)
[2022-08-22] MEDS: FUROSEMIDE 40 MG/4 ML VIAL IV (09:48)
== END 2022-08-22 11:03 | disposition home or self-care (01) ==
PROVIDERS: Emergency Provider Emergency Medicine; PCP Internal Medicine
DX: I50.9 Heart failure, unspecified (principal); R07.9 Chest pain, unspecified; Z95.0 Presence of cardiac pacemaker; Z79.01 Long term (current) use of anticoagulants
CPT/HCPCS: 36415; 71045; 80053; 81003; 82550; 82553; 83690; 83880; 84484; 85025; 85379; 93005; 96374; 99284; J1940

== ENCOUNTER → 2022-09-11 12:49 | Outpatient (CLI) | payer MEDICARE, SELFPAY ==
[2021-02-14 10:19] VITALS: BMI 28.0
[2022-09-11 14:13] LABS: BUN Creatinine Ratio 18.9 (6-22); Blood Urea Nitrogen 18 mg/dL (7-17); Calcium 9.1 mg/dL (8.4-10.2); Carbon Dioxide 26 mmol/L (22-32); Chloride 101 mmol/L (98-107); Estimated Glomerular Filt Rate > 60 mL/min (>60); Glucose 123 mg/dL (80-110); HEMOLYSIS < 15 (0-50); Sodium 137 mmol/L (137-145)
== END ==
PROVIDERS: PCP Internal Medicine; Referring Provider Internal Medicine; Visit Provider Internal Medicine
DX: Z91.89 Other specified personal risk factors, not elsewhere classified (principal)
CPT/HCPCS: 36415; 80048

== ENCOUNTER → 2022-11-14 14:40 | Outpatient (CLI) | payer MEDICARE, SELFPAY ==
[2021-02-14 10:19] VITALS: BMI 28.0
--- NOTE | 2022-11-14 | DI.RAD.S_ITS ---
PROCEDURE: XR DEXA AXIAL SKELETON INDICATIONS: Age-related osteoporosis COMPARISON: None. FINDINGS: This blank DEXA report has been sent in error by the PACS system. The correct and complete report will be forthcoming in 1-2 days. Thank you for your patience and understanding. Dictated by: Silver West M.D. on 11/14/2022 at 15:45 Approved by: Silver West M.D. on 11/14/2022 at 15:45
--- NOTE | 2022-11-14 14:41 | DI.RAD.S_ITS ---
PROCEDURE: XR LUMBAR SPINE MIN 4V INDICATIONS: low back pain TECHNIQUE: 5 views of the lumbar spine were acquired, including bilateral oblique views. COMPARISON: None. FINDINGS: Bones: 5 nonrib-bearing vertebrae are present. There is normal bony alignment. No vertebral body compression fractures. No suspicious bony lesions. Convex left thoracolumbar scoliosis associated with degenerative disc space narrowing hypertrophic facet joints throughout the exam. Grade 1 anterior spondylolisthesis at L4-5 noted. Atherosclerotic vascular calcification in the aorta as well as a biventricular cardiac pacer leads noted Soft tissues: As above Oblique images: No pars defects. IMPRESSION: Degenerative disc disease, arthropathy and thoracolumbar levoscoliosis Approved by: Damaso Renteria M.D. on 11/14/2022 at 19:49
--- NOTE | 2022-11-14 15:09 | DI.RAD.S_ITS ---
PATIENT NAME: CARLIE KELLY : 1940 EXAM DATE: 11/14/2022 15:[address] NELLA ELLER M.D. CC: LEATHA SALCEDO MODALITY: ASHLEIGH PATIENT TYPE: Out CONTRAST MEDIA: STATION ID: [id number] FLUORO TIME: PROCEDURE: XR LUMBAR SPINE MIN 4V INDICATIONS: low back pain TECHNIQUE: 5 views of the lumbar spine were acquired, including bilateral oblique views. COMPARISON: None. FINDINGS: Bones: 5 nonrib-bearing vertebrae are present. There is normal bony alignment. No vertebral body compression fractures. No suspicious bony lesions. Convex left thoracolumbar scoliosis associated with degenerative disc space narrowing hypertrophic facet joints throughout the exam. Grade 1 anterior spondylolisthesis at L4-5 noted. Atherosclerotic vascular calcification in the aorta as well as a biventricular cardiac pacer leads noted Soft tissues: As above Oblique images: No pars defects. IMPRESSION: Degenerative disc disease, arthropathy and thoracolumbar levoscoliosis Approved by: Damaso Renteria M.D. on 11/14/2022 at 19:49
--- NOTE | 2022-11-14 15:16 | DI.DEXA.S_ITS ---
Bone Density Report Name: CARLIE KELLY Age: 82 Sex: Female Ethnicity: White Date of : 1940 Indication: postmenopausal; screening for osteoporosis; Referring Provider: LEATHA SALCEDO Study: Bone densitometry was performed. Exam Date: November 14, 2022 Accession number: [id number] Bone Density: Region BMD T-score Z-score Classification AP Spine(L1-L4) 1.255 1.9 4.6 Normal Femoral Neck (Left) 0.692 -1.4 0.9 Osteopenia Total Hip (Left) 0.916 -0.2 1.9 Normal Femoral Neck (Right) 0.663 -1.7 0.6 Osteopenia Total Hip (Right) 0.855 -0.7 1.4 Normal Total Hip Mean 0.885 -0.5 1.7 Normal World Health Organization criteria for BMD impression classify patients as: Normal (T-score at or above -1.0), Osteopenia (T-score between -1.0 and -2.5), or Osteoporosis (T-score at or below -2.5). 10-year Fracture Risk: FRAX not reported because: Treated for osteoporosis Impression: The patient has low bone mass, based on the Right Femoral Neck T-score. Discussion: It is important to ask patients whether they are taking their medications and to encourage continued and appropriate compliance with their osteoporosis therapies to reduce fracture risk. It is also important to review their risk factors and encourage appropriate calcium and vitamin D intakes, exercise, fall prevention and other lifestyle measures. Follow-Up: Consider a repeat BMD and Vertebral Fracture Assessment (VFA) exam in 2 years or sooner if medically necessary, to reassess this patient's status. Reported by: JOSÉ ANTONIO JUSTICE M.D. on 11/14/2022 3:27:00 PM.
== END ==
PROVIDERS: PCP Internal Medicine; Referring Provider Internal Medicine Rheumatology; Visit Provider Internal Medicine Rheumatology
DX: Z13.820 Encounter for screening for osteoporosis (principal); M85.851 Other specified disorders of bone density and structure, right thigh; Z78.0 Asymptomatic menopausal state; M51.36 Other intervertebral disc degeneration, lumbar region; M47.816 Spondylosis without myelopathy or radiculopathy, lumbar region; M41.9 Scoliosis, unspecified; M35.01 Sjogren syndrome with keratoconjunctivitis; M25.551 Pain in right hip; I73.00 Raynaud's syndrome without gangrene; D47.2 Monoclonal gammopathy; M54.50 Low back pain, unspecified
CPT/HCPCS: 72110; 77080

== ENCOUNTER → 2023-02-07 12:35 | Outpatient (CLI) | payer MEDICARE, SELFPAY ==
[2021-02-14 10:19] VITALS: BMI 28.0
--- NOTE | 2023-02-07 12:37 | DI.RAD.S_ITS ---
PROCEDURE: XR LUMBAR SPINE MIN 4V INDICATIONS: LBP, scoliosis TECHNIQUE: 5 views of the lumbar spine were acquired, including bilateral oblique views. COMPARISON: [facility], CR, XR LUMBAR SPINE MIN 4V, 11/14/2022, 15:09. FINDINGS: Bones: 5 nonrib-bearing vertebrae are present. There is normal bony alignment. Convex left thoracolumbar spine scoliosis. No vertebral body compression fractures. No suspicious bony lesions. Severe L1-L2, L2-L3, L3-L4, L4-L5 degenerative disc disease. Moderate L5-S1 degenerative disc disease. Severe facet hypertrophy throughout the lumbar spine. Soft tissues: Overlying bowel gas pattern is normal. No suspicious soft tissue calcifications. Oblique images: No pars defects. IMPRESSION: 1. Multilevel degenerative disc disease. 2. Multilevel facet arthropathy. 3. No fracture. No acute osseous lesion. If symptoms and/or clinical suspicion for pathology persists, evaluation with MRI should be considered for further assessment. 4. Convex left thoracolumbar spine scoliosis. Dictated by: Awa Neff MD, PhD on 02/07/2023 at 13:38 Approved by: Awa Neff MD, PhD on 02/07/2023 at 13:39
== END ==
PROVIDERS: Family Provider Internal Medicine; PCP Internal Medicine; Referring Provider Anesthesiology; Visit Provider Anesthesiology
DX: M54.50 Low back pain, unspecified (principal); G89.29 Other chronic pain; M51.36 Other intervertebral disc degeneration, lumbar region; M48.061 Spinal stenosis, lumbar region without neurogenic claudication; M47.816 Spondylosis without myelopathy or radiculopathy, lumbar region; M41.86 Other forms of scoliosis, lumbar region; M25.511 Pain in right shoulder; M54.16 Radiculopathy, lumbar region; M16.11 Unilateral primary osteoarthritis, right hip; Z68.27 Body mass index [BMI] 27.0-27.9, adult
CPT/HCPCS: 72110; 99213

== ENCOUNTER → 2023-02-18 10:36 | Outpatient (CLI) | payer MEDICARE, SELFPAY ==
[2021-02-14 10:19] VITALS: BMI 28.0
[2023-02-18 11:03] LABS: Add Manual Diff / Slide Review NO; Basophils Absolute Auto 0 /uL (0-100); Basophils Percent Auto 0.7 % (0-2); Eosinophils Absolute Auto 0 /uL (0-450); Eosinophils Percent Auto 0.5 % (2-4); Hematocrit 36.2 % (36-46); Hemoglobin 12.1 g/dL (12.0-16.0); Lymphocytes Absolute Auto 1400 /uL (1100-4500); Lymphocytes Percent Auto 20.3 % (25-40); Mean Corpuscular HGB Conc 33.4 % (30-36); Mean Corpuscular Hemoglobin 28.7 PG (26-34); Mean Corpuscular Volume 85.9 fL (80-100); Monocytes Absolute Auto 400 /uL (0-900); Monocytes Percent Auto 5.5 % (3-14); Neutrophils Absolute Auto 4900 /uL (1500-7000); Platelet Count 259 X10^3/uL (150-400); Red Blood Cell Count 4.21 X10^6/uL (4.0-5.2); White Blood Cell Count 6.8 X10^3/uL (4.5-11.0)
[2023-02-18 11:17] LABS: HEMOLYSIS < 15 (0-50)
[2023-02-18 11:20] LABS: Iron 72 ug/dL (37-170)
[2023-02-18 11:23] LABS: Alanine Aminotransferase 28 IU/L (<35); Albumin 4.6 g/dL (3.5-5.0); Albumin Globulin Ratio 1.4 (1.0-2.8); Alkaline Phosphatase 64 U/L (38-126); Aspartate Aminotransferase 41 IU/L (14-36); BUN Creatinine Ratio 25.3 (6-22); Bilirubin Total 0.7 mg/dL (0.2-1.3); Blood Urea Nitrogen 22 mg/dL (7-17); Carbon Dioxide 28 mmol/L (22-32); Chloride 103 mmol/L (98-107); Cholesterol 129 mg/dL (140-199); Estimated Glomerular Filt Rate > 60 mL/min (>60); Globulin 3.2 g/dL (1.7-4.1); Glucose 116 mg/dL (80-110); HDL Cholesterol 57 mg/dL (40-60); HEMOLYSIS 22 (0-50); LDL Cholesterol Calculated 59 mg/dL (<100); Potassium 4.8 mmol/L (3.4-5.1); Sodium 139 mmol/L (137-145); Total Protein 7.8 g/dL (6.3-8.2); Triglycerides 66 mg/dL (35-150)
[2023-02-18 11:32] LABS: Percent Iron Saturation 21 % (15-50); Total Iron Binding Capacity 349 ug/dL (265-497); Transferrin 280 mg/dL (206-381)
[2023-02-18 12:11] LABS: Vitamin B12 958 pg/mL (239-931)
[2023-02-18 14:35] LABS: Thyroid Stimulating Hormone 0.019 uIU/mL (0.47-4.68)
[2023-02-18 16:32] LABS: Free T3, Triiodothyronine Free 5.53 pg/mL (2.77-5.27); Free T4, Direct Thyroxine 1.95 ng/dL (0.78-2.19)
== END ==
PROVIDERS: Family Provider Internal Medicine; PCP Nurse Practitioner; Referring Provider Nurse Practitioner; Visit Provider Nurse Practitioner
DX: M85.80 Other specified disorders of bone density and structure, unspecified site (principal); I10 Essential (primary) hypertension; D64.9 Anemia, unspecified; I49.9 Cardiac arrhythmia, unspecified; I48.19 Other persistent atrial fibrillation; M06.9 Rheumatoid arthritis, unspecified; M35.00 Sjogren syndrome, unspecified; I73.00 Raynaud's syndrome without gangrene; G35 Multiple sclerosis; R56.9 Unspecified convulsions; I48.0 Paroxysmal atrial fibrillation; K21.9 Gastro-esophageal reflux disease without esophagitis; Z79.899 Other long term (current) drug therapy
CPT/HCPCS: 36415; 80053; 80061; 82607; 83540; 83550; 84439; 84443; 84481; 85025

== ENCOUNTER → 2023-02-19 12:43 | Outpatient (CLI) | payer MEDICARE, SELFPAY ==
[2023-02-18 10:57] VITALS: BMI 28.0
[2023-02-19 16:20] LABS: Creatinine Urine Random 36.4 mg/dL
[2023-02-19 16:40] LABS: Microalbumin Urine Random < 0.6 mg/dL (0-1.6)
== END ==
PROVIDERS: Family Provider Internal Medicine; PCP Nurse Practitioner; Referring Provider Nurse Practitioner; Visit Provider Nurse Practitioner
DX: M85.80 Other specified disorders of bone density and structure, unspecified site (principal); D64.9 Anemia, unspecified; I49.9 Cardiac arrhythmia, unspecified; I10 Essential (primary) hypertension; I48.19 Other persistent atrial fibrillation; M06.9 Rheumatoid arthritis, unspecified; M35.00 Sjogren syndrome, unspecified; I73.00 Raynaud's syndrome without gangrene; G35 Multiple sclerosis; R56.9 Unspecified convulsions; I48.0 Paroxysmal atrial fibrillation; K21.9 Gastro-esophageal reflux disease without esophagitis; Z79.899 Other long term (current) drug therapy
CPT/HCPCS: 82043; 82570

== ENCOUNTER 2023-02-26 14:15 | Outpatient (RCR) | payer MEDICARE, SELFPAY ==
[2021-02-14 10:19] VITALS: BMI 28.0
--- NOTE | 2023-01-03 16:54 | PT.OIE ---
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 Foot pain GERD (gastroesophageal reflux disease) Hearing loss (~2016) Hip pain Hypertension (~2018) Lumbar spondylosis Measles (~1947) Multiple sclerosis Mumps (~1947) Myoclonus Osteoarthritis of right hip Osteopenia Peripheral neuropathy Persistent atrial fibrillation Pulmonary nodule Raynaud disease (~2017) Restless leg syndrome Rheumatoid arthritis Salmonella typhi (~1966) Sjogren's disease (~1999) Tinnitus Wears glasses Past Surgical History (Last Reviewed 11/15/22 @ 14:11 by Cal Nance MD) Anesthesia History of cardioversion (~2021) History of foot surgery History of hysterectomy (~1992) S/P ablation of atrial fibrillation (~2019) S/P placement of cardiac pacemaker (~06/08/21) Visit Care Team Role Provider Type Victoriano Valencia DO Family Provider Non-Staff Primary Care Provider Specialty: Internal Medicine Address: [address] [place], [address] Email: Cal Nance MD Attending Provider Physician Referring Provider Specialty: Anesthesiology Interventional Radiology Pain Management Address: [address] [place], [address] Email: [email or web address] Initial Evaluation PT-OP-A Visit Information Start: 01/03/23 15:50 Freq: Status: Active Protocol: Document 01/03/23 16:39 ED (Rec: 01/03/23 16:52 ED [id number]) Out-Patient Physical Therapy Visit Information Visit Information Visit Type Initial Evaluation Visit Note 010 Visit Start Time 15:10 Visit Stop Time 15:50 Total Visit Minutes 40 Evaluation Information Evaluation Date 01/03/23 PT-OP-B Current Condition Start: 01/03/23 15:50 Freq: Status: Active Protocol: Document 01/03/23 16:39 ED (Rec: 01/03/23 16:52 ED [id number]) Current Condition History of Current Condition Onset Date 2021 Current Complaints R iliac crest, LBP History of Current Condition Pt states that around 2021 she developed pain in her low back and above her R iliac crest; it is not tender to palpation. Pt does have thoracolumbar scoliosis and believes that is a contributing factor. Pain is recreated when side bending to the R and when raising her R hip. Pt is active at a local gym and uses pneumatic machines for strength training . She believes that has helped her a lot in regards to strength and balance. Treatment Goals Patient/Caregiver Goals Eliminate pain PT-OP-C Subjective Start: 01/03/23 15:50 Freq: Status: Active Protocol: Document 01/03/23 16:39 ED (Rec: 01/03/23 16:52 ED [id number]) Patient Questionnaires Lower Extremity Functional Scale LEFS Score 55 / 80 = 68.8 % LEFS Impairment 20 to 39% Impaired (Score 48- 62) Oswestry Low Back Index Oswestry Score 14 / 50 = 28.0 % Oswestry Impairment 20 to 39% Impaired (Score 20- 39) PT-OP-E Functional Tests Start: 01/03/23 15:50 Freq: Status: Active Protocol: Document 01/03/23 16:39 ED (Rec: 01/03/23 16:52 ED [id number]) Functional Tests 30 Second Sit to Stand Test Score 18 Comments IE: 18 (above average) PT-OP-K Range of Motion Start: 01/03/23 15:50 Freq: Status: Active Protocol: Document 01/03/23 16:39 ED (Rec: 01/03/23 16:52 ED [id number]) Lumbar Spine Range of Motion Lumbar Spine Active Testing Position Supine Rotation Left 75 Rotation Right 75 ROM Limitations Soft Tissue Tightness,Pain PT-OP-L Special Tests Start: 01/03/23 15:50 Freq: Status: Active Protocol: Document 01/03/23 16:39 ED (Rec: 01/03/23 16:52 ED [id number]) Special Tests Hip Special Tests Agapito Test Results + PT-OP-M Strength Start: 01/03/23 15:50 Freq: Status: Active Protocol: Document 01/03/23 16:39 ED (Rec: 01/03/23 16:52 ED [id number]) Hip Strength Hip Manual Muscle Testing Right Flexion (L2) 3 Fair Extension (S1) 4 Good Abduction 4- Good- Adduction 4- Good- PT-OP-Q Treatments Start: 01/03/23 15:50 Freq: Status: Active Protocol: Document 01/03/23 16:39 ED (Rec: 01/03/23 16:54 ED [id number]) Therapeutic Exercises Supine Exercises hip hike Supine Exercise Name hip hike QL stretch Supine Exercise Name ql stretch bridge Supine Exercise Name bridge Standing Exercises hip hike Side right PT-OP-T Assessment and Plan Start: 01/03/23 15:50 Freq: Status: Active Protocol: Document 01/03/23 16:39 ED (Rec: 01/03/23 16:52 ED [id number]) Physical Therapy Assessment Rehab Potential Rehabilitation Potential Good Evaluation Complexity Number of Personal Factors/Comorbidities 1-2 Number of Body Systems Impaired 1-2 Clinical Presentation at Evaluation Stable Impairments Impairments Activity Tolerance,Functional Activities,Functional Mobility ,Pain,Posture,ROM,Sensation, Soft Tissue Mobility,Strength Goals pain Impairment pain Short Term Goal (STG) Pt will report 15% improvement in pain during daily activities. STG Duration 3 weeks Senior Care Goal (LTG) Pt will report 25% improvement in pain during daily activities. LTG Duration 6-8 weeks LEFS Impairment LEFS score Senior Care Goal (LTG) Pt will improve LEFS score by >7 points to a score greater than 62/80. HEP Impairment HEP Short Term Goal (STG) Pt will report performing HEP >3 days/week. STG Duration 3 weeks Road Train Driver Goal (LTG) Pt will report performing HEP >3 days/week. LTG Duration 6-8 weeks Assessment Summary Assessment Pt reported to PT c/ complaints of R hip pain and low back pain. The pain near her hip is located above her iliac crest and may be due to the quadratus lumborum which may be affected by her thoracolumbar scoliosis that was discovered on her recent radiographs. Pt was highly sensitive to movements of her lumbopelvic area especially with sidebending and extension . PT provided patient HEP of: hip hikes, LTRs, and supine QL stretch. Pt instructed to perform exercises within her pain tolerance and to start with a low amount of repetitions initially. Physical Therapy Plan Frequency and Duration Frequency of Treatment 2x/Week Duration of treatment (weeks) 10 Plan of Care Start Date 01/03/23 Plan of Care End Date 04/03/23 Therapeutic Interventions Therapeutic Interventions Balance Training,Gait Training ,Home Exercise Program,Joint Mobilizations,Manual Therapy, Neuromuscular Re-education, Patient/Caregiver Education, Self-Care/Home Management,Soft Tissue Mobilization,Taping, Therapeutic Activities, Therapeutic Exercises Modalities Biofeedback,Cold Pack/Ice Massage,Electric Stimulation, Hot Packs,Ultrasound Next Visit Focus/Plan Next Note Type Treatment Note Next Visit Plan NS, HEP (hip hike, QL stretch, LTR), PB flexion, bridge, side bending, suitcase carry
--- NOTE | 2023-01-03 16:54 | PT.OPPOC ---
Physical, Occupational & Speech Therapy At [facility] Current Diagnoses Other chronic pain (01/03/23) Unilateral primary osteoarthritis, right hip (01/03/23) Pain in right hip (01/03/23) Spondylosis without myelopathy or radiculopathy, lumbar region (01/03/23) Low back pain, unspecified (01/03/23) Visit Care Team Role Provider Type Victoriano Valencia DO Family Provider Non-Staff Primary Care Provider Specialty: Internal Medicine Address: [address] [place], [address] Email: Cal Nance MD Attending Provider Physician Referring Provider Specialty: Anesthesiology Interventional Radiology Pain Management Address: [address] [place], [address] Email: [email or web address] Plan Of Care PT-OP-T Assessment and Plan Start: 01/03/23 15:50 Freq: Status: Active Protocol: Document 01/03/23 16:39 ED (Rec: 01/03/23 16:52 ED [id number]) Physical Therapy Assessment Rehab Potential Rehabilitation Potential Good Evaluation Complexity Number of Personal Factors/Comorbidities 1-2 Number of Body Systems Impaired 1-2 Clinical Presentation at Evaluation Stable Impairments Impairments Activity Tolerance,Functional Activities,Functional Mobility ,Pain,Posture,ROM,Sensation, Soft Tissue Mobility,Strength Goals pain Impairment pain Short Term Goal (STG) Pt will report 15% improvement in pain during daily activities. STG Duration 3 weeks Oil Sales And Service Rep Goal (LTG) Pt will report 25% improvement in pain during daily activities. LTG Duration 6-8 weeks LEFS Impairment LEFS score Oil Sales And Service Rep Goal (LTG) Pt will improve LEFS score by >7 points to a score greater than 62/80. HEP Impairment HEP Short Term Goal (STG) Pt will report performing HEP >3 days/week. STG Duration 3 weeks Oil Sales And Service Rep Goal (LTG) Pt will report performing HEP >3 days/week. LTG Duration 6-8 weeks Assessment Summary Assessment Pt reported to PT c/ complaints of R hip pain and low back pain. The pain near her hip is located above her iliac crest and may be due to the quadratus lumborum which may be affected by her thoracolumbar scoliosis that was discovered on her recent radiographs. Pt was highly sensitive to movements of her lumbopelvic area especially with sidebending and extension . PT provided patient HEP of: hip hikes, LTRs, and supine QL stretch. Pt instructed to perform exercises within her pain tolerance and to start with a low amount of repetitions initially. Physical Therapy Plan Frequency and Duration Frequency of Treatment 2x/Week Duration of treatment (weeks) 10 Plan of Care Start Date 01/03/23 Plan of Care End Date 04/03/23 Therapeutic Interventions Therapeutic Interventions Balance Training,Gait Training ,Home Exercise Program,Joint Mobilizations,Manual Therapy, Neuromuscular Re-education, Patient/Caregiver Education, Self-Care/Home Management,Soft Tissue Mobilization,Taping, Therapeutic Activities, Therapeutic Exercises Modalities Biofeedback,Cold Pack/Ice Massage,Electric Stimulation, Hot Packs,Ultrasound Next Visit Focus/Plan Next Note Type Treatment Note Next Visit Plan NS, HEP (hip hike, QL stretch, LTR), PB flexion, bridge, side bending, suitcase carry Plan of Care Dates Plan of Care Start Date 01/03/23 Plan of Care End Date 04/03/23 Electronically Signed by: Damaso Copeland, PT 01/03/23 3608 If you are in agreement with this Plan of Care, please return a signed and dated copy. I have reviewed this Plan of Care and certify that the skilled therapy services above are required to meet the patient?s needs. Physician Signature Date Printed Name and Credentials Clinical Instructor Signature Printed Name and Credentials
--- NOTE | 2023-01-15 15:00 | PT.OTN ---
Current Diagnoses Other chronic pain (01/15/23) Unilateral primary osteoarthritis, right hip (01/15/23) Pain in right hip (01/15/23) Spondylosis without myelopathy or radiculopathy, lumbar region (01/15/23) Low back pain, unspecified (01/15/23) Physical Therapy Treatment Note PT-OP-A Visit Information Start: 01/03/23 15:50 Freq: Status: Active Protocol: Document 01/15/23 14:56 ED (Rec: 01/15/23 15:00 ED [id number]) Out-Patient Physical Therapy Visit Information Visit Information Visit Type Treatment Note Visit Note 05/01 Visit Start Time 14:20 Visit Stop Time 15:00 Total Visit Minutes 40 Visit Number 1 PT-OP-B Current Condition Start: 01/03/23 15:50 Freq: Status: Active Protocol: Document 01/03/23 16:39 ED (Rec: 01/03/23 16:52 ED [id number]) Current Condition History of Current Condition Onset Date 2021 Current Complaints R iliac crest, LBP History of Current Condition Pt states that around 2021 she developed pain in her low back and above her R iliac crest; it is not tender to palpation. Pt does have thoracolumbar scoliosis and believes that is a contributing factor. Pain is recreated when side bending to the R and when raising her R hip. Pt is active at a local gym and uses pneumatic machines for strength training . She believes that has helped her a lot in regards to strength and balance. Treatment Goals Patient/Caregiver Goals Eliminate pain PT-OP-C Subjective Start: 01/03/23 15:50 Freq: Status: Active Protocol: Document 01/15/23 14:56 ED (Rec: 01/15/23 15:00 ED [id number]) OP-PT Subjective Patient Comments Patient Comments Pt missed first week of PT d/t having COVID and having to isolate herself. States that the exercises are going well and she's feeling tremendous benefit already. PT-OP-E Functional Tests Start: 01/03/23 15:50 Freq: Status: Active Protocol: Document 01/03/23 16:39 ED (Rec: 01/03/23 16:52 ED [id number]) Functional Tests 30 Second Sit to Stand Test Score 18 Comments IE: 18 (above average) PT-OP-K Range of Motion Start: 01/03/23 15:50 Freq: Status: Active Protocol: Document 01/03/23 16:39 ED (Rec: 01/03/23 16:52 ED [id number]) Lumbar Spine Range of Motion Lumbar Spine Active Testing Position Supine Rotation Left 75 Rotation Right 75 ROM Limitations Soft Tissue Tightness,Pain PT-OP-L Special Tests Start: 01/03/23 15:50 Freq: Status: Active Protocol: Document 01/03/23 16:39 ED (Rec: 01/03/23 16:52 ED [id number]) Special Tests Hip Special Tests Agapito Test Results + PT-OP-M Strength Start: 01/03/23 15:50 Freq: Status: Active Protocol: Document 01/03/23 16:39 ED (Rec: 01/03/23 16:52 ED [id number]) Hip Strength Hip Manual Muscle Testing Right Flexion (L2) 3 Fair Extension (S1) 4 Good Abduction 4- Good- Adduction 4- Good- PT-OP-Q Treatments Start: 01/03/23 15:50 Freq: Status: Active Protocol: Document 01/15/23 14:56 ED (Rec: 01/15/23 15:00 ED [id number]) Cardio Equipment Recumbent Elliptical ([employer]) Duration (Minutes) 5 Resistance 5 Therapeutic Exercises Supine Exercises hip flexion Supine Exercise Name banded hip flexion Resistance yellow Reps/Minutes 2x10/leg hip hike Supine Exercise Name hip hike Reps/Minutes x10 QL stretch Supine Exercise Name ql stretch Reps/Minutes x60'' bridge Supine Exercise Name bridge Reps/Minutes 3x8-12 Prone Exercises quadruped post. capsule stretch Reps/Minutes x30'' Sitting Exercises PB flexion Sitting Exercise Name lumbar flexion using PB Reps/Minutes x20 Standing Exercises suitcase carry Resistance 10# Reps/Minutes 2x60 feet walk PT-OP-T Assessment and Plan Start: 01/03/23 15:50 Freq: Status: Active Protocol: Document 01/15/23 14:56 ED (Rec: 01/15/23 15:00 ED [id number]) Physical Therapy Assessment Goals pain Impairment pain Short Term Goal (STG) Pt will report 15% improvement in pain during daily activities. STG Duration 3 weeks Flying Squad Salesperson Goal (LTG) Pt will report 25% improvement in pain during daily activities. LTG Duration 6-8 weeks LEFS Impairment LEFS score Usp Goal (LTG) Pt will improve LEFS score by >7 points to a score greater than 62/80. HEP Impairment HEP Short Term Goal (STG) Pt will report performing HEP >3 days/week. STG Duration 3 weeks Usp Goal (LTG) Pt will report performing HEP >3 days/week. LTG Duration 6-8 weeks Assessment Summary Assessment Pt tolerated treatment well. Denied any pain or soreness during exercises today which focused on stretching R hip and R sided low back area. Introduced patient to bridges and resisted hip flexion and gave her those as additional HEPs. Physical Therapy Plan Frequency and Duration Frequency of Treatment 2x/Week Duration of treatment (weeks) 10 Plan of Care Start Date 01/03/23 Plan of Care End Date 04/03/23 Therapeutic Interventions Therapeutic Interventions Balance Training,Gait Training ,Home Exercise Program,Joint Mobilizations,Manual Therapy, Neuromuscular Re-education, Patient/Caregiver Education, Self-Care/Home Management,Soft Tissue Mobilization,Taping, Therapeutic Activities, Therapeutic Exercises Modalities Biofeedback,Cold Pack/Ice Massage,Electric Stimulation, Hot Packs,Ultrasound Next Visit Focus/Plan Next Note Type Treatment Note Next Visit Plan NS, HEP (hip hike, QL stretch, LTR), PB flexion, bridge, side bending, suitcase carry, post capsule stretch
--- NOTE | 2023-01-17 15:07 | PT.OTN ---
Current Diagnoses Other chronic pain (01/17/23) Unilateral primary osteoarthritis, right hip (01/17/23) Pain in right hip (01/17/23) Spondylosis without myelopathy or radiculopathy, lumbar region (01/17/23) Low back pain, unspecified (01/17/23) Physical Therapy Treatment Note PT-OP-A Visit Information Start: 01/03/23 15:50 Freq: Status: Active Protocol: Document 01/17/23 15:05 ED (Rec: 01/17/23 15:07 ED [id number]) Out-Patient Physical Therapy Visit Information Visit Information Visit Type Treatment Note Visit Note 06/01 Visit Start Time 13:30 Visit Stop Time 15:00 Total Visit Minutes 30 Visit Number 2 PT-OP-B Current Condition Start: 01/03/23 15:50 Freq: Status: Active Protocol: Document 01/03/23 16:39 ED (Rec: 01/03/23 16:52 ED [id number]) Current Condition History of Current Condition Onset Date 2021 Current Complaints R iliac crest, LBP History of Current Condition Pt states that around 2021 she developed pain in her low back and above her R iliac crest; it is not tender to palpation. Pt does have thoracolumbar scoliosis and believes that is a contributing factor. Pain is recreated when side bending to the R and when raising her R hip. Pt is active at a local gym and uses pneumatic machines for strength training . She believes that has helped her a lot in regards to strength and balance. Treatment Goals Patient/Caregiver Goals Eliminate pain PT-OP-C Subjective Start: 01/03/23 15:50 Freq: Status: Active Protocol: Document 01/17/23 15:05 ED (Rec: 01/17/23 15:07 ED [id number]) OP-PT Subjective Patient Comments Patient Comments Pt very happy c/ current feeling feeling of R hip. Is feeling like she is able to stand up straighter and walk c / better posture. PT-OP-E Functional Tests Start: 01/03/23 15:50 Freq: Status: Active Protocol: Document 01/03/23 16:39 ED (Rec: 01/03/23 16:52 ED [id number]) Functional Tests 30 Second Sit to Stand Test Score 18 Comments IE: 18 (above average) PT-OP-K Range of Motion Start: 01/03/23 15:50 Freq: Status: Active Protocol: Document 01/03/23 16:39 ED (Rec: 01/03/23 16:52 ED [id number]) Lumbar Spine Range of Motion Lumbar Spine Active Testing Position Supine Rotation Left 75 Rotation Right 75 ROM Limitations Soft Tissue Tightness,Pain PT-OP-L Special Tests Start: 01/03/23 15:50 Freq: Status: Active Protocol: Document 01/03/23 16:39 ED (Rec: 01/03/23 16:52 ED [id number]) Special Tests Hip Special Tests Agapito Test Results + PT-OP-M Strength Start: 01/03/23 15:50 Freq: Status: Active Protocol: Document 01/03/23 16:39 ED (Rec: 01/03/23 16:52 ED [id number]) Hip Strength Hip Manual Muscle Testing Right Flexion (L2) 3 Fair Extension (S1) 4 Good Abduction 4- Good- Adduction 4- Good- PT-OP-Q Treatments Start: 01/03/23 15:50 Freq: Status: Active Protocol: Document 01/17/23 15:05 ED (Rec: 01/17/23 15:07 ED [id number]) Cardio Equipment Recumbent Elliptical ([employer]) Duration (Minutes) 5 Resistance 5 Therapeutic Exercises Supine Exercises hip flexion Supine Exercise Name banded hip flexion Resistance yellow Reps/Minutes 2x10/leg hip hike Supine Exercise Name hip hike Reps/Minutes x10 QL stretch Supine Exercise Name ql stretch Reps/Minutes x60'' bridge Supine Exercise Name bridge Reps/Minutes 3x8-12 Prone Exercises quadruped post. capsule stretch Reps/Minutes x30'' Sitting Exercises PB flexion Sitting Exercise Name lumbar flexion using PB Reps/Minutes x20 Standing Exercises suitcase carry Resistance 10# Reps/Minutes 2x60 feet walk PT-OP-T Assessment and Plan Start: 01/03/23 15:50 Freq: Status: Active Protocol: Document 01/17/23 15:05 ED (Rec: 01/17/23 15:07 ED [id number]) Physical Therapy Assessment Goals pain Impairment pain Short Term Goal (STG) Pt will report 15% improvement in pain during daily activities. STG Duration 3 weeks [facility] Goal (LTG) Pt will report 25% improvement in pain during daily activities. LTG Duration 6-8 weeks LEFS Impairment LEFS score Boxing Inspector Goal (LTG) Pt will improve LEFS score by >7 points to a score greater than 62/80. HEP Impairment HEP Short Term Goal (STG) Pt will report performing HEP >3 days/week. STG Duration 3 weeks Boxing Inspector Goal (LTG) Pt will report performing HEP >3 days/week. LTG Duration 6-8 weeks Assessment Summary Assessment Pt tolerated treatment well. Denied any pain or soreness during exercises today which focused on stretching R hip and R sided low back area. Introduced patient to bridges and resisted hip flexion and gave her those as additional HEPs. Physical Therapy Plan Next Visit Focus/Plan Next Note Type Treatment Note Next Visit Plan NS, see new handout, ball pressure relief HEP (hip hike, QL stretch, LTR ), PB flexion, bridge, side bending, suitcase carry, post capsule stretch
--- NOTE | 2023-01-23 14:00 | PT.OTN ---
Current Diagnoses Other chronic pain (01/23/23) Unilateral primary osteoarthritis, right hip (01/23/23) Pain in right hip (01/23/23) Spondylosis without myelopathy or radiculopathy, lumbar region (01/23/23) Low back pain, unspecified (01/23/23) Physical Therapy Treatment Note PT-OP-A Visit Information Start: 01/03/23 15:50 Freq: Status: Active Protocol: Document 01/23/23 13:57 ED (Rec: 01/23/23 14:00 ED [id number]) Out-Patient Physical Therapy Visit Information Visit Information Visit Type Treatment Note Visit Note 06/29 Visit Start Time 13:30 Visit Stop Time 14:00 Total Visit Minutes 30 Visit Number 3 PT-OP-B Current Condition Start: 01/03/23 15:50 Freq: Status: Active Protocol: Document 01/03/23 16:39 ED (Rec: 01/03/23 16:52 ED [id number]) Current Condition History of Current Condition Onset Date 2021 Current Complaints R iliac crest, LBP History of Current Condition Pt states that around 2021 she developed pain in her low back and above her R iliac crest; it is not tender to palpation. Pt does have thoracolumbar scoliosis and believes that is a contributing factor. Pain is recreated when side bending to the R and when raising her R hip. Pt is active at a local gym and uses pneumatic machines for strength training . She believes that has helped her a lot in regards to strength and balance. Treatment Goals Patient/Caregiver Goals Eliminate pain PT-OP-C Subjective Start: 01/03/23 15:50 Freq: Status: Active Protocol: Document 01/23/23 13:57 ED (Rec: 01/23/23 14:00 ED [id number]) OP-PT Subjective Patient Comments Patient Comments Pt states she is a little more sore today and thinks it's because she overdid her exercises the other day. States she has been doingthem daily but often finds that she rushes through them. PT-OP-E Functional Tests Start: 01/03/23 15:50 Freq: Status: Active Protocol: Document 01/03/23 16:39 ED (Rec: 01/03/23 16:52 ED [id number]) Functional Tests 30 Second Sit to Stand Test Score 18 Comments IE: 18 (above average) PT-OP-K Range of Motion Start: 01/03/23 15:50 Freq: Status: Active Protocol: Document 01/03/23 16:39 ED (Rec: 01/03/23 16:52 ED [id number]) Lumbar Spine Range of Motion Lumbar Spine Active Testing Position Supine Rotation Left 75 Rotation Right 75 ROM Limitations Soft Tissue Tightness,Pain PT-OP-L Special Tests Start: 01/03/23 15:50 Freq: Status: Active Protocol: Document 01/03/23 16:39 ED (Rec: 01/03/23 16:52 ED [id number]) Special Tests Hip Special Tests Agapito Test Results + PT-OP-M Strength Start: 01/03/23 15:50 Freq: Status: Active Protocol: Document 01/03/23 16:39 ED (Rec: 01/03/23 16:52 ED [id number]) Hip Strength Hip Manual Muscle Testing Right Flexion (L2) 3 Fair Extension (S1) 4 Good Abduction 4- Good- Adduction 4- Good- PT-OP-Q Treatments Start: 01/03/23 15:50 Freq: Status: Active Protocol: Document 01/23/23 13:57 ED (Rec: 01/23/23 14:00 ED [id number]) Cardio Equipment Recumbent Elliptical ([employer]) Duration (Minutes) 5 Resistance 5 Therapeutic Exercises Supine Exercises hip flexion Supine Exercise Name banded hip flexion Resistance yellow Reps/Minutes 2x10/leg hip hike Supine Exercise Name hip hike Reps/Minutes x10 QL stretch Supine Exercise Name ql stretch Reps/Minutes x60'' Standing Exercises hip hike Reps/Minutes x10 PT-OP-T Assessment and Plan Start: 01/03/23 15:50 Freq: Status: Active Protocol: Document 01/23/23 13:57 ED (Rec: 01/23/23 14:00 ED [id number]) Physical Therapy Assessment Goals pain Impairment pain Short Term Goal (STG) Pt will report 15% improvement in pain during daily activities. STG Duration 3 weeks Financial Accounting Analyst Goal (LTG) Pt will report 25% improvement in pain during daily activities. LTG Duration 6-8 weeks LEFS Impairment LEFS score Financial Accounting Analyst Goal (LTG) Pt will improve LEFS score by >7 points to a score greater than 62/80. HEP Impairment HEP Short Term Goal (STG) Pt will report performing HEP >3 days/week. STG Duration 3 weeks Financial Accounting Analyst Goal (LTG) Pt will report performing HEP >3 days/week. LTG Duration 6-8 weeks Assessment Summary Assessment Pt requested review her HEP to ensure that she was doing the movements appropriately. After review, patient was able to do them and not have any pain or discomfort during. Added lateral band walks to HEP for additional glute stimulus. Physical Therapy Plan Frequency and Duration Frequency of Treatment 2x/Week Duration of treatment (weeks) 10 Plan of Care Start Date 01/03/23 Plan of Care End Date 04/03/23 Therapeutic Interventions Therapeutic Interventions Balance Training,Gait Training ,Home Exercise Program,Joint Mobilizations,Manual Therapy, Neuromuscular Re-education, Patient/Caregiver Education, Self-Care/Home Management,Soft Tissue Mobilization,Taping, Therapeutic Activities, Therapeutic Exercises Modalities Biofeedback,Cold Pack/Ice Massage,Electric Stimulation, Hot Packs,Ultrasound Next Visit Focus/Plan Next Note Type Treatment Note Next Visit Plan NS, ball pressure relief, STS, balance activities HEP (hip hike, QL stretch, LTR ), PB flexion, bridge, side bending, suitcase carry, post capsule stretch
--- NOTE | 2023-01-25 12:11 | PT.OTN ---
Current Diagnoses Other chronic pain (01/25/23) Unilateral primary osteoarthritis, right hip (01/25/23) Pain in right hip (01/25/23) Spondylosis without myelopathy or radiculopathy, lumbar region (01/25/23) Low back pain, unspecified (01/25/23) Physical Therapy Treatment Note PT-OP-A Visit Information Start: 01/03/23 15:50 Freq: Status: Active Protocol: Document 01/25/23 12:07 ED (Rec: 01/25/23 12:10 ED [id number]) Out-Patient Physical Therapy Visit Information Visit Information Visit Type Treatment Note Visit Note 07/30 Visit Start Time 11:30 Visit Stop Time 12:10 Total Visit Minutes 40 Visit Number 4 PT-OP-B Current Condition Start: 01/03/23 15:50 Freq: Status: Active Protocol: Document 01/03/23 16:39 ED (Rec: 01/03/23 16:52 ED [id number]) Current Condition History of Current Condition Onset Date 2021 Current Complaints R iliac crest, LBP History of Current Condition Pt states that around 2021 she developed pain in her low back and above her R iliac crest; it is not tender to palpation. Pt does have thoracolumbar scoliosis and believes that is a contributing factor. Pain is recreated when side bending to the R and when raising her R hip. Pt is active at a local gym and uses pneumatic machines for strength training . She believes that has helped her a lot in regards to strength and balance. Treatment Goals Patient/Caregiver Goals Eliminate pain PT-OP-C Subjective Start: 01/03/23 15:50 Freq: Status: Active Protocol: Document 01/25/23 12:07 ED (Rec: 01/25/23 12:10 ED [id number]) OP-PT Subjective Patient Comments Patient Comments Pt states that she has been feeling relief with the stretches provided by PT. She has been trying to slow down when she does her exercises at home. PT-OP-E Functional Tests Start: 01/03/23 15:50 Freq: Status: Active Protocol: Document 01/03/23 16:39 ED (Rec: 01/03/23 16:52 ED [id number]) Functional Tests 30 Second Sit to Stand Test Score 18 Comments IE: 18 (above average) PT-OP-K Range of Motion Start: 01/03/23 15:50 Freq: Status: Active Protocol: Document 01/03/23 16:39 ED (Rec: 01/03/23 16:52 ED [id number]) Lumbar Spine Range of Motion Lumbar Spine Active Testing Position Supine Rotation Left 75 Rotation Right 75 ROM Limitations Soft Tissue Tightness,Pain PT-OP-L Special Tests Start: 01/03/23 15:50 Freq: Status: Active Protocol: Document 01/03/23 16:39 ED (Rec: 01/03/23 16:52 ED [id number]) Special Tests Hip Special Tests Agapito Test Results + PT-OP-M Strength Start: 01/03/23 15:50 Freq: Status: Active Protocol: Document 01/03/23 16:39 ED (Rec: 01/03/23 16:52 ED [id number]) Hip Strength Hip Manual Muscle Testing Right Flexion (L2) 3 Fair Extension (S1) 4 Good Abduction 4- Good- Adduction 4- Good- PT-OP-Q Treatments Start: 01/03/23 15:50 Freq: Status: Active Protocol: Document 01/25/23 12:07 ED (Rec: 01/25/23 12:10 ED [id number]) Cardio Equipment Recumbent Elliptical ([employer]) Duration (Minutes) 5 Resistance 5 Therapeutic Exercises Supine Exercises QL stretch Supine Exercise Name ql stretch Reps/Minutes x60'' bridge Supine Exercise Name bridge Reps/Minutes 3x8-12 Prone Exercises quadruped post. capsule stretch Reps/Minutes x30'' Sitting Exercises lat pull down Sitting Exercise Name lat pull down Side right Resistance L2 Equipment Used cable Reps/Minutes 1x10 PB flexion Sitting Exercise Name lumbar flexion using PB Reps/Minutes x20 Therapeutic Activity Therapeutic Activity STS Name Sit<>stand Reps/Minutes 1x10 Comments 10# PT-OP-T Assessment and Plan Start: 01/03/23 15:50 Freq: Status: Active Protocol: Document 01/25/23 12:07 ED (Rec: 01/25/23 12:10 ED [id number]) Physical Therapy Assessment Goals pain Impairment pain Short Term Goal (STG) Pt will report 15% improvement in pain during daily activities. STG Duration 3 weeks [facility] Goal (LTG) Pt will report 25% improvement in pain during daily activities. LTG Duration 6-8 weeks LEFS Impairment LEFS score Blindstitch Hemmer Goal (LTG) Pt will improve LEFS score by >7 points to a score greater than 62/80. HEP Impairment HEP Short Term Goal (STG) Pt will report performing HEP >3 days/week. STG Duration 3 weeks [facility] Goal (LTG) Pt will report performing HEP >3 days/week. LTG Duration 6-8 weeks Assessment Summary Assessment Reviewed posterior hip stretch which patient felt was a great addition. She felt stretch through R lateral trunk and in hip. Also performed 1x10 unilater lat pull downs for eccentric lengthening of R torso area; patient stated she had R shoulder issues so did not want to perform additional sets. Physical Therapy Plan Frequency and Duration Frequency of Treatment 2x/Week Duration of treatment (weeks) 10 Plan of Care Start Date 01/03/23 Plan of Care End Date 04/03/23 Therapeutic Interventions Therapeutic Interventions Balance Training,Gait Training ,Home Exercise Program,Joint Mobilizations,Manual Therapy, Neuromuscular Re-education, Patient/Caregiver Education, Self-Care/Home Management,Soft Tissue Mobilization,Taping, Therapeutic Activities, Therapeutic Exercises Modalities Biofeedback,Cold Pack/Ice Massage,Electric Stimulation, Hot Packs,Ultrasound Next Visit Focus/Plan Next Note Type Treatment Note Next Visit Plan NS, ball pressure relief, STS, balance activities HEP (hip hike, QL stretch, LTR ), PB flexion, bridge, side bending, suitcase carry, post capsule stretch
--- NOTE | 2023-01-30 13:26 | PT.OTN ---
Current Diagnoses Other chronic pain (01/30/23) Unilateral primary osteoarthritis, right hip (01/30/23) Pain in right hip (01/30/23) Spondylosis without myelopathy or radiculopathy, lumbar region (01/30/23) Low back pain, unspecified (01/30/23) Physical Therapy Treatment Note PT-OP-A Visit Information Start: 01/03/23 15:50 Freq: Status: Active Protocol: Document 01/30/23 13:18 ED (Rec: 01/30/23 13:26 ED [id number]) Out-Patient Physical Therapy Visit Information Visit Information Visit Type Treatment Note Visit Note 08/29 Visit Start Time 12:45 Visit Stop Time 01:25 Total Visit Minutes 40 Visit Number 5 PT-OP-B Current Condition Start: 01/03/23 15:50 Freq: Status: Active Protocol: Document 01/03/23 16:39 ED (Rec: 01/03/23 16:52 ED [id number]) Current Condition History of Current Condition Onset Date 2021 Current Complaints R iliac crest, LBP History of Current Condition Pt states that around 2021 she developed pain in her low back and above her R iliac crest; it is not tender to palpation. Pt does have thoracolumbar scoliosis and believes that is a contributing factor. Pain is recreated when side bending to the R and when raising her R hip. Pt is active at a local gym and uses pneumatic machines for strength training . She believes that has helped her a lot in regards to strength and balance. Treatment Goals Patient/Caregiver Goals Eliminate pain PT-OP-C Subjective Start: 01/03/23 15:50 Freq: Status: Active Protocol: Document 01/30/23 13:18 ED (Rec: 01/30/23 13:26 ED [id number]) OP-PT Subjective Patient Comments Patient Comments Pt continues to feel like PT has been helpful. The supine crescent stretch has been very beneficial for her. She has found that slowing down her exercises has also helped with the pain relief. She thinks she will forego an MRI as the pain is mostly gone now. PT-OP-E Functional Tests Start: 01/03/23 15:50 Freq: Status: Active Protocol: Document 01/03/23 16:39 ED (Rec: 01/03/23 16:52 ED [id number]) Functional Tests 30 Second Sit to Stand Test Score 18 Comments IE: 18 (above average) PT-OP-K Range of Motion Start: 01/03/23 15:50 Freq: Status: Active Protocol: Document 01/03/23 16:39 ED (Rec: 01/03/23 16:52 ED [id number]) Lumbar Spine Range of Motion Lumbar Spine Active Testing Position Supine Rotation Left 75 Rotation Right 75 ROM Limitations Soft Tissue Tightness,Pain PT-OP-L Special Tests Start: 01/03/23 15:50 Freq: Status: Active Protocol: Document 01/03/23 16:39 ED (Rec: 01/03/23 16:52 ED [id number]) Special Tests Hip Special Tests Agapito Test Results + PT-OP-M Strength Start: 01/03/23 15:50 Freq: Status: Active Protocol: Document 01/03/23 16:39 ED (Rec: 01/03/23 16:52 ED [id number]) Hip Strength Hip Manual Muscle Testing Right Flexion (L2) 3 Fair Extension (S1) 4 Good Abduction 4- Good- Adduction 4- Good- PT-OP-Q Treatments Start: 01/03/23 15:50 Freq: Status: Active Protocol: Document 01/30/23 13:18 ED (Rec: 01/30/23 13:26 ED [id number]) Cardio Equipment Recumbent Elliptical ([employer]) Duration (Minutes) 5 Resistance 5 Therapeutic Exercises Supine Exercises QL stretch Supine Exercise Name ql stretch Reps/Minutes x60'' bridge Supine Exercise Name bridge Reps/Minutes 3x8-12 Prone Exercises quadruped post. capsule stretch Reps/Minutes x30'' Sidelying Exercises lateral line stretch Sidelying Exercise Name lateral line stretch Equipment Used soft cyndrical pad Reps/Minutes x60'' Sitting Exercises quad stretch Sitting Exercise Name quad stretch Reps/Minutes x60'' PT-OP-T Assessment and Plan Start: 01/03/23 15:50 Freq: Status: Active Protocol: Document 01/30/23 13:18 ED (Rec: 01/30/23 13:26 ED [id number]) Physical Therapy Assessment Goals pain Impairment pain Short Term Goal (STG) Pt will report 15% improvement in pain during daily activities. STG Duration 3 weeks Residential Goal (LTG) Pt will report 25% improvement in pain during daily activities. LTG Duration 6-8 weeks LEFS Impairment LEFS score Electromyographic Technician Goal (LTG) Pt will improve LEFS score by >7 points to a score greater than 62/80. HEP Impairment HEP Short Term Goal (STG) Pt will report performing HEP >3 days/week. STG Duration 3 weeks Residential Goal (LTG) Pt will report performing HEP >3 days/week. LTG Duration 6-8 weeks Assessment Summary Assessment PT added sitting quad stretch and quadruped post hip capsule stretch to HEP. Went over new lateral line stretch for patient using a bolster but did not add that to her HEP. Discussed with patient seeing her 1x3 weeks to improve her independence at home but also maintain working relationship with exercise prescription and correction. Physical Therapy Plan Frequency and Duration Frequency of Treatment 2x/Week Duration of treatment (weeks) 10 Plan of Care Start Date 01/03/23 Plan of Care End Date 04/03/23 Therapeutic Interventions Therapeutic Interventions Balance Training,Gait Training ,Home Exercise Program,Joint Mobilizations,Manual Therapy, Neuromuscular Re-education, Patient/Caregiver Education, Self-Care/Home Management,Soft Tissue Mobilization,Taping, Therapeutic Activities, Therapeutic Exercises Modalities Biofeedback,Cold Pack/Ice Massage,Electric Stimulation, Hot Packs,Ultrasound Next Visit Focus/Plan Next Note Type Treatment Note Next Visit Plan NS, ball pressure relief, STS, balance activities, lateral line stretch, post capsule stretch, glute med wall lean/ QL wall lean stretch HEP (hip hike, QL stretch, LTR ), PB flexion, bridge, side bending, suitcase carry, post capsule stretch
--- NOTE | 2023-02-01 14:08 | PT.OTN ---
Current Diagnoses Other chronic pain (02/01/23) Unilateral primary osteoarthritis, right hip (02/01/23) Pain in right hip (02/01/23) Spondylosis without myelopathy or radiculopathy, lumbar region (02/01/23) Low back pain, unspecified (02/01/23) Physical Therapy Treatment Note PT-OP-A Visit Information Start: 01/03/23 15:50 Freq: Status: Active Protocol: Document 02/01/23 14:04 ED (Rec: 02/01/23 14:08 ED [id number]) Out-Patient Physical Therapy Visit Information Visit Information Visit Type Treatment Note Visit Note 09/29 Visit Start Time 13:30 Visit Stop Time 14:00 Total Visit Minutes 30 Visit Number 6 PT-OP-B Current Condition Start: 01/03/23 15:50 Freq: Status: Active Protocol: Document 01/03/23 16:39 ED (Rec: 01/03/23 16:52 ED [id number]) Current Condition History of Current Condition Onset Date 2021 Current Complaints R iliac crest, LBP History of Current Condition Pt states that around 2021 she developed pain in her low back and above her R iliac crest; it is not tender to palpation. Pt does have thoracolumbar scoliosis and believes that is a contributing factor. Pain is recreated when side bending to the R and when raising her R hip. Pt is active at a local gym and uses pneumatic machines for strength training . She believes that has helped her a lot in regards to strength and balance. Treatment Goals Patient/Caregiver Goals Eliminate pain PT-OP-C Subjective Start: 01/03/23 15:50 Freq: Status: Active Protocol: Document 02/01/23 14:04 ED (Rec: 02/01/23 14:08 ED [id number]) OP-PT Subjective Patient Comments Patient Comments Pt states that her back feels about 50% better. She is now scheduling a radiograph instead of an MRI. PT-OP-E Functional Tests Start: 01/03/23 15:50 Freq: Status: Active Protocol: Document 01/03/23 16:39 ED (Rec: 01/03/23 16:52 ED [id number]) Functional Tests 30 Second Sit to Stand Test Score 18 Comments IE: 18 (above average) PT-OP-K Range of Motion Start: 01/03/23 15:50 Freq: Status: Active Protocol: Document 01/03/23 16:39 ED (Rec: 01/03/23 16:52 ED [id number]) Lumbar Spine Range of Motion Lumbar Spine Active Testing Position Supine Rotation Left 75 Rotation Right 75 ROM Limitations Soft Tissue Tightness,Pain PT-OP-L Special Tests Start: 01/03/23 15:50 Freq: Status: Active Protocol: Document 01/03/23 16:39 ED (Rec: 01/03/23 16:52 ED [id number]) Special Tests Hip Special Tests Agapito Test Results + PT-OP-M Strength Start: 01/03/23 15:50 Freq: Status: Active Protocol: Document 01/03/23 16:39 ED (Rec: 01/03/23 16:52 ED [id number]) Hip Strength Hip Manual Muscle Testing Right Flexion (L2) 3 Fair Extension (S1) 4 Good Abduction 4- Good- Adduction 4- Good- PT-OP-Q Treatments Start: 01/03/23 15:50 Freq: Status: Active Protocol: Document 02/01/23 14:04 ED (Rec: 02/01/23 14:08 ED [id number]) Cardio Equipment Recumbent Elliptical ([employer]) Duration (Minutes) 5 Resistance 5 Therapeutic Exercises Supine Exercises hip flexion Supine Exercise Name banded hip flexion Resistance yellow Reps/Minutes 2x10/leg QL stretch Supine Exercise Name ql stretch Reps/Minutes x60'' bridge Supine Exercise Name bridge Reps/Minutes 3x8-12 Prone Exercises quadruped post. capsule stretch Reps/Minutes x30'' Sidelying Exercises lateral line stretch Sidelying Exercise Name lateral line stretch Equipment Used soft cyndrical pad Reps/Minutes x3' Standing Exercises standing QL stretch Standing Exercise Name QL stretch against wall Reps/Minutes x10 Therapeutic Activity Therapeutic Activity STS Name Sit<>stand Reps/Minutes 1x10 Comments 10# PT-OP-T Assessment and Plan Start: 01/03/23 15:50 Freq: Status: Active Protocol: Document 02/01/23 14:04 ED (Rec: 02/01/23 14:08 ED [id number]) Physical Therapy Assessment Goals pain Impairment pain Short Term Goal (STG) Pt will report 15% improvement in pain during daily activities. STG Duration 3 weeks -MET Care Home Goal (LTG) Pt will report 25% improvement in pain during daily activities. LTG Duration 6-8 weeks -MET LEFS Impairment LEFS score Radiation Oncologist Goal (LTG) Pt will improve LEFS score by >7 points to a score greater than 62/80. HEP Impairment HEP Short Term Goal (STG) Pt will report performing HEP >3 days/week. STG Duration 3 weeks Care Home Goal (LTG) Pt will report performing HEP >3 days/week. LTG Duration 6-8 weeks Assessment Summary Assessment Added s/l lateral line stretch to exercise program; patient stated it was the most direct stretch she's felt targeted towards her R flank area. Pt asked about how to perform quadriceps stretch so need to review that exercise again. Physical Therapy Plan Frequency and Duration Frequency of Treatment 2x/Week Duration of treatment (weeks) 10 Plan of Care Start Date 01/03/23 Plan of Care End Date 04/03/23 Therapeutic Interventions Therapeutic Interventions Balance Training,Gait Training ,Home Exercise Program,Joint Mobilizations,Manual Therapy, Neuromuscular Re-education, Patient/Caregiver Education, Self-Care/Home Management,Soft Tissue Mobilization,Taping, Therapeutic Activities, Therapeutic Exercises Modalities Biofeedback,Cold Pack/Ice Massage,Electric Stimulation, Hot Packs,Ultrasound Next Visit Focus/Plan Next Note Type Treatment Note Next Visit Plan NS, ball pressure relief, STS, balance activities, lateral line stretch, post capsule stretch, glute med wall lean/ QL wall lean stretch HEP (hip hike, QL stretch, LTR ), PB flexion, bridge, side bending, suitcase carry, post capsule stretch
--- NOTE | 2023-02-13 12:10 | PT.OTN ---
Current Diagnoses Other chronic pain (02/13/23) Unilateral primary osteoarthritis, right hip (02/13/23) Pain in right hip (02/13/23) Spondylosis without myelopathy or radiculopathy, lumbar region (02/13/23) Low back pain, unspecified (02/13/23) Physical Therapy Treatment Note PT-OP-A Visit Information Start: 01/03/23 15:50 Freq: Status: Active Protocol: Document 02/13/23 12:07 ED (Rec: 02/13/23 12:10 ED [id number]) Out-Patient Physical Therapy Visit Information Visit Information Visit Type Treatment Note Visit Note 10/29 Visit Start Time 11:30 Visit Stop Time 12:10 Total Visit Minutes 40 Visit Number 7 PT-OP-B Current Condition Start: 01/03/23 15:50 Freq: Status: Active Protocol: Document 01/03/23 16:39 ED (Rec: 01/03/23 16:52 ED [id number]) Current Condition History of Current Condition Onset Date 2021 Current Complaints R iliac crest, LBP History of Current Condition Pt states that around 2021 she developed pain in her low back and above her R iliac crest; it is not tender to palpation. Pt does have thoracolumbar scoliosis and believes that is a contributing factor. Pain is recreated when side bending to the R and when raising her R hip. Pt is active at a local gym and uses pneumatic machines for strength training . She believes that has helped her a lot in regards to strength and balance. Treatment Goals Patient/Caregiver Goals Eliminate pain PT-OP-C Subjective Start: 01/03/23 15:50 Freq: Status: Active Protocol: Document 02/13/23 12:07 ED (Rec: 02/13/23 12:10 ED [id number]) OP-PT Subjective Patient Comments Patient Comments Pt states she saw her ortho the other day and states that they did radiographs and are scheduling an MRI. The doctor thinks a back brace might be a good idea for her so patient may pursue a brace. States her L hip and L shoulder blade area have been hurting the past few days. PT-OP-E Functional Tests Start: 01/03/23 15:50 Freq: Status: Active Protocol: Document 01/03/23 16:39 ED (Rec: 01/03/23 16:52 ED [id number]) Functional Tests 30 Second Sit to Stand Test Score 18 Comments IE: 18 (above average) PT-OP-K Range of Motion Start: 01/03/23 15:50 Freq: Status: Active Protocol: Document 01/03/23 16:39 ED (Rec: 01/03/23 16:52 ED [id number]) Lumbar Spine Range of Motion Lumbar Spine Active Testing Position Supine Rotation Left 75 Rotation Right 75 ROM Limitations Soft Tissue Tightness,Pain PT-OP-L Special Tests Start: 01/03/23 15:50 Freq: Status: Active Protocol: Document 01/03/23 16:39 ED (Rec: 01/03/23 16:52 ED [id number]) Special Tests Hip Special Tests Agapito Test Results + PT-OP-M Strength Start: 01/03/23 15:50 Freq: Status: Active Protocol: Document 01/03/23 16:39 ED (Rec: 01/03/23 16:52 ED [id number]) Hip Strength Hip Manual Muscle Testing Right Flexion (L2) 3 Fair Extension (S1) 4 Good Abduction 4- Good- Adduction 4- Good- PT-OP-Q Treatments Start: 01/03/23 15:50 Freq: Status: Active Protocol: Document 02/13/23 12:07 ED (Rec: 02/13/23 12:10 ED [id number]) Cardio Equipment Recumbent Elliptical (Biod[employer]actis) Duration (Minutes) 5 Resistance 5 Therapeutic Exercises Supine Exercises QL stretch Supine Exercise Name ql stretch Reps/Minutes x60'' Prone Exercises quadruped post. capsule stretch Reps/Minutes x30'' Sidelying Exercises lateral line stretch Sidelying Exercise Name lateral line stretch Equipment Used soft cyndrical pad Reps/Minutes x3' Standing Exercises row Standing Exercise Name unilateral row Resistance L3 Equipment Used cable column Reps/Minutes 2x10 suitcase carry Standing Exercise Name suitcase carry Resistance 10# Equipment Used db Reps/Minutes 2x100 feet PT-OP-T Assessment and Plan Start: 01/03/23 15:50 Freq: Status: Active Protocol: Document 02/13/23 12:07 ED (Rec: 02/13/23 12:10 ED [id number]) Physical Therapy Assessment Goals pain Impairment pain Short Term Goal (STG) Pt will report 15% improvement in pain during daily activities. STG Duration 3 weeks -MET Supervisor Road Administrator Goal (LTG) Pt will report 25% improvement in pain during daily activities. LTG Duration 6-8 weeks -MET LEFS Impairment LEFS score Supervisor Road Administrator Goal (LTG) Pt will improve LEFS score by >7 points to a score greater than 62/80. HEP Impairment HEP Short Term Goal (STG) Pt will report performing HEP >3 days/week. STG Duration [address] Goal (LTG) Pt will report performing HEP >3 days/week. LTG Duration 6-8 weeks Assessment Summary Assessment Added s/l lateral line stretch to exercise program. introduced patient to unilateral rows with contralateral LE forward as a means to use resistance to stretch lateral back area. No pain noted during exercises today. Physical Therapy Plan Frequency and Duration Frequency of Treatment 2x/Week Duration of treatment (weeks) 10 Plan of Care Start Date 01/03/23 Plan of Care End Date 04/03/23 Therapeutic Interventions Therapeutic Interventions Balance Training,Gait Training ,Home Exercise Program,Joint Mobilizations,Manual Therapy, Neuromuscular Re-education, Patient/Caregiver Education, Self-Care/Home Management,Soft Tissue Mobilization,Taping, Therapeutic Activities, Therapeutic Exercises Modalities Biofeedback,Cold Pack/Ice Massage,Electric Stimulation, Hot Packs,Ultrasound Next Visit Focus/Plan Next Note Type Treatment Note Next Visit Plan NS, ball pressure relief, STS, balance activities, lateral line stretch, post capsule stretch, glute med wall lean/ QL wall lean stretch HEP (hip hike, QL stretch, LTR ), PB flexion, bridge, side bending, suitcase carry, post capsule stretch
--- NOTE | 2023-02-20 13:26 | PT.OTN ---
Current Diagnoses Other chronic pain (02/20/23) Unilateral primary osteoarthritis, right hip (02/20/23) Pain in right hip (02/20/23) Spondylosis without myelopathy or radiculopathy, lumbar region (02/20/23) Low back pain, unspecified (02/20/23) Physical Therapy Treatment Note PT-OP-A Visit Information Start: 01/03/23 15:50 Freq: Status: Active Protocol: Document 02/20/23 13:19 ED (Rec: 02/20/23 13:26 ED [id number]) Out-Patient Physical Therapy Visit Information Visit Information Visit Type Treatment Note Visit Note 11/29 Visit Start Time 12:45 Visit Stop Time 13:25 Total Visit Minutes 40 Visit Number 8 PT-OP-B Current Condition Start: 01/03/23 15:50 Freq: Status: Active Protocol: Document 01/03/23 16:39 ED (Rec: 01/03/23 16:52 ED [id number]) Current Condition History of Current Condition Onset Date 2021 Current Complaints R iliac crest, LBP History of Current Condition Pt states that around 2021 she developed pain in her low back and above her R iliac crest; it is not tender to palpation. Pt does have thoracolumbar scoliosis and believes that is a contributing factor. Pain is recreated when side bending to the R and when raising her R hip. Pt is active at a local gym and uses pneumatic machines for strength training . She believes that has helped her a lot in regards to strength and balance. Treatment Goals Patient/Caregiver Goals Eliminate pain PT-OP-C Subjective Start: 01/03/23 15:50 Freq: Status: Active Protocol: Document 02/20/23 13:19 ED (Rec: 02/20/23 13:26 ED [id number]) OP-PT Subjective Patient Comments Patient Comments Pt brings in resistance bands and wants to go over some exercises she can do using them. PT-OP-E Functional Tests Start: 01/03/23 15:50 Freq: Status: Active Protocol: Document 01/03/23 16:39 ED (Rec: 01/03/23 16:52 ED [id number]) Functional Tests 30 Second Sit to Stand Test Score 18 Comments IE: 18 (above average) PT-OP-K Range of Motion Start: 01/03/23 15:50 Freq: Status: Active Protocol: Document 01/03/23 16:39 ED (Rec: 01/03/23 16:52 ED [id number]) Lumbar Spine Range of Motion Lumbar Spine Active Testing Position Supine Rotation Left 75 Rotation Right 75 ROM Limitations Soft Tissue Tightness,Pain PT-OP-L Special Tests Start: 01/03/23 15:50 Freq: Status: Active Protocol: Document 01/03/23 16:39 ED (Rec: 01/03/23 16:52 ED [id number]) Special Tests Hip Special Tests Agapito Test Results + PT-OP-M Strength Start: 01/03/23 15:50 Freq: Status: Active Protocol: Document 01/03/23 16:39 ED (Rec: 01/03/23 16:52 ED [id number]) Hip Strength Hip Manual Muscle Testing Right Flexion (L2) 3 Fair Extension (S1) 4 Good Abduction 4- Good- Adduction 4- Good- PT-OP-Q Treatments Start: 01/03/23 15:50 Freq: Status: Active Protocol: Document 02/20/23 13:19 ED (Rec: 02/20/23 13:26 ED [id number]) Cardio Equipment Recumbent Elliptical (B[employer]Expedic[employer].mx) Duration (Minutes) 5 Resistance 5 Therapeutic Exercises Supine Exercises QL stretch Supine Exercise Name ql stretch Reps/Minutes x60'' bridge Supine Exercise Name bridge Reps/Minutes 3x8-12 Sitting Exercises lat pull down Sitting Exercise Name lat pull down Equipment Used red band Reps/Minutes 2x10 Standing Exercises bent over row Standing Exercise Name bent over row Resistance red Equipment Used bands Reps/Minutes 1x15 row Standing Exercise Name unilateral row Resistance red/black resistance band Equipment Used bands Reps/Minutes 2x10 PT-OP-T Assessment and Plan Start: 01/03/23 15:50 Freq: Status: Active Protocol: Document 02/20/23 13:19 ED (Rec: 02/20/23 13:26 ED [id number]) Physical Therapy Assessment Goals pain Impairment pain Short Term Goal (STG) Pt will report 15% improvement in pain during daily activities. STG Duration 3 weeks -MET Senior Care Goal (LTG) Pt will report 25% improvement in pain during daily activities. LTG Duration 6-8 weeks -MET LEFS Impairment LEFS score Etcher Enameling Goal (LTG) Pt will improve LEFS score by >7 points to a score greater than 62/80. HEP Impairment HEP Short Term Goal (STG) Pt will report performing HEP >3 days/week. STG Duration 3 weeks Etcher Enameling Goal (LTG) Pt will report performing HEP >3 days/week. LTG Duration 6-8 weeks Assessment Summary Assessment Pt and PT went over home exercises utilizing the equipment she has; she brought in resistance bands she purchased year ago. Demonstrated and had patient perform face pulls, lat pull downs, rows, and bent over rows in which she was able to execute appropriately without pain. Will likely have 1 more visit before being DC'd. Physical Therapy Plan Frequency and Duration Frequency of Treatment 2x/Week Duration of treatment (weeks) 10 Plan of Care Start Date 01/03/23 Plan of Care End Date 04/03/23 Therapeutic Interventions Therapeutic Interventions Balance Training,Gait Training ,Home Exercise Program,Joint Mobilizations,Manual Therapy, Neuromuscular Re-education, Patient/Caregiver Education, Self-Care/Home Management,Soft Tissue Mobilization,Taping, Therapeutic Activities, Therapeutic Exercises Modalities Biofeedback,Cold Pack/Ice Massage,Electric Stimulation, Hot Packs,Ultrasound Next Visit Focus/Plan Next Note Type Discharge Summary Next Visit Plan Oswestry, % improvement band review goals
--- NOTE | 2023-02-26 15:11 | PT.OPDS ---
Current Diagnoses Other chronic pain (02/26/23) Unilateral primary osteoarthritis, right hip (02/26/23) Pain in right hip (02/26/23) Spondylosis without myelopathy or radiculopathy, lumbar region (02/26/23) Low back pain, unspecified (02/26/23) Visit Care Team Role Provider Type Victoriano Valencia DO Family Provider Non-Staff Primary Care Provider Specialty: Internal Medicine Address: [address] [place], [address] Email: Cal Nance MD Attending Provider Physician Referring Provider Specialty: Anesthesiology Interventional Radiology Pain Management Address: [address] [place], [address] Email: [email or web address] Visit Number Visit Number 9 Discharge Summary PT-OP-B Current Condition Start: 01/03/23 15:50 Freq: Status: Active Protocol: Document 01/03/23 16:39 ED (Rec: 01/03/23 16:52 ED [id number]) Current Condition History of Current Condition Onset Date 2021 Current Complaints R iliac crest, LBP History of Current Condition Pt states that around 2021 she developed pain in her low back and above her R iliac crest; it is not tender to palpation. Pt does have thoracolumbar scoliosis and believes that is a contributing factor. Pain is recreated when side bending to the R and when raising her R hip. Pt is active at a local gym and uses pneumatic machines for strength training . She believes that has helped her a lot in regards to strength and balance. Treatment Goals Patient/Caregiver Goals Eliminate pain PT-OP-C Subjective Start: 01/03/23 15:50 Freq: Status: Active Protocol: Document 02/26/23 15:06 ED (Rec: 02/26/23 15:10 ED [id number]) Patient Questionnaires Oswestry Low Back Index Oswestry Score 50 = 24.0 % Oswestry Impairment 20 to 39% Impaired (Score 20- 39) PT-OP-E Functional Tests Start: 01/03/23 15:50 Freq: Status: Active Protocol: Document 01/03/23 16:39 ED (Rec: 01/03/23 16:52 ED [id number]) Functional Tests 30 Second Sit to Stand Test Score 18 Comments IE: 18 (above average) PT-OP-K Range of Motion Start: 01/03/23 15:50 Freq: Status: Active Protocol: Document 01/03/23 16:39 ED (Rec: 01/03/23 16:52 ED [id number]) Lumbar Spine Range of Motion Lumbar Spine Active Testing Position Supine Rotation Left 75 Rotation Right 75 ROM Limitations Soft Tissue Tightness,Pain PT-OP-L Special Tests Start: 01/03/23 15:50 Freq: Status: Active Protocol: Document 01/03/23 16:39 ED (Rec: 01/03/23 16:52 ED [id number]) Special Tests Hip Special Tests Agapito Test Results + PT-OP-M Strength Start: 01/03/23 15:50 Freq: Status: Active Protocol: Document 01/03/23 16:39 ED (Rec: 01/03/23 16:52 ED [id number]) Hip Strength Hip Manual Muscle Testing Right Flexion (L2) 3 Fair Extension (S1) 4 Good Abduction 4- Good- Adduction 4- Good- PT-OP-T Assessment and Plan Start: 01/03/23 15:50 Freq: Status: Active Protocol: Document 02/26/23 15:06 ED (Rec: 02/26/23 15:10 ED [id number]) Physical Therapy Assessment Goals pain Impairment pain Short Term Goal (STG) Pt will report 15% improvement in pain during daily activities. STG Duration 3 weeks -MET Microfilm Equipment Inspector Goal (LTG) Pt will report 25% improvement in pain during daily activities. LTG Duration 6-8 weeks -MET LEFS Impairment LEFS score Microfilm Equipment Inspector Goal (LTG) Pt will improve LEFS score by >7 points to a score greater than 62/80. HEP Impairment HEP Short Term Goal (STG) Pt will report performing HEP >3 days/week. STG Duration 3 weeks Microfilm Equipment Inspector Goal (LTG) Pt will report performing HEP >3 days/week. LTG Duration 6-8 weeks Assessment Summary Assessment Pt reported significant improvements in pain in her low back since starting physical therapy. PT incorporated a combination of isolated stretches for low back as well as strengthening for back and hips. Pt responded well to the interventions. She was provided several handouts so she can continue the exercises at home. Pt does wish to have more information regarding why her body is developing lateral curvatures. Pt overall is able to perform all her daily and recreational activities but patient did state she wants to be able to walk further. Physical Therapy Plan Discharge Physical Therapy Discharge Reasons Goals Met
== END 2023-03-05 09:06 | disposition home or self-care (01) ==
LOC: PHYS 14:15
PROVIDERS: Family Provider Internal Medicine; PCP Internal Medicine; Referring Provider Anesthesiology; Visit Provider Anesthesiology
DX: M25.551 Pain in right hip (principal); M16.11 Unilateral primary osteoarthritis, right hip; M54.50 Low back pain, unspecified; M47.816 Spondylosis without myelopathy or radiculopathy, lumbar region; G89.29 Other chronic pain
CPT/HCPCS: 97110; 97161; 97530

== ENCOUNTER → 2023-02-27 13:25 | Outpatient (CLI) | payer MEDICARE, SELFPAY ==
[2023-02-18 10:57] VITALS: BMI 28.0
--- NOTE | 2023-02-27 13:27 | DI.RAD.S_ITS ---
PROCEDURE: XR SHOULDER LT MIN 2V INDICATIONS: LEFT SHOULDER PAIN TECHNIQUE: 3 views of the shoulder were acquired. COMPARISON: None. FINDINGS: Bones: No fractures or dislocations. No suspicious bony lesions. Visualized ribs appear intact. Soft tissues: No suspicious soft tissue calcifications. Partially visualized left chest wall pacemaker. IMPRESSION: No acute osseous abnormality. If pain persists with conservative management, consider repeat x-ray in 10-14 days or cross-sectional imaging. Dictated by: Silver West M.D. on 02/27/2023 at 14:36 Approved by: Silver West M.D. on 02/27/2023 at 14:37
== END ==
PROVIDERS: Family Provider Internal Medicine; PCP Nurse Practitioner; Referring Provider Anesthesiology; Visit Provider Anesthesiology
DX: M25.512 Pain in left shoulder (principal)
CPT/HCPCS: 73030

== ENCOUNTER → 2023-05-17 12:31 | Outpatient (CLI) | payer MEDICARE, SELFPAY ==
[2023-02-18 10:57] VITALS: BMI 28.0
[2023-05-17 13:04] LABS: Add Manual Diff / Slide Review NO; Basophils Absolute Auto 0 /uL (0-100); Basophils Percent Auto 0.7 % (0-2); Eosinophils Absolute Auto 100 /uL (0-450); Eosinophils Percent Auto 0.9 % (2-4); Hematocrit 35.6 % (36-46); Hemoglobin 11.9 g/dL (12.0-16.0); Lymphocytes Absolute Auto 1900 /uL (1100-4500); Lymphocytes Percent Auto 27.3 % (25-40); Mean Corpuscular HGB Conc 33.5 % (30-36); Mean Corpuscular Hemoglobin 28.4 PG (26-34); Mean Corpuscular Volume 84.8 fL (80-100); Monocytes Absolute Auto 400 /uL (0-900); Monocytes Percent Auto 5.6 % (3-14); Neutrophils Absolute Auto 4600 /uL (1500-7000); Neutrophils Percent Auto 65.5 % (50-75); Platelet Count 251 X10^3/uL (150-400); Red Cell Distribution Width 14.6 % (11.6-14.8)
[2023-05-17 13:41] LABS: Alanine Aminotransferase 34 IU/L (<35); Albumin 4.6 g/dL (3.5-5.0); Albumin Globulin Ratio 1.5 (1.0-2.8); Alkaline Phosphatase 75 U/L (38-126); Aspartate Aminotransferase 45 IU/L (14-36); Bilirubin Total 0.8 mg/dL (0.2-1.3); Blood Urea Nitrogen 19 mg/dL (7-17); Calcium 9.8 mg/dL (8.4-10.2); Carbon Dioxide 28 mmol/L (22-32); Chloride 102 mmol/L (98-107); Estimated Glomerular Filt Rate > 60 mL/min (>60); Globulin 3.1 g/dL (1.7-4.1); Glucose 77 mg/dL (80-110); HEMOLYSIS < 15 (0-50); Lactate Dehydrogenase 273 U/L (120-246); Sodium 137 mmol/L (137-145); Total Protein 7.7 g/dL (6.3-8.2)
[2023-05-17 15:35] LABS: Vitamin D 25 Hydroxy (D3) 58.6 ng/mL (30.0-100.0)
[2023-05-21 14:29] LABS: Immunoglobulin A, Serum 293 mg/dL (64-422); Immunoglobulin G,Serum 909 mg/dL (586-1602); Immunoglobulin M, Serum 51 mg/dL (26-217)
[2023-05-21 15:14] LABS: Albumin 4.2 g/dL (2.9-4.4); Alpha-1-Globulin 0.2 g/dL (0.0-0.4); Alpha-2-Globulin 0.7 g/dL (0.4-1.0); Gamma Globulin 0.8 g/dL (0.4-1.8); Globulin Total 2.7 g/dL (2.2-3.9); Protein, Total 6.9 g/dL (6.0-8.5)
== END ==
LOC: LAB 12:33
PROVIDERS: Family Provider Internal Medicine; PCP Nurse Practitioner; Referring Provider Internal Medicine Rheumatology; Visit Provider Internal Medicine Rheumatology
DX: M35.01 Sjogren syndrome with keratoconjunctivitis (principal); M41.9 Scoliosis, unspecified; M25.551 Pain in right hip; I73.00 Raynaud's syndrome without gangrene; D47.2 Monoclonal gammopathy
CPT/HCPCS: 36415; 80053; 82306; 82784; 83615; 84155; 84165; 85025; 86334

== ENCOUNTER → 2023-06-22 | Outpatient (CLI) | payer MEDICARE, SELFPAY ==
[2023-02-18 10:57] VITALS: BMI 28.0
--- NOTE | 2023-06-22 | DI.MG.S_ITS ---
BILATERAL DIGITAL SCREENING MAMMOGRAM 3D/2D WITH CAD: 06/22/2023 CLINICAL: Routine screening. Comparison is made to exams dated: 07/11/2022 mammogram - [facility], 10/15/2020 mammogram - [facility], and 05/29/2017 mammogram - outside facility. Both breasts are heterogeneously dense, which may obscure small masses (category c / 51-75% glandular tissue). Current study was also evaluated with a Computer Aided Detection (CAD) system. There is an asymmetry in the right breast middle depth superior region seen on the mediolateral oblique view only. No other significant masses, calcifications, or other findings are seen in either breast. IMPRESSION: INCOMPLETE: NEEDS ADDITIONAL IMAGING EVALUATION The asymmetry in the right breast is indeterminate. Additional views with possible ultrasound are recommended. Based on the Tyrer Cuzick model (a risk assessment model) the patient's lifetime risk is 1.4% and her 10 year risk is 0.0%. According to the ACR, ACS, and NCCN guidelines, an annual breast MRI exam along with mammogram is recommended if the patient's lifetime risk is 20% or greater. This exam was interpreted at Station ID: [id number]. NOTE: For mammograms, a report in lay terms will be sent to the patient. Approximately 15% of breast malignancies will not be visualized mammographically. In the management of a palpable breast mass, a negative mammogram must not discourage biopsy of a clinically suspicious lesion. Electronically Signed By: Gogo garcia/mac:07/12/2023 15:08:18 letter sent: Additional Imaging Needed ACR BI-RADS Category 0: Incomplete [id number]
== END ==
PROVIDERS: Family Provider Internal Medicine; PCP Nurse Practitioner; Referring Provider Nurse Practitioner; Visit Provider Nurse Practitioner
DX: Z12.31 Encounter for screening mammogram for malignant neoplasm of breast (principal); R92.333 Mammographic heterogeneous density, bilateral breasts
CPT/HCPCS: 77063; 77067

== ENCOUNTER → 2023-08-08 09:24 | Outpatient (CLI) | payer MEDICARE, SELFPAY ==
[2023-02-18 10:57] VITALS: BMI 28.0
--- NOTE | 2023-08-08 | DI.MG.S_ITS ---
UNILATERAL RIGHT DIGITAL DIAGNOSTIC MAMMOGRAM 3D/2D WITH ADDITIONAL VIEWS: 08/08/2023 CLINICAL: Additional evaluation requested from prior study. Comparison is made to exams dated: 06/22/2023 mammogram - [facility], 07/11/2022 mammogram - [facility], and 10/15/2020 mammogram - [facility]. The right breast is heterogeneously dense, which may obscure small masses (category c / 51-75% glandular tissue). The finding seen on recent screening mammogram did not persist with additional imaging and is consistent with superimposition of normal breast tissue. No significant masses, calcifications, or other findings are seen in the breast. IMPRESSION: NEGATIVE Superimposition of normal breast tissue. No mammographic evidence of malignancy. A 1 year screening mammogram is recommended. Findings and recommendations were conveyed to the patient during today's evaluation. Based on the Tyrer Cuzick model (a risk assessment model) the patient's lifetime risk is 1.4% and her 10 year risk is 0.0%. According to the ACR, ACS, and NCCN guidelines, an annual breast MRI exam along with mammogram is recommended if the patient's lifetime risk is 20% or greater. This exam was interpreted at Station ID: [id number]. NOTE: For mammograms, a report in lay terms will be sent to the patient. Approximately 15% of breast malignancies will not be visualized mammographically. In the management of a palpable breast mass, a negative mammogram must not discourage biopsy of a clinically suspicious lesion. Electronically Signed By: Joyce Benito M.D., Ph.D. eb/:08/08/2023 13:07:30 letter sent: Normal Exam ACR BI-RADS Category 1: Negative [id number]
== END ==
LOC: MAMMO 09:24
PROVIDERS: Family Provider Internal Medicine; PCP Nurse Practitioner; Referring Provider Nurse Practitioner; Visit Provider Nurse Practitioner
DX: R92.8 Other abnormal and inconclusive findings on diagnostic imaging of breast (principal); R92.331 Mammographic heterogeneous density, right breast
CPT/HCPCS: 77065; G0279

== ENCOUNTER 2023-12-04 14:13 | Emergency (ER) | payer MEDICARE, SELFPAY ==
[2023-02-18 10:57] VITALS: BMI 28.0
[2023-12-04 14:17] VITALS: BP 168/69; PULSE 66; RESP 14; TEMP 36.3; O2SAT 100; BMI 26.5
[2023-12-04 14:33] VITALS: BMI 26.5
--- NOTE | 2023-12-04 14:44 | PC.NURSE ---
patient is an alert and oriented 83 year old female. She comes to the ER today for increasing pain and swelling in her pubis mons. She was seen for it and supposed to have an US on it but was told to return an ED if s/sx got worse. Over the last few days her mons has been getting more swollen and painful and with a sharp shooting pain going into groin. She denies /GI symptoms, or any new or recent sexual partners. She also has a hx of afib with a pacemaker, MS, RA. Her blood pressure is high foe her today but denies SOB, chest pain, headache, chest pressure, but does say that lately she has been having intermittent dizziness. Provider notified of patient. Will continue to monitor.
[2023-12-04 15:19] LABS: Bacteria Urine Few (2-10); RBC Urine 0-1/HPF (0-5/HPF); Squamous Epithelial Cell Urine None Seen (0-5/HPF); Urine Volume 10mL (spun); WBC Urine 0-1/HPF (0-5/HPF)
[2023-12-04 15:20] LABS: Culture Indicated Urine Specimen Cultured
--- NOTE | 2023-12-04 17:02 | DI.CT.S_ITS ---
PROCEDURE: CT ABDOMEN PELVIS W CON INDICATIONS: mass left pelvis/groin TECHNIQUE: After the administration of intravenous contrast, axial sections acquired from the lung bases to the pubic symphysis. Coronal and sagittal reformats were performed. For radiation dose reduction, the following was used: automated exposure control, adjustment of mA and/or kV according to patient size. COMPARISON: None. FINDINGS: Image quality: Diagnostic. Lower Chest: Lung bases are clear. Mild cardiomegaly. Pacemaker leads. Moderate coronary artery calcifications. ABDOMEN: Liver: No solid mass. Gallbladder: No radiopaque gallstones or wall thickening. Biliary ducts: No biliary dilation. Pancreas: No ductal dilation. Spleen: Size is within normal limits. Adrenal Glands: No adrenal nodules. Kidneys and Ureters: No hydronephrosis. No solid mass. No complex renal cystic lesion which requires follow up. Stomach and Bowel: Normal colonic caliber, without significant wall thickening. Normal appendix. Peritoneum: No abnormal intraperitoneal fluid. No free air. Ventral Wall: No significant ventral hernia. Abdominal Nodes: No retroperitoneal or mesenteric adenopathy by size criteria. Vessels: Aorta and inferior vena cava are normal in size. Atherosclerotic vascular calcifications. PELVIS: Pelvic Organs: Unremarkable. Bladder: No bladder wall thickening, accounting for underdistention. Pelvic Nodes: No enlarged lymph nodes. Miscellaneous: No inguinal hernias are seen. Bones: No aggressive osseous abnormality. Multilevel degenerative changes of the spine. Grade 1 anterolisthesis of L4 on L5. Mild levocurvature. Decreased osseous mineralization. IMPRESSION: 1. No pelvic or groin masses are identified. 2. No acute intra-abdominal abnormalities. Dictated by: Silver West M.D. on 12/04/2023 at 18:00 Approved by: Silver West M.D. on 12/04/2023 at 18:05
--- NOTE | 2023-12-04 17:14 | ED_ITS ---
HPI - Recheck/Abnormal Lab/Rx General Chief Complaint: Recheck/Abnormal Lab/Rx Stated Complaint: growth in mons pubis area Time Seen by Provider: 12/04/23 16:56 Source: patient Mode of arrival: Ambulatory History of Present Illness HPI narrative: Patient here complains of left pelvic/groin swelling for the past 5 days. No urinary complaints. No history of hernia. No redness. The bulging seem to come and go. No bowel movement changes. No black or bloody stools. No rash. No known injury. No diarrhea. No constipation. Bulging seems to be more evident when she stands up. No rash or erythema. Related Data Home Medications Medication Instructions Recorded Confirmed omeprazole 10 mg capsule,delayed 20 mg PO DAILY 05/09/20 12/03/23 release amlodipine 2.5 mg tablet 2.5 mg PO DAILY 11/15/22 12/03/23 cyclobenzaprine 5 mg tablet 2.5 - 5 mg PO ONCE PM PRN low back 11/15/22 12/03/23 pain rosuvastatin 10 mg tablet 10 mg PO DAILY 11/15/22 12/03/23 calcium carbonate 600 mg PO DAILY 02/18/23 12/03/23 vitamin B complex 1 tab PO DAILY 02/18/23 12/03/23 Previous Rx's Medication Instructions Recorded furosemide 20 mg tablet (Lasix) 20 mg PO DAILY PRN LE swelling #30 02/18/23 tabs gabapentin 100 mg capsule 200 mg (2 x 100 mg) PO TID #90 caps 06/27/23 amitriptyline 25 mg tablet 25 mg PO BEDTIME #90 tabs 07/22/23 potassium chloride 10 mEq 10 meq PO DAILY #90 tabs 07/31/23 tablet,extended release Eliquis 5 mg tablet (apixaban) 5 mg PO BID #180 tabs 09/30/23 Allergies Allergy/AdvReac Type Severity Reaction Status Date / Time etomidate Allergy Seizure Verified 12/03/23 12:52 flecainide AdvReac Severe Unresponsiv Verified 12/03/23 12:52 e codeine [CODEINE] AdvReac Unknown Vomiting Verified 12/03/23 12:52 oyster extract AdvReac Diarrhea Verified 12/03/23 12:52 Review of Systems Review of Systems Narrative: GENERAL: negative chills, fatigue, malaise, fever, sweats. HEENT: negative sinus pain, ear pain, sore throat RESPIRATORY: negative dyspnea, cough CARDIOVASCULAR: negative chest pain, palpitations GASTROINTESTINAL: negative nausea, vomiting, positive abdominal pain : negative dysuria, frequency, hematuria MUSCULOSKELETAL: negative muscle or bony pain SKIN: negative rash, skin lesions NEUROLOGIC: negative weakness, numbness Patient History Medical History Myofascial pain Anemia Lumbar radiculopathy Right shoulder pain Osteoarthritis of right hip Lumbar spondylosis Wears glasses Anxiety (~1974) Myoclonus Restless leg syndrome Peripheral neuropathy Hip pain Osteopenia Foot pain Chronic back pain (~2021) Salmonella typhi (~1966) Mumps (~1947) Measles (~1947) Chicken pox (~1947) Tinnitus Hearing loss (~2016) Cataracts, bilateral (~2017) GERD (gastroesophageal reflux disease) Hypertension (~2018) Cardiac arrhythmia Pulmonary nodule Persistent atrial fibrillation Raynaud disease (~2017) Current use of prison anticoagulation Rheumatoid arthritis Multiple sclerosis Sjogren's disease (~1999) Surgical History History of cardioversion (~2021) Anesthesia S/P placement of cardiac pacemaker (~06/08/21) S/P ablation of atrial fibrillation (~2019) History of foot surgery History of hysterectomy (~1992) Family History Father Cardiomyopathy Diabetes mellitus Alzheimer's dementia Hypertension Mother Cancer Brother Coronary artery disease Hx of CABG Grandfather Cancer Grandmother Stroke Grandfather Accident Grandmother History of heart disease Social History household members: none Smoking Status: Former smoker alcohol intake: current Smoking Status: Former smoker alcohol intake frequency: a few times a month Substance Use Type: does not use Exam Narrative Exam Narrative: GENERAL: in no distress, not toxic not dyspneic HEAD: Normocephalic. EYES: Pupils equal round ENT: Mucous membranes moist. NECK: Trachea midline. CARDIOVASCULAR: Regular rate and rhythm RESPIRATORY: Clear to auscultation. Breath sounds equal bilaterally. No wheezes, rales, or rhonchi. GASTROINTESTINAL: Abdomen soft, non-tender, palpable reducible mass left inguinal area. Nontender. No peritoneal signs. Possible reducible inguinal hernia on the left. EXTREMITIES: No gross deformities. BACK: No flank tenderness. NEURO: AOx4. SKIN: Warm and dry PSYCH: Not anxious, is cooperative Initial Vital Signs Initial Vital Signs: Vital Signs Temperature 97.3 F L 12/04/23 14:17 Pulse Rate 66 12/04/23 14:17 Respiratory Rate 14 12/04/23 14:17 Blood Pressure 168/69 H 12/04/23 14:17 Pulse Oximetry 100 12/04/23 14:17 Oxygen Delivery Method Room Air 12/04/23 14:17 Course Orders Ordered: Discontinued Medications Lactated Ringer's (Lactated Ringers) 500 mls @ 1,000 mls/hr IV BOLUS ONE Stop: 12/04/23 17:31 Last Admin: 12/04/23 17:54 Dose: Not Given Documented By: HINA Sodium Chloride (Normal Saline 0.9%) 500 mls @ 1,000 mls/hr IV BOLUS ONE Stop: 12/04/23 17:32 Last Infusion: 12/04/23 18:29 Dose: Infused Documented By: Admin: 12/04/23 17:53 Dose: 1,000 mls/hr Documented By: HINA Vital Signs Vital signs: Vital Signs - 8 hr 12/04/23 14:17 12/04/23 18:07 Temperature 97.3 F L Pulse Rate 66 60 Respiratory Rate 14 18 Blood Pressure 168/69 H Pulse Oximetry 100 99 Oxygen Delivery Method Room Air Room Air MDM - Recheck/Abnormal Lab/Rx Lab Data Labs: Lab Results 12/04/23 Range/Units 14:40 Urine RBC 0-1/hpf (0-5/HPF) Urine WBC 0-1/hpf (0-5/HPF) Ur Squamous Epith Cells None seen (0-5/HPF) Urine Bacteria Few (2-10) H (None) Ur Culture Indicated? Specimen cultured Vol Urine Centrifuged 10ml (spun) Urine Dip Bedside Urine Glucose Negative Bedside Urine Bilirubin - Negative Bedside Urine Ketone - Negative Urine Specific [place] 1.010 Bedside Urine Occult Blood +/- Bedside Urine pH 6.0 Bedside Urine Protein - Negative Bedside Urine Urobilinogen - Negative Bedside Urine Nitrite - Negative Bedside Urine Leukocytes +/- [address] scan - abdomen/pelvis: Radiologist's Impression: [address] [address] [address] Scan Report Signed Patient: Wilma Ji MR#: [id number] : 1940 Acct:[id number] Age/Sex: 83 / F Date of Service: 12/04/23 Loc: ED Accession Number: [id number] Procedure: CT abdomen pelvis w con Ordering Provider: Brandon Vasquez MD PROCEDURE: CT ABDOMEN PELVIS W CON INDICATIONS: mass left pelvis/groin TECHNIQUE: After the administration of intravenous contrast, axial sections acquired from the lung bases to the pubic symphysis. Coronal and sagittal reformats were performed. For radiation dose reduction, the following was used: automated exposure control, adjustment of mA and/or kV according to patient size. COMPARISON: None. FINDINGS: Image quality: Diagnostic. Lower Chest: Lung bases are clear. Mild cardiomegaly. Pacemaker leads. Moderate coronary artery calcifications. ABDOMEN: Liver: No solid mass. Gallbladder: No radiopaque gallstones or wall thickening. Biliary ducts: No biliary dilation. Pancreas: No ductal dilation. Spleen: Size is within normal limits. Adrenal Glands: No adrenal nodules. Kidneys and Ureters: No hydronephrosis. No solid mass. No complex renal cystic lesion which requires follow up. Stomach and Bowel: Normal colonic caliber, without significant wall thickening. Normal appendix. Peritoneum: No abnormal intraperitoneal fluid. No free air. Ventral Wall: No significant ventral hernia. Abdominal Nodes: No retroperitoneal or mesenteric adenopathy by size criteria. Vessels: Aorta and inferior vena cava are normal in size. Atherosclerotic vascular calcifications. PELVIS: Pelvic Organs: Unremarkable. Bladder: No bladder wall thickening, accounting for underdistention. Pelvic Nodes: No enlarged lymph nodes. Miscellaneous: No inguinal hernias are seen. Bones: No aggressive osseous abnormality. Multilevel degenerative changes of the spine. Grade 1 anterolisthesis of L4 on L5. Mild levocurvature. Decreased osseous mineralization. IMPRESSION: 1. No pelvic or groin masses are identified. 2. No acute intra-abdominal abnormalities. Dictated by: Silver West M.D. on 12/04/2023 at 18:00 Approved by: Silver West M.D. on 12/04/2023 at 18:05 [facility] Narrative Medical decision making narrative: Patient here complains of left pelvic/groin swelling for the past 5 days. No urinary complaints. No history of hernia. No redness. The bulging seem to come and go. No bowel movement changes. No black or bloody stools. No rash. After history and exam CBC CMP urinalysis CT abdomen pelvis normal saline MDM Medical records reviewed: No recent visit for this complaint Differential considered: Includes but not limited to inguinal hernia abscess pelvic mass Lab Test results independently reviewed as above. Pertinent findings: WBC 7.0 hemoglobin 11.9 sodium 137 potassium 5.0 BUN 19 GFR 60 urinalysis negative nitrite Imaging studies independently reviewed: CT abdomen pelvis no acute finding Consultations: None indicated at this time Treatments: Normal saline Re-evaluations: Reviewed results with patient. They are reassuring. Return precautions reviewed with her. Nontoxic at discharge. She desires discharge home Discussion: Appropriate for discharge home. Exam is reassuring. CT imaging reassuring. Referral for Dr. Woods provided for possible reducible hernia. Return precautions reviewed. They desire discharge home Diagnosis: Inguinal mass Discharge Plan Departure Patient Disposition: Home Clinical Impression: Groin mass Instructions: DI for Groin Hernia Activity Restrictions/Additional Instructions: Your exam is reassuring. CT scan did not show inguinal hernia at this time. However it may not show when lying flat. Please call provided general surgery office tomorrow for re-evaluation of possible inguinal hernia. Return if worse if any questions or concerns. You may continue home medications. Prescriptions: No Action omeprazole 10 mg capsule,delayed release(DR/EC) 20 mg PO DAILY gabapentin 100 mg capsule 200 mg PO TID Qty: 90 2RF amitriptyline 25 mg tablet 25 mg PO BEDTIME Qty: 90 2RF potassium chloride 10 mEq tablet extended release 10 meq PO DAILY Qty: 90 1RF Eliquis 5 mg tablet 5 mg PO BID Qty: 180 0RF vitamin B complex Tablet 1 tab PO DAILY calcium carbonate 600 mg calcium (1,500 mg) tablet 600 mg PO DAILY furosemide [Lasix] 20 mg tablet 20 mg PO DAILY PRN (Reason: LE swelling) Qty: 30 1RF amlodipine 2.5 mg tablet 2.5 mg PO DAILY rosuvastatin 10 mg tablet 10 mg PO DAILY cyclobenzaprine 5 mg tablet 2.5 - 5 mg PO ONCE PM PRN (Reason: low back pain) Referrals: Maria Dolores Plummer ARNP [Primary Care Provider] - Juan Woods MD [Physician] - Stand Alone Forms: Patient Portal/API
[2023-12-04] MEDS: SODIUM CHLORIDE 0.9% 500 ML 1000 ML IV (17:53)
[2023-12-04 18:07] VITALS: BP 168/69; PULSE 60; RESP 18; O2SAT 99
[2023-12-04 18:37] VITALS: BP 185/77; PULSE 60; RESP 18; O2SAT 100
== END 2023-12-04 18:37 | disposition home or self-care (01) ==
PROVIDERS: Emergency Provider Emergency Medicine; Family Provider Internal Medicine; PCP Nurse Practitioner
DX: R19.09 Other intra-abdominal and pelvic swelling, mass and lump (principal); Z79.01 Long term (current) use of anticoagulants
CPT/HCPCS: 74177; 81003; 81015; 87086; 96360; 99284; Q9967

== ENCOUNTER 2023-12-17 12:01 | Emergency (ER) | payer MEDICARE, SELFPAY ==
[2023-02-18 10:57] VITALS: BMI 28.0
[2023-12-17] VITALS (11 sets, daily range): BP systolic 127–218; BP diastolic 63–107; PULSE 59–70; RESP 14–24; TEMP 36.8; O2SAT 95–100; BMI 26.5
--- NOTE | 2023-12-17 12:12 | DI.RAD.S_ITS ---
PROCEDURE: XR CHEST 1V INDICATIONS: chest pain TECHNIQUE: One view of the chest was acquired. COMPARISON: [facility], CR, XR CHEST 1V, 08/22/2022, 7:43. FINDINGS: Surgical changes and devices: Stable cardiac pacer. Lungs and pleura: Lungs are clear. No pleural effusions or pneumothorax. Mediastinum: Mediastinal contours appear normal. Heart size is normal. Bones and chest wall: No suspicious bony lesions. Overlying soft tissues appear unremarkable. IMPRESSION: No acute cardiopulmonary abnormality is seen. Dictated by: Awa Neff MD, PhD on 12/17/2023 at 13:14 Approved by: Awa Neff MD, PhD on 12/17/2023 at 13:14
--- NOTE | 2023-12-17 12:16 | ED.NEUROSD ---
HPI - Neuro Symptoms/Deficit General Chief Complaint: Neuro Symptoms/Deficit Stated Complaint: Poss MS Reaction, Numbness Time Seen by Provider: 12/17/23 12:16 History of Present Illness HPI Narrative: 83-year-old female with right-sided facial numbness, worried about stroke. History of multiple sclerosis, first diagnosed 40 years ago in [facility], prior remote brain MRI and lumbar puncture confirmation of disease, previous steroid pulses 40 years ago, residual lower extremity peripheral neuropathy symptoms, most recently followed by neurologist [facility] Dr. Phoenix. History of atrial fibrillation, status post ablation Dr. Devries slack cooper child psychiatrist at [facility], taking Eliquis chronic anticoagulation, had subsequent pacemaker placed 2 years ago. 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 Phoenix in consultation. She complains of right-sided facial numbness since this morning. Denies history of prior stroke. No weakness to the face, no inability to shut her right eye. No tearing or eye irritation on the right. No difficulty with site, vision, scotomata, double vision, blurred vision. Denies weakness to arm or leg. Bilateral lower extremity chronic MS related symptoms unchanged. She also reports recent social stressors, having been ?caught? at her assisted care facility [facility] reaching into a room trying to get microphone to use for conferencing for her fellow residents, feels stressed, we would like to speak to neonatal social worker about counseling outpatient resources. Denies thoughts of hurting herself or others, denies substance abuse, denies hearing voices. 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 On Anticoagulants: Yes Related Data Home Medications Medication Instructions Recorded Confirmed omeprazole 10 mg capsule,delayed 20 mg PO DAILY 05/09/20 12/03/23 release amlodipine 2.5 mg tablet 2.5 mg PO DAILY 11/15/22 12/03/23 cyclobenzaprine 5 mg tablet 2.5 - 5 mg PO ONCE PM PRN low back 11/15/22 12/03/23 pain rosuvastatin 10 mg tablet 10 mg PO DAILY 11/15/22 12/03/23 calcium carbonate 600 mg PO DAILY 02/18/23 12/03/23 vitamin B complex 1 tab PO DAILY 02/18/23 12/03/23 Previous Rx's Medication Instructions Recorded furosemide 20 mg tablet (Lasix) 20 mg PO DAILY PRN LE swelling #30 02/18/23 tabs gabapentin 100 mg capsule 200 mg (2 x 100 mg) PO TID #90 caps 06/27/23 amitriptyline 25 mg tablet 25 mg PO BEDTIME #90 tabs 07/22/23 potassium chloride 10 mEq 10 meq PO DAILY #90 tabs 07/31/23 tablet,extended release Eliquis 5 mg tablet (apixaban) 5 mg PO BID #180 tabs 09/30/23 prednisone 20 mg tablet 60 mg (3 x 20 mg) PO DAILY 7 days 12/17/23 #21 tabs valacyclovir 1 gram tablet 1,000 mg PO TID 7 days #21 tabs 12/17/23 Allergies Allergy/AdvReac Type Severity Reaction Status Date / Time etomidate Allergy Seizure Verified 12/03/23 12:52 flecainide AdvReac Severe Unresponsiv Verified 12/03/23 12:52 e codeine [CODEINE] AdvReac Unknown Vomiting Verified 12/03/23 12:52 oyster extract AdvReac Diarrhea Verified 12/03/23 12:52 Review of Systems Review of Systems Narrative: see HPI Hematologic/Lymphatic On Anticoagulants: Yes Patient History Medical History Myofascial pain Anemia Lumbar radiculopathy Right shoulder pain Osteoarthritis of right hip Lumbar spondylosis Wears glasses Anxiety (~1974) Myoclonus Restless leg syndrome Peripheral neuropathy Hip pain Osteopenia Foot pain Chronic back pain (~2021) Salmonella typhi (~1966) Mumps (~1947) Measles (~1947) Chicken pox (~1947) Tinnitus Hearing loss (~2016) Cataracts, bilateral (~2018) GERD (gastroesophageal reflux disease) Hypertension (~2018) Cardiac arrhythmia Pulmonary nodule Persistent atrial fibrillation Raynaud disease (~2017) Current use of assisted anticoagulation Rheumatoid arthritis Multiple sclerosis Sjogren's disease (~1999) Surgical History History of cardioversion (~2021) Anesthesia S/P placement of cardiac pacemaker (~06/08/21) S/P ablation of atrial fibrillation (~2019) History of foot surgery History of hysterectomy (~1992) Family History Father Cardiomyopathy Diabetes mellitus Alzheimer's dementia Hypertension Mother Cancer Brother Coronary artery disease Hx of CABG Grandfather Cancer Grandmother Stroke Grandfather Accident Grandmother History of heart disease Social History household members: none Smoking Status: Former smoker alcohol intake: current Smoking Status: Former smoker alcohol intake frequency: a few times a month Substance Use Type: does not use Exam Narrative Exam Narrative: GENERAL: Well-developed patient, in mild distress. HEAD: Atraumatic. Normocephalic. EYES: Pupils equal round and reactive. Extraocular motions intact. No scleral icterus. No injection or drainage. ENT: Nose without bleeding, purulent drainage. Throat without erythema, tonsillar hypertrophy or exudate. Airway patent. NECK: Trachea midline. Non tender CARDIOVASCULAR: Regular rate and rhythm without murmurs, gallops, or rubs. RESPIRATORY: Clear to auscultation. Breath sounds equal bilaterally. No wheezes, rales, or rhonchi. GASTROINTESTINAL: Abdomen soft, non-tender, nondistended. EXTREMITIES: No edema or joint tenderness. BACK: Nontender without deformity or crepitance. No flank tenderness. NEURO: AOx3. Nonfocal neuro exam SKIN: No rash or erythema of visible areas Initial Vital Signs Initial Vital Signs: Vital Signs Temperature 98.2 F 12/17/23 12:05 Pulse Rate 64 12/17/23 12:05 Respiratory Rate 18 12/17/23 12:05 Blood Pressure 218/95 H 12/17/23 12:05 Pulse Oximetry 100 12/17/23 12:05 Oxygen Delivery Method Room Air 12/17/23 12:05 Course Orders Ordered: ED Orders 12/17/23 12:12 XR chest 1V Stat EKG-12 Lead Stat 12/17/23 12:23 EKG-12 Lead Routine 12/17/23 12:27 Complete Blood Count AUTO DIFF Stat Comprehensive Metabolic Panel Stat Lipase Stat Magnesium Stat NT-proBNP (BNP-Adult 18+) Stat PTT Partial Thromboplastin Ashok Stat Prothrombin Time INR Stat Troponin & CK Cardiac Panel Stat 12/17/23 12:49 CT head/brain wo con Stat 12/17/23 13:55 Urine Microscopic Stat 12/17/23 14:00 CT angio head and neck Stat 12/17/23 14:48 [place] [facility] [facility] [place] Sodium Chloride (Normal Saline 0.9%) 1,000 mls @ 500 mls/hr IV BOLUS ONE Stop: 12/17/23 15:42 Last Infusion: 12/17/23 14:58 Dose: Infused Documented By: Admin: 12/17/23 13:50 Dose: 500 mls/hr Documented By: AMJasmyne Discontinued Medications Prednisone (Prednisone 20 Mg Tablet) 60 mg PO NOW ONE Stop: 12/17/23 14:44 Last Admin: 12/17/23 15:10 Dose: 60 mg Documented By: AMV Valacyclovir HCl (Valacyclovir 500 Mg Tablet) 1,000 mg PO NOW ONE Stop: 12/17/23 14:44 Last Admin: 12/17/23 15:10 Dose: 1,000 mg Documented By: MARIBELL Vital Signs Vital signs: Vital Signs - 8 hr 12/17/23 12:05 12/17/23 12:26 12/17/23 12:26 Temperature 98.2 F Pulse Rate 64 62 Respiratory Rate 18 15 Blood Pressure 218/95 H 138/65 Pulse Oximetry 100 98 Oxygen Delivery Method Room Air 12/17/23 12:30 12/17/23 12:30 12/17/23 12:51 Temperature Pulse Rate 60 70 Respiratory Rate 19 16 Blood Pressure 154/86 H Pulse Oximetry 98 99 Oxygen Delivery Method 12/17/23 12:51 12/17/23 13:00 12/17/23 13:00 Temperature Pulse Rate 59 L Respiratory Rate Blood Pressure 157/68 H 160/69 H Pulse Oximetry 99 Oxygen Delivery Method 12/17/23 13:30 12/17/23 13:30 12/17/23 13:53 Temperature Pulse Rate 60 Respiratory Rate 24 Blood Pressure 154/67 H 127/107 H Pulse Oximetry 98 Oxygen Delivery Method 12/17/23 13:53 12/17/23 14:00 12/17/23 14:01 Temperature Pulse Rate 60 60 Respiratory Rate 16 23 Blood Pressure 142/65 H Pulse Oximetry 97 99 Oxygen Delivery Method 12/17/23 14:01 12/17/23 14:30 12/17/23 14:30 Temperature Pulse Rate 60 60 Respiratory Rate 15 14 Blood Pressure 142/63 H Pulse Oximetry 99 99 Oxygen Delivery Method Room Air 12/17/23 15:00 Temperature Pulse Rate 61 Respiratory Rate Blood Pressure Pulse Oximetry 95 Oxygen Delivery Method MDM - Neuro Symptoms/Deficit Lab Data Attestation: I reviewed the patient's lab results. 12/17/23 12:27 12/17/23 12:27 Labs: Lab Results 12/17/23 12/17/23 Range/Units 12: 13:55 WBC 8.7 (4.5-11.0) X10^3/uL RBC 4.36 (4.0-5.2) X10^6/uL Hgb 12.9 (12.0-16.0) g/dL Hct 38.2 (36-46) % MCV 87.6 (80-100) fL MCH 29.5 (26-34) PG MCHC 33.6 (30-36) % RDW 14.3 (11.6-14.8) % Plt Count 269 (150-400) X10^3/uL Neut % (Auto) 72.0 (50-75) % Lymph % (Auto) 20.6 L (25-40) % [place] % (Auto) 6.5 (3-14) % Eos % (Auto) 0.4 L (2-4) % Baso % (Auto) 0.5 (0-2) % Neut # (Auto) 6300 (2354-4652) /uL Lymph # (Auto) 1800 (0158-3146) /uL [place] # (Auto) 600 (0-900) /uL Eos # (Auto) 0 (0-450) /uL Baso # (Auto) 0 (0-100) /uL PT 14.7 H (9.4-12.5) SECONDS INR 1.3 (0.9-1.3) APTT 46 H (25.1-36.5) SECONDS Sodium 139 (137-145) mmol/L Potassium 4.4 (3.4-5.1) mmol/L Chloride 104 (98-107) mmol/L Carbon Dioxide 23 (22-32) mmol/L BUN 21 H (7-17) mg/dL Creatinine 0.96 (0.52-1.04) mg/dL Estimated GFR 59 L (>60) mL/min BUN/Creatinine Ratio 21.9 (6-22) Glucose 115 H (80-110) mg/dL Calcium 9.9 (8.4-10.2) mg/dL Magnesium 2.1 (1.6-2.3) mg/dL Total Bilirubin 0.8 (0.2-1.3) mg/dL AST 41 H (14-36) IU/L ALT 25 (<35) IU/L Alkaline Phosphatase 79 (38-126) U/L Total Creatine Kinase 310 H (30-135) U/L Troponin I < 0.012 (0.01-0.034) ng/mL NT-Pro-B Natriuret Pep 3120 H (<450) pg/mL Total Protein 8.0 (6.3-8.2) g/dL Albumin 4.9 (3.5-5.0) g/dL Globulin 3.1 (1.7-4.1) g/dL Albumin/Globulin Ratio 1.6 (1.0-2.8) Lipase 97 (23-300) U/L Urine RBC 0-1/hpf (0-5/HPF) Urine WBC 0-1/hpf (0-5/HPF) Ur Squamous Epith Cells None seen (0-5/HPF) Urine Bacteria None seen (None) Ur Culture Indicated? Cult not indicated Vol Urine Centrifuged 10ml (spun) Urine Dip Bedside Urine Glucose Negative Bedside Urine Bilirubin - Negative Bedside Urine Ketone - Negative Urine Specific [place] 1.01 Bedside Urine Occult Blood +/- Bedside Urine pH 6 Bedside Urine Protein - Negative Bedside Urine Urobilinogen - Negative Bedside Urine Nitrite - Negative Bedside Urine Leukocytes - Negative Esterase Imaging Data Chest x-ray: Radiologist's Impression: [address] [address] XRay Report Signed Patient: Wilma Ji MR#: [id number] : 1940 Acct:[id number] Age/Sex: 83 / F Date of Service: 12/17/23 Loc: ED Accession Number: [id number] Procedure: XR chest 1V Ordering Provider: Mank,Deanne C D.O. PROCEDURE: XR CHEST 1V INDICATIONS: chest pain TECHNIQUE: One view of the chest was acquired. COMPARISON: [facility], CR, XR CHEST 1V, 08/22/2022, 7:43. FINDINGS: Surgical changes and devices: Stable cardiac pacer. Lungs and pleura: Lungs are clear. No pleural effusions or pneumothorax. Mediastinum: Mediastinal contours appear normal. Heart size is normal. Bones and chest wall: No suspicious bony lesions. Overlying soft tissues appear unremarkable. IMPRESSION: No acute cardiopulmonary abnormality is seen. Dictated by: Awa Neff MD, PhD on 12/17/2023 at 13:14 Approved by: Awa Neff MD, PhD on 12/17/2023 at 13:14 CT scan - head: Radiologist's Impression: ? Chapo Wilson MD [facility] Routine Call Back Main ED ?11? My List ?5? Fast Track ?0? Waiting ?2? Surge ED ?0? 3D? Michel? ? Dorinda? 82 F? With Doctor? 1h 6m? 4-Less Urgent? Chest Pain? Pain R Side Ribs? 12/17/23 13:48? REG ER? Draft? Deanne Phillip gowned Order BP 165/67 Pulse 62 Resp 18 Temp 97.6 F O2 Sat 100% (RA) Imaging R04? Marilia? ? Parvez? 40 M? With Doctor? 38m? 3-Urgent? Abdominal Pain? Back/LRQ ABD/Groin Pain, Rash? 12/17/23 14:24? REG ER? Draft? Deanne Rudd UA neg Order BP 113/63 Pulse 70 Resp 18 Temp 97.8 F O2 Sat 99% (RA) POC/ZOE MAR Lipase Sta... NPO Diet Complete B... Chem R05? Garrison? ? Wilma? 83 F? With Doctor? 2h 28m? 2-Emergent? Neuro Symptoms/Deficit? Poss MS Reaction, Numbness? 12/17/23 12:16? REG ER? Draft? Chapo Rudd ? Order BP 142/65 Pulse 60 Resp 15 Temp O2 Sat 99% (RA) ?Complete B... Magnesium ... ?NT-proBNP ... ?Prothrombi... ?Chem Lipase Sta... ?PTT [place]... ?Troponin &... EKG-12 [place]... Imaging POC/ZOE EKG-12 [place]... MAR NPO Diet Cardiac mo... Urine Micr... R06? Barmon? ? Agapito? 75 M? With Doctor? 3h 36m? 4-Less Urgent? Back Pain/Injury? popping noise on spine, fall 3x? 12/17/23 11:07? REG ER? Draft? Chapo Krause S @ MRI Order BP 159/96 Pulse 75 Resp 14 Temp O2 Sat 94% (RA) Imaging ?Complete B... MAR C-Reactive... Erythrocyt... Chem R07? Kononen? ? Kiel? 88 M? Ready for Discharge? 1h 50m? 4-Less Urgent? Eye Problems? BI Eye Pain? 12/17/23 13:42? REG ER? Draft? Chapo Phillip ? Order BP 165/75 Pulse 65 Resp Temp O2 Sat 96% (RA) MAR R10? Vuong? ? Jessica? 75 F? In Room? 1h 48m? 2-Emergent? Weakness? weakness? 12/17/23 12:50? REG ER? Draft? Deanne Rudd ? Order BP 127/58 Pulse 75 Resp 10 Temp 98.6 F O2 Sat 99% (2L/NC) ?Chem ?Lactate (L... Procalcito... ?Complete B... ?Lipase Sta... ?NT-proBNP ... Troponin &... ?Urinalysis... EKG-12 [place]... Imaging Respirator... Acetaminop... Arterial B... Cardiac mo... Microbiolo... Valproic A... R11? Hardeep? ? Bhargavi? 69 F? With Doctor? 1h 20m? 4-Less Urgent? She/Her/Hers? ?? Extremity Injury, Lower? L Foot Injury? 12/17/23 13:42? REG ER? Draft? Chapo Rudd cast shoe L, maki tape/coban 5th toe to 4th toe Order BP 123/76 Pulse 68 Resp 18 Temp 97.8 F O2 Sat 97% (RA) Imaging R12? Dragovich? ? Brooke? 89 F? With Doctor? 3h 2m? 3-Urgent? She/Her/Hers? ?? Altered Mental Status? Weakness/AMS? ISO, ? 12/17/23 11:30? REG ER? Draft? Deanne Rudd xray if negative ambulation trial Luis Fernando (son) wants update Rachel (caregiver) [phone]..call with update Order BP 125/83 Pulse 79 Resp 16 Temp 98 F O2 Sat 97% (RA) Respirator... ?Complete B... ?Chem Lipase Sta... ?Urinalysis... EKG-12 [place]... Imaging MAR Microbiolo... [place]? Omer? ? Demarco? 22 M? With Doctor? 55m? 4-Less Urgent? Upper Respiratory Symptoms? Sore Throat, Pain, Swollen Tonsils? C19S/S? ?? 12/17/23 14:23? REG ER? No Document? Chapo Quevedo Rapid Strep NEG reg throat culture in lab if needed. Order BP 109/59 Pulse 65 Resp 16 Temp 97.7 F O2 Sat 100% (RA) Strep Grp ... zWRoom? Dunn? ? Daphney? 31 F? Registered? 10m? 3-Urgent? Abdominal Pain? Severe Abd Pain? C19S/S? ?? No Time Seen? REG ER? No Document? Sign Up Order BP 134/84 Pulse 97 Resp 18 Temp 98.6 F O2 Sat 98% (RA) MAR NPO Diet Chem Lipase Sta... Complete B... POC/ZOE zWRoom? Jarrett? ? Abiel? 89 M? Registered? 8m? No Chief Complaint? unable to void attemp. x2 to cath? No Time Seen? REG ER? No Document? Sign Up Order Imaging - CT angio head and neck; CT head/brain wo con; XR chest 1V Wilma Ji??83??F??1940 ? Allergy/Adv: etomidate, flecainide, codeine, oyster extract (More??) Close Results Imaging ACTIVITY DATE EXAM STATUS AUTHOR 12/17/23 14:00 Head/Neck CTA Signed MeridianLylye 12/17/23 12:[address] Signed Awa Neff 12/17/23 12:12 Chest X-Ray Signed Awa Neff Imaging Reports Close Head/Neck CTA (Signed) MeridianAurelio - 12/17/[address] (Signed) Awa Neff - 12/17/23 Chest X-Ray (Signed) Awa Neff - 12/17/23 Launch?Image [address] [address] [address] Scan Report Signed Patient: Wilma Ji MR#: [id number] : 1940 Acct:[id number] Age/Sex: 83 / F Date of Service: 12/17/23 Loc: ED Accession Number: [id number] Procedure: CT head/brain wo con Ordering Provider: Chapo Wilson MD PROCEDURE: CT HEAD/BRAIN WO CON INDICATIONS: possible MS flare, vs stroke vs other TECHNIQUE: Noncontrast 4.5 mm thick angled axial sections acquired from the foramen magnum to the vertex, with coronal and sagittal reformats. For radiation dose reduction, the following was used: automated exposure control, adjustment of mA and/or kV according to patient size. COMPARISON: [facility], CT, CT HEAD/BRAIN W CON, 01/17/2022, 18:39. FINDINGS: Image quality: Diagnostic. CSF spaces: Basal cisterns are patent. No extra-axial fluid collections. The ventricles are symmetric in size and shape. Brain: No intracranial bleeds or masses. There is cerebral volume loss for age, with resultant ventricular and sulcal prominence. There are periventricular and deep white matter chronic small vessel ischemic changes. There is intracranial internal carotid artery atherosclerosis. Skull and face: Calvarium and visualized facial bones appear intact, without suspicious lesions. Sinuses: Visualized sinuses and mastoids are clear. IMPRESSION: No acute intracranial pathology. Dictated by: Awa Neff MD, PhD on 12/17/2023 at 13:14 Approved by: Awa Neff MD, PhD on 12/17/2023 at 13:15 CTA head and neck: Radiologist's Impression: Close Head/Neck CTA (Signed) Aurelio Baldwin - 12/17/[address] (Signed) Awa Neff - 12/17/23 Chest X-Ray (Signed) Awa Neff - 12/17/23 Launch?Image [address] [address] [address] Scan Report Signed Patient: Wilma Ji MR#: [id number] : 1940 Acct:[id number] Age/Sex: 83 / F Date of Service: 12/17/23 Loc: ED Accession Number: [id number] Procedure: CT angio head and neck Ordering Provider: Chapo Wilson MD PROCEDURE: CT ANGIO HEAD AND NECK INDICATIONS: TIA symptoms, right face tingling, GFR ok TECHNIQUE: After the administration of intravenous contrast, 1 mm thick sections acquired from the aortic arch through the [place]. 3-dimensional oizdloj-ssrklzqij-ftptcrlrfh (MIP) and/or volume rendering reformats were acquired of the central intracranial vasculature and neck separately. For radiation dose reduction, the following was used: automated exposure control, adjustment of mA and/or kV according to patient size. COMPARISON: [facility], MR, MR HEAD/BRAIN WO/W CON, 10/06/2020, 14:38. [facility], CT, CT ANGIO HEAD AND NECK, 06/08/2020, 19:21. [facility], CT, CT ANGIO HEAD AND NECK, 02/27/2019, 13:52. [facility], CT, CT HEAD/BRAIN WO CON, 12/17/2023, 12:44. FINDINGS: Image quality: Limited by bolus timing, with venous contamination. BRAIN: CSF spaces: Ventricles are normal in size and shape. Basal cisterns are patent. No extra-axial fluid collections. Brain: No significant abnormality of the brain can be seen. Skull and face: Calvarium and facial bones appear intact, without suspicious lesions. Orbits appear normal. Sinuses: Sinuses and mastoids are clear. HEAD CT ANGIOGRAPHY: Anterior circulation: Intracranial internal carotid arteries are normal in size and flow. The flow within the paired anterior cerebral arteries is normal and symmetric. The flow within the middle cerebral arteries is normal and symmetric. The anterior communicating artery is seen. No aneurysms are seen. Posterior circulation: Visualized portions of the vertebral arteries demonstrate normal caliber, and join to form a normal appearing basilar artery. There is a prominent left posterior communicating artery seen, with an accompanying diminutive left P1 segment. This is attributed to a type origin of the right posterior cerebral artery, which is considered to be a normal developmental variant of typically no clinical consequence. The flow within the posterior cerebral arteries is normal and symmetric. No aneurysms are seen. NECK CT ANGIOGRAPHY: Carotid system: The great vessels demonstrate a conventional anatomy as they arise from the aortic arch. The origins of the common carotid arteries appear patent. The common carotid arteries demonstrate normal caliber and courses. The bifurcation regions are both widely patent. The internal carotid arteries demonstrate normal calibers and courses. Posterior circulation: The origins of the vertebral arteries both appear widely patent. The more superior extracranial portions of both vertebral arteries also demonstrate normal courses and calibers. The right vertebral artery is dominant to the left. Soft tissues: Visualized neck soft tissues demonstrate no suspicious abnormalities. Bones: No suspicious bony lesions. Visualized cervical spine appears normally aligned. IMPRESSION: No significant intracranial arterial abnormality is seen. No significant abnormality is seen within the arteries of the neck. If there is strong clinical suspicion for an acute stroke, please consider a brain MRI for further evaluation, as it is more sensitive (assuming that there is no contraindication to MRI). Additional findings: Pcwyjs-iw-Bxmjaw developmental anomalies Any quantitative measurements of stenosis were performed using NASCET criteria. Dictated by: Aurelio Baldwin M.D. on 12/17/2023 at 12:58 Approved by: Aurelio Baldwin M.D. on 12/17/2023 at 13:02 ECG Data Attestation: I personally reviewed and interpreted this ECG as follows: Interpretation: Ventricular paced rhythm, ventricular rate 63, 100% paced. QRS 146, QTC 476. MDM Narrative Medical decision making narrative: 83-year-old female with history of multiple sclerosis remote diagnosis, history of AFib on chronic Eliquis anticoagulation, pacemaker, history of Reynaldo Putnam syndrome, with recent social stressors [facility], complains of right-sided facial numbness, concerned about possible stroke. Screening EKG shows paced ventricular rhythm. Initial troponin negative. Other labs pending. CT head noncontrast study ordered. If creatinine/GFR favorable consider CTA head and neck vessels, patient believes she has kidney disease problems, we will await labs. CT head study no acute changes, see radiology report. GFR/creatinine favorable, CTA head and neck vessels ordered. CTA head and neck vessels, no significant narrowing, no thrombosis, see radiology report. We will attempt to reach her [facility] neurologist Dr. Phoenix 1430, case discussed with her neurologist Dr. Phoenix, he would like to start empiric treatment in case this is early Menezes's palsy, prednisone 60 mg and valacyclovir 1000 mg first oral doses now, prescription for further courses sent to her pharmacy. Dr. Phoenix would like to see her in follow up, relayed to patient. Further workup and follow up as an outpatient for now. Patient informed of advice from her neurologist, agreeable to this plan. Patient also wants to speak with executive secretary social welfare, wants referral for outpatient cognitive behavioral testing, resources to be given. No thoughts of hurting herself or others, denies hallucinosis, denies hearing voices. Discharged home, stable. Further workup as an outpatient for now. Return precautions discussed. Critical Care Time Critical Care Time Total Critical Care Time: 31 Attestation: The high probability of a clinically significant, sudden or life threatening deterioration of the [cardiopulmonary, cerebrovascular] systems required my full and direct attention, intervention and personal management. The aggregate critical care time was [31] minutes. This time is in addition to time spent performing reported procedures but includes the following: [x] Data Review and interpretation [x] Patient assessment and monitoring of vital signs [x] Documentation [x] Medication orders and management Discharge Plan Departure Patient Disposition: Home Clinical Impression: Tingling of face Activity Restrictions/Additional Instructions: History of multiple sclerosis, now with right-sided tingling/numbness, concern for possible stroke. History of prior pacemaker, that precludes MRI imaging. CT noncontrast study of the head and brain negative today. CT angiogram of the head and neck vessels also negative. Lab testing unremarkable. EKG showed paced rhythm as expected. You are taking chronic Eliquis anticoagulation for your history of atrial fibrillation, still taking the medication, denying any missed doses. Some decreased sensation to light touch on the right side of your face upper as well as lower. Consider early Menezes's palsy. However at this time you did not seem to have any trouble closing her right eye, or weakness to the right side of the face, which can occur with Menezes's palsy. Case was discussed with your neurologist Dr. Phoenix, who advised starting steroids and antiviral treatment for presumed early Menezes's palsy, did not think we have to do any further workup at this time, did not think we needed to use very high doses for multiple sclerosis exacerbation at this time. He would like to see you and close follow up, call his office later today for close follow up appointment. Prescriptions for further prednisone and fell acyclovir doses for 1 week supply sent to your pharmacy. Return earlier to this/nearest emergency department for any change worsening symptoms or any concerns prior Prescriptions: New prednisone 20 mg tablet 60 mg PO DAILY 7 Days Qty: 21 0RF valacyclovir 1 gram tablet 1,000 mg PO TID 7 Days Qty: 21 0RF No Action omeprazole 10 mg capsule,delayed release(DR/EC) 20 mg PO DAILY gabapentin 100 mg capsule 200 mg PO TID Qty: 90 2RF amitriptyline 25 mg tablet 25 mg PO BEDTIME Qty: 90 2RF potassium chloride 10 mEq tablet extended release 10 meq PO DAILY Qty: 90 1RF Eliquis 5 mg tablet 5 mg PO BID Qty: 180 0RF vitamin B complex Tablet 1 tab PO DAILY calcium carbonate 600 mg calcium (1,500 mg) tablet 600 mg PO DAILY furosemide [Lasix] 20 mg tablet 20 mg PO DAILY PRN (Reason: LE swelling) Qty: 30 1RF amlodipine 2.5 mg tablet 2.5 mg PO DAILY rosuvastatin 10 mg tablet 10 mg PO DAILY cyclobenzaprine 5 mg tablet 2.5 - 5 mg PO ONCE PM PRN (Reason: low back pain) Referrals: Maria Dolores Plummer ARNP [Primary Care Provider] - Stand Alone Forms: Patient Portal/API
--- NOTE | 2023-12-17 12:22 | EKG_ITS ---
[address] [address] Test Date: 2023-12-17 Pat Name: Wilma Ji Department: Room: Gender: Female Filler Operator: AIDEE : 1940 Requested By: Order Number: [id number] Reading MD: Rajiv Sanches Measurements Intervals [place] Rate: 63 P: [place]: QRS: 172 QRSD: 146 T: 61 QT: 466 QTc: 476 Interpretive Statements Ventricular-paced rhythm Biventricular pacemaker detected Electronically Signed On 12-17-2023 18:55:02 PDT by Rajiv Sanches
--- NOTE | 2023-12-17 12:23 | EKG_ITS ---
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
[2023-12-17 12:40] LABS: Add Manual Diff / Slide Review NO; Basophils Absolute Auto 0 /uL (0-100); Basophils Percent Auto 0.5 % (0-2); Eosinophils Absolute Auto 0 /uL (0-450); Eosinophils Percent Auto 0.4 % (2-4); Hematocrit 38.2 % (36-46); Hemoglobin 12.9 g/dL (12.0-16.0); Lymphocytes Absolute Auto 1800 /uL (1100-4500); Lymphocytes Percent Auto 20.6 % (25-40); Mean Corpuscular HGB Conc 33.6 % (30-36); Mean Corpuscular Hemoglobin 29.5 PG (26-34); Mean Corpuscular Volume 87.6 fL (80-100); Monocytes Absolute Auto 600 /uL (0-900); Monocytes Percent Auto 6.5 % (3-14); Neutrophils Absolute Auto 6300 /uL (1500-7000); Platelet Count 269 X10^3/uL (150-400); Red Blood Cell Count 4.36 X10^6/uL (4.0-5.2); Red Cell Distribution Width 14.3 % (11.6-14.8); White Blood Cell Count 8.7 X10^3/uL (4.5-11.0)
[2023-12-17 12:45] LABS: INR 1.3 (0.9-1.3); Prothrombin Time 14.7 SECONDS (9.4-12.5)
[2023-12-17 12:48] LABS: PTT Partial Thromboplastin Tim 46 SECONDS (25.1-36.5)
--- NOTE | 2023-12-17 12:49 | DI.CT.S_ITS ---
PROCEDURE: CT HEAD/BRAIN WO CON INDICATIONS: possible MS flare, vs stroke vs other TECHNIQUE: Noncontrast 4.5 mm thick angled axial sections acquired from the foramen magnum to the vertex, with coronal and sagittal reformats. For radiation dose reduction, the following was used: automated exposure control, adjustment of mA and/or kV according to patient size. COMPARISON: [facility], CT, CT HEAD/BRAIN W CON, 01/17/2022, 18:39. FINDINGS: Image quality: Diagnostic. CSF spaces: Basal cisterns are patent. No extra-axial fluid collections. The ventricles are symmetric in size and shape. Brain: No intracranial bleeds or masses. There is cerebral volume loss for age, with resultant ventricular and sulcal prominence. There are periventricular and deep white matter chronic small vessel ischemic changes. There is intracranial internal carotid artery atherosclerosis. Skull and face: Calvarium and visualized facial bones appear intact, without suspicious lesions. Sinuses: Visualized sinuses and mastoids are clear. IMPRESSION: No acute intracranial pathology. Dictated by: Awa Neff MD, PhD on 12/17/2023 at 13:14 Approved by: Awa Neff MD, PhD on 12/17/2023 at 13:15
[2023-12-17 12:52] LABS: Alanine Aminotransferase 25 IU/L (<35); Albumin 4.9 g/dL (3.5-5.0); Albumin Globulin Ratio 1.6 (1.0-2.8); Alkaline Phosphatase 79 U/L (38-126); Aspartate Aminotransferase 41 IU/L (14-36); BUN Creatinine Ratio 21.9 (6-22); Bilirubin Total 0.8 mg/dL (0.2-1.3); Blood Urea Nitrogen 21 mg/dL (7-17); Calcium 9.9 mg/dL (8.4-10.2); Carbon Dioxide 23 mmol/L (22-32); Chloride 104 mmol/L (98-107); Creatine Kinase 310 U/L (30-135); Estimated Glomerular Filt Rate 59 mL/min (>60); Globulin 3.1 g/dL (1.7-4.1); Glucose 115 mg/dL (80-110); HEMOLYSIS < 15 (0-50); Lipase 97 U/L (23-300); Magnesium 2.1 mg/dL (1.6-2.3); Potassium 4.4 mmol/L (3.4-5.1); Sodium 139 mmol/L (137-145)
[2023-12-17 13:04] LABS: NT-proBNP (BNP-Adult 18+) 3120 pg/mL (<450); Troponin I < 0.012 ng/mL (0.01-0.034)
[2023-12-17] MEDS: SODIUM CHLORIDE 0.9% 1,000 ML 500 ML IV (13:50)
--- NOTE | 2023-12-17 14:00 | DI.CT.S_ITS ---
PROCEDURE: CT ANGIO HEAD AND NECK INDICATIONS: TIA symptoms, right face tingling, GFR ok TECHNIQUE: After the administration of intravenous contrast, 1 mm thick sections acquired from the aortic arch through the [place]. 3-dimensional xlkjudn-jjzvgqebs-fgutgokvbp (MIP) and/or volume rendering reformats were acquired of the central intracranial vasculature and neck separately. For radiation dose reduction, the following was used: automated exposure control, adjustment of mA and/or kV according to patient size. COMPARISON: [facility], MR, MR HEAD/BRAIN WO/W CON, 10/06/2020, 14:38. [facility], CT, CT ANGIO HEAD AND NECK, 06/08/2020, 19:21. [facility], CT, CT ANGIO HEAD AND NECK, 02/27/2019, 13:52. [facility], CT, CT HEAD/BRAIN WO CON, 12/17/2023, 12:44. FINDINGS: Image quality: Limited by bolus timing, with venous contamination. BRAIN: CSF spaces: Ventricles are normal in size and shape. Basal cisterns are patent. No extra-axial fluid collections. Brain: No significant abnormality of the brain can be seen. Skull and face: Calvarium and facial bones appear intact, without suspicious lesions. Orbits appear normal. Sinuses: Sinuses and mastoids are clear. HEAD CT ANGIOGRAPHY: Anterior circulation: Intracranial internal carotid arteries are normal in size and flow. The flow within the paired anterior cerebral arteries is normal and symmetric. The flow within the middle cerebral arteries is normal and symmetric. The anterior communicating artery is seen. No aneurysms are seen. Posterior circulation: Visualized portions of the vertebral arteries demonstrate normal caliber, and join to form a normal appearing basilar artery. There is a prominent left posterior communicating artery seen, with an accompanying diminutive left P1 segment. This is attributed to a type origin of the right posterior cerebral artery, which is considered to be a normal developmental variant of typically no clinical consequence. The flow within the posterior cerebral arteries is normal and symmetric. No aneurysms are seen. NECK CT ANGIOGRAPHY: Carotid system: The great vessels demonstrate a conventional anatomy as they arise from the aortic arch. The origins of the common carotid arteries appear patent. The common carotid arteries demonstrate normal caliber and courses. The bifurcation regions are both widely patent. The internal carotid arteries demonstrate normal calibers and courses. Posterior circulation: The origins of the vertebral arteries both appear widely patent. The more superior extracranial portions of both vertebral arteries also demonstrate normal courses and calibers. The right vertebral artery is dominant to the left. Soft tissues: Visualized neck soft tissues demonstrate no suspicious abnormalities. Bones: No suspicious bony lesions. Visualized cervical spine appears normally aligned. IMPRESSION: No significant intracranial arterial abnormality is seen. No significant abnormality is seen within the arteries of the neck. If there is strong clinical suspicion for an acute stroke, please consider a brain MRI for further evaluation, as it is more sensitive (assuming that there is no contraindication to MRI). Additional findings: Ttymak-bj-Cznzvs developmental anomalies Any quantitative measurements of stenosis were performed using NASCET criteria. Dictated by: Aurelio Baldwin M.D. on 12/17/2023 at 12:58 Approved by: Aurelio Baldwin M.D. on 12/17/2023 at 13:02
[2023-12-17 14:30] LABS: Bacteria Urine None Seen; Culture Indicated Urine Cult Not Indicated; RBC Urine 0-1/HPF (0-5/HPF); Squamous Epithelial Cell Urine None Seen (0-5/HPF); Urine Volume 10mL (spun); WBC Urine 0-1/HPF (0-5/HPF)
[2023-12-17] MEDS: valACYclovir 500 MG TABLET 1000 MG PO (15:10)
[2023-12-17] MEDS: predniSONE 20 MG TABLET 60 MG PO (15:10)
--- NOTE | 2023-12-17 15:14 | CM.SWNOTE ---
ED SQL SERVER DEVELOPER Note Patient is 83 y/o female who resides at [facility] who presents to ED due to concern for right sided facial numbness concerned about stroke. 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 Patient endorses that she has also been caring for her aging cat and difficulty managing time to take care of her own self care needs. 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 Patient endorses hx of CBT therapy in the past that she has found helpful and requested SQL SERVER DEVELOPER consult for resources in outpatient MH providers. Patient endorses she has been looking at psychology today for MH providers, SQL SERVER DEVELOPER provides patient with list of providers who take patient's insurance. 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 SQL SERVER DEVELOPER discusses the importance of self care and encourages patient to f/u with seeking MH provider. Plan: patient to d/c to home upon medical clearance with outpatient f/u, patient to f/u with resources provided. KIMI Ramos
== END 2023-12-17 15:25 | disposition home or self-care (01) ==
PROVIDERS: Emergency Medicine; Emergency Provider Emergency Medicine; PCP Nurse Practitioner
DX: R20.2 Paresthesia of skin (principal); R07.9 Chest pain, unspecified; G35 Multiple sclerosis; R79.89 Other specified abnormal findings of blood chemistry; I48.91 Unspecified atrial fibrillation; Z79.01 Long term (current) use of anticoagulants; Z79.899 Other long term (current) drug therapy; Z95.0 Presence of cardiac pacemaker
CPT/HCPCS: 36415; 70450; 70496; 70498; 71045; 80053; 81003; 81015; 82550; 83690; 83735; 83880; 84484; 85025; 85610; 85730; 93005; 96360; 99284; Q9967

== ENCOUNTER 2023-12-27 16:07 | Inpatient (IN) | payer MEDICARE, SELFPAY ==
[2023-02-18 10:57] VITALS: BMI 28.0
[2023-12-27 16:13] VITALS: BP 197/72; PULSE 60; RESP 16; TEMP 37.1; O2SAT 98; BMI 26.2
--- NOTE | 2023-12-27 18:43 | ED_ITS ---
HPI - Neuro Symptoms/Deficit General Chief Complaint: Neuro Symptoms/Deficit Stated Complaint: needs 3 day drip, sent by neuro Time Seen by Provider: 12/27/23 17:39 History of Present Illness HPI Narrative: Patient is a 83-year-old female history of MS followed by Neurology Dr. Phoenix, pacemaker secondary to bradycardia, paroxysmal atrial fibrillation on Eliquis presenting today the request of her neurologist for MS flare admission and 3 days of Solu-Medrol. I have spoken with Dr. Phoenix myself. Patient was seen evaluated here on 12/17/2023 initially thought that she might be having the beginning of Menezes's palsy. She was having some right-sided facial numbness which she still reports she is having. She reports that she can still tell a difference reading through her nostrils of the right side is more numb than the left. She had a full stroke workup but no MRI secondary to pacemaker and neurology was contacted. She was started on valacyclovir and prednisone. She followed up with Neurology this week, her symptoms have not improved and he center the ED today for admission for IV Solu-Medrol On Anticoagulants: No Related Data Home Medications Medication Instructions Recorded Confirmed omeprazole 10 mg capsule,delayed 20 mg PO DAILY 05/09/20 12/27/23 release amlodipine 2.5 mg tablet 2.5 mg PO DAILY 11/15/22 12/27/23 rosuvastatin 10 mg tablet 10 mg PO DAILY 11/15/22 12/27/23 calcium carbonate 600 mg PO DAILY 02/18/23 12/27/23 furosemide 20 mg tablet 20 mg PO DAILY 12/27/23 12/27/23 metoprolol succinate 25 mg 25 mg PO DAILY 12/27/23 12/27/23 tablet,extended release 24 hr Previous Rx's Medication Instructions Recorded gabapentin 100 mg capsule 200 mg (2 x 100 mg) PO TID #90 caps 06/27/23 amitriptyline 25 mg tablet 25 mg PO BEDTIME #90 tabs 07/22/23 Eliquis 5 mg tablet (apixaban) 5 mg PO BID #180 tabs 12/26/23 Allergies Allergy/AdvReac Type Severity Reaction Status Date / Time etomidate Allergy Seizure Verified 12/20/23 12:08 flecainide AdvReac Severe Unresponsiv Verified 12/20/23 12:08 e codeine [CODEINE] AdvReac Unknown Vomiting Verified 12/20/23 12:08 oyster extract AdvReac Diarrhea Verified 12/20/23 12:08 Review of Systems Hematologic/Lymphatic On Anticoagulants: No Patient History Medical History (Updated 12/27/23 @ 20:07 by Yomaira Abdul DO) Seizure Myofascial pain Anemia Lumbar radiculopathy Right shoulder pain Osteoarthritis of right hip Lumbar spondylosis Wears glasses Anxiety (~1974) Myoclonus Restless leg syndrome Peripheral neuropathy Hip pain Osteopenia Foot pain Chronic back pain (~2021) Salmonella typhi (~1966) Mumps (~1947) Measles (~1947) Chicken pox (~1947) Tinnitus Hearing loss (~2016) Cataracts, bilateral (~2017) GERD (gastroesophageal reflux disease) Hypertension (~2018) Cardiac arrhythmia Pulmonary nodule Persistent atrial fibrillation Raynaud disease (~2017) Current use of mcc anticoagulation Rheumatoid arthritis Multiple sclerosis Sjogren's disease (~1999) Surgical History History of cardioversion (~2021) Anesthesia S/P placement of cardiac pacemaker (~06/08/21) S/P ablation of atrial fibrillation (~2019) History of foot surgery History of hysterectomy (~1992) Family History Father Cardiomyopathy Diabetes mellitus Alzheimer's dementia Hypertension Mother Cancer Brother Coronary artery disease Hx of CABG Grandfather Cancer Grandmother Stroke Grandfather Accident Grandmother History of heart disease Social History marital status: unknown household members: none lives independently: Yes pets and animals: Yes occupational status: previously employed Smoking Status: Former smoker alcohol intake: current substance use type: does not use Smoking Status: Former smoker alcohol intake frequency: a few times a month Substance Use Type: does not use Exam Initial Vital Signs Initial Vital Signs: Vital Signs Temperature 98.7 F 12/27/23 16:13 Pulse Rate 60 12/27/23 16:13 Respiratory Rate 16 12/27/23 16:13 Blood Pressure 197/72 H 12/27/23 16:13 Pulse Oximetry 98 12/27/23 16:13 Oxygen Delivery Method Room Air 12/27/23 16:13 GENERAL: Alert very pleasant 83-year-old female HEENT: Head atraumatic,EOMI, pupils reactive, face symmetric, [moist] mucous membranes CARDIOVASCULAR: Regular rate and rhythm without murmurs, rubs or gallops. RESPIRATORY: Breath sounds equal bilaterally, no wheezes rales or rhonchi. ABDOMEN: Soft, nontender. Normoactive bowel sounds all 4 quadrants. No guarding or rebound. EXTREMITIES: Normal range of motion, no clubbing or edema. Neurovascularly intact NEUROLOGICAL: Alert and oriented x4.Normal gait and speech. Cranial nerves II through XII grossly intact. Face is symmetric without facial droop able to close eyes decreased sensation right lower face SKIN: Warm, dry, no laceration, no petechiae, no rashes or lesions. Course Orders Ordered: ED Orders 12/27/23 19:40 CBC Auto Diff [Complete Blood Count AUTO DIFF] Stat CMP [Comprehensive Metabolic Panel] Stat Acetaminophen (Acetaminophen 325 Mg Tablet) 650 mg PO Q6H PRN PRN Reason: Fever/Mild Pain (1-3) Amitriptyline HCl (Amitriptyline 25 Mg Tablet) 50 mg PO BEDTIME AWILDA Last Admin: 12/27/23 22:21 Dose: 50 mg Documented By: MP Amlodipine Besylate (Amlodipine 5 Mg Tablet) 2.5 mg PO DAILY AWILDA Apixaban (Apixaban 5 Mg Tablet) 5 mg PO BID AWILDA Atorvastatin Calcium (Atorvastatin 20 Mg Tablet) 20 mg PO DAILY AWILDA Calcium Carbonate (Calcium Carbonate 500 Mg Tab) 1,000 mg PO Q4HR PRN PRN Reason: Dyspepsia Gabapentin (Gabapentin 100 Mg Capsule) 200 mg PO TID AWILDA Methylprednisolone 1,000 mg/ (Sodium Chloride) 250 mls @ 500 mls/hr IV DAILY AWILDA Lorazepam (Lorazepam 0.5 Mg Tablet) 0.5 mg PO Q6HR PRN PRN Reason: Anxiety Naloxone HCl (Naloxone 0.4 Mg/Ml Vial) 0.2 mg IV Q2MIN PRN PRN Reason: Opiate Reversal Pantoprazole Sodium (Pantoprazole Dr 20 Mg Tablet) 20 mg PO DAILY AWILDA Sodium Chloride (Sodium Chloride 0.9% Flush) 10 ml IV PRN PRN PRN Reason: Flush Sodium Chloride (Sodium Chloride 0.9% Flush) 10 ml IV BID AWILDA Discontinued Medications Methylprednisolone 1,000 mg/ (Sodium Chloride) 250 mls @ 250 mls/hr IV NOW ONE Stop: 12/27/23 19:04 Last Infusion: 12/27/23 21:08 Dose: Infused Documented By: Admin: 12/27/23 19:57 Dose: 250 mls/hr Documented By: AWAIS Methylprednisolone (Methylprednisolone 125 Mg/2 Ml Vial) 1,000 mg IV DAILY AWILDA Vital Signs Vital signs: Vital Signs - 8 hr 12/27/23 16:13 Temperature 98.7 F Pulse Rate 60 Respiratory Rate 16 Blood Pressure 197/72 H Pulse Oximetry 98 Oxygen Delivery Method Room Air MDM - Neuro Symptoms/Deficit Lab Data 12/27/23 19:40 12/27/23 19:40 Labs: Lab Results 12/27/23 Range/Units 19:40 WBC 11.8 H (4.5-11.0) X10^3/uL RBC 4.45 (4.0-5.2) X10^6/uL Hgb 13.1 (12.0-16.0) g/dL Hct 38.9 (36-46) % MCV 87.4 (80-100) fL MCH 29.5 (26-34) PG MCHC 33.8 (30-36) % RDW 14.4 (11.6-14.8) % Plt Count 303 (150-400) X10^3/uL Neut % (Auto) 70.5 (50-75) % Lymph % (Auto) 22.8 L (25-40) % [place] % (Auto) 5.6 (3-14) % Eos % (Auto) 0.7 L (2-4) % Baso % (Auto) 0.4 (0-2) % Neut # (Auto) 8300 H (3921-2239) /uL Lymph # (Auto) 2700 (5836-2388) /uL [place] # (Auto) 700 (0-900) /uL Eos # (Auto) 100 (0-450) /uL Baso # (Auto) 0 (0-100) /uL Sodium 134 L (137-145) mmol/L Potassium 4.4 (3.4-5.1) mmol/L Chloride 102 (98-107) mmol/L Carbon Dioxide 27 (22-32) mmol/L BUN 24 H (7-17) mg/dL Creatinine 0.93 (0.52-1.04) mg/dL Estimated GFR > 60 (>60) mL/min BUN/Creatinine Ratio 25.8 H (6-22) Glucose 134 H (80-110) mg/dL Calcium 8.7 (8.4-10.2) mg/dL Total Bilirubin 0.8 (0.2-1.3) mg/dL AST 36 (14-36) IU/L ALT 31 (<35) IU/L Alkaline Phosphatase 54 (38-126) U/L Total Protein 6.8 (6.3-8.2) g/dL Albumin 3.9 (3.5-5.0) g/dL Globulin 2.9 (1.7-4.1) g/dL Albumin/Globulin Ratio 1.3 (1.0-2.8) MDM Narrative Medical decision making narrative: Patient 83-year-old female history of pacemaker bradycardia paroxysmal atrial fibrillation on Eliquis multiple sclerosis presenting today with multiple sclerosis exacerbation. She was seen a few days ago initially thought having a Menezes's palsy however she has no facial droop or eye issue but does have numbness on the right side of her face. She says she can tell a difference between each nostril. This is how her previous MS flares have come about in a patchy pattern. It was recommended by Neurology that she have Solu-Medrol 1000 mg for 3 days, and MRI with and without contrast of brain and cervical spine. Unfortunately patient has a pacemaker in his not an MRI candidate here. She did receive 1000 mg Solu-Medrol in the ED she actually reports improvement in the numbness in her face. Blood work has been reviewed WBC mild leukocytosis of 11.8 thought secondary to be to prednisone not infection CMP creatinine 0.93 sodium is 134 no other significant abnormalities 2144 Dr. Norwood accepts patient, or patient can not have an MRI no need to transfer at this time we will go ahead and treat with Solu-Medrol Discharge Plan Departure Patient Disposition: Admitted As Inpatient Clinical Impression: Multiple sclerosis exacerbation Admit Date/Time: 12/27/23 21:44 Admit Provider: Michael Norwood
[2023-12-27 19:49] LABS: Add Manual Diff / Slide Review NO; Basophils Absolute Auto 0 /uL (0-100); Basophils Percent Auto 0.4 % (0-2); Eosinophils Absolute Auto 100 /uL (0-450); Eosinophils Percent Auto 0.7 % (2-4); Hematocrit 38.9 % (36-46); Hemoglobin 13.1 g/dL (12.0-16.0); Lymphocytes Absolute Auto 2700 /uL (1100-4500); Lymphocytes Percent Auto 22.8 % (25-40); Mean Corpuscular HGB Conc 33.8 % (30-36); Mean Corpuscular Hemoglobin 29.5 PG (26-34); Mean Corpuscular Volume 87.4 fL (80-100); Monocytes Absolute Auto 700 /uL (0-900); Monocytes Percent Auto 5.6 % (3-14); Neutrophils Absolute Auto 8300 /uL (1500-7000); Neutrophils Percent Auto 70.5 % (50-75); Platelet Count 303 X10^3/uL (150-400); Red Blood Cell Count 4.45 X10^6/uL (4.0-5.2); Red Cell Distribution Width 14.4 % (11.6-14.8); White Blood Cell Count 11.8 X10^3/uL (4.5-11.0)
[2023-12-27] MEDS: methylPREDNISolone 1,000 MG in SODIUM CHLORIDE 0.9% 250 ML 250 MG IV (19:57)
[2023-12-27 20:05] LABS: Alanine Aminotransferase 31 IU/L (<35); Albumin 3.9 g/dL (3.5-5.0); Albumin Globulin Ratio 1.3 (1.0-2.8); Alkaline Phosphatase 54 U/L (38-126); Aspartate Aminotransferase 36 IU/L (14-36); BUN Creatinine Ratio 25.8 (6-22); Bilirubin Total 0.8 mg/dL (0.2-1.3); Blood Urea Nitrogen 24 mg/dL (7-17); Calcium 8.7 mg/dL (8.4-10.2); Carbon Dioxide 27 mmol/L (22-32); Chloride 102 mmol/L (98-107); Estimated Glomerular Filt Rate > 60 mL/min (>60); Globulin 2.9 g/dL (1.7-4.1); Glucose 134 mg/dL (80-110); Potassium 4.4 mmol/L (3.4-5.1); Sodium 134 mmol/L (137-145); Total Protein 6.8 g/dL (6.3-8.2)
[2023-12-27 20:09] LABS: HEMOLYSIS 66 (0-50)
--- NOTE | 2023-12-27 21:51 | PM.HP.1 ---
History of Present Illness History of Present Illness Date Patient Seen: 12/28/23 Time Patient Seen: 07:43 Chief complaint: needs 3 day drip, sent by neuro Narrative: 83-year-old female comes in today to the hospital sent by her neurologist for concerns of flare-up of MS and recommended IV steroids. Patient had a diagnosis of MS in her 30s was diagnosed by lumbar spine puncture with appropriate protein diagnosis. Patient states she has not had a flare-up since that time. She feels like she is currently having a flare-up of her MS. She was seen and evaluated in the emergency department here week so ago was seen by a primary care physician and also the neurologist. Nonetheless she is here. Her current symptoms states that she has brain fogginess significant fatigue flashes of nerve sensation in her arms across her back. With lead pipe weakness in her legs. She does not have any particular loss of strength or muscle weakness. Patient has no bladder symptoms. The recommendation of her neurologist who is given 1 dose of steroids in the emergency department they had recommended her have an MRI unfortunately patient has a pacemaker which is unable to be MRI here at our organization. Patient was admitted for further IV steroids and monitoring of her symptoms. Patient states last evening or symptoms went away there back a little bit this morning. She is tolerating the IV steroids without difficulty. She is eating. She is ambulating well. She has good historian. Patient also has a history of atrial fibrillation with previous cardioversions which required ultimately a pacemaker. She is on Eliquis for this as well as metoprolol. Patient is on a statin medication as well. She has some mild anxiety and uses gabapentin and amitriptyline at bedtime. Her laboratory tests were reviewed has mild elevation of white blood cell count mildly low sodium normal liver function tests. Recent neuro imaging of head and neck CTA with head CT shows no intracranial lesions or significant pathology. EKG shows pacemaker with normal sinus rhythm. [facility] Medical History (Updated 12/27/23 @ 20:07 by Yomaira Abdul DO) Seizure Myofascial pain Anemia Lumbar radiculopathy Right shoulder pain Osteoarthritis of right hip Lumbar spondylosis Wears glasses Anxiety (~1974) Myoclonus Restless leg syndrome Peripheral neuropathy Hip pain Osteopenia Foot pain Chronic back pain (~2021) Salmonella typhi (~1966) Mumps (~1947) Measles (~1948) Chicken pox (~194) Tinnitus Hearing loss (~2016) Cataracts, bilateral (~2018) GERD (gastroesophageal reflux disease) Hypertension (~2018) Cardiac arrhythmia Pulmonary nodule Persistent atrial fibrillation Raynaud disease (~2017) Current use of detention anticoagulation Rheumatoid arthritis Multiple sclerosis Sjogren's disease (~1999) Surgical History History of cardioversion (~2021) Anesthesia S/P placement of cardiac pacemaker (~06/08/21) S/P ablation of atrial fibrillation (~2019) History of foot surgery History of hysterectomy (~1992) Family History Father Cardiomyopathy Diabetes mellitus Alzheimer's dementia Hypertension Mother Cancer Brother Coronary artery disease Hx of CABG Grandfather Cancer Grandmother Stroke Grandfather Accident Grandmother History of heart disease Social History marital status: unknown household members: none lives independently: Yes pets and animals: Yes occupational status: previously employed Smoking Status: Former smoker alcohol intake: current substance use type: does not use Meds Home Medications and Allergies Home Medications Medication Instructions Recorded Confirmed Type omeprazole 10 mg capsule,delayed 20 mg PO DAILY 05/09/20 12/27/23 History release amlodipine 2.5 mg tablet 2.5 mg PO DAILY 11/15/22 12/27/23 History rosuvastatin 10 mg tablet 10 mg PO DAILY 11/15/22 12/27/23 History calcium carbonate 600 mg PO DAILY 02/18/23 12/27/23 History gabapentin 100 mg capsule 200 mg (2 x 100 mg) PO TID #90 caps 06/27/23 12/27/23 Rx amitriptyline 25 mg tablet 25 mg PO BEDTIME #90 tabs 07/22/23 12/27/23 Rx Eliquis 5 mg tablet (apixaban) 5 mg PO BID #180 tabs 12/26/23 12/27/23 Rx furosemide 20 mg tablet 20 mg PO DAILY 12/27/23 12/27/23 History metoprolol succinate 25 mg 25 mg PO DAILY 12/27/23 12/27/23 History tablet,extended release 24 hr Allergies Allergy/AdvReac Type Severity Reaction Status Date / Time etomidate Allergy Seizure Verified 12/20/23 12:08 flecainide AdvReac Severe Unresponsiv Verified 12/20/23 12:08 e codeine [CODEINE] AdvReac Unknown Vomiting Verified 12/20/23 12:08 oyster extract AdvReac Diarrhea Verified 12/20/23 12:08 Exam Vital Signs (past 8 hours): - 12/27/23 16:13 Temperature 98.7 F Pulse Rate 60 Respiratory Rate 16 Blood Pressure 197/72 H Pulse Oximetry 98 Oxygen Delivery Method Room Air Oxygen Delivery Method Room Air Narrative Exam Narrative: Gen.: Alert good historian HEENT: Pupils equal round and reactive Cardio: S1-S2 systolic murmur present Respiratory: Normal respiratory effort Abdomen: [Soft nontender no rebound or guarding no liver spleen enlargement no appreciable hernias] Extremities: [Full range of motion no appreciable weakness no cyanosis or edema.] Neurologic: Do not appreciate any focal weaknesses or decreased strength. Sensation appears to be intact. Objective Labs 12/27/23 19:40 12/27/23 19:40 Labs: Laboratory Results - last 24 hr 12/27/23 19:40 WBC 11.8 H RBC 4.45 Hgb 13.1 Hct 38.9 MCV 87.4 MCH 29.5 MCHC 33.8 RDW 14.4 Plt Count 303 Neut % (Auto) 70.5 Lymph % (Auto) 22.8 L [place] % (Auto) 5.6 Eos % (Auto) 0.7 L Baso % (Auto) 0.4 Neut # (Auto) 8300 H Lymph # (Auto) 2700 [place] # (Auto) 700 Eos # (Auto) 100 Baso # (Auto) 0 Sodium 134 L Potassium 4.4 Chloride 102 Carbon Dioxide 27 BUN 24 H Creatinine 0.93 Estimated GFR > 60 BUN/Creatinine Ratio 25.8 H Glucose 134 H Calcium 8.7 Total Bilirubin 0.8 AST 36 ALT 31 Alkaline Phosphatase 54 Total Protein 6.8 Albumin 3.9 Globulin 2.9 Albumin/Globulin Ratio 1.3 Assessment & Plan Assessment and plan (1) Multiple sclerosis exacerbation: Status: Acute (2) Paroxysmal atrial fibrillation: Status: Acute Plan Multiple sclerosis. Patient with transient neurological symptoms concerning for flare-up of MS. Patient had MS diagnosed in the 30s that was the last time she has had any previous diagnosis. Neurologist recommended evaluation in the hospital with IV steroids and potential MRI. MRI is not able to be done because of patient's pacemaker. CT and CT angiogram are normal. Will proceed with a 3 day course of IV steroids of 1000 mg of Solu-Medrol. We will monitor closely for neurological symptoms. In lieu of her recent normal CT scan findings she may need a receive an MRI as an outpatient due to her pacemaker for better delineation of her symptoms. This does not appear to be a CVA as her CT is normal. She is on appropriate neurologic prophylaxis with a statin blood pressure control she is anticoagulated with Eliquis currently. I do not know that I would place her on an aspirin at this time as her diagnosis of MS flare or other neurological complication is yet to be discovered. Atrial fibrillation patient is in normal sinus rhythm at this time heart rates well controlled. Will continue with Eliquis. Sick sinus syndrome. Patient had an ablation of her atrial fibrillation required a pacemaker afterwards. She has pacemaker spikes on her EKG. Hypertension patient will be continued on her amlodipine and metoprolol Anxiety. Patient will be given her nightly dose of amitriptyline which she takes. DVT prophylaxis patient on Eliquis Disposition and plan 3 doses of IV steroids monitor neurological symptoms change code status to DNR. Patient will be discharged after IV steroids will need further workup with MRI as an outpatient Time-Based Coding :: [TOTAL MINUTES] spent with patient and on the chart (including review of chart, obtaining history, exam, reviewing outside data, placing orders, documenting exam and treatment plan, and counseling patient) on [DATE].
[2023-12-27 22:14] VITALS: BMI 26.2
[2023-12-27] MEDS: AMITRIPTYLINE 25 MG TABLET 50 MG PO (22:21)
--- NOTE | 2023-12-27 22:23 | PC.NURSE ---
Pt. admitted to room 210 @ 2209. Oriented to her room, encouraged to call for assistance if she needed to get OOB to the bathroom. Ambulated to the bathroom with SBA & reported I finally got a feeling to my feet . Will continue plan of care & monitor.
[2023-12-27 23:00] VITALS: BP 158/66; PULSE 68; RESP 18; TEMP 35.8; O2SAT 100
[2023-12-28 08:00] VITALS: BP 126/71; PULSE 67; RESP 16; TEMP 36.2; O2SAT 99
[2023-12-28] MEDS: APIXABAN 5 MG TABLET PO ×2 (10:05→20:39)
[2023-12-28] MEDS: PANTOPRAZOLE DR 20 MG TABLET PO (10:05)
[2023-12-28] MEDS: AMLODIPINE 5 MG TABLET 2.5 MG PO (10:05)
[2023-12-28] MEDS: SODIUM CHLORIDE 0.9% FLUSH 10 ML IV ×2 (10:06→20:40)
[2023-12-28 10:32] VITALS: BP 126/71; PULSE 67
[2023-12-28] MEDS: methylPREDNISolone 1,000 MG in SODIUM CHLORIDE 0.9% 250 ML 500 MG IV (10:32)
[2023-12-28] MEDS: METOPROLOL ER 25 MG TABLET PO (10:32)
--- NOTE | 2023-12-28 12:49 | CM.DANOTE ---
Initial DCP Assessment Visit Note Reviewed EMR and team rounds for status updates. Met with pt at bedside to introduce self and role, pt was found to be alert/oriented and able to discuss her questions and plan for discharge back to [facility] once she's completed her 3-day course of Solu-Medrol for her MS flare. She states that she does have friends who will plan to transport her at time of discharge. Payor: [employer] PCP: Dr. Nieves Pt is a 83 year-old F receiving day-2 of her Solu-Medrol treatment for a new MS flare. She has a Hx of MS followed by OP Neurology, has a pacemaker and hx of Afib (on Eliquis). She was sent to the ED from her Neurologist due to MS flare and need for the 3-days infusion treatments. She was initially dx with MS in her 30's, and has never had another flare since that time until now. In meeting with her, she attributes this to stress. This MANAGER OB did provide information as to how to access private OP psychotherapy for her anxiety, per her request. She does not identify any further assistance needs for d/c at this time. DCP will continue to follow and assist with any further evolving needs prior to d/c. Discharge Planning/Care Management CM Discharge Assessment Start: 12/28/23 12:45 Freq: Status: Active Protocol: Document 12/28/23 12:46 DPL (Rec: 12/28/23 12:49 DPL [id number]) Discharge Planning Assessment Assigned Nick Setter ARIA Gordillo Advance Directives? No Advance Directives on File No History Provided By Patient,Medical Record Has Patient been admitted in last 30 No days? Prior Living Arrangements Assisted Living Household Members none Type of transporation used prior to Relies on Others admit Facility Name Admitted From: [facility] Willing to Return to Facility? Yes Independent with ADL's Yes Is patient alert and oriented? Yes Caregiver for Another No Comment No identified needs at this time. Barriers to Discharge No Discharge Plan Home Transportation Arrangement Friend to transport Referrals Initiated None needed Additional Comment At this time, PT pending Whiteboard Updated in Patient Room with Yes name and ext. # of Nick Setter Review Status In Process Please Provide Date Initial DC 12/28/23 Assessment Was Performed
[2023-12-28 17:00] VITALS: BP 130/62; PULSE 61; RESP 16; TEMP 36.3; O2SAT 98
[2023-12-28] MEDS: GABAPENTIN 100 MG CAPSULE 200 MG PO (18:38)
[2023-12-28 20:00] VITALS: BP 156/88; PULSE 61; RESP 18; TEMP 37; O2SAT 96
[2023-12-28] MEDS: AMITRIPTYLINE 25 MG TABLET 50 MG PO (20:39)
[2023-12-28] MEDS: ATORVASTATIN 20 MG TABLET PO (20:39)
[2023-12-28] MEDS: CALCIUM CARBONATE 500 MG TAB 1000 MG PO (21:16)
[2023-12-29 06:22] LABS: Add Manual Diff / Slide Review NO; Basophils Absolute Auto 0 /uL (0-100); Eosinophils Absolute Auto 0 /uL (0-450); Hematocrit 37.2 % (36-46); Hemoglobin 12.4 g/dL (12.0-16.0); Lymphocytes Absolute Auto 1000 /uL (1100-4500); Lymphocytes Percent Auto 4.6 % (25-40); Mean Corpuscular HGB Conc 33.2 % (30-36); Mean Corpuscular Hemoglobin 29.4 PG (26-34); Mean Corpuscular Volume 88.4 fL (80-100); Monocytes Absolute Auto 400 /uL (0-900); Monocytes Percent Auto 1.9 % (3-14); Neutrophils Absolute Auto 20700 /uL (1500-7000); Neutrophils Percent Auto 93.5 % (50-75); Platelet Count 302 X10^3/uL (150-400); Red Blood Cell Count 4.21 X10^6/uL (4.0-5.2); Red Cell Distribution Width 14.6 % (11.6-14.8); White Blood Cell Count 22.1 X10^3/uL (4.5-11.0)
[2023-12-29 06:40] LABS: BUN Creatinine Ratio 36.7 (6-22); Blood Urea Nitrogen 29 mg/dL (7-17); Calcium 8.9 mg/dL (8.4-10.2); Carbon Dioxide 23 mmol/L (22-32); Chloride 100 mmol/L (98-107); Estimated Glomerular Filt Rate > 60 mL/min (>60); Glucose 155 mg/dL (80-110); HEMOLYSIS 20 (0-50); Sodium 131 mmol/L (137-145)
[2023-12-29 08:00] VITALS: BP 130/56; PULSE 60; RESP 16; TEMP 36.2; O2SAT 98
--- NOTE | 2023-12-29 09:21 | PM.DS.1 ---
History of Present Illness History of Present Illness Chief complaint: needs 3 day drip, sent by neuro Narrative: 83-year-old female comes in today to the hospital sent by her neurologist for concerns of flare-up of MS and recommended IV steroids. Patient had a diagnosis of MS in her 30s was diagnosed by lumbar spine puncture with appropriate protein diagnosis. Patient states she has not had a flare-up since that time. She feels like she is currently having a flare-up of her MS. She was seen and evaluated in the emergency department here week so ago was seen by a primary care physician and also the neurologist. Nonetheless she is here. Her current symptoms states that she has brain fogginess significant fatigue flashes of nerve sensation in her arms across her back. With lead pipe weakness in her legs. She does not have any particular loss of strength or muscle weakness. Patient has no bladder symptoms. The recommendation of her neurologist who is given 1 dose of steroids in the emergency department they had recommended her have an MRI unfortunately patient has a pacemaker which is unable to be MRI here at our organization. Patient was admitted for further IV steroids and monitoring of her symptoms. Patient states last evening or symptoms went away there back a little bit this morning. She is tolerating the IV steroids without difficulty. She is eating. She is ambulating well. She has good historian. Patient also has a history of atrial fibrillation with previous cardioversions which required ultimately a pacemaker. She is on Eliquis for this as well as metoprolol. Patient is on a statin medication as well. She has some mild anxiety and uses gabapentin and amitriptyline at bedtime. Her laboratory tests were reviewed has mild elevation of white blood cell count mildly low sodium normal liver function tests. Recent neuro imaging of head and neck CTA with head CT shows no intracranial lesions or significant pathology. EKG shows pacemaker with normal sinus rhythm. Discharge Providers Provider Date of admission: 12/27/23 21:44 Discharge Date: 12/29/23 Primary care physician: Michael Nieves MD Discharge provider: Michael Norwood MD Summary Hospital Course Discharge Diagnosis: Multiple sclerosis with acute exacerbation Atrial fibrillation and normal sinus rhythm with chronic anticoagulation Sick sinus syndrome with AV node ablation with pacemaker implantation Hypertension Thanks any Hospital Course: Multiple sclerosis. Patient with transient neurological symptoms concerning for flare-up of MS. Patient had MS diagnosed in the 30s that was the last time she has had any previous diagnosis. Neurologist recommended evaluation in the hospital with IV steroids and potential MRI. MRI is not able to be done because of patient's pacemaker. CT and CT angiogram are normal. Will proceed with a 3 day course of IV steroids of 1000 mg of Solu-Medrol. We will monitor closely for neurological symptoms. In lieu of her recent normal CT scan findings she may need a receive an MRI as an outpatient due to her pacemaker for better delineation of her symptoms. This does not appear to be a CVA as her CT is normal. She is on appropriate neurologic prophylaxis with a statin blood pressure control she is anticoagulated with Eliquis currently. I do not know that I would place her on an aspirin at this time as her diagnosis of MS flare or other neurological complication is yet to be discovered. Patient received 3 doses of steroids during hospital stay. Patient tolerated this well. Patient will be discharged home with oral prednisone 60 mg a day tapering by 20 every week. She will follow up with her primary care physician Dr. Nieves. Recommended an MRI in [facility] because of her pacemaker for further delineation of whether this is MS or other related neurological condition Atrial fibrillation patient is in normal sinus rhythm at this time heart rates well controlled. During hospital stay she was started back on metoprolol extended release. Will continue with Eliquis. This will not change for discharge. Sick sinus syndrome. Patient had an ablation of her atrial fibrillation required a pacemaker afterwards. She has pacemaker spikes on her EKG. Heart rate was normal during the hospital stay without concerns Hypertension patient will be continued on her amlodipine and metoprolol this was continued during hospital stay blood pressure was stable Anxiety. Patient will be given her nightly dose of amitriptyline which she takes. DVT prophylaxis patient on Eliquis Exam Vital Signs (past 8 hours): - 12/29/23 08:00 Temperature 97.1 F L Pulse Rate 60 Respiratory Rate 16 Blood Pressure 130/56 L Pulse Oximetry 98 Oxygen Delivery Method Room Air Oxygen Flow Rate 0 Objective Labs 12/29/23 05:23 12/29/23 05:23 Labs: Laboratory Results - last 24 hr 12/29/23 05:23 WBC 22.1 H D RBC 4.21 Hgb 12.4 Hct 37.2 MCV 88.4 MCH 29.4 MCHC 33.2 RDW 14.6 Plt Count 302 Neut % (Auto) 93.5 H D Lymph % (Auto) 4.6 L [place] % (Auto) 1.9 L Eos % (Auto) 0.0 L Baso % (Auto) 0.0 Neut # (Auto) 82866 H Lymph # (Auto) 1000 L [place] # (Auto) 400 Eos # (Auto) 0 Baso # (Auto) 0 Sodium 131 L Potassium 4.0 Chloride 100 Carbon Dioxide 23 BUN 29 H Creatinine 0.79 Estimated GFR > 60 BUN/Creatinine Ratio 36.7 H Glucose 155 H Calcium 8.9 PFSH Medical History Seizure Myofascial pain Anemia Lumbar radiculopathy Right shoulder pain Osteoarthritis of right hip Lumbar spondylosis Wears glasses Anxiety (~1974) Myoclonus Restless leg syndrome Peripheral neuropathy Hip pain Osteopenia Foot pain Chronic back pain (~2021) Salmonella typhi (~1966) Mumps (~1947) Measles (~1947) Chicken pox (~1947) Tinnitus Hearing loss (~2016) Cataracts, bilateral (~2017) GERD (gastroesophageal reflux disease) Hypertension (~2018) Cardiac arrhythmia Pulmonary nodule Persistent atrial fibrillation Raynaud disease (~2017) Current use of shelter anticoagulation Rheumatoid arthritis Multiple sclerosis Sjogren's disease (~1999) Surgical History History of cardioversion (~2021) Anesthesia S/P placement of cardiac pacemaker (~06/08/21) S/P ablation of atrial fibrillation (~2019) History of foot surgery History of hysterectomy (~1992) Family History Father Cardiomyopathy Diabetes mellitus Alzheimer's dementia Hypertension Mother Cancer Brother Coronary artery disease Hx of CABG Grandfather Cancer Grandmother Stroke Grandfather Accident Grandmother History of heart disease Social History marital status: unknown household members: none lives independently: Yes pets and animals: Yes occupational status: previously employed Smoking Status: Former smoker alcohol intake: current substance use type: does not use Discharge Plan Discharge Plan Patient Disposition: Home Provider Discharge Comment: Discharge home follow-up with Dr. Nieves in 7 days. Prednisone was sent in to her prescription at [facility] in [place]. Patient will continue on home medications with the addition of prednisone. Will need outpatient MRI done up in [place]. Discharge orders & Medications Prescriptions: New prednisone 20 mg tablet See Rx Instructions .ROUTE .COMPLEX Qty: 60 0RF Rx Instructions: 60mg po for 7 days 40 mg po for 7 days 20 mg po for 7 days 10 mg po for 7 days Continued omeprazole 10 mg capsule,delayed release(DR/EC) 20 mg PO DAILY gabapentin 100 mg capsule 200 mg PO TID Qty: 90 2RF amitriptyline 25 mg tablet 25 mg PO BEDTIME Qty: 90 2RF Eliquis 5 mg tablet 5 mg PO BID Qty: 180 0RF calcium carbonate 600 mg calcium (1,500 mg) tablet 600 mg PO DAILY metoprolol succinate 25 mg tablet extended release 24 hr 25 mg PO BID furosemide 20 mg tablet 20 mg PO DAILY amlodipine 2.5 mg tablet 2.5 mg PO DAILY rosuvastatin 10 mg tablet 10 mg PO DAILY Follow up/Referrals: Michael Nieves MD [Primary Care Provider] - Visit Report/Discharge Packet Stand Alone Forms: Patient Portal/API, Stroke Signs & Symptoms Discharge Data Primary Care Provider: Michael Nieves Quality VTE Deep Vein Thrombosis/Pulmonary Embolism Present on Admission: No
--- NOTE | 2023-12-29 09:27 | CM.DPNOTE ---
DCP note BUSINESS OBJECTS ANALYST reviewed EMR. Per chart, pt to dc home to [facility] today. BUSINESS OBJECTS ANALYST met with pt in room. gave copy of IMM. Pt reports her car is here and she can drive herself home. denies other CM needs P: dc home today with OP f/u. Will transport self in POV and no other CM needs identified at this time ARIA Coronel
[2023-12-29] MEDS: AMLODIPINE 5 MG TABLET 2.5 MG PO (09:33)
[2023-12-29 09:34] VITALS: BP 130/56; PULSE 60
[2023-12-29] MEDS: methylPREDNISolone 1,000 MG in SODIUM CHLORIDE 0.9% 250 ML 250 MG IV (09:34)
[2023-12-29] MEDS: APIXABAN 5 MG TABLET PO (09:34)
[2023-12-29] MEDS: GABAPENTIN 100 MG CAPSULE 200 MG PO (09:34)
[2023-12-29] MEDS: METOPROLOL ER 25 MG TABLET PO (09:34)
[2023-12-29] MEDS: PANTOPRAZOLE DR 20 MG TABLET PO (09:34)
[2023-12-29] MEDS: SODIUM CHLORIDE 0.9% FLUSH 10 ML IV (09:35)
--- NOTE | 2023-12-29 12:59 | PC.NURSE ---
Pt discharged home at 1300, escorted off floor in wheelchair accompanied by hospital staff. IV removed, discharge teaching completed including new medications, worsening symptoms and follow up appointments. Questions answered and concerns addressed. Patient left the floor with all belongings.
== END 2023-12-29 13:01 | disposition home or self-care (01) | DRG 60 ==
LOC: ED 20:07 → AC 21:45
PROVIDERS: Admitting Provider Family Medicine; Emergency Provider Emergency Medicine; PCP Family Medicine; Referring Provider Emergency Medicine; Visit Provider Family Medicine
DX: G35 Multiple sclerosis (principal); I49.5 Sick sinus syndrome; I48.0 Paroxysmal atrial fibrillation; I10 Essential (primary) hypertension; F41.9 Anxiety disorder, unspecified; K21.9 Gastro-esophageal reflux disease without esophagitis; Z95.0 Presence of cardiac pacemaker; Z79.01 Long term (current) use of anticoagulants; Z87.891 Personal history of nicotine dependence
CPT/HCPCS: 36415; 80048; 80053; 85025; 96365; 99284; J2919

== ENCOUNTER 2024-01-18 12:00 | Emergency (ER) | payer MEDICARE, SELFPAY ==
[2024-01-18] VITALS (11 sets, daily range): BP systolic 143–152; BP diastolic 63–88; PULSE 60–78; RESP 16–18; TEMP 36.6; O2SAT 96–100; BMI 26.2
--- NOTE | 2024-01-18 12:24 | ED_ITS ---
HPI - Neuro Symptoms/Deficit General Chief Complaint: Neuro Symptoms/Deficit Stated Complaint: MS exacerbation Time Seen by Provider: 01/18/24 12:17 Source: EMS Mode of arrival: EMS History of Present Illness HPI Narrative: Patient 83-year-old female history of MS followed by Neurology Dr. Phoenix, pacemaker secondary to bradycardia paroxysmal atrial fibrillation on Eliquis presenting today with which she says is an MS flare. This morning she started having significant shaping shaking and motor symptoms. She has not fallen. She had 1 episode of urinary incontinence this morning. She actually was just admitted to the hospital December 26 through the for 3 day IV Solu-Medrol. On Anticoagulants: Yes (elequis) Related Data Home Medications Medication Instructions Recorded Confirmed omeprazole 10 mg capsule,delayed 20 mg PO DAILY 05/09/20 12/27/23 release amlodipine 2.5 mg tablet 2.5 mg PO DAILY 11/15/22 12/27/23 rosuvastatin 10 mg tablet 10 mg PO DAILY 11/15/22 12/27/23 calcium carbonate 600 mg PO DAILY 02/18/23 12/27/23 furosemide 20 mg tablet 20 mg PO DAILY 12/27/23 12/27/23 metoprolol succinate 25 mg 25 mg PO BID 12/27/23 12/28/23 tablet,extended release 24 hr Previous Rx's Medication Instructions Recorded amitriptyline 25 mg tablet 25 mg PO BEDTIME #90 tabs 07/22/23 Eliquis 5 mg tablet (apixaban) 5 mg PO BID #180 tabs 12/26/23 prednisone 20 mg tablet See Rx Instructions .Route 12/29/23 .COMPLEX #60 tabs gabapentin 100 mg capsule 200 mg (2 x 100 mg) PO TID #90 caps 01/02/24 levetiracetam 500 mg tablet 500 mg PO BID #60 tabs 01/18/24 (Keppra) Allergies Allergy/AdvReac Type Severity Reaction Status Date / Time etomidate Allergy Seizure Verified 01/18/24 12:15 shellfish derived Allergy Verified 01/18/24 12:15 flecainide AdvReac Severe Unresponsiv Verified 01/18/24 12:15 e codeine [CODEINE] AdvReac Unknown Vomiting Verified 01/18/24 12:15 oyster extract AdvReac Diarrhea Verified 01/18/24 12:15 Review of Systems Hematologic/Lymphatic On Anticoagulants: Yes (elequis) Patient History Medical History Seizure Myofascial pain Anemia Lumbar radiculopathy Right shoulder pain Osteoarthritis of right hip Lumbar spondylosis Wears glasses Anxiety (~1974) Myoclonus Restless leg syndrome Peripheral neuropathy Hip pain Osteopenia Foot pain Chronic back pain (~2021) Salmonella typhi (~1966) Mumps (~1947) Measles (~1947) Chicken pox (~1947) Tinnitus Hearing loss (~2016) Cataracts, bilateral (~2017) GERD (gastroesophageal reflux disease) Hypertension (~2018) Cardiac arrhythmia Pulmonary nodule Persistent atrial fibrillation Raynaud disease (~2017) Current use of half-way anticoagulation Rheumatoid arthritis Multiple sclerosis Sjogren's disease (~1999) Surgical History History of cardioversion (~2021) Anesthesia S/P placement of cardiac pacemaker (~06/08/21) S/P ablation of atrial fibrillation (~2019) History of foot surgery History of hysterectomy (~1992) Family History Father Cardiomyopathy Diabetes mellitus Alzheimer's dementia Hypertension Mother Cancer Brother Coronary artery disease Hx of CABG Grandfather Cancer Grandmother Stroke Grandfather Accident Grandmother History of heart disease Social History marital status: unknown household members: none lives independently: Yes pets and animals: Yes occupational status: previously employed Smoking Status: Former smoker alcohol intake: current substance use type: does not use Smoking Status: Former smoker alcohol intake frequency: a few times a month Substance Use Type: does not use Exam Initial Vital Signs Initial Vital Signs: Vital Signs Blood Pressure 152/69 H 01/18/24 12:05 GENERAL: Pleasant well-appearing 83-year-old female and in no acute distress. HEENT: Head atraumatic,EOMI, pupils reactive, face symmetric, moist mucous membranes CARDIOVASCULAR: Regular rate and rhythm without murmurs, rubs or gallops. RESPIRATORY: Breath sounds equal bilaterally, no wheezes rales or rhonchi. ABDOMEN: Soft, nontender. Normoactive bowel sounds all 4 quadrants. No guarding or rebound. EXTREMITIES: Normal range of motion, no clubbing or edema. Neurovascularly intact NEUROLOGICAL: Alert and oriented x4. No resting tremor but definitely has shaking and spasm like movements, possibly myoclonus, with all extremities no unilateral weakness SKIN: Warm, dry, no laceration, no petechiae, no rashes or lesions. Course Orders Ordered: ED Orders 01/18/24 12:38 CT head/brain wo con Stat 01/18/24 13:00 Respiratory Panel (Film Array) Stat 01/18/24 13:05 Acetaminophen Stat CBC Auto Diff [Complete Blood Count AUTO DIFF] Stat CMP [Comprehensive Metabolic Panel] Stat CRP [C-Reactive Protein Quant] Stat ETOH [Ethanol (ETOH)] Stat Lactate (Lactic Acid) Stat Salicylate Stat Troponin & CK Cardiac Panel Stat 01/18/24 13:15 Blood Culture Stat 01/18/24 13:30 Urine Drug Screen, Rapid Stat 01/18/24 14:17 EKG-12 Lead Stat 01/18/24 14:55 Trop I [Troponin I] Stat Discontinued Medications Levetiracetam (Levetiracetam 250 Mg Tablet) 500 mg PO NOW ONE Stop: 01/18/24 13:00 Last Admin: 01/18/24 13:21 Dose: 500 mg Documented By: DEBRA Vital Signs Vital signs: Vital Signs - 8 hr 01/18/24 12:05 01/18/24 12:06 01/18/24 12:17 Temperature 98 F Pulse Rate 61 63 Respiratory Rate 18 Blood Pressure 152/69 H 152/69 H Pulse Oximetry 100 100 Oxygen Delivery Method Room Air 01/18/24 12:30 01/18/24 12:30 01/18/24 13:00 Temperature Pulse Rate 60 60 Respiratory Rate Blood Pressure 149/63 H Pulse Oximetry 100 100 Oxygen Delivery Method 01/18/24 13:35 01/18/24 14:00 01/18/24 14:30 Temperature Pulse Rate 78 61 60 Respiratory Rate Blood Pressure Pulse Oximetry 96 100 99 Oxygen Delivery Method 01/18/24 15:00 01/18/24 15:30 01/18/24 15:58 Temperature Pulse Rate 60 60 60 Respiratory Rate Blood Pressure Pulse Oximetry 97 98 100 Oxygen Delivery Method 01/18/24 15:58 Temperature Pulse Rate Respiratory Rate 16 Blood Pressure 143/88 H Pulse Oximetry Oxygen Delivery Method [facility] - Neuro Symptoms/Deficit Lab Data 01/18/24 13:05 01/18/24 13:05 Labs: Lab Results 01/18/24 01/18/24 01/18/24 Range/Units 13:00 13:05 13:30 WBC 8.0 (4.5-11.0) X10^3/uL RBC 4.23 (4.0-5.2) X10^6/uL Hgb 12.8 (12.0-16.0) g/dL Hct 38.0 (36-46) % MCV 89.8 (80-100) fL MCH 30.3 (26-34) PG MCHC 33.8 (30-36) % RDW 16.6 H (11.6-14.8) % Plt Count 237 (150-400) X10^3/uL Neut % (Auto) 81.9 H (50-75) % Lymph % (Auto) 12.4 L (25-40) % [place] % (Auto) 4.8 (3-14) % Eos % (Auto) 0.5 L (2-4) % Baso % (Auto) 0.4 (0-2) % Neut # (Auto) 6500 (2496-5713) /uL Lymph # (Auto) 1000 L (3292-6503) /uL [place] # (Auto) 400 (0-900) /uL Eos # (Auto) 0 (0-450) /uL Baso # (Auto) 0 (0-100) /uL Sodium 138 (137-145) mmol/L Potassium 3.6 (3.4-5.1) mmol/L Chloride 106 (98-107) mmol/L Carbon Dioxide 27 (22-32) mmol/L BUN 31 H (7-17) mg/dL Creatinine 1.00 (0.52-1.04) mg/dL Estimated GFR 57 L (>60) mL/min BUN/Creatinine Ratio 31.0 H (6-22) Glucose 73 L (80-110) mg/dL Lactate 0.9 (0.7-2.1) mmol/L Calcium 8.7 (8.4-10.2) mg/dL Total Bilirubin 1.0 (0.2-1.3) mg/dL AST 32 (14-36) IU/L ALT 36 H (<35) IU/L Alkaline Phosphatase 42 (38-126) U/L Total Creatine Kinase 56 (30-135) U/L Troponin I 0.045 H (0.01-0.034) ng/mL C-Reactive Protein 0.6 (<1.0) mg/dL Total Protein 5.9 L (6.3-8.2) g/dL Albumin 3.7 (3.5-5.0) g/dL Globulin 2.2 (1.7-4.1) g/dL Albumin/Globulin Ratio 1.7 (1.0-2.8) Salicylates < 1.0 (<20) mg/dL U Opiates 300ng/mL cut Negative (Negative) Ur Oxycodone Screen Negative (Negative) Urine Methadone Screen Negative (Negative) Acetaminophen < 10 (10-30) ug/mL Ur Barbiturates Screen Negative (Negative) U Tricyclic Antidepress Positive H (Negative) Ur Phencyclidine Scrn Negative (Negative) Ur Amphetamines Screen Negative (Negative) U Methamphetamines Scrn Negative (Negative) Ur MDMA Scrn (Ecstasy) Negative (Negative) U Benzodiazepines Scrn Negative (Negative) Urine Cocaine Screen Negative (Negative) U Marijuana (THC) Screen Negative (Negative) Urine pH Normal (Normal) Urine Specific [place] Normal (Normal) Ethyl Alcohol < 10 ( - 10) mg/dL Ur Creatinine Normal (Normal) Chlamy pneumoniae PCR Not detected (Not Detect) Adenovirus (PCR) Not detected (Not Detect) B. pertussis DNA (PCR) Not detected (Not Detect) B.parapertussis DNA PCR Not detected (Not Detecte) Coronavirus OC43 (PCR) Not detected (Not Detect) Coronavirus HKU1 (PCR) Not detected (Not Detect) Coronavirus 229E (PCR) Not detected (Not Detect) SARS-CoV-2 (PCR) Not detected (Not Detecte) Coronavirus NL63 (PCR) Not detected (Not Detect) Human Metapneumovir PCR Not detected (Not Detect) Influenza Type A (PCR) Not detected (Not Detect) Influenza Type B (PCR) Not detected (Not Detect) M. pneumoniae (PCR) Not detected (Not Detect) Parainfluenza 1 (PCR) Not detected (Not Detect) Parainfluenza 2 (PCR) Not detected (Not Detect) Parainfluenza 3 (PCR) Not detected (Not Detect) Parainfluenza 4 (PCR) Not detected (Not Detect) RSV (PCR) Not detected (Not Detect) Entero/Rhino (PCR) Not detected (Not Detect) 01/18/24 Range/Units 14:55 WBC (4.5-11.0) X10^3/uL RBC (4.0-5.2) X10^6/uL Hgb (12.0-16.0) g/dL Hct (36-46) % MCV (80-100) fL MCH (26-34) PG MCHC (30-36) % RDW (11.6-14.8) % Plt Count (150-400) X10^3/uL Neut % (Auto) (50-75) % Lymph % (Auto) (25-40) % [place] % (Auto) (3-14) % Eos % (Auto) (2-4) % Baso % (Auto) (0-2) % Neut # (Auto) (6188-0778) /uL Lymph # (Auto) (6380-3554) /uL [place] # (Auto) (0-900) /uL Eos # (Auto) (0-450) /uL Baso # (Auto) (0-100) /uL Sodium (137-145) mmol/L Potassium (3.4-5.1) mmol/L Chloride (98-107) mmol/L Carbon Dioxide (22-32) mmol/L BUN (7-17) mg/dL Creatinine (0.52-1.04) mg/dL Estimated GFR (>60) mL/min BUN/Creatinine Ratio (6-22) Glucose (80-110) mg/dL Lactate (0.7-2.1) mmol/L Calcium (8.4-10.2) mg/dL Total Bilirubin (0.2-1.3) mg/dL AST (14-36) IU/L ALT (<35) IU/L Alkaline Phosphatase (38-126) U/L Total Creatine Kinase (30-135) U/L Troponin I 0.040 H (0.01-0.034) ng/mL C-Reactive Protein (<1.0) mg/dL Total Protein (6.3-8.2) g/dL Albumin (3.5-5.0) g/dL Globulin (1.7-4.1) g/dL Albumin/Globulin Ratio (1.0-2.8) Salicylates (<20) mg/dL U Opiates 300ng/mL cut (Negative) Ur Oxycodone Screen (Negative) Urine Methadone Screen (Negative) Acetaminophen (10-30) ug/mL Ur Barbiturates Screen (Negative) U Tricyclic Antidepress (Negative) Ur Phencyclidine Scrn (Negative) Ur Amphetamines Screen (Negative) U Methamphetamines Scrn (Negative) Ur MDMA Scrn (Ecstasy) (Negative) U Benzodiazepines Scrn (Negative) Urine Cocaine Screen (Negative) U Marijuana (THC) Screen (Negative) Urine pH (Normal) Urine Specific [place] (Normal) Ethyl Alcohol ( - 10) mg/dL Ur Creatinine (Normal) Chlamy pneumoniae PCR (Not Detect) Adenovirus (PCR) (Not Detect) B. pertussis DNA (PCR) (Not Detect) B.parapertussis DNA PCR (Not Detecte) Coronavirus OC43 (PCR) (Not Detect) Coronavirus HKU1 (PCR) (Not Detect) Coronavirus 229E (PCR) (Not Detect) SARS-CoV-2 (PCR) (Not Detecte) Coronavirus NL63 (PCR) (Not Detect) Human Metapneumovir PCR (Not Detect) Influenza Type A (PCR) (Not Detect) Influenza Type B (PCR) (Not Detect) M. pneumoniae (PCR) (Not Detect) Parainfluenza 1 (PCR) (Not Detect) Parainfluenza 2 (PCR) (Not Detect) Parainfluenza 3 (PCR) (Not Detect) Parainfluenza 4 (PCR) (Not Detect) RSV (PCR) (Not Detect) Entero/Rhino (PCR) (Not Detect) Urine Dip Bedside Urine Glucose Negative Bedside Urine Bilirubin - Negative Bedside Urine Ketone - Negative Urine Specific [place] 1.010 Bedside Urine Occult Blood - Negative Bedside Urine pH 6.0 Bedside Urine Protein - Negative Bedside Urine Urobilinogen - Negative Bedside Urine Nitrite - Negative Bedside Urine Leukocytes - Negative Esterase Imaging Data CT scan - head: Radiologist's Impression: PROCEDURE: CT HEAD/BRAIN WO CON INDICATIONS: weakness on Eliquis TECHNIQUE: Noncontrast 4.5 mm thick angled axial sections acquired from the foramen magnum to the vertex, with coronal and sagittal reformats. For radiation dose reduction, the following was used: automated exposure control, adjustment of mA and/or kV according to patient size. COMPARISON: [facility], CT, CT HEAD/BRAIN WO CON, 10/06/2020, 4:02. [facility], CT, CT HEAD/BRAIN W CON, 01/17/2022, 18:39. [facility], CT, CT HEAD/BRAIN WO CON, 12/17/2023, 12:44. FINDINGS: Image quality: Diagnostic. CSF spaces: Basal cisterns are patent. No extra-axial fluid collections. The ventricles are symmetric in size and shape. Brain: No intracranial bleeds or masses. There is cerebral volume loss for age, with resultant ventricular and sulcal prominence. There are periventricular and deep white matter chronic small vessel ischemic changes. There is intracranial internal carotid artery atherosclerosis. Skull and face: Calvarium and visualized facial bones appear intact, without suspicious lesions. Incidental note is made of hyperostosis frontalis. This is not considered to be pathologic in a woman of this age. Sinuses: Visualized sinuses and mastoids are clear. IMPRESSION: No acute intracranial hemorrhage is seen. No acute intracranial pathology. Dictated by: Aurelio Baldwin M.D. on 01/18/2024 at 12:00 Approved by: Aurelio Baldwin M.D. on 01/18/2024 at 12:02 ECG Data Attestation: I personally reviewed and interpreted this ECG as follows: Interpretation: Paced rhythm rate 60 no ischemia MDM Narrative Medical decision making narrative: MDM CC: Shaking Complicating co-morbidities: Lives alone, MS, AFib pacemaker Eliquis Medical records reviewed: Recent PCP visit trying to get outpatient MRI pacemaker capability Differential considered: Toxic metabolic encephalopathy infectious encephalopathy, MS flare intracranial hemorrhage Exam documented above, pertinent findings include: Myoclonus spasm like movements in all extremities some mild cognitive confusion Lab Test results independently reviewed as above. Pertinent findings: Trop 0.045-->0.04 WBC no leukocytosis WBC 8.0 no anemia 12.8/38.0 CMP no electrolyte abnormality no ARTHUR creatinine 1.0 glucose 73 Liver enzymes bilirubin within normal limits Independently reviewed EKG as above no acute ischemia Imaging studies independently reviewed: No intracranial hemorrhage Consultations: 12:30 Dr. Dia, on-call Neurology updated on patient's symptoms test results recent admission. She is reviewed patient's chart extensively. She does not think this is an MS flare reports that she does not need any further steroids. She recommends toxic metabolic encephalopathy workup but does recommend Keppra 500 b.i.d. for the myoclonus. States that she does have some memory impairment is questionable what she is taking and how often at this time she does not need high-dose steroid. Treatments: Keppra 500 mg Re-evaluations: 1400 Patient feeling better no more clonus after keppra. She was ambulatory to restroom with walker Discussion: Patient 83-year-old female presenting today with myoclonus spastic activity. She is concerned that this might be an MS exacerbation. After talking with Neurology the report some cognitive decline unlikely to be EMS. Report that she likely is having myoclonus she has previously been on Keppra. Patient was given 1 dose of Keppra in the seem to help her symptoms dramatically. She was able to ambulate to the restroom with a walker afterwards. She has no chest pain but was found to have elevated troponin of 0.045 this was checked looking for metabolic encephalopathy or other causes of her symptoms. Troponin is noted to be indeterminate but trending downward. I suspect maybe from her myoclonus she has no chest pain or EKG changes. No suspicion for acute coronary syndrome Discharge Plan Departure Patient Disposition: Home Clinical Impression: Myoclonus Activity Restrictions/Additional Instructions: *You have been diagnosed with myoclonus *What to do: At this time I do not believe that your symptoms today were related to an MS flare. It is likely myoclonus. I am glad that you are feeling better. *Continue to take medications as directed Keppra 500 mg twice a day *Follow up with your primary care provider in 2-3 days or call [phone] Please call and follow-up with Dr. Phoenix or his PA *Return to ER if you should have increasing weakness shaking confusion or any new, worsening or concerning symptoms Prescriptions: New levetiracetam [Keppra] 500 mg tablet 500 mg PO BID Qty: 60 0RF No Action omeprazole 10 mg capsule,delayed release(DR/EC) 20 mg PO DAILY amitriptyline 25 mg tablet 25 mg PO BEDTIME Qty: 90 2RF Eliquis 5 mg tablet 5 mg PO BID Qty: 180 0RF gabapentin 100 mg capsule 200 mg PO TID Qty: 90 2RF calcium carbonate 600 mg calcium (1,500 mg) tablet 600 mg PO DAILY metoprolol succinate 25 mg tablet extended release 24 hr 25 mg PO BID furosemide 20 mg tablet 20 mg PO DAILY prednisone 20 mg tablet See Rx Instructions .ROUTE .COMPLEX Qty: 60 0RF Rx Instructions: 60mg po for 7 days 40 mg po for 7 days 20 mg po for 7 days 10 mg po for 7 days amlodipine 2.5 mg tablet 2.5 mg PO DAILY rosuvastatin 10 mg tablet 10 mg PO DAILY Referrals: Michael Nieves MD [Primary Care Provider] - Stand Alone Forms: Patient Portal/API
--- NOTE | 2024-01-18 12:38 | DI.CT.S_ITS ---
PROCEDURE: CT HEAD/BRAIN WO CON INDICATIONS: weakness on Eliquis TECHNIQUE: Noncontrast 4.5 mm thick angled axial sections acquired from the foramen magnum to the vertex, with coronal and sagittal reformats. For radiation dose reduction, the following was used: automated exposure control, adjustment of mA and/or kV according to patient size. COMPARISON: [facility], CT, CT HEAD/BRAIN WO CON, 10/06/2020, 4:02. [facility], CT, CT HEAD/BRAIN W CON, 01/17/2022, 18:39. [facility], CT, CT HEAD/BRAIN WO CON, 12/17/2023, 12:44. FINDINGS: Image quality: Diagnostic. CSF spaces: Basal cisterns are patent. No extra-axial fluid collections. The ventricles are symmetric in size and shape. Brain: No intracranial bleeds or masses. There is cerebral volume loss for age, with resultant ventricular and sulcal prominence. There are periventricular and deep white matter chronic small vessel ischemic changes. There is intracranial internal carotid artery atherosclerosis. Skull and face: Calvarium and visualized facial bones appear intact, without suspicious lesions. Incidental note is made of hyperostosis frontalis. This is not considered to be pathologic in a woman of this age. Sinuses: Visualized sinuses and mastoids are clear. IMPRESSION: No acute intracranial hemorrhage is seen. No acute intracranial pathology. Dictated by: Aurelio Baldwin M.D. on 01/18/2024 at 12:00 Approved by: Aurelio Baldwin M.D. on 01/18/2024 at 12:02
[2024-01-18] MEDS: levETIRAcetam 250 MG TABLET 500 MG PO (13:21)
[2024-01-18 13:22] LABS: Add Manual Diff / Slide Review NO; Basophils Absolute Auto 0 /uL (0-100); Basophils Percent Auto 0.4 % (0-2); Eosinophils Absolute Auto 0 /uL (0-450); Eosinophils Percent Auto 0.5 % (2-4); Hemoglobin 12.8 g/dL (12.0-16.0); Lymphocytes Absolute Auto 1000 /uL (1100-4500); Lymphocytes Percent Auto 12.4 % (25-40); Mean Corpuscular HGB Conc 33.8 % (30-36); Mean Corpuscular Hemoglobin 30.3 PG (26-34); Mean Corpuscular Volume 89.8 fL (80-100); Monocytes Absolute Auto 400 /uL (0-900); Monocytes Percent Auto 4.8 % (3-14); Neutrophils Absolute Auto 6500 /uL (1500-7000); Neutrophils Percent Auto 81.9 % (50-75); Platelet Count 237 X10^3/uL (150-400); Red Blood Cell Count 4.23 X10^6/uL (4.0-5.2); Red Cell Distribution Width 16.6 % (11.6-14.8)
[2024-01-18 13:32] LABS: Alanine Aminotransferase 36 IU/L (<35); Albumin 3.7 g/dL (3.5-5.0); Albumin Globulin Ratio 1.7 (1.0-2.8); Alkaline Phosphatase 42 U/L (38-126); Aspartate Aminotransferase 32 IU/L (14-36); Blood Urea Nitrogen 31 mg/dL (7-17); Calcium 8.7 mg/dL (8.4-10.2); Carbon Dioxide 27 mmol/L (22-32); Chloride 106 mmol/L (98-107); Estimated Glomerular Filt Rate 57 mL/min (>60); Globulin 2.2 g/dL (1.7-4.1); Glucose 73 mg/dL (80-110); HEMOLYSIS 30 (0-50); Potassium 3.6 mmol/L (3.4-5.1); Sodium 138 mmol/L (137-145); Total Protein 5.9 g/dL (6.3-8.2)
[2024-01-18 13:33] LABS: Creatine Kinase 56 U/L (30-135); Lactate (Lactic Acid) 0.9 mmol/L (0.7-2.1)
[2024-01-18 13:34] LABS: Acetaminophen < 10 ug/mL (10-30); Ethanol (ETOH) < 10 mg/dL; Salicylate < 1.0 mg/dL (<20)
[2024-01-18 13:37] LABS: C-Reactive Protein Quant 0.6 mg/dL (<1.0)
[2024-01-18 13:45] LABS: Troponin I 0.045 ng/mL (0.01-0.034)
[2024-01-18 13:49] LABS: UR Morphine/Opiate cutoff 300 Negative (Negative); Ur Creatinine Normal (Normal); Ur Specific Gravity Normal (Normal); Urine Amphetamines Negative (Negative); Urine Barbiturates Negative (Negative); Urine Benzodiazepines Negative (Negative); Urine Cocaine Negative (Negative); Urine MDMA Negative (Negative); Urine Methadone Negative (Negative); Urine Methamphetamines Negative (Negative); Urine Oxycodone Negative (Negative); Urine Phencyclidine Negative (Negative); Urine Tetrahydrocannabinol Negative (Negative); Urine Tricyclic Antidepressant Positive (Negative); Urine pH Normal (Normal)
[2024-01-18 14:07] LABS: Adenovirus Not Detected (Not Detect); B. parapertussis Not Detected (Not Detecte); Bordetella pertussis Not Detected (Not Detect); Chlamydophila pneumoniae Not Detected (Not Detect); Coronavirus 229E Not Detected (Not Detect); Coronavirus HKU1 Not Detected (Not Detect); Coronavirus NL 63 Not Detected (Not Detect); Coronavirus OC43 Not Detected (Not Detect); Human Metapneumovirus Not Detected (Not Detect); Human Rhinovirus/Enterovirus Not Detected (Not Detect); Influenza A Not Detected (Not Detect); Influenza B Not Detected (Not Detect); Mycoplasma pneumoniae Not Detected (Not Detect); Parainfluenza Virus 1 Not Detected (Not Detect); Parainfluenza Virus 2 Not Detected (Not Detect); Parainfluenza Virus 3 Not Detected (Not Detect); Parainfluenza Virus 4 Not Detected (Not Detect); Respiratory Syncytial Virus Not Detected (Not Detect); SARS- CoV-2 Not Detected (Not Detecte)
--- NOTE | 2024-01-18 14:17 | EKG_ITS ---
[place] [id number] [place] [address] Test Date: 2024-01-18 Pat Name: Wilma Ji Department: Room: Gender: Female Mat Maker: : 1940 Requested By: Order Number: [id number] Reading MD: Asif Banks MD Measurements Intervals [place] Rate: 60 P: HI: QRS: 166 QRSD: 152 T: 65 QT: 470 QTc: 470 Interpretive Statements Ventricular-paced rhythm Biventricular pacemaker detected Electronically Signed On 01-20-2024 7:52:01 PDT by Asif Banks MD
== END 2024-01-18 16:04 | disposition home or self-care (01) ==
PROVIDERS: Emergency Provider Emergency Medicine; PCP Family Medicine
DX: G25.3 Myoclonus (principal); Z95.0 Presence of cardiac pacemaker; I48.0 Paroxysmal atrial fibrillation; Z79.01 Long term (current) use of anticoagulants; Z11.52 Encounter for screening for COVID-19
CPT/HCPCS: 36415; 70450; 80053; 80305; 80320; 80329; 81003; 82550; 83605; 84484; 85025; 86140; 87040; 87633; 93005; 93010; 99284; G0480

== ENCOUNTER 2024-01-19 12:45 | Emergency (ER) | payer MEDICARE, SELFPAY ==
[2024-01-19 12:57] VITALS: BP 135/65; PULSE 79; RESP 16; TEMP 36.7; O2SAT 100; BMI 26.2
--- NOTE | 2024-01-19 13:24 | ED_ITS ---
HPI - General Adult General Chief complaint: Abdominal Pain Stated complaint: Bowels not working Time Seen by Provider: 01/19/24 13:20 Source: patient, RN notes reviewed and old records reviewed Mode of arrival: Family Vehicle Limitations: no limitations History of Present Illness HPI narrative: 83-year-old female history of MS, seizure disorder, follows with Neurology with Dr. Phoenix, patient has pacemaker secondary to bradycardia, paroxysmal atrial fibrillation on Eliquis. Patient was seen here yesterday for myoclonus spastic activity/seizure activity and was told to increase her Keppra to b.i.d. after consultation with her neurology team. Patient notes that she was having uncontrolled movements of her upper and lower extremities but without any loss of consciousness. She has had a prior episode in the past and been on Keppra in the past but has been some time. She presents today with complaint of constipation x4 days. Patient did attempt to disimpact herself last night said she got about a 3rd of a cup out but thinks there might be some more. States she feels like it is sort of throughout her bowel. She denies fevers or chills no chest pain or shortness of breath no abdominal pain, no significant distention. States she is normally very regular with her bowel movements in his on a plant based diet but with her recent changes to medication and being started on Keppra she thinks this may have slowed her bowel movements. Patient states does have a history of hemorrhoids but states that has not improved med she has not having any pain in the rectal area. Patient is taking a stool s oftener she is unsure but might be Dulcolax she is taken it once daily for the past 3 days. Related Data Home Medications Medication Instructions Recorded Confirmed omeprazole 10 mg capsule,delayed 20 mg PO DAILY 05/09/20 12/27/23 release amlodipine 2.5 mg tablet 2.5 mg PO DAILY 11/15/22 12/27/23 rosuvastatin 10 mg tablet 10 mg PO DAILY 11/15/22 12/27/23 calcium carbonate 600 mg PO DAILY 02/18/23 12/27/23 furosemide 20 mg tablet 20 mg PO DAILY 12/27/23 12/27/23 metoprolol succinate 25 mg 25 mg PO BID 12/27/23 12/28/23 tablet,extended release 24 hr Previous Rx's Medication Instructions Recorded amitriptyline 25 mg tablet 25 mg PO BEDTIME #90 tabs 07/22/23 Eliquis 5 mg tablet (apixaban) 5 mg PO BID #180 tabs 12/26/23 prednisone 20 mg tablet See Rx Instructions .Route 12/29/23 .COMPLEX #60 tabs gabapentin 100 mg capsule 200 mg (2 x 100 mg) PO TID #90 caps 01/02/24 levetiracetam 500 mg tablet 500 mg PO BID #60 tabs 01/18/24 (Keppra) Allergies Allergy/AdvReac Type Severity Reaction Status Date / Time etomidate Allergy Seizure Verified 01/18/24 12:15 shellfish derived Allergy Verified 01/18/24 12:15 flecainide AdvReac Severe Unresponsiv Verified 01/18/24 12:15 e codeine [CODEINE] AdvReac Unknown Vomiting Verified 01/18/24 12:15 oyster extract AdvReac Diarrhea Verified 01/18/24 12:15 Review of Systems Review of Systems ROS Unobtainable: All systems reviewed & are unremarkable except as noted in HPI and below Patient History Medical History Seizure Myofascial pain Anemia Lumbar radiculopathy Right shoulder pain Osteoarthritis of right hip Lumbar spondylosis Wears glasses Anxiety (~1974) Myoclonus Restless leg syndrome Peripheral neuropathy Hip pain Osteopenia Foot pain Chronic back pain (~2021) Salmonella typhi (~1966) Mumps (~194) Measles (~194) Chicken pox (~1947) Tinnitus Hearing loss (~2016) Cataracts, bilateral (~2018) GERD (gastroesophageal reflux disease) Hypertension (~2019) Cardiac arrhythmia Pulmonary nodule Persistent atrial fibrillation Raynaud disease (~2017) Current use of residential anticoagulation Rheumatoid arthritis Multiple sclerosis Sjogren's disease (~1999) Surgical History History of cardioversion (~2021) Anesthesia S/P placement of cardiac pacemaker (~06/08/21) S/P ablation of atrial fibrillation (~2019) History of foot surgery History of hysterectomy (~1992) Family History Father Cardiomyopathy Diabetes mellitus Alzheimer's dementia Hypertension Mother Cancer Brother Coronary artery disease Hx of CABG Grandfather Cancer Grandmother Stroke Grandfather Accident Grandmother History of heart disease Social History marital status: unknown household members: none lives independently: Yes pets and animals: Yes occupational status: previously employed Smoking Status: Former smoker alcohol intake: current substance use type: does not use Smoking Status: Former smoker alcohol intake frequency: a few times a month Substance Use Type: does not use Exam Narrative Exam Narrative: GENERAL: Alert and oriented x three, thin elderly female in mild distress. HEENT: Head normocephalic, atraumatic, EOMI, pupils reactive, face symmetric, moist mucous membranes NECK: Supple, full range of motion CARDIOVASCULAR: Regular rate and rhythm without murmurs, rubs or gallops. RESPIRATORY: Breath sounds equal bilaterally, no wheezes rales or rhonchi. ABDOMEN: Soft, nontender. Normoactive bowel sounds all 4 quadrants. No guarding or rebound, rigidity, no mass, on rectal exam patient has a small hemorrhoid nontender soft, patient does have a small amount of hard stool on exam. : No CVA tenderness EXTREMITIES: Normal range of motion, no clubbing or edema. Neurovascularly intact NEUROLOGICAL: Cranial nerves II through XII grossly intact. Moving all extremities, mild intermittent tremor on exam. SKIN: Warm, dry, no petechiae, no rashes or lesions. Initial Vital Signs Initial Vital Signs: Vital Signs Temperature 98.1 F 01/19/24 12:57 Pulse Rate 79 01/19/24 12:57 Respiratory Rate 16 01/19/24 12:57 Blood Pressure 135/65 01/19/24 12:57 Pulse Oximetry 100 01/19/24 12:57 Oxygen Delivery Method Room Air 01/19/24 12:57 Course Orders Ordered: Discontinued Medications Magnesium Citrate (Magnesium Citrate 300 Ml Solution) 300 ml PO NOW ONE Stop: 01/19/24 15:16 Last Admin: 01/19/24 15:23 Dose: 300 ml Documented By: KENNEY Mineral Oil (Mineral Oil 1 Each Enema) 1 each [place] NOW ONE Stop: 01/19/24 14:49 Last Admin: 01/19/24 14:54 Dose: 1 each Documented By: KENNEY Vital Signs Vital signs: Vital Signs - 8 hr 01/19/24 12:57 01/19/24 13:31 Temperature 98.1 F Pulse Rate 79 60 Respiratory Rate 16 18 Blood Pressure 135/65 138/63 Pulse Oximetry 100 99 Oxygen Delivery Method Room Air Room Air Medical Decision Making MDM Narrative Medical decision making narrative: 83-year-old female who states she was feeling improved since her visit yesterday but notes she has been constipated for the last 4 days thinks it is related to her medications and probably adding Keppra to her regimen. Patient states she is normally quite regular. She states she did do some disimpaction yesterday and feels like there is something right at the rectal vault but also farther up. On rectal exam small amount of stool, patient was given an enema. Discussed plan for stimulant laxative such as senna and regimen to help with bowel movements from up top, increasing movement as patient is higher likelihood to have some constipation and ileus secondary to her MS history and recent medication changes. Not having any obstructive symptoms at this time. Abdominal x-ray does show stool there is small amount of the rectal vault but more further throughout. Patient had enema with minimal output. CONSTANCE unable to reach stool for disimpaction. Discussed treating with top down to help as well as stimulant laxative. Discussed return precautions. Discharge Plan Departure Patient Disposition: Home Clinical Impression: Constipation Instructions: DI for Constipation Activity Restrictions/Additional Instructions: Add once daily senna or Senakot a stimulant laxative in addition to Dulcolax daily. You can use glycerin suppositories or home enemas as needed. If you are not having much a foul movement with those 2 medications, you can take magnesium citrate drink 1/2 bottle, weight 4-5 hours and if no changes drink the 2nd half of the bottle. Please return for new or worsening abdominal back or flank pain, fevers, vomiting, increasing abdominal distention, if you are not passing gas and not having a bowel movement or other new or concerning changes. Prescriptions: No Action omeprazole 10 mg capsule,delayed release(DR/EC) 20 mg PO DAILY amitriptyline 25 mg tablet 25 mg PO BEDTIME Qty: 90 2RF Eliquis 5 mg tablet 5 mg PO BID Qty: 180 0RF gabapentin 100 mg capsule 200 mg PO TID Qty: 90 2RF calcium carbonate 600 mg calcium (1,500 mg) tablet 600 mg PO DAILY metoprolol succinate 25 mg tablet extended release 24 hr 25 mg PO BID furosemide 20 mg tablet 20 mg PO DAILY prednisone 20 mg tablet See Rx Instructions .ROUTE .COMPLEX Qty: 60 0RF Rx Instructions: 60mg po for 7 days 40 mg po for 7 days 20 mg po for 7 days 10 mg po for 7 day s levetiracetam [Keppra] 500 mg tablet 500 mg PO BID Qty: 60 0RF amlodipine 2.5 mg tablet 2.5 mg PO DAILY rosuvastatin 10 mg tablet 10 mg PO DAILY Referrals: Michael Nieves MD [Primary Care Provider] - Stand Alone Forms: Patient Portal/API
[2024-01-19 13:31] VITALS: BP 138/63; PULSE 60; RESP 18; O2SAT 99
--- NOTE | 2024-01-19 13:46 | DI.RAD.S_ITS ---
PROCEDURE: XR ABDOMEN MIN 2V INDICATIONS: constipation, hx ms/seizures no BM x 4 days. TECHNIQUE: 2 views of the abdomen were acquired. COMPARISON: None. FINDINGS: Surgical changes and devices: None. Bowel: No pneumoperitoneum. Large colonic stool load. Soft tissues: No masses; visualized solid organ contours appear normal in size. No suspicious abdominal calcifications. Bones: No suspicious bony abnormalities. Convex left scoliosis of the thoracolumbar spine. IMPRESSION: Large colonic stool load. Dictated by: Amadou Rosas M.D. on 01/19/2024 at 14:09 Approved by: Amadou Rosas M.D. on 01/19/2024 at 14:10
[2024-01-19] MEDS: MINERAL OIL 1 EACH ENEMA PR (14:54)
[2024-01-19] MEDS: MAGNESIUM CITRATE 300 ML SOLUTION PO (15:23)
[2024-01-19 15:52] VITALS: BP 134/60; PULSE 60; RESP 18; TEMP 36.8; O2SAT 99
== END 2024-01-19 15:32 | disposition home or self-care (01) ==
PROVIDERS: Emergency Provider Emergency Medicine; PCP Family Medicine
DX: K59.00 Constipation, unspecified (principal); G40.909 Epilepsy, unspecified, not intractable, without status epilepticus; Z95.0 Presence of cardiac pacemaker; I48.0 Paroxysmal atrial fibrillation; Z79.01 Long term (current) use of anticoagulants
CPT/HCPCS: 74019; 99283; 99284

== ENCOUNTER 2024-01-26 10:39 | Emergency (ER) | payer MEDICARE, SELFPAY ==
[2024-01-26] VITALS (10 sets, daily range): BP systolic 120–133; BP diastolic 57–86; PULSE 60; RESP 18–20; TEMP 36.8; O2SAT 98–100
--- NOTE | 2024-01-26 10:56 | EKG_ITS ---
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
--- NOTE | 2024-01-26 11:18 | EKG_ITS ---
[facility] [address], [place] [address] Test Date: 2024-01-26 Pat Name: Wilma Ji Department: 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
[2024-01-26 11:39] LABS: Appearance Urine UA CLEAR; Bilirubin Urine UA NEGATIVE (NEGATIVE); Color Urine UA YELLOW; Glucose Urine UA NEGATIVE (Negative); Ketones Urine UA NEGATIVE (NEGATIVE); Leukocyte Esterase Urine UA NEGATIVE (NEGATIVE); Nitrite Urine UA NEGATIVE (Negative); Occult Blood Urine UA NEGATIVE (Negative); Protein Urine UA NEGATIVE (Negative); Specific Gravity Urine UA <=1.005 (1.000-1.035); Urobilinogen Urine UA 0.2 E.U./dL (0.2)
[2024-01-26 11:45] LABS: Bacteria Urine None Seen; RBC Urine 0-1/HPF (0-5/HPF); Squamous Epithelial Cell Urine None Seen (0-5/HPF); Urine Volume 10mL (spun); WBC Urine None Seen (0-5/HPF)
[2024-01-26 11:46] LABS: Amorphous Sediment Urine 1+; Culture Indicated Urine Cult Not Indicated
[2024-01-26 11:59] LABS: Add Manual Diff / Slide Review NO; Basophils Absolute Auto 100 /uL (0-100); Basophils Percent Auto 0.7 % (0-2); Eosinophils Absolute Auto 0 /uL (0-450); Eosinophils Percent Auto 0.2 % (2-4); Hematocrit 34.8 % (36-46); Hemoglobin 11.9 g/dL (12.0-16.0); Lymphocytes Absolute Auto 1300 /uL (1100-4500); Lymphocytes Percent Auto 13.4 % (25-40); Mean Corpuscular HGB Conc 34.1 % (30-36); Mean Corpuscular Hemoglobin 30.6 PG (26-34); Mean Corpuscular Volume 89.6 fL (80-100); Monocytes Absolute Auto 600 /uL (0-900); Monocytes Percent Auto 6.6 % (3-14); Neutrophils Absolute Auto 7700 /uL (1500-7000); Neutrophils Percent Auto 79.1 % (50-75); Platelet Count 188 X10^3/uL (150-400); Red Blood Cell Count 3.89 X10^6/uL (4.0-5.2); Red Cell Distribution Width 16.7 % (11.6-14.8); White Blood Cell Count 9.8 X10^3/uL (4.5-11.0)
[2024-01-26 12:08] LABS: Alanine Aminotransferase 28 IU/L (<35); Albumin 4.1 g/dL (3.5-5.0); Albumin Globulin Ratio 1.8 (1.0-2.8); Alkaline Phosphatase 49 U/L (38-126); Aspartate Aminotransferase 28 IU/L (14-36); BUN Creatinine Ratio 30.6 (6-22); Bilirubin Total 0.8 mg/dL (0.2-1.3); Blood Urea Nitrogen 33 mg/dL (7-17); Calcium 9.3 mg/dL (8.4-10.2); Carbon Dioxide 27 mmol/L (22-32); Chloride 102 mmol/L (98-107); Creatine Kinase 56 U/L (30-135); Estimated Glomerular Filt Rate 52 mL/min (>60); Globulin 2.3 g/dL (1.7-4.1); Glucose 98 mg/dL (80-110); HEMOLYSIS 21 (0-50); Potassium 3.5 mmol/L (3.4-5.1); Sodium 136 mmol/L (137-145); Total Protein 6.4 g/dL (6.3-8.2)
[2024-01-26 12:20] LABS: Troponin I 0.032 ng/mL (0.01-0.034)
[2024-01-26 12:25] LABS: Adenovirus Not Detected (Not Detect); B. parapertussis Not Detected (Not Detecte); Bordetella pertussis Not Detected (Not Detect); Chlamydophila pneumoniae Not Detected (Not Detect); Coronavirus 229E Not Detected (Not Detect); Coronavirus HKU1 Not Detected (Not Detect); Coronavirus NL 63 Not Detected (Not Detect); Coronavirus OC43 Not Detected (Not Detect); Human Metapneumovirus Not Detected (Not Detect); Human Rhinovirus/Enterovirus Not Detected (Not Detect); Influenza A Not Detected (Not Detect); Influenza B Not Detected (Not Detect); Mycoplasma pneumoniae Not Detected (Not Detect); Parainfluenza Virus 1 Not Detected (Not Detect); Parainfluenza Virus 2 Not Detected (Not Detect); Parainfluenza Virus 3 Not Detected (Not Detect); Parainfluenza Virus 4 Not Detected (Not Detect); Respiratory Syncytial Virus Not Detected (Not Detect); SARS- CoV-2 Not Detected (Not Detecte)
--- NOTE | 2024-01-26 13:38 | ED_ITS ---
HPI - Weakness General Chief complaint: Weakness Stated complaint: General Weakness Time Seen by Provider: 01/26/24 10:56 Source: EMS Mode of arrival: EMS History of Present Illness HPI Narrative: Patient 83-year-old female history of MS, myoclonus, memory impairment issues presenting today for the 4th time in the last for 5 weeks. She initially was seen in mid for an MS flare about 3 days of IV Solu-Medrol she then came in with clonus like activity which resolved with Keppra. She reports that the Keppra has really been helpful. She is seen Dr. Nieves since her last visit with me. She said that we Keppra was not quite lasting a full 12 hours so now she takes 500 mg every 8 hours. She says this morning she got up and was unable to push herself up and could not walk. She has no other symptoms and otherwise appears well. She has not actually seen Dr. Phoenix her neurologist in awhile she has been followed by the [facility] over there. I did speak with Neurology last week when I saw her. Related Data Home Medications Medication Instructions Recorded Confirmed omeprazole 10 mg capsule,delayed 20 mg PO DAILY 05/09/20 01/24/24 release rosuvastatin 10 mg tablet 10 mg PO DAILY 11/15/22 01/24/24 calcium carbonate 600 mg PO DAILY 02/18/23 01/24/24 furosemide 20 mg tablet 20 mg PO DAILY 12/27/23 01/24/24 metoprolol succinate 25 mg 25 mg PO BID 12/27/23 01/24/24 tablet,extended release 24 hr Previous Rx's Medication Instructions Recorded amitriptyline 25 mg tablet 25 mg PO BEDTIME #90 tabs 07/22/23 Eliquis 5 mg tablet (apixaban) 5 mg PO BID #180 tabs 12/26/23 prednisone 20 mg tablet See Rx Instructions .Route 12/29/23 .COMPLEX #60 tabs gabapentin 100 mg capsule 200 mg (2 x 100 mg) PO TID #90 caps 01/02/24 levetiracetam 500 mg tablet 500 mg PO BID #60 tabs 01/18/24 (Keppra) Disabled Parking See Rx Instructions .Route 01/24/24 .COMPLEX #365 days Allergies Allergy/AdvReac Type Severity Reaction Status Date / Time etomidate Allergy Seizure Verified 01/26/24 10:58 shellfish derived Allergy Verified 01/26/24 10:58 flecainide AdvReac Severe Unresponsiv Verified 01/26/24 10:58 e codeine [CODEINE] AdvReac Unknown Vomiting Verified 01/26/24 10:58 oyster extract AdvReac Diarrhea Verified 01/26/24 10:58 Patient History Medical History Seizure Myofascial pain Anemia Lumbar radiculopathy Right shoulder pain Osteoarthritis of right hip Lumbar spondylosis Wears glasses Anxiety (~1974) Myoclonus Restless leg syndrome Peripheral neuropathy Hip pain Osteopenia Foot pain Chronic back pain (~2021) Salmonella typhi (~1966) Mumps (~1947) Measles (~1947) Chicken pox (~1947) Tinnitus Hearing loss (~2016) Cataracts, bilateral (~2017) GERD (gastroesophageal reflux disease) Hypertension (~2018) Cardiac arrhythmia Pulmonary nodule Persistent atrial fibrillation Raynaud disease (~2017) Current use of fdc anticoagulation Rheumatoid arthritis Multiple sclerosis Sjogren's disease (~1999) Surgical History History of cardioversion (~2021) Anesthesia S/P placement of cardiac pacemaker (~06/08/21) S/P ablation of atrial fibrillation (~2019) History of foot surgery History of hysterectomy (~1992) Family History Father Cardiomyopathy Diabetes mellitus Alzheimer's dementia Hypertension Mother Cancer Brother Coronary artery disease Hx of CABG Grandfather Cancer Grandmother Stroke Grandfather Accident Grandmother History of heart disease Social History marital status: unknown household members: none lives independently: Yes pets and animals: Yes occupational status: previously employed Smoking Status: Former smoker alcohol intake: current substance use type: does not use Smoking Status: Former smoker alcohol intake frequency: a few times a month Substance Use Type: does not use Exam Initial Vital Signs Initial Vital Signs: Vital Signs Pulse Rate 60 01/26/24 10:42 Pulse Oximetry 99 01/26/24 10:42 GENERAL: Alert very well-appearing 83-year-old female and in no acute distress. HEENT: Head atraumatic,EOMI, pupils reactive, face symmetric, moist mucous membranes CARDIOVASCULAR: Regular rate and rhythm without murmurs, rubs or gallops. RESPIRATORY: Breath sounds equal bilaterally, no wheezes rales or rhonchi. ABDOMEN: Soft, nontender. Normoactive bowel sounds all 4 quadrants. No guarding or rebound. EXTREMITIES: Normal range of motion, no clubbing or edema. Neurovascularly intact NEUROLOGICAL: Alert and oriented x4.Normal gait and speech. Cranial nerves II through XII grossly intact. Minimal tremor and clonus airplane first officer strength equal bilaterally SKIN: Warm, dry, no laceration, no petechiae, no rashes or lesions. Course Orders Ordered: ED Orders 01/26/24 10:56 EKG-12 Lead Stat 01/26/24 11:20 Respiratory Panel (Film Array) Stat 01/26/24 11:26 UA Complete [Urinalysis and Microscopic] Stat 01/26/24 11:50 CBC Auto Diff [Complete Blood Count AUTO DIFF] Stat CMP [Comprehensive Metabolic Panel] Stat Troponin & CK Cardiac Panel Stat Vital Signs Vital signs: Vital Signs - 8 hr 01/26/24 10:42 01/26/24 10:44 01/26/24 10:44 Temperature Pulse Rate 60 60 Respiratory Rate Blood Pressure 122/86 Pulse Oximetry 99 100 Oxygen Delivery Method 01/26/24 10:54 01/26/24 10:54 01/26/24 10:54 Temperature 98.3 F Pulse Rate 60 60 Respiratory Rate 18 Blood Pressure 122/86 124/84 Pulse Oximetry 100 98 Oxygen Delivery Method Room Air 01/26/24 11:00 01/26/24 11:00 01/26/24 11:30 Temperature Pulse Rate 60 60 Respiratory Rate Blood Pressure 132/81 Pulse Oximetry 100 100 Oxygen Delivery Method 01/26/24 11:53 01/26/24 11:53 01/26/24 12:00 Temperature Pulse Rate 60 60 Respiratory Rate 20 Blood Pressure 120/58 L Pulse Oximetry 100 98 Oxygen Delivery Method 01/26/24 12:00 01/26/24 12:30 01/26/24 12:30 Temperature Pulse Rate 60 Respiratory Rate 18 Blood Pressure 120/57 L 128/62 Pulse Oximetry 98 Oxygen Delivery Method 01/26/24 13:00 Temperature Pulse Rate 60 Respiratory Rate 18 Blood Pressure 130/62 Pulse Oximetry 98 Oxygen Delivery Method Room Air MDM - Weakness Lab Data 01/26/24 11:50 01/26/24 11:50 Labs: Lab Results 01/26/24 01/26/24 01/26/24 Range/Units 11:20 11:26 11:50 WBC 9.8 (4.5-11.0) X10^3/uL RBC 3.89 L (4.0-5.2) X10^6/uL Hgb 11.9 L (12.0-16.0) g/dL Hct 34.8 L (36-46) % MCV 89.6 (80-100) fL MCH 30.6 (26-34) PG MCHC 34.1 (30-36) % RDW 16.7 H (11.6-14.8) % Plt Count 188 (150-400) X10^3/uL Neut % (Auto) 79.1 H (50-75) % Lymph % (Auto) 13.4 L (25-40) % [place] % (Auto) 6.6 (3-14) % Eos % (Auto) 0.2 L (2-4) % Baso % (Auto) 0.7 (0-2) % Neut # (Auto) 7700 H (8112-2018) /uL Lymph # (Auto) 1300 (1893-8348) /uL [place] # (Auto) 600 (0-900) /uL Eos # (Auto) 0 (0-450) /uL Baso # (Auto) 100 (0-100) /uL Sodium 136 L (137-145) mmol/L Potassium 3.5 (3.4-5.1) mmol/L Chloride 102 (98-107) mmol/L Carbon Dioxide 27 (22-32) mmol/L BUN 33 H (7-17) mg/dL Creatinine 1.08 H (0.52-1.04) mg/dL Estimated GFR 52 L (>60) mL/min BUN/Creatinine Ratio 30.6 H (6-22) Glucose 98 (80-110) mg/dL Calcium 9.3 (8.4-10.2) mg/dL Total Bilirubin 0.8 (0.2-1.3) mg/dL AST 28 (14-36) IU/L ALT 28 (<35) IU/L Alkaline Phosphatase 49 (38-126) U/L Total Creatine Kinase 56 (30-135) U/L Troponin I 0.032 (0.01-0.034) ng/mL Total Protein 6.4 (6.3-8.2) g/dL Albumin 4.1 (3.5-5.0) g/dL Globulin 2.3 (1.7-4.1) g/dL Albumin/Globulin Ratio 1.8 (1.0-2.8) Urine Color Yellow Urine Appearance Clear Urine pH 6.0 (4.5-8.0) Ur Specific [place] <=1.005 (1.000-1.035) Urine Protein Negative (Negative) Urine Glucose (UA) Negative (Negative) g/dL Urine Ketones Negative (NEGATIVE) Urine Occult Blood Negative (Negative) Urine Nitrate Negative (Negative) Urine Bilirubin Negative (NEGATIVE) Urine Urobilinogen 0.2 (0.2) E.U./dL Ur Leukocyte Esterase Negative (NEGATIVE) Urine RBC 0-1/hpf (0-5/HPF) Urine WBC None seen (0-5/HPF) Ur Squamous Epith Cells None seen (0-5/HPF) Amorphous Sediment 1+ Urine Bacteria None seen (None) Ur Culture Indicated? Cult not indicated Vol Urine Centrifuged 10ml (spun) Chlamy pneumoniae PCR Not detected (Not Detect) Adenovirus (PCR) Not detected (Not Detect) B. pertussis DNA (PCR) Not detected (Not Detect) B.parapertussis DNA PCR Not detected (Not Detecte) Coronavirus OC43 (PCR) Not detected (Not Detect) Coronavirus HKU1 (PCR) Not detected (Not Detect) Coronavirus 229E (PCR) Not detected (Not Detect) SARS-CoV-2 (PCR) Not detected (Not Detecte) Coronavirus NL63 (PCR) Not detected (Not Detect) Human Metapneumovir PCR Not detected (Not Detect) Influenza Type A (PCR) Not detected (Not Detect) Influenza Type B (PCR) Not detected (Not Detect) M. pneumoniae (PCR) Not detected (Not Detect) Parainfluenza 1 (PCR) Not detected (Not Detect) Parainfluenza 2 (PCR) Not detected (Not Detect) Parainfluenza 3 (PCR) Not detected (Not Detect) Parainfluenza 4 (PCR) Not detected (Not Detect) RSV (PCR) Not detected (Not Detect) Entero/Rhino (PCR) Not detected (Not Detect) ECG Data Attestation: I personally reviewed and interpreted this ECG as follows: Interpretation: Paced rhythm rate 62 no ischemia MDM Narrative Medical decision making narrative: MDM CC: Weakness Complicating co-morbidities: MS, myoclonus, atrial fibrillation on Eliquis, memory impairment issues Medical records reviewed: ED visits reviewed Differential considered: MS flare myoclonus CVA, infection Exam documented above, pertinent findings include: Well-appearing able to lift legs off 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 Pertinent findings: WBC 9.8, hemoglobin 11.9 hematocrit 34.8 platelets 180 CMP sodium 136 potassium 5 chloride 102 carbon dioxide 27 BUN 33 creatinine 1.0 Bilirubin liver enzymes and lipase within normal limits Troponin 0.032 which is down from previously at 0.04 Urinalysis negative for UTI Respiratory panel negative Independently reviewed EKG as above paced rhythm Imaging studies independently reviewed: None Consultations: None Treatments: None Re-evaluations: Patient is able to ambulate with walker and minimal assistance she has improvement she has no obvious mild clonus Discussion: Patient 84-year-old female presenting today with inability to walk. It seemed was transient this happens to her regularly. Workup does not show any sort of infection, ARTHUR or cardiac issue. She was able to ambulate and walk with minimal assistance in the ED. I strongly recommend that she follow up with her neurologist. She may require further care such as assisted living or other. Patient has also increase her Keppra to 500 mg Q 8 hours instead of q.12 not sure that this is helping Discharge Plan Departure Patient Disposition: Home Clinical Impression: Weakness Instructions: DI for Muscle Weakness Activity Restrictions/Additional Instructions: *You have been diagnosed with weakness *What to do: Pad this time I strongly recommend that you call and follow-up with Dr. Ivey a have some clarity on what is going on with your health. *Continue to take medications as directed Keppra 500 mg twice a day as prescribed *Follow up with your primary care provider in 2-3 days or call [phone] *Return to ER if you should have any new, worsening or concerning symptoms Prescriptions: No Action omeprazole 10 mg capsule,delayed release(DR/EC) 20 mg PO DAILY Disabled Parking See Rx Instructions .ROUTE .COMPLEX Qty: 365 0RF Rx Instructions: I find this patient to be medically disabled and qualified for Disabled Parking as indicated and signed on the accompanying Disabled Parking Application for Individuals amitriptyline 25 mg tablet 25 mg PO BEDTIME Qty: 90 2RF Eliquis 5 mg tablet 5 mg PO BID Qty: 180 0RF gabapentin 100 mg capsule 200 mg PO TID Qty: 90 2RF calcium carbonate 600 mg calcium (1,500 mg) tablet 600 mg PO DAILY metoprolol succinate 25 mg tablet extended release 24 hr 25 mg PO BID furosemide 20 mg tablet 20 mg PO DAILY prednisone 20 mg tablet See Rx Instructions .ROUTE .COMPLEX Qty: 60 0RF Rx Instructions: 60mg po for 7 days 40 mg po for 7 days 20 mg po for 7 days 10 mg po for 7 days levetiracetam [Keppra] 500 mg tablet 500 mg PO BID Qty: 60 0RF rosuvastatin 10 mg tablet 10 mg PO DAILY Referrals: Michael Nieves MD [Primary Care Provider] - Stand Alone Forms: Patient Portal/API
--- NOTE | 2024-01-26 14:02 | PC.NURSE ---
PT ambulated to bathroom with walker and stand by assist. Pt denies dizziness or lightheaded, states she can move much more than when she arrived to ER. Pt calling her facility for a ride home.
== END 2024-01-26 14:24 | disposition home or self-care (01) ==
PROVIDERS: Emergency Provider Emergency Medicine; PCP Family Medicine
DX: M62.81 Muscle weakness (generalized) (principal); Z11.52 Encounter for screening for COVID-19; G35 Multiple sclerosis; I48.91 Unspecified atrial fibrillation; Z79.01 Long term (current) use of anticoagulants; G25.3 Myoclonus; Z95.0 Presence of cardiac pacemaker
CPT/HCPCS: 36415; 80053; 81001; 82550; 84484; 85025; 87633; 93005; 93010; 99283; 99284

== ENCOUNTER 2024-01-28 11:26 | Day surgery (SDC) | payer MEDICARE, SELFPAY ==
[2023-02-18 10:57] VITALS: BMI 28.0
[2024-01-01 09:57] VITALS: BMI 27.1
[2024-01-28] MEDS: ACETAMINOPHEN 325 MG TABLET 975 MG PO (12:10)
[2024-01-28 12:20] VITALS: BP 134/60; PULSE 60; RESP 18; TEMP 37.2; O2SAT 100; BMI 25.4
[2024-01-28] MEDS: LACTATED RINGERS 1,000 ML 42 ML IV (12:40)
--- NOTE | 2024-01-28 13:57 | PM.HP.1 ---
History of Present Illness History of Present Illness Date Patient Seen: 01/28/24 Time Patient Seen: 13:57 Chief complaint: Open L inguinal hernia repair w/mesh Narrative: Wilma is an 83-year-old woman with a left inguinal hernia. See the office note from November for details. [facility] Medical History Seizure Myofascial pain Anemia Lumbar radiculopathy Right shoulder pain Osteoarthritis of right hip Lumbar spondylosis Wears glasses Anxiety (~1974) Myoclonus Restless leg syndrome Peripheral neuropathy Hip pain Osteopenia Foot pain Chronic back pain (~2021) Salmonella typhi (~1966) Mumps (~1947) Measles (~1947) Chicken pox (~1947) Tinnitus Hearing loss (~2016) Cataracts, bilateral (~2017) GERD (gastroesophageal reflux disease) Hypertension (~2018) Cardiac arrhythmia Pulmonary nodule Persistent atrial fibrillation Raynaud disease (~2017) Current use of nursing home anticoagulation Rheumatoid arthritis Multiple sclerosis Sjogren's disease (~1999) Surgical History History of cardioversion (~2021) Anesthesia S/P placement of cardiac pacemaker (~06/08/21) S/P ablation of atrial fibrillation (~2019) History of foot surgery History of hysterectomy (~1992) Family History Father Cardiomyopathy Diabetes mellitus Alzheimer's dementia Hypertension Mother Cancer Brother Coronary artery disease Hx of CABG Grandfather Cancer Grandmother Stroke Grandfather Accident Grandmother History of heart disease Social History marital status: unknown household members: none lives independently: Yes pets and animals: Yes occupational status: previously employed Smoking Status: Former smoker alcohol intake: current substance use type: does not use Meds Home Medications and Allergies Home Medications Medication Instructions Recorded Confirmed Type omeprazole 10 mg capsule,delayed 20 mg PO DAILY 05/09/20 01/28/24 History release rosuvastatin 10 mg tablet 10 mg PO DAILY 11/15/22 01/28/24 History calcium carbonate 600 mg PO DAILY 02/18/23 01/28/24 History amitriptyline 25 mg tablet 25 mg PO BEDTIME #90 tabs 07/22/23 01/28/24 Rx Eliquis 5 mg tablet (apixaban) 5 mg PO BID #180 tabs 12/26/23 01/28/24 Rx furosemide 20 mg tablet 20 mg PO DAILY 12/27/23 01/28/24 History metoprolol succinate 25 mg 25 mg PO BID 12/27/23 01/28/24 History tablet,extended release 24 hr gabapentin 100 mg capsule 200 mg (2 x 100 mg) PO TID #90 caps 01/02/24 01/28/24 Rx levetiracetam 500 mg tablet 500 mg PO BID #60 tabs 01/18/24 01/28/24 Rx (Keppra) Disabled Parking See Rx Instructions .Route 01/24/24 01/24/24 Rx .COMPLEX #365 days potassium chloride 10 mEq 10 meq PO DAILY 01/28/24 01/28/24 History tablet,extended release Allergies Allergy/AdvReac Type Severity Reaction Status Date / Time etomidate Allergy Seizure Verified 01/28/24 12:03 shellfish derived Allergy Verified 01/28/24 12:03 flecainide AdvReac Severe Unresponsiv Verified 01/28/24 12:03 e codeine [CODEINE] AdvReac Unknown Vomiting Verified 01/28/24 12:03 oyster extract AdvReac Diarrhea Verified 01/28/24 12:03 Exam Vital Signs (past 8 hours): - 01/28/24 12:20 Temperature 99.0 F Pulse Rate 60 Respiratory Rate 18 Blood Pressure 134/60 Pulse Oximetry 100 Oxygen Delivery Method Room Air Oxygen Delivery Method Room Air Narrative Exam Narrative: Reducible left inguinal hernia Assessment & Plan Assessment and plan (1) Left inguinal hernia: Status: Acute Plan Open left inguinal hernia repair with mesh Time-Based Coding :: [TOTAL MINUTES] spent with patient and on the chart (including review of chart, obtaining history, exam, reviewing outside data, placing orders, documenting exam and treatment plan, and counseling patient) on [DATE].
--- NOTE | 2024-01-28 14:34 | SUR.OPER ---
Supine on padded OR bed, head on pillow, arms secured on padded arm boards at <90 degrees abduction, legs uncrossed, safety belt at thigh, tape over blanket over lower legs.
[2024-01-28] MEDS: CEFAZOLIN 2 GM/100 ML PREMIX 100 ML IV (14:52)
[2024-01-28] MEDS: BUPIVACAINE 0.5% W/ EPI (PF) 30 ML VIAL INJ (15:04)
[2024-01-28 15:45] VITALS: BP 124/56; PULSE 85; RESP 14; TEMP 36.3; O2SAT 95
[2024-01-28 15:50] VITALS: BP 107/51; PULSE 85; RESP 13; TEMP 36.2; O2SAT 95
--- NOTE | 2024-01-28 15:50 | P.OP_ITS ---
Operative Date/Time/Diagnoses Date of procedure: 01/28/24 Time of procedure: 15:50 Pre-op diagnosis: Left inguinal hernia Post-op diagnosis: same Procedure & Clinicians Procedure: Open left inguinal hernia repair with mesh Same procedure as scheduled: Yes Surgeon: Gavino Schaefer Anesthesia Type: General Operative Notes Procedure in detail: Preoperative antibiotic was administered. The patient was brought to the operating room and placed on the table in supine position general anesthesia was induced. The left groin was prepped and draped in the normal fashion and a time-out was performed. Roughly 10 mL of local anesthetic were injected into the skin and subcutaneous adipose tissue over the left groin. A 6 cm incision was made over the left inguinal canal. Dissection was carried down through the subcutaneous adipose tissue. A bridging vein was cauterized. We exposed the external oblique aponeurosis in the direction of the fibers. Additional local was injected deep to the aponeurosis. A 15 blade scalpel was used to noelle the external oblique aponeurosis. Metzenbaum scissors were used to carefully open the aponeurosis in the direction of the fibers taking care not to injure the underlying ilioinguinal nerve. We completely exposed the inguinal canal. There was a fat containing inguinal hernia coming through the internal ring. We placed a polypropylene mesh over the inguinal canal floor. The mesh was secured with multiple interrupted 3-0 P rolene sutures to the pubic tubercle and shelving edge of the inguinal ligament as well as to the conjoint tendon medially. The tails were trimmed to fit the space appropriately. The internal ring was completely covered by mesh. We injected some more local into the fatty tissue in the inguinal canal and cord. Finally, we closed the external oblique fascia with a running 3-0 Vicryl suture. The skin was closed with interrupted 3-0 Vicryl dermal sutures and a running 4 Monocryl subcuticular stitch. EBL 5 mL The patient was awakened and brought to recovery room. Post-operative Condition: stable Disposition: PACU
[2024-01-28 15:56] VITALS: BP 114/66; PULSE 85; RESP 15; TEMP 36.2; O2SAT 98
[2024-01-28 16:02] VITALS: BP 121/56; PULSE 85; RESP 17; TEMP 36.3; O2SAT 98
[2024-01-28 16:30] VITALS: BP 128/86; PULSE 62; RESP 18; TEMP 36.8; O2SAT 98
--- NOTE | 2024-01-28 16:47 | SUR.PHASEII ---
1400 [employer] rep - Ruma here to reprogram pacemaker.
== END 2024-01-28 16:30 | disposition home or self-care (01) ==
PROVIDERS: PCP Family Medicine; Referring Provider Surgery; Visit Provider Surgery
PROC: (CPT 49505; principal; 2024-01-28 12:45)
DX: K40.90 Unilateral inguinal hernia, without obstruction or gangrene, not specified as recurrent (principal)
CPT/HCPCS: 49505; J0690; J1100; J2405; J2704; J3010; J3490

== ENCOUNTER → 2024-02-05 09:46 | Outpatient (CLI) | payer MEDICARE, SELFPAY ==
[2024-02-05 11:02] LABS: Alanine Aminotransferase 18 IU/L (<35); Albumin 3.6 g/dL (3.5-5.0); Albumin Globulin Ratio 1.6 (1.0-2.8); Alkaline Phosphatase 54 U/L (38-126); Aspartate Aminotransferase 25 IU/L (14-36); BUN Creatinine Ratio 12.2 (6-22); Bilirubin Total 0.6 mg/dL (0.2-1.3); Blood Urea Nitrogen 9 mg/dL (7-17); Calcium 9.3 mg/dL (8.4-10.2); Carbon Dioxide 26 mmol/L (22-32); Chloride 102 mmol/L (98-107); Cholesterol 142 mg/dL (140-199); Estimated Glomerular Filt Rate > 60 mL/min (>60); Globulin 2.2 g/dL (1.7-4.1); Glucose 139 mg/dL (80-110); HDL Cholesterol 50 mg/dL (40-60); HEMOLYSIS < 15 (0-50); LDL Cholesterol Calculated 71 mg/dL (<100); Potassium 4.3 mmol/L (3.4-5.1); Sodium 136 mmol/L (137-145); Total Protein 5.8 g/dL (6.3-8.2); Triglycerides 107 mg/dL (35-150)
== END ==
LOC: LAB 09:49
PROVIDERS: PCP Family Medicine
DX: E78.2 Mixed hyperlipidemia (principal); G25.3 Myoclonus; Z51.81 Encounter for therapeutic drug level monitoring
CPT/HCPCS: 36415; 80053; 80061; 80177

== ENCOUNTER 2024-02-22 13:03 | Emergency (ER) | payer MEDICARE, SELFPAY ==
[2024-02-22 13:05] VITALS: BP 187/74; PULSE 63; RESP 17; TEMP 36.8; O2SAT 99; BMI 25.6
--- NOTE | 2024-02-22 13:13 | PC.NURSE ---
At the end of triage, patient asked which doctor was working. Informed her that it was Dr Abdul and patient stated she did not want to see Dr Abdul and requested to leave. Educated patient that there were concerns about her stated complaint that patient acknowledged risks of leaving and endorsed her decision to leave. Educated patient that should symptoms worsen she can present to a different ED for treatment. Patient acknowledged. Ambulated out of waiting room.
== END 2024-02-22 13:17 | disposition left against medical advice (07) ==
PROVIDERS: Emergency Provider Emergency Medicine; PCP Family Medicine
CPT/HCPCS: 99281

== ENCOUNTER → 2024-03-04 09:45 | Outpatient (CLI) | payer MEDICARE, SELFPAY ==
--- NOTE | 2024-03-04 09:48 | DI.RAD.S_ITS ---
PROCEDURE: XR CHEST 2V INDICATIONS: needs prior to MRI due to pacemaker TECHNIQUE: 2 views of the chest were acquired. COMPARISON: [facility], , XR CHEST 1V, 12/17/2023, 12:22. FINDINGS: Surgical changes and devices: Dual lead left-sided pacemaker is present. Leads terminate in the expected location of the right ventricle and coronary sinus. Power pack projects over the left chest. Lungs and pleura: Lungs are clear. No pleural effusions or pneumothorax. Mediastinum: Mediastinal contours are normal. Heart size is normal. Bones and chest wall: No suspicious bony abnormalities. Soft tissues appear unremarkable. IMPRESSION: No acute cardiopulmonary disease. Left-sided dual lead pacemaker as described. Dictated by: Jessica Flood M.D. on 03/04/2024 at 21:07 Approved by: Jessica Flood M.D. on 03/04/2024 at 21:09
[2024-03-04 10:38] LABS: Add Manual Diff / Slide Review NO; Basophils Absolute Auto 0 /uL (0-100); Basophils Percent Auto 0.7 % (0-2); Eosinophils Absolute Auto 100 /uL (0-450); Eosinophils Percent Auto 1.1 % (2-4); Hematocrit 33.5 % (36-46); Hemoglobin 11.2 g/dL (12.0-16.0); Lymphocytes Absolute Auto 1700 /uL (1100-4500); Lymphocytes Percent Auto 22.9 % (25-40); Mean Corpuscular HGB Conc 33.5 % (30-36); Mean Corpuscular Hemoglobin 29.8 PG (26-34); Mean Corpuscular Volume 88.9 fL (80-100); Monocytes Absolute Auto 500 /uL (0-900); Monocytes Percent Auto 7.6 % (3-14); Neutrophils Absolute Auto 4900 /uL (1500-7000); Neutrophils Percent Auto 67.7 % (50-75); Platelet Count 296 X10^3/uL (150-400); Red Blood Cell Count 3.77 X10^6/uL (4.0-5.2); Red Cell Distribution Width 15.7 % (11.6-14.8); White Blood Cell Count 7.2 X10^3/uL (4.5-11.0)
[2024-03-04 10:57] LABS: Alanine Aminotransferase 15 IU/L (<35); Albumin 4.2 g/dL (3.5-5.0); Albumin Globulin Ratio 1.9 (1.0-2.8); Alkaline Phosphatase 61 U/L (38-126); Aspartate Aminotransferase 28 IU/L (14-36); BUN Creatinine Ratio 15.5 (6-22); Bilirubin Total 0.7 mg/dL (0.2-1.3); Blood Urea Nitrogen 13 mg/dL (7-17); Calcium 9.9 mg/dL (8.4-10.2); Carbon Dioxide 27 mmol/L (22-32); Chloride 104 mmol/L (98-107); Cholesterol 154 mg/dL (140-199); Estimated Glomerular Filt Rate > 60 mL/min (>60); Globulin 2.2 g/dL (1.7-4.1); Glucose 97 mg/dL (80-110); HDL Cholesterol 70 mg/dL (40-60); HEMOLYSIS < 15 (0-50); LDL Cholesterol Calculated 70 mg/dL (<100); Potassium 3.9 mmol/L (3.4-5.1); Sodium 141 mmol/L (137-145); Total Protein 6.4 g/dL (6.3-8.2); Triglycerides 70 mg/dL (35-150)
[2024-03-04 15:39] LABS: Creatinine Urine Random 75.98 mg/dL
[2024-03-04 15:46] LABS: Microalbumin Urine Random 0.8 mg/dL (0-1.6)
== END ==
PROVIDERS: PCP Family Medicine; Referring Provider Family Medicine; Visit Provider Family Medicine
DX: I10 Essential (primary) hypertension (principal); G35 Multiple sclerosis; E78.00 Pure hypercholesterolemia, unspecified; Z95.0 Presence of cardiac pacemaker
CPT/HCPCS: 36415; 71046; 80053; 80061; 82043; 82570; 85025

== ENCOUNTER → 2024-03-16 13:09 | Outpatient (CLI) | payer MEDICARE, SELFPAY ==
[2024-03-16 15:06] LABS: HEMOLYSIS < 15 (0-50); Iron 71 ug/dL (37-170)
[2024-03-16 15:18] LABS: Percent Iron Saturation 21 % (15-50); Total Iron Binding Capacity 333 ug/dL (265-497); Transferrin 309 mg/dL (206-381)
[2024-03-16 15:41] LABS: Ferritin 32 ng/mL (11-264)
== END ==
PROVIDERS: PCP Family Medicine; Referring Provider Family Medicine; Visit Provider Family Medicine
DX: D64.9 Anemia, unspecified (principal)
CPT/HCPCS: 36415; 82728; 83540; 83550

== ENCOUNTER → 2024-03-25 09:55 | Outpatient (CLI) | payer MEDICARE, SELFPAY ==
[2024-03-25 10:57] LABS: Alanine Aminotransferase 23 IU/L (<35); Albumin 4.4 g/dL (3.5-5.0); Alkaline Phosphatase 64 U/L (38-126); Aspartate Aminotransferase 38 IU/L (14-36); BUN Creatinine Ratio 23.8 (6-22); Bilirubin Total 0.7 mg/dL (0.2-1.3); Blood Urea Nitrogen 20 mg/dL (7-17); Calcium 9.6 mg/dL (8.4-10.2); Carbon Dioxide 25 mmol/L (22-32); Chloride 108 mmol/L (98-107); Cholesterol 156 mg/dL (140-199); Estimated Glomerular Filt Rate > 60 mL/min (>60); Globulin 2.2 g/dL (1.7-4.1); Glucose 94 mg/dL (80-110); HDL Cholesterol 81 mg/dL (40-60); HEMOLYSIS < 15 (0-50); LDL Cholesterol Calculated 62 mg/dL (<100); Potassium 4.5 mmol/L (3.4-5.1); Sodium 141 mmol/L (137-145); Total Protein 6.6 g/dL (6.3-8.2); Triglycerides 67 mg/dL (35-150)
== END ==
PROVIDERS: PCP Family Medicine; Referring Provider Internal Medicine Cardiovascular Disease; Visit Provider Internal Medicine Cardiovascular Disease
DX: E78.2 Mixed hyperlipidemia (principal)
CPT/HCPCS: 36415; 80053; 80061